=== PATIENT | female | born 1930 | race Caucasian/White ===

== ENCOUNTER 2017-01-26 23:31 | Emergency (ER) | payer MEDICARE, BC ==
--- NOTE | 2017-01-27 | ED ---
Head Injury - HPI Summary HPI Summary: Patient arrives [facility] after falling and hitting head. She lives alone and was getting ready for bed when she felt her legs give out on her. She states this is common for her and she will sometimes fall with it, but normally does not hit her head or injure other parts of her body. She takes a baby aspirin daily. Her family is with her. She does not want blood work as this is a common problem for her. She denies other pain, weakness, ADAMS, urinary symptoms or abd pain. - History Of Current Complaint Chief Complaint: EDGeneral Stated Complaint: FALL Time Seen by Provider: 01/26/17 23:43 Hx Obtained From: Patient Mechanism Of Injury: Blunt Trauma Onset/Duration: Started Minutes Ago Onset of Pain: Immediate Severity Currently: Mild Severity Initially: Mild Pain Intensity: 1 Pain Scale Used: 0-10 Numeric Alleviating Factor(s): Rest Associated Signs And Symptoms: Neck Pain Related History: Similar Episode/Dx as - previous falls - Risk Factors SDH Risk Factor: Recent Trauma - Allergies/Home Medications Allergies/Adverse Reactions: Allergies Allergy/AdvReac Type Severity Reaction Status Date / Time Penicillins [PCN] Allergy Mild Hives Verified 03/31/16 12:52 Sulfa Antibiotics Allergy Mild Hives Verified 03/31/16 12:52 PMH/Surg Hx/FS Hx/Imm Hx Previously Healthy: No Endocrine/Hematology History: Reports: Hx Blood Transfusions, Hx Diabetes - TYPE 2 Cardiovascular History: Reports: Hx Angina, Hx Coronary Artery Disease, Hx Hypercholesterolemia, Hx Hypertension - controllled by med Denies: Other Cardiovascular Problems/Disorders Respiratory History: Reports: Hx Pneumonia, Other Respiratory Problems/ Disorders - HAD PNEUMONIA 09/04 GI History: Reports: Hx Gall Bladder Disease - S/P CONSTANTINE History: Reports: Other Problems/Disorders - CKD, INCONTENCE Musculoskeletal History: Reports: Hx Fibromyalgia, Hx Orthopedic Injury - LEFT WRIST FRACTURE W/REPAIR /W PLATE Sensory History: Reports: Hx Contacts or Glasses, Hx Deafness Denies: Hx Cataracts, Hx Eye Injury, Hx Eye Prosthesis, Hx Glaucoma, Hx Legally Blind, Hx Macular Degeneration, Hx Vision Problem, Hx Hearing Aid, Hx Hearing Problem Opthamlomology History: Reports: Hx Contacts or Glasses Denies: Hx Cataracts, Hx Eye Injury, Hx Eye Prosthesis, Hx Glaucoma, Hx Legally Blind, Hx Macular Degeneration, Hx Vision Problem - Surgical History Surgery Procedure, Year, and Place: APPENDECTOMY. CHOLEYSECTOMY. LEFT WRIST FRACTURE REPAIR W/PLATE. CARDIAC STENT Hx Anesthesia Reactions: No Infectious Disease History: Denies: Hx Clostridium Difficile, Hx Hepatitis, Hx Human Immunodeficiency Virus (HIV), Hx of Known/Suspected MRSA, Hx Shingles, Hx Tuberculosis, Hx Known/ Suspected VRE, Hx Known/Suspected VRSA, History Other Infectious Disease, Traveled Outside the [place] in Last 30 Days - Family History Known Family History: Positive: Cardiac Disease, Hypertension - Social History Occupation: Unemployed Lives: Alone Alcohol Use: None Alcohol Amount: once in a blue ortiz" Hx Substance Use: No Substance Use Type: Reports: None Hx Tobacco Use: Yes Smoking Status (MU): Former Smoker Type: Cigarettes Have You Smoked in the Last Year: No Review of Systems Constitutional: Negative Eyes: Negative Cardiovascular: Negative Respiratory: Negative Positive: no symptoms reported, see HPI Positive: Arthralgia Skin: Negative Neurological: Negative Psychological: Normal All Other Systems Reviewed And Are Negative: Yes Physical Exam Triage Information Reviewed: Yes Vital Signs Reviewed: Yes Appearance: Positive: Well-Appearing, Well-Nourished Skin: Positive: Warm, Skin Color Reflects Adequate Perfusion Head/Face: Positive: Normal Head/Face Inspection Eyes: Positive: EOMI, TAMMIE, Conjunctiva Clear Neck: Positive: Supple, No Lymphadenopathy Respiratory/Lung Sounds: Positive: Clear to Auscultation, Breath Sounds Present Bowel Sounds: Positive: Present Musculoskeletal: Positive: Pain @ - midline posterior cervical spine Neurological: Positive: Alert, Oriented to Person Place, Time Psychiatric: Positive: Normal AVPU Assessment: Alert Head Injury Course/Dx Course Of Treatment: Patient sent to CT for brain and cervical spine. Both negative. Family is with patient. Encouraged her to return if new or worsening symptoms develop - Diagnoses Differential Diagnosis/HQI/PQRI: Concussion With LOC, Concussion Without LOC, Hematoma Provider Diagnoses: Head trauma Discharge - Discharge Plan Condition: Stable Disposition: HOME Patient Education Materials: Fall Prevention for Older Adults (ED) Referrals: Domi Bennett MD [Primary Care Provider] - Additional Instructions: Please follow up with your PCP IF symptoms persist, or you notice any new pain, please come back to ED
[2017-01-27] MEDS ORDERED: Acetaminophen TAB* 325 MG PO ONE (01:13)
[2017-01-27 01:52] VITALS: BP 139/40
--- NOTE | 2017-01-27 07:42 | RAD ---
HISTORY: Head trauma COMPARISONS: March 31, 2016 TECHNIQUE: Multiple contiguous axial CT scans were obtained of the head without intravenous contrast. FINDINGS: HEMORRHAGE/INFARCT: There is no hemorrhage or acute infarct. MASSES/SHIFT: There is no mass or shift. EXTRA-AXIAL SPACES: There are no extra-axial fluid collections. SULCI AND VENTRICLES: The sulci and ventricles are normal in size and position for the patient's stated age. CEREBRUM: There is hypoattenuation of the periventricular and subcortical white matter. BRAINSTEM: There are no focal parenchymal abnormalities. CEREBELLUM: There are no focal parenchymal abnormalities. VESSELS: There is calcification of the cavernous segments of the internal carotid arteries bilaterally and of the distal vertebral arteries bilaterally. PARANASAL SINUSES: The paranasal sinuses are clear. ORBITS: The orbits are unremarkable. BONES AND SOFT TISSUE: No bone or soft tissue abnormalities are noted. OTHER: None IMPRESSION: NO ACUTE INTRACRANIAL PATHOLOGY. CHRONIC SMALL VESSEL ISCHEMIC CHANGES.
--- NOTE | 2017-01-27 07:51 | RAD ---
INDICATION: Trauma. COMPARISON: There are no prior studies available for comparison. TECHNIQUE: Contiguous axial sections were obtained from the skull base through the C7 vertebra. Images were reconstructed in the sagittal and coronal planes. FINDINGS: The vertebra are in normal alignment. No prevertebral soft tissue swelling or fracture is seen. At the C4-C5 level there is mild posterior uncinate process spurring. No significant spinal canal or neural foraminal narrowing is seen. At the C5-C6 level there is mild posterior uncinate process spurring. No significant spinal canal narrowing is present. There is mild bilateral neural foraminal narrowing. At the C6-C7 level there is mild posterior uncinate process spurring no significant spinal canal narrowing is seen. There is mild neural foraminal narrowing on the left side. The lung apices appear clear. IMPRESSION: 1. NO EVIDENCE FOR FRACTURE OR SUBLUXATION. 2. MILD CERVICAL SPONDYLOSIS.
== END 2017-01-27 01:51 | disposition home or self-care (01) ==
LOC: ED 23:31
DX: S09.90XA Unspecified injury of head, initial encounter (principal); W01.10XA Fall on same level from slipping, tripping and stumbling with subsequent striking against unspecified object, initial encounter; Y92.9 Unspecified place or not applicable; E11.9 Type 2 diabetes mellitus without complications; I25.119 Atherosclerotic heart disease of native coronary artery with unspecified angina pectoris; E78.00 Pure hypercholesterolemia, unspecified; Z87.891 Personal history of nicotine dependence; I12.9 Hypertensive chronic kidney disease with stage 1 through stage 4 chronic kidney disease, or unspecified chronic kidney disease; N18.9 Chronic kidney disease, unspecified; Z88.0 Allergy status to penicillin; Z88.2 Allergy status to sulfonamides
CPT/HCPCS: 70450; 72125; 99283; A9270-GY

== ENCOUNTER 2017-03-11 20:23 | Inpatient (IN) | payer MEDICARE, BC ==
[2017-03-11] MEDS ORDERED: NS 0.9% 1000 ML* 1,000 ML IV SCH (21:30)
--- NOTE | 2017-03-11 21:41 | RAD ---
INDICATION: Short of breath COMPARISON: December 05, 2014 TECHNIQUE: An AP portable view obtained at 2129 hours is submitted. FINDINGS: Bones/Soft Tissues: There are no acute bony findings. Cardiomediastinal: The cardiomediastinal silhouette is normal. Lungs: There is infiltrate in left lung base with small bilateral pleural effusions. There is interstitial prominence some of which is chronic and some which may represent interstitial edema. Pleura: There may be small bilateral effusions.. Other: None IMPRESSION: SUSPECT MILD INTERSTITIAL CONGESTION WITH IMPROVEMENT SUPERIMPOSED UPON CHRONIC INTERSTITIAL CHANGES. LEFT BASILAR AIRSPACE DISEASE CONSISTENT WITH INFILTRATE, ATELECTASIS, PLEURAL FLUID, OR COMBINATION OF THE 3. THIS APPEARS STABLE
[2017-03-11 22:34] LABS: Hematocrit 34 % (35-47); Hemoglobin 10.8 g/dl (12.0-16.0); Mean Corpuscular HGB Conc 31 g/dl (31-36); Mean Corpuscular Hemoglobin 27 pg (27-31); Mean Corpuscular Volume 87 fL (80-97); Mean Platelet Volume 7 um3 (7.4-10.4); Red Blood Count 3.96 10^6/ul (4.0-5.4); Red Cell Distribution Width 14 % (10.5-15); White Blood Count 21.2 10^3/ul (3.5-10.8)
[2017-03-11 22:36] LABS: Add Diff/Slide Review? Manual Diff Added; Comments Flag Yes
[2017-03-11 22:45] LABS: ALT 20 U/L (7-52); Albumin 3.4 g/dL (3.2-5.2); Alkaline Phosphatase 111 U/L (34-104); BUN/Creatinine Ratio 28.2 (8-20); Blood Urea Nitrogen 60 mg/dL (6-24); C Reactive Protein 21.86 mg/L (< 5.00); CO2 Carbon Dioxide 25 mmol/L (22-32); Calcium 8.9 mg/dL (8.6-10.3); Chloride 99 mmol/L (101-111); Creatine Kinase 124 U/L (10-223); EGFR African American 28.2 (>60); EGFR Non-African American 21.9 (>60); Globulin 3.6 g/dL (2-4); Glucose 148 mg/dL (70-100); Lipase 17 U/L (11.0-82.0); Sodium 135 mmol/L (133-145)
[2017-03-11 22:47] LABS: Troponin I 0.01 ng/mL (<0.04)
[2017-03-11 22:51] LABS: Anion Gap 11 mmol/L (2-11)
[2017-03-11 22:56] LABS: Immature Granulocytes 12 % (0-9); Neutrophil % 80 % (38-83); Reactive Lymph % 1 % (0-6)
[2017-03-11 22:57] LABS: Add Path Review? YES; Polychromasia 1+
[2017-03-11 23:09] LABS: TSH (Thyroid Stimulating Horm) 2.44 mcIU/mL (0.34-5.60)
[2017-03-11] MEDS ORDERED: Azithromycin IV(*) 500 MG in NS 0.9% 250 ML* 250 ML IVPB ONE (23:30)
[2017-03-11] MEDS ORDERED: cefTRIAXone(*) 1 GM in NS 0.9% 50 ML* 50 ML IVPB ONE (23:30)
[2017-03-11] MEDS ORDERED: CMCS: Melatonin (NF) 3 MG TAB PO PRN (23:51)
[2017-03-11] MEDS ORDERED: Ondansetron INJ* 2 MG/ML VIAL IV PRN (23:51)
--- NOTE | 2017-03-12 01:28 | ED ---
carline Harrison Timothy, scribed for Jordan Saha MD on 03/11/17 at 2313 . Respiratory - HPI Summary HPI Summary: Alesia Song is an 86 yo female presenting to [facility] with SOB and cough for the past 3 days. She states she had a cold which turned into her current Sx. She states she has dyspnea at rest. She states her cough was productive, but she can no longer cough up sputum. She denies any fever or chills. She also denies abd pain, nausea, or any other Sx. She states she cannot remember if her current Sx are similar to when she had CHF. She has some pain throughout her legs bilaterally, worse on the right, but believes this is due to neuropathy. Her MHx includes angina, CAD, cardiac catheterization, CHF, HLD, SVT&P, Afib, AVR, HTN, PNA, gallbladder disease, cholecystectomy, CKD, fibromyalgia, DM II, tobacco use. - History of Current Complaint Chief Complaint: EDShortnessOfBreath Stated Complaint: SOB Time Seen by Provider: 03/11/17 23:07 Hx Obtained From: Patient Onset/Duration: Sudden Onset, Lasting Days, Still Present Timing: Constant Initial Severity: Moderate Current Severity: Moderate Character: Cough (Productive), Cough (Nonproductive) - current, Dyspnea at Rest Associated Signs and Symptoms: SOB - Allergy/Home Medications Allergies/Adverse Reactions: Allergies Allergy/AdvReac Type Severity Reaction Status Date / Time Penicillins [PCN] Allergy Mild Hives Verified 03/31/16 12:52 Sulfa Antibiotics Allergy Mild Hives Verified 03/31/16 12:52 Home Medications: Home Medications Amitriptyline TAB* 10 mg PO BEDTIME 03/12/17 [History Confirmed 03/12/17] Atorvastatin* 20 mg PO DAILY 03/12/17 [History Confirmed 03/12/17] Calcium + D 500-1000-40 mg-Unt-Mcg 1 dose PO DAILY 03/12/17 [History Confirmed 03/12/17] Humalog 6 - 7 units SUBCUT SEE INSTRUCTIONS 03/12/17 [History Confirmed 03/12/17 ] Humalog 8 unit SUBCUT SEE INSTRUCTIONS 03/12/17 [History Confirmed 03/12/17] Torsemide TAB* 10 mg PO DAILY 03/12/17 [History Confirmed 06/21/17] PMH/Surg Hx/FS Hx/Imm Hx Endocrine/Hematology History: Reports: Hx Blood Transfusions, Hx Diabetes - TYPE 2 Cardiovascular History: Reports: Hx Angina, Hx Congestive Heart Failure, Hx Coronary Artery Disease, Hx Hypercholesterolemia, Hx Hypertension - controllled by med Denies: Other Cardiovascular Problems/Disorders Respiratory History: Reports: Hx Pneumonia, Other Respiratory Problems/ Disorders - HAD PNEUMONIA 09/04 GI History: Reports: Hx Gall Bladder Disease - S/P CONSTANTINE History: Reports: Other Problems/Disorders - CKD, INCONTENCE Musculoskeletal History: Reports: Hx Fibromyalgia, Hx Orthopedic Injury - LEFT WRIST FRACTURE W/REPAIR /W PLATE Sensory History: Reports: Hx Contacts or Glasses, Hx Deafness Denies: Hx Cataracts, Hx Eye Injury, Hx Eye Prosthesis, Hx Glaucoma, Hx Legally Blind, Hx Macular Degeneration, Hx Vision Problem, Hx Hearing Aid, Hx Hearing Problem Opthamlomology History: Reports: Hx Contacts or Glasses Denies: Hx Cataracts, Hx Eye Injury, Hx Eye Prosthesis, Hx Glaucoma, Hx Legally Blind, Hx Macular Degeneration, Hx Vision Problem - Surgical History Surgery Procedure, Year, and Place: APPENDECTOMY. CHOLEYSECTOMY. LEFT WRIST FRACTURE REPAIR W/PLATE. CARDIAC STENT Hx Anesthesia Reactions: No Infectious Disease History: Denies: Hx Clostridium Difficile, Hx Hepatitis, Hx Human Immunodeficiency Virus (HIV), Hx of Known/Suspected MRSA, Hx Shingles, Hx Tuberculosis, Hx Known/ Suspected VRE, Hx Known/Suspected VRSA, History Other Infectious Disease, Traveled Outside the [place] in Last 30 Days - Family History Known Family History: Positive: Cardiac Disease, Hypertension - Social History Alcohol Use: None Alcohol Amount: once in a blue ortiz" Hx Substance Use: No Substance Use Type: Reports: None Hx Tobacco Use: Yes Smoking Status (MU): Former Smoker Type: Cigarettes Have You Smoked in the Last Year: No Review of Systems Constitutional: Negative Negative: Fever, Chills Eyes: Negative ENT: Negative Cardiovascular: Negative Positive: Shortness Of Breath, Cough Gastrointestinal: Negative Genitourinary: Negative Musculoskeletal: Negative Skin: Negative Neurological: Negative Psychological: Normal All Other Systems Reviewed And Are Negative: Yes Physical Exam Triage Information Reviewed: Yes Vital Signs On Initial Exam: Initial Vital Signs Temp 98.3 F 03/11/17 23:07 Pulse 99 03/11/17 23:07 Resp 18 03/11/17 23:07 BP 157/58 03/11/17 23:07 Pulse Ox 99 03/11/17 23:07 Vital Signs Reviewed: Yes Appearance: Positive: No Pain Distress, Well-Nourished, Ill-Appearing - mildly Skin: Positive: Warm, Skin Color Reflects Adequate Perfusion, Dry, Other - LLE has erythema and is warm to touch Head/Face: Positive: Normal Head/Face Inspection Eyes: Positive: EOMI, TAMMIE ENT: Positive: Normal ENT inspection Neck: Positive: Supple, Nontender Respiratory/Lung Sounds: Positive: Breath Sounds Present, Rhonchi - biulaterally Cardiovascular: Positive: Tachycardia Abdomen Description: Positive: Nontender, Soft Bowel Sounds: Positive: Present Musculoskeletal: Positive: Normal, Strength/ROM Intact Neurological: Positive: Normal, Sensory/Motor Intact, Alert, Oriented to Person Place, Time Psychiatric: Positive: Affect/Mood Appropriate Diagnostics - Vital Signs Vital Signs Temp Pulse Resp BP Pulse Ox 03/12/17 00:01 102 26 161/48 91 03/12/17 00:00 110 26 79 03/11/17 23:30 100 27 152/51 97 03/11/17 23:07 98.3 F 99 18 157/58 99 03/11/17 23:00 99 23 157/58 97 03/11/17 22:30 99 25 151/54 94 03/11/17 22:28 98 23 94 03/11/17 22:27 157/70 - Laboratory Lab Results: Lab Results 03/11/17 03/11/17 03/11/17 Range/Units 22:20 22:20 22:20 WBC 21.2 H (3.5-10.8) 10^3/ul RBC 3.96 L (4.0-5.4) 10^6/ul Hgb 10.8 L (12.0-16.0) g/dl Hct 34 L (35-47) % MCV 87 (80-97) fL MCH 27 (27-31) pg MCHC 31 (31-36) g/dl RDW 14 (10.5-15) % Plt Count 326 (150-450) 10^3/ul MPV 7 L (7.4-10.4) um3 Immature Gran % (Auto) 12 H (0-9) % Absolute Neuts (auto) 19.1 H (1.5-7.7) 10^3/ul Absolute Lymphs (auto) 0.5 L (1.0-4.8) 10^3/ul Absolute Monos (auto) 1.0 H (0-0.8) 10^3/ul Absolute Eos (auto) 0.1 (0-0.6) 10^3/ul Absolute Basos (auto) 0.5 H (0-0.2) 10^3/ul Absolute Nucleated RBC 0.01 10^3/ul Neutrophils % 80 (38-83) % Band Neutrophils % 12 H (0-8) % Lymphocytes % 1 L (25-47) % Reactive Lymphs % 1 (0-6) % Monocytes % 6 (0-13) % Normal RBC Morphology Not Reportable Polychromasia 1+ Hem Pathologist Commnt Pending INR (Anticoag Therapy) 0.97 (0.89-1.11) APTT 30.9 (26.0-36.3) seconds D-Dimer, Quantitative 325 H (Less Than 230) ng/mL Sodium 135 (133-145) mmol/L Potassium TNP Chloride 99 L (101-111) mmol/L Carbon Dioxide 25 (22-32) mmol/L Anion Gap 11 (2-11) mmol/L BUN 60 H (6-24) mg/dL Creatinine 2.13 H (0.51-0.95) mg/dL Est GFR ( Amer) 28.2 (>60) Est GFR (Non-Af Amer) 21.9 (>60) BUN/Creatinine Ratio 28.2 H (8-20) Glucose 148 H (70-100) mg/dL Lactic Acid (0.5-2.0) mmol/L Calcium 8.9 (8.6-10.3) mg/dL Magnesium TNP Total Bilirubin 0.40 (0.2-1.0) mg/dL AST TNP ALT 20 (7-52) U/L Alkaline Phosphatase 111 H (34-104) U/L Total Creatine Kinase 124 (10-223) U/L CK-MB (CK-2) 12.7 H (0.6-6.3) ng/mL Troponin I 0.01 (<0.04) ng/mL C-Reactive Protein 21.86 H (< 5.00) mg/L B-Natriuretic Peptide ( - 100) pg/mL Total Protein 7.0 (6.4-8.9) g/dL Albumin 3.4 (3.2-5.2) g/dL Globulin 3.6 (2-4) g/dL Albumin/Globulin Ratio 0.9 L (1-3) Lipase 17 (11.0-82.0) U/L TSH Pending 03/11/17 03/11/17 Range/Units 22:20 22:20 WBC (3.5-10.8) 10^3/ul RBC (4.0-5.4) 10^6/ul Hgb (12.0-16.0) g/dl Hct (35-47) % MCV (80-97) fL MCH (27-31) pg MCHC (31-36) g/dl RDW (10.5-15) % Plt Count (150-450) 10^3/ul MPV (7.4-10.4) um3 Immature Gran % (Auto) (0-9) % Absolute Neuts (auto) (1.5-7.7) 10^3/ul Absolute Lymphs (auto) (1.0-4.8) 10^3/ul Absolute Monos (auto) (0-0.8) 10^3/ul Absolute Eos (auto) (0-0.6) 10^3/ul Absolute Basos (auto) (0-0.2) 10^3/ul Absolute Nucleated RBC 10^3/ul Neutrophils % (38-83) % Band Neutrophils % (0-8) % Lymphocytes % (25-47) % Reactive Lymphs % (0-6) % Monocytes % (0-13) % Normal RBC Morphology Polychromasia Hem Pathologist Commnt INR (Anticoag Therapy) (0.89-1.11) APTT (26.0-36.3) seconds D-Dimer, Quantitative (Less Than 230) ng/mL Sodium (133-145) mmol/L Potassium Chloride (101-111) mmol/L Carbon Dioxide (22-32) mmol/L Anion Gap (2-11) mmol/L BUN (6-24) mg/dL Creatinine (0.51-0.95) mg/dL Est GFR ( Amer) (>60) Est GFR (Non-Af Amer) (>60) BUN/Creatinine Ratio (8-20) Glucose (70-100) mg/dL Lactic Acid 1.1 (0.5-2.0) mmol/L Calcium (8.6-10.3) mg/dL Magnesium Total Bilirubin (0.2-1.0) mg/dL AST ALT (7-52) U/L Alkaline Phosphatase (34-104) U/L Total Creatine Kinase (10-223) U/L CK-MB (CK-2) (0.6-6.3) ng/mL Troponin I (<0.04) ng/mL C-Reactive Protein (< 5.00) mg/L B-Natriuretic Peptide 301 H ( - 100) pg/mL Total Protein (6.4-8.9) g/dL Albumin (3.2-5.2) g/dL Globulin (2-4) g/dL Albumin/Globulin Ratio (1-3) Lipase (11.0-82.0) U/L TSH Result Diagrams: 03/11/17 22:20 03/11/17 22:20 Lab Statement: Any lab studies that have been ordered have been reviewed, and results considered in the medical decision making process. - Radiology CXR Xray Interpretation: Positive (See Comments) - IMPRESSION: SUSPECT MILD INTERSTITIAL CONGESTION WITH IMPROVEMENT SUPERIMPOSED UPON CHRONIC INTERSTITIAL CHANGES. LEFT BASILAR AIRSPACE DISEASE CONSISTENT WITH INFILTRATE, ATELECTASIS, PLEURAL FLUID, OR COMBINATION OF THE 3. THIS APPEARS STABLE Radiology Interpretation Completed By: Radiologist - Ultrasound No standard instances Ultrasound Interpretation: No Acute Changes - No evidence of DVT in bilateral lower extremities. Ultrasound Interpretation Completed By: Radiologist - Venous Doppler bilat lower extrem. Imaging special education preschool teacher - EKG 2328 Cardiac Rate: NL - 99 BPM EKG Interpretation: NSR @ 99 BPM, normal ST, no ectopy Disposition - Course Assessment/Plan: Alesia Song is an 86 yo female presenting to [facility] with SOB and cough for the past 3 days. Her medication list is reviewed this visit. Note that Pt O2 Sat on 2L was 89. In the ED course she received IV fluids, ceftriazone, and azithromycin. Her CXR suggests mild interstitial congestion with improvement superimposed upon chronic interstitial changes. Left basilar airspace disease consistent with infiltrate, atelactasis, pleural fluid, or combination of the 3, which appears stable. Her EKG; NSR with normal St and no ectopy. Pt was counseled that admission may be the best course of Tx for her. After clinical examination and review of her lab and imaging studies, as well as discussion with Dr. Floyd, she will be admitted to [facility] for further observation, evaluation, and treatment. Her Venous Doppler of the bilateral lower extremities; no DVT. NO CRITICAL CARE TIME. ADMIT HOSPITALIST STABLE. - Differential Dx - Cardiopulmonary Differential Diagnoses - Cardiopulmonary: CHF, Other - cellulitis - Diagnoses Provider Diagnoses: Pneumonia, CHF (congestive heart failure), Cellulitis, Dehydration - Physician Notifications Discussed Care Of Patient With: Griffin Floyd - Discussed Pt condition, accepts Pt for admission to [facility] Time Discussed With Above Provider: 23:25 Discharge - Discharge Plan Condition: Stable Disposition: ADMITTED TO [facility] The documentation as recorded by the carline ingram Timothy accurately reflects the service I personally performed and the decisions made by me, Jordan Saha MD.
[2017-03-12 01:34] LABS: Magnesium 1.9 mg/dL (1.9-2.7)
[2017-03-12] MEDS: Acetaminophen TAB* 325 MG PO PRN ×3 (03:02→18:20)
[2017-03-12] MEDS: NS 0.9% 1000 ML* 1,000 ML IV SCH ×2 (03:41→21:41)
[2017-03-12 04:47] LABS: Hematocrit 29 % (35-47); Hemoglobin 9.1 g/dl (12.0-16.0); Mean Corpuscular HGB Conc 32 g/dl (31-36); Mean Corpuscular Hemoglobin 28 pg (27-31); Mean Corpuscular Volume 87 fL (80-97); Mean Platelet Volume 7 um3 (7.4-10.4); Red Blood Count 3.27 10^6/ul (4.0-5.4); Red Cell Distribution Width 14 % (10.5-15); White Blood Count 23.3 10^3/ul (3.5-10.8)
[2017-03-12 04:49] LABS: Add Diff/Slide Review? Manual Diff Added; Comments Flag Yes
[2017-03-12 05:04] LABS: BUN/Creatinine Ratio 31.3 (8-20); Calcium 8.3 mg/dL (8.6-10.3); EGFR African American 30.7 (>60); EGFR Non-African American 23.8 (>60); Potassium 4.7 mmol/L (3.5-5.0)
[2017-03-12 05:37] LABS: Add Path Review? YES; Hypochromasia 1+; Immature Granulocytes 14 % (0-9); Neutrophil % 79 % (38-83)
[2017-03-12] MEDS: Omeprazole CAP* 20 MG PO SCH (06:06)
[2017-03-12] MEDS: Heparin VIAL(*) 5000 UNITS/ML VIAL (FIVE THOUSAND) SUBCUT SCH ×3 (06:07→21:46)
--- NOTE | 2017-03-12 06:12 | HP ---
H&P (Free Text) History and Physical: PCP: Yolande Bennett MD Date/Time of Evaluation: 03/11/2017 [id number] CC: SOB HPI: Mrs Song is an 86YO female HX CAD/stent who reports cough and congestion x2-3 weeks which had loosened up and become productive, but over the last 2 days has become tight and non-productive again. She denies F/C, N/V, sweats, chest pain, palpitations, light-headedness, change in bowel/bladder, or other issues. She began having SOB 03/10/2017 in the evening which persisted through today gradually worsening and prompting her to present for evaluation. PMedHx DM2 HTN CHF pAFIB hypothyroidism R carpal tunnel (no surgery) CAD/stent CKD stg 3b-4 Ambulatory Orders Aspirin Low Dose CHEW TAB* [Aspirin Low Dose TAB*] 81 mg PO DAILY 09/08/14 zzInsulin GLARGINE(*) [Lantus(*)] 6 units SUBCUT BEDTIME 09/08/14 Acetaminophen TAB* [Tylenol TAB*] 650 mg PO Q4H PRN 11/30/14 Amiodarone TAB* [Cordarone Tab*] 100 mg PO DAILY 11/30/14 Diltiazem CD CAP* [Cardizem CD CAP*] 180 mg PO DAILY 11/30/14 Levofloxacin TAB* [Levaquin 250 Tab*] 88 mg PO DAILY 11/30/14 Triamterene/HCTZ 37.5-25 MG* [Dyazide CAP*] 1 cap PO DAILY 11/30/14 zzInsulin inj LISPRO* [Humalog*] 8 units SUBCUT QAM 11/30/14 Amitriptyline TAB* 10 mg PO BEDTIME 03/12/17 Atorvastatin* 20 mg PO DAILY 03/12/17 Calcium + D 500-1000-40 mg-Unt-Mcg 1 dose PO DAILY 03/12/17 Humalog 6 - 7 units SUBCUT SEE INSTRUCTIONS 03/12/17 Humalog 8 unit SUBCUT SEE INSTRUCTIONS 03/12/17 Torsemide TAB* 10 mg PO DAILY 03/12/17 Allergies Penicillins [PCN] Allergy (Mild, Verified 03/31/16 12:52) Hives Sulfa Antibiotics Allergy (Mild, Verified 03/31/16 12:52) Hives PSurgHx cardiac stent appendectomy cholecystectomy tonsillectomy OU cataract extractions hysterectomy SocHx: former smoker quit in the 1970s, minimal alcohol, no recreational drugs; , lives alone; DNR/trial of intubation code status FamHx: Mother passed in her 80s of "old age. Father passed in his 80s of prostate CA. ROS: as above, otherwise reviewed and all were negative Constitutional: NAD, normally developed, overweight elderly white female vitals: Vital Signs Temp 36.8 C 03/12/17 02:52 Pulse 105 03/12/17 02:52 Resp 20 03/12/17 02:52 BP 150/61 03/12/17 02:52 Pulse Ox 92 03/12/17 02:52 Intake & Output 03/11/17 03/11/17 03/12/17 11:59 23:59 11:59 Weight 75.296 kg 72.121 kg HEENM: atraumatic; sclera/conjunctiva: non-icteric/clear; hearing: clinically intact; oropharynx: clear, mucosa tacky Neck: soft tissue: non-tender; thyroid: normal Pulmonary: diminished L base w/ bibasilar coarseness, fair to good aeration, no accessory muscle use CV: RR/RR, normal S1S2, no carotid bruit, no jugular venous distention, 2+ B DP/ PT, no edema Abdominal: soft, non-distended, non-tender, no rebound/guarding/rigidity, normoactive bowel sounds, no hepatosplenomegaly or masses, no costovertebral angle tenderness Musculoskeletal: general: grossly intact; gait: stable Integumental: normal appearance and texture of exposed skin Psychiatric orientation: AA&O to PPS affect: calm mood: cooperative eye contact: good content: reliable responses: timely insight: good Testing: Lab Results 03/11/17 03/11/17 03/11/17 Range/Units 22:20 22:20 22:20 WBC 21.2 H (3.5-10.8) 10^3/ul RBC 3.96 L (4.0-5.4) 10^6/ul Hgb 10.8 L (12.0-16.0) g/dl Hct 34 L (35-47) % MCV 87 (80-97) fL MCH 27 (27-31) pg MCHC 31 (31-36) g/dl RDW 14 (10.5-15) % Plt Count 326 (150-450) 10^3/ul MPV 7 L (7.4-10.4) um3 Immature Gran % (Auto) 12 H (0-9) % Absolute Neuts (auto) 19.1 H (1.5-7.7) 10^3/ul Absolute Lymphs (auto) 0.5 L (1.0-4.8) 10^3/ul Absolute Monos (auto) 1.0 H (0-0.8) 10^3/ul Absolute Eos (auto) 0.1 (0-0.6) 10^3/ul Absolute Basos (auto) 0.5 H (0-0.2) 10^3/ul Absolute Nucleated RBC 0.01 10^3/ul Neutrophils % 80 (38-83) % Band Neutrophils % 12 H (0-8) % Lymphocytes % 1 L (25-47) % Reactive Lymphs % 1 (0-6) % Monocytes % 6 (0-13) % Normal RBC Morphology Not Reportable Polychromasia 1+ Hypochromasia Hem Pathologist Commnt Pending INR (Anticoag Therapy) 0.97 (0.89-1.11) APTT 30.9 (26.0-36.3) seconds D-Dimer, Quantitative 325 H (Less Than 230) ng/mL Sodium 135 (133-145) mmol/L Potassium TNP Chloride 99 L (101-111) mmol/L Carbon Dioxide 25 (22-32) mmol/L Anion Gap 11 (2-11) mmol/L BUN 60 H (6-24) mg/dL Creatinine 2.13 H (0.51-0.95) mg/dL Est GFR ( Amer) 28.2 (>60) Est GFR (Non-Af Amer) 21.9 (>60) BUN/Creatinine Ratio 28.2 H (8-20) Glucose 148 H (70-100) mg/dL POC Glucose (mg/dL) (74-106) mg/dL Lactic Acid (0.5-2.0) mmol/L Calcium 8.9 (8.6-10.3) mg/dL Magnesium TNP Total Bilirubin 0.40 (0.2-1.0) mg/dL AST TNP ALT 20 (7-52) U/L Alkaline Phosphatase 111 H (34-104) U/L Total Creatine Kinase 124 (10-223) U/L CK-MB (CK-2) 12.7 H (0.6-6.3) ng/mL Troponin I 0.01 (<0.04) ng/mL C-Reactive Protein 21.86 H (< 5.00) mg/L B-Natriuretic Peptide ( - 100) pg/mL Total Protein 7.0 (6.4-8.9) g/dL Albumin 3.4 (3.2-5.2) g/dL Globulin 3.6 (2-4) g/dL Albumin/Globulin Ratio 0.9 L (1-3) Lipase 17 (11.0-82.0) U/L TSH 2.44 (0.34-5.60) mcIU/mL 03/11/17 03/11/17 03/12/17 Range/Units 22:20 22:20 00:45 WBC (3.5-10.8) 10^3/ul RBC (4.0-5.4) 10^6/ul Hgb (12.0-16.0) g/dl Hct (35-47) % MCV (80-97) fL MCH (27-31) pg MCHC (31-36) g/dl RDW (10.5-15) % Plt Count (150-450) 10^3/ul MPV (7.4-10.4) um3 Immature Gran % (Auto) (0-9) % Absolute Neuts (auto) (1.5-7.7) 10^3/ul Absolute Lymphs (auto) (1.0-4.8) 10^3/ul Absolute Monos (auto) (0-0.8) 10^3/ul Absolute Eos (auto) (0-0.6) 10^3/ul Absolute Basos (auto) (0-0.2) 10^3/ul Absolute Nucleated RBC 10^3/ul Neutrophils % (38-83) % Band Neutrophils % (0-8) % Lymphocytes % (25-47) % Reactive Lymphs % (0-6) % Monocytes % (0-13) % Normal RBC Morphology Polychromasia Hypochromasia Hem Pathologist Commnt INR (Anticoag Therapy) (0.89-1.11) APTT (26.0-36.3) seconds D-Dimer, Quantitative (Less Than 230) ng/mL Sodium (133-145) mmol/L Potassium 4.9 Chloride (101-111) mmol/L Carbon Dioxide (22-32) mmol/L Anion Gap (2-11) mmol/L BUN (6-24) mg/dL Creatinine (0.51-0.95) mg/dL Est GFR ( Amer) (>60) Est GFR (Non-Af Amer) (>60) BUN/Creatinine Ratio (8-20) Glucose (70-100) mg/dL POC Glucose (mg/dL) (74-106) mg/dL Lactic Acid 1.1 (0.5-2.0) mmol/L Calcium (8.6-10.3) mg/dL Magnesium 1.9 Total Bilirubin (0.2-1.0) mg/dL AST 20 ALT (7-52) U/L Alkaline Phosphatase (34-104) U/L Total Creatine Kinase (10-223) U/L CK-MB (CK-2) (0.6-6.3) ng/mL Troponin I (<0.04) ng/mL C-Reactive Protein (< 5.00) mg/L B-Natriuretic Peptide 301 H ( - 100) pg/mL Total Protein (6.4-8.9) g/dL Albumin (3.2-5.2) g/dL Globulin (2-4) g/dL Albumin/Globulin Ratio (1-3) Lipase (11.0-82.0) U/L TSH (0.34-5.60) mcIU/mL 03/12/17 03/12/17 03/12/17 Range/Units 03:36 04:34 04:34 WBC 23.3 H (3.5-10.8) 10^3/ul RBC 3.27 L (4.0-5.4) 10^6/ul Hgb 9.1 L (12.0-16.0) g/dl Hct 29 L (35-47) % MCV 87 (80-97) fL MCH 28 (27-31) pg MCHC 32 (31-36) g/dl RDW 14 (10.5-15) % Plt Count 295 (150-450) 10^3/ul MPV 7 L (7.4-10.4) um3 Immature Gran % (Auto) 14 H (0-9) % Absolute Neuts (auto) 21.2 H (1.5-7.7) 10^3/ul Absolute Lymphs (auto) 0.9 L (1.0-4.8) 10^3/ul Absolute Monos (auto) 0.8 (0-0.8) 10^3/ul Absolute Eos (auto) 0.5 (0-0.6) 10^3/ul Absolute Basos (auto) 0 (0-0.2) 10^3/ul Absolute Nucleated RBC 0 10^3/ul Neutrophils % 79 (38-83) % Band Neutrophils % 14 H (0-8) % Lymphocytes % 4 L (25-47) % Reactive Lymphs % (0-6) % Monocytes % 3 (0-13) % Normal RBC Morphology Not Reportable Polychromasia Hypochromasia 1+ Hem Pathologist Commnt Pending INR (Anticoag Therapy) (0.89-1.11) APTT (26.0-36.3) seconds D-Dimer, Quantitative (Less Than 230) ng/mL Sodium 133 (133-145) mmol/L Potassium 4.7 Chloride 100 L (101-111) mmol/L Carbon Dioxide 22 (22-32) mmol/L Anion Gap 11 (2-11) mmol/L BUN 62 H (6-24) mg/dL Creatinine 1.98 H (0.51-0.95) mg/dL Est GFR ( Amer) 30.7 (>60) Est GFR (Non-Af Amer) 23.8 (>60) BUN/Creatinine Ratio 31.3 H (8-20) Glucose 253 H (70-100) mg/dL POC Glucose (mg/dL) 258 H (74-106) mg/dL Lactic Acid (0.5-2.0) mmol/L Calcium 8.3 L (8.6-10.3) mg/dL Magnesium Total Bilirubin (0.2-1.0) mg/dL AST ALT (7-52) U/L Alkaline Phosphatase (34-104) U/L Total Creatine Kinase (10-223) U/L CK-MB (CK-2) (0.6-6.3) ng/mL Troponin I (<0.04) ng/mL C-Reactive Protein (< 5.00) mg/L B-Natriuretic Peptide ( - 100) pg/mL Total Protein (6.4-8.9) g/dL Albumin (3.2-5.2) g/dL Globulin (2-4) g/dL Albumin/Globulin Ratio (1-3) Lipase (11.0-82.0) U/L TSH (0.34-5.60) mcIU/mL ECG, personally reviewed: NSR rate 99, no ischemia CXR, personally reviewed: IMPRESSION: SUSPECT MILD INTERSTITIAL CONGESTION WITH IMPROVEMENT SUPERIMPOSED UPON CHRONIC INTERSTITIAL CHANGES. LEFT BASILAR AIRSPACE DISEASE CONSISTENT WITH INFILTRATE, ATELECTASIS, PLEURAL FLUID, OR COMBINATION OF THE 3. THIS APPEARS STABLE Impression: 86F presenting with fever & cough with baseline LLL abnormality on CXR DIAGNOSIS & PLAN Primary suspect LLL pneumonia superimposed on baseline LLL XRY abnormality : IV ceftriaxone & azithromycin : IVFs : blood & sputum CXs : obtain UA : check Legionella & S pneumo urine antigens : supplemental oxygen : supportive care elevated d-dimer : given that: : her d-dimer is minimally elevated, particularly considering her age : her symptoms are not supportive of pulmonary embolism : she has had 3 falls thus far in 2017 : she was admitted with a GI bleed in 2015 : her CKD stg 4 precludes CTA chest : her smoking HX may yield a falsely positive V/Q scan : due to the above, she is a poor candidate for long-term anticoagulation : after explaining the above with the patient/family they agreed it made little sense to demetrio an unlikely diagnosis for which treatment would be inadvisable Secondary DM2 : insulin carb ratio diet : basal/bolus/correctional insulin : check A1c HTN : continue diltiazem : hold triamterene/HCTZ for now CHF : continue torsemide : daily weights : strict I&Os pAFIB : NSR at this time : not on anticoagulation hypothyroidism : continue levofloxacin CAD/stent : continue aspirin CKD stg 3b-4 : avoid nephrotoxic agents : monitor periodically Admission Rational: inpatient for IVFs and IV ABX in patient at high risk of rapid decompensation/mortality in the outpatient setting DVTp: heparin SQ Code Status: DNR/trial of intubation; MOLST filled out HCP: son
--- NOTE | 2017-03-12 07:41 | RAD ---
INDICATION: Lower extremity calf pain. Positive d-dimer. COMPARISON: September 09, 2014 TECHNIQUE: Stanton scale, color Doppler, and spectral analysis of the deep veins of the BILATERAL lower extremities. Vessel compression, phasicity, and augmentation assessed. REPORT: The RIGHT common femoral, great saphenous, profunda femoral, femoral, popliteal, peroneal, and posterior tibial veins are patent. The LEFT common femoral, great saphenous, profunda femoral, femoral, popliteal, peroneal, and posterior tibial veins are patent. IMPRESSION: No evidence for RIGHT or LEFT lower extremity DVT.
[2017-03-12] MEDS ORDERED: Torsemide TAB* 20 MG PO SCH (09:00)
[2017-03-12] MEDS ORDERED: Spiriva Inhaler DEVICE* 1 EACH DEVICE INH ONE (09:00)
[2017-03-12] MEDS: Insulin LISPRO* 1 UNITS UNIT SUBCUT SCH ×7 (09:34→21:45)
[2017-03-12] MEDS: Aspirin Low Dose CHEW TAB* 81 MG PO SCH (09:45)
[2017-03-12] MEDS: Diltiazem CD CAP* 180 MG PO SCH (09:45)
[2017-03-12] MEDS: Docusate CAP* 100 MG PO SCH ×2 (09:45→21:42)
[2017-03-12] MEDS: Atorvastatin* 20 MG TAB PO SCH (09:45)
[2017-03-12] MEDS: Amiodarone TAB* 200 MG PO SCH (09:46)
[2017-03-12] MEDS: Mometasone/Formoter 200/5 MDI INH SCH ×2 (09:59→19:34)
[2017-03-12] MEDS: Tiotropium CAP.INH* CAP.INH/18 MCG INH SCH (10:00)
--- NOTE | 2017-03-12 10:09 | PN ---
Subjective Date of Service: 03/12/17 Interval History: This is an 86 yo female with CAD, DM, HTN, CHF, paroxysmal afib, hypothyroidism , and CKD who presented with cough and congestion with LLL infiltrate and leukocytosis. She was started on ceftriaxone and azithromycin. She states that she didn't sleep well last night and feels "lousy" this am. She is still coughing with SOB. She feels that she can't get her secretions out. Objective Active Medications: Acetaminophen (Tylenol Tab*) 650 mg PO Q6H PRN PRN Reason: FEVER/PAIN Last Admin: 03/12/17 09:45 Dose: 650 mg Albuterol (Ventolin 2.5 Mg/3 Ml Neb.Sally*) 2.5 mg INH Q2H PRN PRN Reason: SOB/WHEEZING Amiodarone HCl (Cordarone Tab*) 100 mg PO DAILY [facility] Last Admin: 03/12/17 09:46 Dose: 100 mg Amitriptyline HCl (Elavil Tab*) 10 mg PO BEDTIME [facility] Aspirin (Aspirin Low Dose Tab*) 81 mg PO DAILY [facility] Last Admin: 03/12/17 09:45 Dose: 81 mg Atorvastatin Calcium (Lipitor*) 20 mg PO DAILY [facility] Last Admin: 03/12/17 09:45 Dose: 20 mg Diltiazem HCl (Cardizem Cd Cap*) 180 mg PO DAILY [facility] Last Admin: 03/12/17 09:45 Dose: 180 mg Docusate Sodium (Colace Cap*) 200 mg PO BID [facility] Last Admin: 03/12/17 09:45 Dose: 200 mg Heparin Sodium (Porcine) (Heparin Vial(*)) 5,000 units SUBCUT Q8HR [facility] Last Admin: 03/12/17 06:07 Dose: 5,000 units Sodium Chloride (Ns 0.9% 1000 Ml*) 1,000 mls @ 85 mls/hr IV PER RATE [facility] Last Admin: 03/12/17 03:41 Dose: 85 mls/hr Ceftriaxone Sodium 1,000 mg/ (Sodium Chloride) 50 mls @ 200 mls/hr IVPB Q24H [facility] Azithromycin 500 mg/ Sodium (Chloride) 250 mls @ 250 mls/hr IVPB Q24H [facility] Insulin Glargine (Lantus(*)) 14 units SUBCUT 2100 [facility] Stop: 03/13/17 20:00 Insulin Human Lispro (Humalog*) 0 units SUBCUT AC TITA PRN Reason: Protocol Last Admin: 03/12/17 09:35 Dose: 2 units Insulin Human Lispro (Humalog*) 0 units SUBCUT ACHS [facility] PRN Reason: Protocol Last Admin: 03/12/17 09:34 Dose: 4 units Melatonin (Melatonin (Nf)) 3 mg PO BEDTIME PRN; Protocol PRN Reason: Sleep Mometasone Furoate/Formoterol Fumar (Dulera 200/5 Mdi*) 2 puff INH BID [facility] Last Admin: 03/12/17 09:59 Dose: 2 puff Omeprazole (Prilosec Cap*) 20 mg PO DAILY@0600 [facility] Last Admin: 03/12/17 06:06 Dose: 20 mg Ondansetron HCl (Zofran Inj*) 4 mg IV Q6H PRN PRN Reason: NAUSEA Tiotropium [place] (Spiriva Cap.Inh*) 1 cap INH DAILY [facility] Last Admin: 03/12/17 10:00 Dose: 1 cap Torsemide (Demadex*) 10 mg PO DAILY [facility] Last Admin: 03/12/17 09:46 Dose: 10 mg Vital Signs: Temp Pulse Resp BP Pulse Ox 98.3 F 91 18 150/61 91 03/12/17 02:52 03/12/17 10:04 03/12/17 10:04 03/12/17 02:52 03/12/17 10:04 Oxygen Devices in Use Now: Nasal Cannula Appearance: Mildly ill appearing elderly female in NAD Respiratory: Symmetrical Chest Expansion and Respiratory Effort, - - few crackles at lung bases Cardiovascular: NL Sounds; No Murmurs; No JVD, RRR Abdominal: NL Sounds; No Tenderness; No Distention Extremities: No Edema Neurological: Alert and Oriented x 3 Result Diagrams: 03/12/17 04:34 03/12/17 04:34 Additional Lab and Data: . Diagnostic Imaging: CXR - possible LLL infiltrate Assess/Plan/Problems-Billing Assessment: This is an 86 yo female with CAD, DM, HTN, CHF, paroxysmal atrial fibrillation, hypothyroidism and CKD who presents with complaints of cough and SOB with LLL infiltrate. - Patient Problems (1) Pneumonia Comment: LLL infiltrated on CXR Cont ceftriaxone and azithromycin Start Mucinex and flutter valve to help clear secretions Afebrile and mildly tachy (2) Acute on chronic renal insufficiency Comment: Likely due to hypovolemia Cont IVF (3) IDDM (insulin dependent diabetes mellitus) Comment: Cont home insulin regimen (4) CHF (congestive heart failure) Comment: No evidence of acute exacerbation Cont med management, but hold diuretics at this time (5) Hypothyroidism Comment: Cont levothyroxine (6) Atrial fibrillation Comment: Sinus at admission Cont amiodarone and diltiazem No anticoagulation noted on home medication list (7) Hx of coronary artery disease Comment: NO evidence of ACS Cont statin, ASA (8) DNR no code (do not resuscitate) (9) DVT prophylaxis Comment: SQ heparin Status and Disposition: Inpatient. Anticipate 2-3 d LOS
--- NOTE | 2017-03-12 12:15 | PN ---
Progress Note - Progress Note SOAP: Subjective: [This is a 86 yo white female with PMH: CAD with stent, CHF, PAF, Hypothyroidism , and CKD with probable LLL pneumonia on CXR and leukocytosis that is being treated empirically with azithromycin and ceftriaxone. Her cough has been present for past 2 weeks and SOB present since 5 days ago. Patient reports today she is still feeling weak and lightheaded. She feels congested and is unable to cough up secretions. She denies n/v, sweats/chills, palpitation, chest pain, changes in bowel or bladder. ] Active medications: Acetaminophen (Tylenol Tab*) 650 mg PO Q6H PRN PRN Reason: FEVER/PAIN Last Admin: 03/12/17 09:45 Dose: 650 mg Albuterol (Ventolin 2.5 Mg/3 Ml Neb.Sally*) 2.5 mg INH Q2H PRN PRN Reason: SOB/WHEEZING Last Admin: 03/12/17 12:46 Dose: 2.5 mg Amiodarone HCl (Cordarone Tab*) 100 mg PO DAILY [facility] Last Admin: 03/12/17 09:46 Dose: 100 mg Amitriptyline HCl (Elavil Tab*) 10 mg PO BEDTIME [facility] Aspirin (Aspirin Low Dose Tab*) 81 mg PO DAILY [facility] Last Admin: 03/12/17 09:45 Dose: 81 mg Atorvastatin Calcium (Lipitor*) 20 mg PO DAILY [facility] Last Admin: 03/12/17 09:45 Dose: 20 mg Diltiazem HCl (Cardizem Cd Cap*) 180 mg PO DAILY [facility] Last Admin: 03/12/17 09:45 Dose: 180 mg Docusate Sodium (Colace Cap*) 200 mg PO BID [facility] Last Admin: 03/12/17 09:45 Dose: 200 mg Guaifenesin (Mucinex*) 1,200 mg PO BID [facility] Last Admin: 03/12/17 12:36 Dose: 1,200 mg Heparin Sodium (Porcine) (Heparin Vial(*)) 5,000 units SUBCUT Q8HR [facility] Last Admin: 03/12/17 12:37 Dose: 5,000 units Sodium Chloride (Ns 0.9% 1000 Ml*) 1,000 mls @ 85 mls/hr IV PER RATE [facility] Last Admin: 03/12/17 03:41 Dose: 85 mls/hr Ceftriaxone Sodium 1,000 mg/ (Sodium Chloride) 50 mls @ 200 mls/hr IVPB Q24H [facility] Azithromycin 500 mg/ Sodium (Chloride) 250 mls @ 250 mls/hr IVPB Q24H [facility] Insulin Glargine (Lantus(*)) 14 units SUBCUT 2100 [facility] Stop: 03/13/17 20:00 Insulin Human Lispro (Humalog*) 0 units SUBCUT AC [facility] PRN Reason: Protocol Last Admin: 03/12/17 13:10 Dose: 5 units Insulin Human Lispro (Humalog*) 0 units SUBCUT ACHS [facility] PRN Reason: Protocol Last Admin: 03/12/17 12:36 Dose: 8 units Levothyroxine Sodium (Synthroid Tab*) 88 mcg PO DAILY@0600 [facility] Melatonin (Melatonin (Nf)) 3 mg PO BEDTIME PRN; Protocol PRN Reason: Sleep Mometasone Furoate/Formoterol Fumar (Dulera 200/5 Mdi*) 2 puff INH BID [facility] Last Admin: 03/12/17 09:59 Dose: 2 puff Omeprazole (Prilosec Cap*) 20 mg PO DAILY@0600 [facility] Last Admin: 03/12/17 06:06 Dose: 20 mg Ondansetron HCl (Zofran Inj*) 4 mg IV Q6H PRN PRN Reason: NAUSEA Tiotropium [place] (Spiriva Cap.Inh*) 1 cap INH DAILY [facility] Last Admin: 03/12/17 10:00 Dose: 1 cap Allergies: Penicillins: hives Sulfa Antibiotics: hives Objective: [ Vital Signs: Temp Pulse Resp BP Pulse Ox 97.6 F 72 18 139/55 95 03/12/17 11:54 03/12/17 13:55 03/12/17 13:55 03/12/17 11:54 03/12/17 13:55 General: Patient is 86 yo white woman that is moderately ill in NAD. Lungs: Respirations are somewhat labored without use of accessory muscles. Bilateral crackles heard in bases of lungs, otherwise no wheezing or rhonchi. Heart: RRR no murmurs, rubs, or gallops. Abdomen: Soft and nontender. Bowel sound normoactive and abdomen is mildly distended. Extremities: Warm to touch without edema. Pedal pulses intact bilaterally. Neuro: Alert and oriented X3.] Assessment/Plan: 1) LLL Pneumonia: Continue azithromycin and ceftriaxone empirically. Sputum culture and blood cultures are still pending. Continue with IVF and supplemental oxygen. 2) DM: Continue both basal and bolus dosing with Lantus and SS Humalog. 3) CHF: Hold diuretics 4) Paroxysmal Afib: Patient is not anticoagulated, continue with rate controll with Amiodarone and Diltiazem. 5) CKD: Continue with IVF and monitor kidney functioning. 6) CAD: Continue ASA. 7) Hypothyroidism: Continue Synthroid. 8) Code Status: Do not resituate.
[2017-03-12] MEDS: guaiFENesin ER TAB 600 MG PO SCH ×2 (12:36→21:43)
[2017-03-12] MEDS: Albuterol 2.5 MG/3 ML NEB.SOL* (0.083%) INH PRN (12:46)
[2017-03-12] MEDS ORDERED: Insulin GLARGINE(*) 1 UNITS UNIT SUBCUT SCH (21:00)
[2017-03-12] MEDS: Amitriptyline TAB* 10 MG PO SCH (21:42)
[2017-03-12] MEDS: cefTRIAXone VIAL(*) 1,000 MG in NS 0.9% 50 ML* 50 ML IVPB SCH (23:32)
[2017-03-12] MEDS: Azithromycin IV(*) 500 MG in NS 0.9% 250 ML* 250 ML IVPB SCH (23:53)
[2017-03-13 01:27] LABS: Urine Bacteria Absent (Absent); Urine Bilirubin Negative (Negative); Urine Glucose Negative (Negative); Urine Nitrite Negative (Negative)
[2017-03-13] MEDS: Omeprazole CAP* 20 MG PO SCH (05:45)
[2017-03-13] MEDS: Heparin VIAL(*) 5000 UNITS/ML VIAL (FIVE THOUSAND) SUBCUT SCH ×3 (05:45→22:51)
[2017-03-13] MEDS: Levothyroxine TAB* 88 MCG TAB PO SCH (05:45)
[2017-03-13 08:36] LABS: Hematocrit 30 % (35-47); Hemoglobin 9.4 g/dl (12.0-16.0); Mean Corpuscular HGB Conc 32 g/dl (31-36); Mean Corpuscular Hemoglobin 28 pg (27-31); Mean Corpuscular Volume 87 fL (80-97); Mean Platelet Volume 7 um3 (7.4-10.4); Red Blood Count 3.41 10^6/ul (4.0-5.4); Red Cell Distribution Width 15 % (10.5-15); White Blood Count 13.3 10^3/ul (3.5-10.8)
[2017-03-13 08:43] LABS: BUN/Creatinine Ratio 31.5 (8-20); Calcium 8.7 mg/dL (8.6-10.3); EGFR African American 43.6 (>60); EGFR Non-African American 33.9 (>60); Potassium 4.6 mmol/L (3.5-5.0)
[2017-03-13] MEDS: Mometasone/Formoter 200/5 MDI INH SCH ×2 (08:54→19:58)
[2017-03-13] MEDS: Tiotropium CAP.INH* CAP.INH/18 MCG INH SCH (08:55)
[2017-03-13] MEDS: Insulin LISPRO* 1 UNITS UNIT SUBCUT SCH ×7 (09:00→20:30)
[2017-03-13] MEDS: Diltiazem CD CAP* 180 MG PO SCH (09:02)
[2017-03-13] MEDS: guaiFENesin ER TAB 600 MG PO SCH ×2 (09:02→20:24)
[2017-03-13] MEDS: Aspirin Low Dose CHEW TAB* 81 MG PO SCH (09:02)
[2017-03-13] MEDS: Amiodarone TAB* 200 MG PO SCH (09:02)
[2017-03-13] MEDS: Atorvastatin* 20 MG TAB PO SCH (09:02)
[2017-03-13] MEDS: Docusate CAP* 100 MG PO SCH ×2 (09:02→20:23)
--- NOTE | 2017-03-13 10:06 | RAD ---
INDICATION: Cough. Short of breath. COMPARISON: March 11, 2017 TECHNIQUE: PA and lateral dual-energy views were obtained. FINDINGS: Bones/Soft Tissues: There are no acute bony findings. There is osteopenia with kyphosis. Cardiomediastinal: The heart is normal in size. The central pulmonary vessels and interstitium are prominent compatible with interstitial congestion. There may be minimal improvement. There is infiltrate left lung base and there are small bilateral pleural effusions.. Lungs: There are no infiltrates. Pleura: There are no pleural effusions. Other: None IMPRESSION: VASCULAR CONGESTIVE FINDINGS WITH MINOR IMPROVEMENT. PERSISTENT LEFT BASILAR INFILTRATE/ATELECTASIS AND RIGHT-SIDED EFFUSION. SUSPECT MILD UNDERLYING CHRONIC INTERSTITIAL CHANGE.
--- NOTE | 2017-03-13 11:11 | PN ---
Progress Note - Progress Note SOAP: Subjective: [This is 86 yo female with LLL pneumonia on day 2 of empiric azithromycin and ceftriaxone with mild improvement per CXR and improvement in her leukocytosis WBC decreased to 13.3. Patient reports not much changes in cough and congestion but some mild improvement with coughing up mucus and the tightness in her chest. She is still feeling weak but denies lightheadedness, fever, or chest pains. Reports increased urgency and burning with urination indicative of UTI per UA results from this morning 3+ leukocyte esterase, WBC, and RBCs with negative culture. Active Medications: Acetaminophen (Tylenol Tab*) 650 mg PO Q6H PRN PRN Reason: FEVER/PAIN Last Admin: 03/12/17 18:20 Dose: 650 mg Albuterol (Ventolin 2.5 Mg/3 Ml Neb.Sally*) 2.5 mg INH Q2H PRN PRN Reason: SOB/WHEEZING Last Admin: 03/12/17 12:46 Dose: 2.5 mg Amiodarone HCl (Cordarone Tab*) 100 mg PO DAILY [facility] Last Admin: 03/13/17 09:02 Dose: 100 mg Amitriptyline HCl (Elavil Tab*) 10 mg PO BEDTIME [facility] Last Admin: 03/12/17 21:42 Dose: 10 mg Aspirin (Aspirin Low Dose Tab*) 81 mg PO DAILY [facility] Last Admin: 03/13/17 09:02 Dose: 81 mg Atorvastatin Calcium (Lipitor*) 20 mg PO DAILY [facility] Last Admin: 03/13/17 09:02 Dose: 20 mg Diltiazem HCl (Cardizem Cd Cap*) 180 mg PO DAILY [facility] Last Admin: 03/13/17 09:02 Dose: 180 mg Docusate Sodium (Colace Cap*) 200 mg PO BID [facility] Last Admin: 03/13/17 09:02 Dose: 200 mg Guaifenesin (Mucinex*) 1,200 mg PO BID [facility] Last Admin: 03/13/17 09:02 Dose: 1,200 mg Heparin Sodium (Porcine) (Heparin Vial(*)) 5,000 units SUBCUT Q8HR [facility] Last Admin: 03/13/17 05:45 Dose: 5,000 units Sodium Chloride (Ns 0.9% 1000 Ml*) 1,000 mls @ 85 mls/hr IV PER RATE [facility] Last Admin: 03/12/17 21:41 Dose: 85 mls/hr Ceftriaxone Sodium 1,000 mg/ (Sodium Chloride) 50 mls @ 200 mls/hr IVPB Q24H [facility] Last Admin: 03/12/17 23:32 Dose: 200 mls/hr Azithromycin 500 mg/ Sodium (Chloride) 250 mls @ 250 mls/hr IVPB Q24H [facility] Last Admin: 03/12/17 23:53 Dose: 250 mls/hr Insulin Glargine (Lantus(*)) 14 units SUBCUT 2100 [facility] Stop: 03/13/17 20:00 Last Admin: 03/12/17 21:44 Dose: 14 unit Insulin Human Lispro (Humalog*) 0 units SUBCUT AC [facility] PRN Reason: Protocol Last Admin: 03/13/17 09:01 Dose: 5 units Insulin Human Lispro (Humalog*) 0 units SUBCUT ACHS [facility] PRN Reason: Protocol Last Admin: 03/13/17 09:00 Dose: 1 units Levothyroxine Sodium (Synthroid Tab*) 88 mcg PO DAILY@0600 [facility] Last Admin: 03/13/17 05:45 Dose: 88 mcg Melatonin (Melatonin (Nf)) 3 mg PO BEDTIME PRN; Protocol PRN Reason: Sleep Mometasone Furoate/Formoterol Fumar (Dulera 200/5 Mdi*) 2 puff INH BID [facility] Last Admin: 03/13/17 08:54 Dose: 2 puff Omeprazole (Prilosec Cap*) 20 mg PO DAILY@0600 [facility] Last Admin: 03/13/17 05:45 Dose: 20 mg Ondansetron HCl (Zofran Inj*) 4 mg IV Q6H PRN PRN Reason: NAUSEA Tiotropium [place] (Spiriva Cap.Inh*) 1 cap INH DAILY [facility] Last Admin: 03/13/17 08:55 Dose: 1 cap Allergies Allergy/AdvReac Type Severity Reaction Status Date / Time Penicillins [PCN] Allergy Mild Hives Verified 03/31/16 12:52 Sulfa Antibiotics Allergy Mild Hives Verified 03/31/16 12:52 Objective: [ Temp Pulse Resp BP Pulse Ox 97.4 F 85 15 149/71 93 03/13/17 03:20 03/13/17 07:34 03/13/17 07:34 03/13/17 07:34 03/13/17 07:34 General: 86 yo elderly white female with some labored breathing in NAD. Lungs: Respirations are somewhat labored without use of accessory muscles. Bilateral crackles and coarseness heard in bases of both lungs, otherwise no wheezing or rhonchi. Heart: RRR no murmurs, rubs, or gallops. Abdomen: Soft and nontender. Bowel sound normoactive and abdomen is mildly distended. Extremities: Warm to touch without edema. Pedal pulses intact bilaterally. Neuro: Alert and oriented X3. Lab Studies: WBC 13.3 10^3/ul (3.5-10.8) H 03/13/17 08:18 RBC 3.41 10^6/ul (4.0-5.4) L 03/13/17 08:18 Hgb 9.4 g/dl (12.0-16.0) L 03/13/17 08:18 Hct 30 % (35-47) L 03/13/17 08:18 MCV 87 fL (80-97) 03/13/17 08:18 MCH 28 pg (27-31) 03/13/17 08:18 MCHC 32 g/dl (31-36) 03/13/17 08:18 RDW 15 % (10.5-15) 03/13/17 08:18 Plt Count 270 10^3/ul (150-450) 03/13/17 08:18 MPV 7 um3 (7.4-10.4) L 03/13/17 08:18 Immature Gran % (Auto) 14 % (0-9) H 03/12/17 04:34 Neut % (Auto) 89.1 % (38-83) H 03/13/17 08:18 Lymph % (Auto) 2.5 % (25-47) L 03/13/17 08:18 [place] % (Auto) 5.1 % (1-9) 03/13/17 08:18 Eos % (Auto) 2.8 % (0-6) 03/13/17 08:18 Baso % (Auto) 0.5 % (0-2) 03/13/17 08:18 Absolute Neuts (auto) 11.8 10^3/ul (1.5-7.7) H 03/13/17 08:18 Absolute Lymphs (auto) 0.3 10^3/ul (1.0-4.8) L 03/13/17 08:18 Absolute Monos (auto) 0.7 10^3/ul (0-0.8) 03/13/17 08:18 Absolute Eos (auto) 0.4 10^3/ul (0-0.6) 03/13/17 08:18 Absolute Basos (auto) 0.1 10^3/ul (0-0.2) 03/13/17 08:18 Absolute Nucleated RBC 0 10^3/ul 03/13/17 08:18 Neutrophils % 79 % (38-83) 03/12/17 04:34 Band Neutrophils % 14 % (0-8) H 03/12/17 04:34 Lymphocytes % 4 % (25-47) L 03/12/17 04:34 Reactive Lymphs % 1 % (0-6) 03/11/17 22:20 Monocytes % 3 % (0-13) 03/12/17 04:34 Nucleated RBC % 0 03/13/17 08:18 Normal RBC Morphology Not Reportable 03/12/17 04:34 Polychromasia 1+ 03/11/17 22:20 Hypochromasia 1+ 03/12/17 04:34 Hem Pathologist Commnt 03/12/17 04:34 INR (Anticoag Therapy) 0.97 (0.89-1.11) 03/11/17 22:20 APTT 30.9 seconds (26.0-36.3) 03/11/17 22:20 D-Dimer, Quantitative 325 ng/mL (Less Than 230) H 03/11/17 22:20 Sodium 134 mmol/L (133-145) 03/13/17 08:18 Potassium 4.6 mmol/L (3.5-5.0) 03/13/17 08:18 Chloride 103 mmol/L (101-111) 03/13/17 08:18 Carbon Dioxide 22 mmol/L (22-32) 03/13/17 08:18 Anion Gap 9 mmol/L (2-11) 03/13/17 08:18 BUN 46 mg/dL (6-24) H 03/13/17 08:18 Creatinine 1.46 mg/dL (0.51-0.95) H 03/13/17 08:18 Est GFR ( Amer) 43.6 (>60) 03/13/17 08:18 Est GFR (Non-Af Amer) 33.9 (>60) 03/13/17 08:18 BUN/Creatinine Ratio 31.5 (8-20) H 03/13/17 08:18 Glucose 123 mg/dL (70-100) H 03/13/17 08:18 POC Glucose (mg/dL) 147 mg/dL (74-106) H 03/13/17 07:41 Hemoglobin A1c 7.8 % (Less than 6.0) H 03/12/17 04:34 Lactic Acid 1.1 mmol/L (0.5-2.0) 03/11/17 22:20 Calcium 8.7 mg/dL (8.6-10.3) 03/13/17 08:18 Magnesium 1.9 mg/dL (1.9-2.7) 03/12/17 00:45 Total Bilirubin 0.40 mg/dL (0.2-1.0) 03/11/17 22:20 AST 20 U/L (13-39) 03/12/17 00:45 ALT 20 U/L (7-52) 03/11/17 22:20 Alkaline Phosphatase 111 U/L (34-104) H 03/11/17 22:20 Total Creatine Kinase 124 U/L (10-223) 03/11/17 22:20 CK-MB (CK-2) 12.7 ng/mL (0.6-6.3) H 03/11/17 22:20 Troponin I 0.01 ng/mL (<0.04) 03/11/17 22:20 C-Reactive Protein 21.86 mg/L (< 5.00) H 03/11/17 22:20 B-Natriuretic Peptide 301 pg/mL (-100) H 03/11/17 22:20 Total Protein 7.0 g/dL (6.4-8.9) 03/11/17 22:20 Albumin 3.4 g/dL (3.2-5.2) 03/11/17 22:20 Globulin 3.6 g/dL (2-4) 03/11/17 22:20 Albumin/Globulin Ratio 0.9 (1-3) L 03/11/17 22:20 Lipase 17 U/L (11.0-82.0) 03/11/17 22:20 TSH 2.44 mcIU/mL (0.34-5.60) 03/11/17 22:20 Urine Color Yellow 03/13/17 01:05 Urine Appearance Clear 03/13/17 01:05 Urine pH 5.0 (5-9) 03/13/17 01:05 Ur Specific [place] 1.012 (1.010-1.030) 03/13/17 01:05 Urine Protein Negative (Negative) 03/13/17 01:05 Urine Ketones Negative (Negative) 03/13/17 01:05 Urine Blood 1+ (Negative) H 03/13/17 01:05 Urine Nitrate Negative (Negative) 03/13/17 01:05 Urine Bilirubin Negative (Negative) 03/13/17 01:05 Urine Urobilinogen Negative (Negative) 03/13/17 01:05 Ur Leukocyte Esterase 3+ (Negative) H 03/13/17 01:05 Urine WBC (Auto) 3+(>20/hpf) (Absent) H 03/13/17 01:05 Urine RBC (Auto) 2+(6-10/hpf) (Absent) H 03/13/17 01:05 Ur Squamous Epith Cells Present (Absent) H 03/13/17 01:05 Urine Bacteria Absent (Absent) 03/13/17 01:05 Urine Glucose Negative (Negative) 03/13/17 01:05 Urine Ascorbic Acid * (Negative) H 03/13/17 01:05 Diagnostics: CXR 03/13: Mild improvement in LLL, with increased congestion and small right effusion. Assessment/Plan: 1) LLL Pneumonia: Continue azithromycin and ceftriaxone empirically. Sputum culture is still pending and blood cultures negative. Stop IVF due to increases in congestion. Continue supplemental oxygen. Continue with Spiriva, Dulera, and expectorant, but start with scheduled DuoNebs every 6 hours. 2) DM: Continue both basal and bolus dosing with Lantus and SS Humalog. 3) CHF: Hold all diuretics 4) Paroxysmal Afib: Patient is not anticoagulated, continue with rate control with Amiodarone and Diltiazem. 5) CKD: Monitor kidney functioning, stop all IVF at this time. 6) CAD: Continue ASA. 7) Hypothyroidism: Continue Synthroid. 8) Code Status: Do not resituate.
--- NOTE | 2017-03-13 11:26 | PN ---
Subjective Date of Service: 03/13/17 Interval History: Patient reports some mild improvement. Still having trouble with secretions. Flutter valve seems to be helping and her cough is loosening. She reports that she is still very fatigued. Objective Active Medications: Acetaminophen (Tylenol Tab*) 650 mg PO Q6H PRN PRN Reason: FEVER/PAIN Last Admin: 03/12/17 18:20 Dose: 650 mg Albuterol (Ventolin 2.5 Mg/3 Ml Neb.Sally*) 2.5 mg INH Q2H PRN PRN Reason: SOB/WHEEZING Last Admin: 03/12/17 12:46 Dose: 2.5 mg Amiodarone HCl (Cordarone Tab*) 100 mg PO DAILY [facility] Last Admin: 03/13/17 09:02 Dose: 100 mg Amitriptyline HCl (Elavil Tab*) 10 mg PO BEDTIME [facility] Last Admin: 03/12/17 21:42 Dose: 10 mg Aspirin (Aspirin Low Dose Tab*) 81 mg PO DAILY [facility] Last Admin: 03/13/17 09:02 Dose: 81 mg Atorvastatin Calcium (Lipitor*) 20 mg PO DAILY [facility] Last Admin: 03/13/17 09:02 Dose: 20 mg Diltiazem HCl (Cardizem Cd Cap*) 180 mg PO DAILY [facility] Last Admin: 03/13/17 09:02 Dose: 180 mg Docusate Sodium (Colace Cap*) 200 mg PO BID [facility] Last Admin: 03/13/17 09:02 Dose: 200 mg Guaifenesin (Mucinex*) 1,200 mg PO BID [facility] Last Admin: 03/13/17 09:02 Dose: 1,200 mg Heparin Sodium (Porcine) (Heparin Vial(*)) 5,000 units SUBCUT Q8HR [facility] Last Admin: 03/13/17 05:45 Dose: 5,000 units Ceftriaxone Sodium 1,000 mg/ (Sodium Chloride) 50 mls @ 200 mls/hr IVPB Q24H [facility] Last Admin: 03/12/17 23:32 Dose: 200 mls/hr Azithromycin 500 mg/ Sodium (Chloride) 250 mls @ 250 mls/hr IVPB Q24H [facility] Last Admin: 03/12/17 23:53 Dose: 250 mls/hr Insulin Glargine (Lantus(*)) 14 units SUBCUT 2100 [facility] Stop: 03/13/17 20:00 Last Admin: 03/12/17 21:44 Dose: 14 unit Insulin Human Lispro (Humalog*) 0 units SUBCUT AC [facility] PRN Reason: Protocol Last Admin: 03/13/17 09:01 Dose: 5 units Insulin Human Lispro (Humalog*) 0 units SUBCUT ACHS [facility] PRN Reason: Protocol Last Admin: 03/13/17 09:00 Dose: 1 units Levothyroxine Sodium (Synthroid Tab*) 88 mcg PO DAILY@0600 [facility] Last Admin: 03/13/17 05:45 Dose: 88 mcg Melatonin (Melatonin (Nf)) 3 mg PO BEDTIME PRN; Protocol PRN Reason: Sleep Mometasone Furoate/Formoterol Fumar (Dulera 200/5 Mdi*) 2 puff INH BID [facility] Last Admin: 03/13/17 08:54 Dose: 2 puff Omeprazole (Prilosec Cap*) 20 mg PO DAILY@0600 [facility] Last Admin: 03/13/17 05:45 Dose: 20 mg Ondansetron HCl (Zofran Inj*) 4 mg IV Q6H PRN PRN Reason: NAUSEA Tiotropium [place] (Spiriva Cap.Inh*) 1 cap INH DAILY [facility] Last Admin: 03/13/17 08:55 Dose: 1 cap Vital Signs: Temp Pulse Resp BP Pulse Ox 97.4 F 85 15 149/71 93 03/13/17 03:20 03/13/17 07:34 03/13/17 07:34 03/13/17 07:34 03/13/17 07:34 Oxygen Devices in Use Now: Nasal Cannula Appearance: Elderly female who appears mildly ill sitting in a recliner chair in [facility] Respiratory: Symmetrical Chest Expansion and Respiratory Effort, - - diffuse crackles and rhonchi Cardiovascular: RRR Extremities: - - trace LE edema Skin: No Rash or Ulcers Neurological: Alert and Oriented x 3 Result Diagrams: 03/13/17 08:18 03/13/17 08:18 Additional Lab and Data: . Microbiology and Other Data: Microbiology 03/12/17 04:35 Aerobic Blood Culture - Preliminary Blood Venous No Growth Day 1 Anaerobic Blood Culture - Preliminary No Growth Day 1 03/13/17 01:09 Legionella Urinary Antigen - Final Urine Negative Legionella Streptococcus pneumoniae Ag Screen - Final Negative S. pneumo Antigen 03/12/17 00:50 Aerobic Blood Culture - Preliminary Blood Venous No Growth Day 1 Anaerobic Blood Culture - Preliminary No Growth Day 1 03/12/17 00:45 Aerobic Blood Culture - Preliminary Blood Venous No Growth Day 1 Anaerobic Blood Culture - Preliminary No Growth Day 1 Diagnostic Imaging: CXR - possible LLL infiltrate Repeat CXR - persistent L sided inflitrate without significant change, mild vascular congestion, small R sided effusion Assess/Plan/Problems-Billing Assessment: This is an 86 yo female with CAD, DM, HTN, CHF, paroxysmal atrial fibrillation, hypothyroidism and CKD who presents with complaints of cough and SOB with LLL infiltrate. - Patient Problems (1) Pneumonia Comment: LLL infiltrated on CXR Cont ceftriaxone and azithromycin Started Mucinex and flutter valve to help clear secretions WBC improving, no worsening of the infiltrate Will add scheduled DuoNebs to help with her secretions as she is still require a moderate amount of supplemental oxygen (2) Acute on chronic renal insufficiency Comment: Improved Likely due to hypovolemia IVF stopped (3) IDDM (insulin dependent diabetes mellitus) Comment: Cont home insulin regimen (4) CHF (congestive heart failure) Comment: No evidence of acute exacerbation Cont med management Resume torsemide tomorrow (5) Hypothyroidism Comment: Cont levothyroxine (6) Atrial fibrillation Comment: Sinus at admission Cont amiodarone and diltiazem No anticoagulation noted on home medication list, she is likely not anticoagulated due to history of GI bleed (7) Hx of coronary artery disease Comment: NO evidence of ACS Cont statin, ASA (8) DNR no code (do not resuscitate) (9) DVT prophylaxis Comment: SQ heparin Status and Disposition: Inpatient. Anticipate 2-3 d LOS
[2017-03-13] MEDS ORDERED: Albuterol/Ipratropium NEB.SOL* Albuterol 2.5 MG/Ipratropium 0.5 MG 3 ML INH SCH (13:00)
[2017-03-13] MEDS: Albuterol 2.5 MG/3 ML NEB.SOL* (0.083%) INH PRN (16:08)
[2017-03-13] MEDS ORDERED: Furosemide IV* 10 MG/ML 2 ML VIAL (20 MG) IV SLOW PU ONE (17:07)
--- NOTE | 2017-03-13 18:30 | PN ---
Hospitalist Progress Note Patient desaturated in to the low 80s on 2 occasions. Required up to 7L via NC to maintain sats in low 90s to high 80s. Her cough force is weak and she isn't clearing secretions well. Ordered one dose IV Lasix. Transferred to ICU for Vapotherm therapy.
--- NOTE | 2017-03-13 18:33 | PN ---
Progress Note - Progress Note Date of Service: 03/13/17 Note: Patient was transferred to the ICU for management on vapotherm after desaturation to 80s despite increases in nasal cannula on 7L. Patient shows increased respiratory effort with accessory muscle use and fully exerting herself. Patient received lasix 20 mg right before leaving floor. On ICU, patient weighed at 75 kg and Vapotherm was set at 40 L with 100% oxygen by respiratory which brought prompt return to her oxygenation. With auscultation of patient lung sounds, coarse lung sounds throughout all lord. Patients Toresemide 10 mg PO to be restarted for tomorrow morning. Suspected that relief from fluid retention will prompt better air movement and return of her oxygenation.
[2017-03-13] MEDS: Amitriptyline TAB* 10 MG PO SCH (20:26)
[2017-03-13] MEDS: cefTRIAXone VIAL(*) 1,000 MG in NS 0.9% 50 ML* 50 ML IVPB SCH (22:52)
[2017-03-13] MEDS: Azithromycin IV(*) 500 MG in NS 0.9% 250 ML* 250 ML IVPB SCH (23:23)
[2017-03-14] MEDS: Omeprazole CAP* 20 MG PO SCH (06:24)
[2017-03-14] MEDS: Heparin VIAL(*) 5000 UNITS/ML VIAL (FIVE THOUSAND) SUBCUT SCH ×3 (06:24→21:32)
[2017-03-14] MEDS: Levothyroxine TAB* 88 MCG TAB PO SCH (06:24)
[2017-03-14] MEDS: Insulin LISPRO* 1 UNITS UNIT SUBCUT SCH ×8 (07:44→21:31)
[2017-03-14] MEDS: Amiodarone TAB* 200 MG PO SCH (07:52)
[2017-03-14] MEDS: Aspirin Low Dose CHEW TAB* 81 MG PO SCH (07:52)
[2017-03-14] MEDS: Atorvastatin* 20 MG TAB PO SCH (07:52)
[2017-03-14] MEDS: Docusate CAP* 100 MG PO SCH ×2 (07:52→21:30)
[2017-03-14] MEDS: guaiFENesin ER TAB 600 MG PO SCH ×2 (07:52→21:32)
[2017-03-14] MEDS: Diltiazem CD CAP* 180 MG PO SCH (07:52)
[2017-03-14] MEDS: Tiotropium CAP.INH* CAP.INH/18 MCG INH SCH (07:53)
[2017-03-14] MEDS: Mometasone/Formoter 200/5 MDI INH SCH ×2 (08:00→20:58)
[2017-03-14] MEDS: Torsemide TAB* 20 MG PO SCH (08:59)
[2017-03-14 09:51] LABS: Hematocrit 27 % (35-47); Hemoglobin 8.6 g/dl (12.0-16.0); Mean Corpuscular HGB Conc 32 g/dl (31-36); Mean Corpuscular Hemoglobin 28 pg (27-31); Mean Corpuscular Volume 88 fL (80-97); Mean Platelet Volume 8 um3 (7.4-10.4); Red Blood Count 3.07 10^6/ul (4.0-5.4); Red Cell Distribution Width 15 % (10.5-15); White Blood Count 10.5 10^3/ul (3.5-10.8)
--- NOTE | 2017-03-14 09:57 | PN ---
Progress Note - Progress Note Date of Service: 03/14/17 SOAP: Subjective: 86 yo female on day 3 azithromycin and ceftraixone with LLL was transferred to ICU yesterday evening and received 20 mg lasix IV at that time. She remains on ICU today on Vapotherm 40 L 90 % oxygen with some improvement in symptoms. She is still SOB, weak, and feels unable to cough up secretions but is feeling more comfortable now. She states that it feels like there is some pressure on her chest and it is tight. Vital signs remain WNL and total weight has decreased approx. 2 pounds. She denies n/v, abdominal pain, chest pains, [place], or dizziness. Active medications: Acetaminophen (Tylenol Tab*) 650 mg PO Q6H PRN PRN Reason: FEVER/PAIN Last Admin: 03/12/17 18:20 Dose: 650 mg Albuterol (Ventolin 2.5 Mg/3 Ml Neb.Sally*) 2.5 mg INH Q2H PRN PRN Reason: SOB/WHEEZING Last Admin: 03/13/17 16:08 Dose: 2.5 mg Amiodarone HCl (Cordarone Tab*) 100 mg PO DAILY [facility] Last Admin: 03/14/17 07:52 Dose: 100 mg Amitriptyline HCl (Elavil Tab*) 10 mg PO BEDTIME [facility] Last Admin: 03/13/17 20:26 Dose: 10 mg Aspirin (Aspirin Low Dose Tab*) 81 mg PO DAILY [facility] Last Admin: 03/14/17 07:52 Dose: 81 mg Atorvastatin Calcium (Lipitor*) 20 mg PO DAILY [facility] Last Admin: 03/14/17 07:52 Dose: 20 mg Diltiazem HCl (Cardizem Cd Cap*) 180 mg PO DAILY [facility] Last Admin: 03/14/17 07:52 Dose: 180 mg Docusate Sodium (Colace Cap*) 200 mg PO BID [facility] Last Admin: 03/14/17 07:52 Dose: 200 mg Guaifenesin (Mucinex*) 1,200 mg PO BID [facility] Last Admin: 03/14/17 07:52 Dose: 1,200 mg Heparin Sodium (Porcine) (Heparin Vial(*)) 5,000 units SUBCUT Q8HR [facility] Last Admin: 03/14/17 06:24 Dose: 5,000 units Ceftriaxone Sodium 1,000 mg/ (Sodium Chloride) 50 mls @ 200 mls/hr IVPB Q24H [facility] Last Admin: 03/13/17 22:52 Dose: 200 mls/hr Azithromycin 500 mg/ Sodium (Chloride) 250 mls @ 250 mls/hr IVPB Q24H [facility] Last Admin: 03/13/17 23:23 Dose: 250 mls/hr Insulin Human Lispro (Humalog*) 0 units SUBCUT AC [facility] PRN Reason: Protocol Last Admin: 03/13/17 18:40 Dose: Not Given Insulin Human Lispro (Humalog*) 0 units SUBCUT ACHS [facility] PRN Reason: Protocol Last Admin: 03/14/17 07:44 Dose: 2 units Levothyroxine Sodium (Synthroid Tab*) 88 mcg PO DAILY@0600 [facility] Last Admin: 03/14/17 06:24 Dose: 88 mcg Melatonin (Melatonin (Nf)) 3 mg PO BEDTIME PRN; Protocol PRN Reason: Sleep Mometasone Furoate/Formoterol Fumar (Dulera 200/5 Mdi*) 2 puff INH BID [facility] Last Admin: 03/14/17 08:00 Dose: 2 puff Omeprazole (Prilosec Cap*) 20 mg PO DAILY@0600 [facility] Last Admin: 03/14/17 06:24 Dose: 20 mg Ondansetron HCl (Zofran Inj*) 4 mg IV Q6H PRN PRN Reason: NAUSEA Tiotropium [place] (Spiriva Cap.Inh*) 1 cap INH DAILY [facility] Last Admin: 03/14/17 07:53 Dose: 1 cap Torsemide (Demadex*) 10 mg PO DAILY [facility] Last Admin: 03/14/17 08:59 Dose: 10 mg Allergies Allergy/AdvReac Type Severity Reaction Status Date / Time Penicillins [PCN] Allergy Mild Hives Verified 03/31/16 12:52 Sulfa Antibiotics Allergy Mild Hives Verified 03/31/16 12:52 Objective: Vital Signs Temp Pulse Resp BP Pulse Ox 98.3 F 85 24 132/45 92 03/14/17 07:46 03/14/17 09:32 03/14/17 09:32 03/14/17 07:00 03/14/17 09:32 General: 86 yo elderly white female with some labored breathing in NAD. Lungs: Respirations are somewhat labored without use of accessory muscles. Bilateral crackles and coarseness heard in bases of both lungs, otherwise no wheezing or rhonchi. Heart: RRR no murmurs, rubs, or gallops. Abdomen: Soft and nontender. Bowel sound normoactive. Extremities: Warm to touch without edema. Pedal pulses intact bilaterally. Neuro: Alert and oriented X3. Lab Results: WBC 13.3 10^3/ul (3.5-10.8) H 03/13/17 08:18 RBC 3.41 10^6/ul (4.0-5.4) L 03/13/17 08:18 Hgb 9.4 g/dl (12.0-16.0) L 03/13/17 08:18 Hct 30 % (35-47) L 03/13/17 08:18 MCV 87 fL (80-97) 03/13/17 08:18 MCH 28 pg (27-31) 03/13/17 08:18 MCHC 32 g/dl (31-36) 03/13/17 08:18 RDW 15 % (10.5-15) 03/13/17 08:18 Plt Count 270 10^3/ul (150-450) 03/13/17 08:18 MPV 7 um3 (7.4-10.4) L 03/13/17 08:18 Immature Gran % (Auto) 14 % (0-9) H 03/12/17 04:34 Neut % (Auto) 89.1 % (38-83) H 03/13/17 08:18 Lymph % (Auto) 2.5 % (25-47) L 03/13/17 08:18 [place] % (Auto) 5.1 % (1-9) 03/13/17 08:18 Eos % (Auto) 2.8 % (0-6) 03/13/17 08:18 Baso % (Auto) 0.5 % (0-2) 03/13/17 08:18 Absolute Neuts (auto) 11.8 10^3/ul (1.5-7.7) H 03/13/17 08:18 Absolute Lymphs (auto) 0.3 10^3/ul (1.0-4.8) L 03/13/17 08:18 Absolute Monos (auto) 0.7 10^3/ul (0-0.8) 03/13/17 08:18 Absolute Eos (auto) 0.4 10^3/ul (0-0.6) 03/13/17 08:18 Absolute Basos (auto) 0.1 10^3/ul (0-0.2) 03/13/17 08:18 Absolute Nucleated RBC 0 10^3/ul 03/13/17 08:18 Neutrophils % 79 % (38-83) 03/12/17 04:34 Band Neutrophils % 14 % (0-8) H 03/12/17 04:34 Lymphocytes % 4 % (25-47) L 03/12/17 04:34 Reactive Lymphs % 1 % (0-6) 03/11/17 22:20 Monocytes % 3 % (0-13) 03/12/17 04:34 Nucleated RBC % 0 03/13/17 08:18 Normal RBC Morphology Not Reportable 03/12/17 04:34 Polychromasia 1+ 03/11/17 22:20 Hypochromasia 1+ 03/12/17 04:34 Hem Pathologist Commnt 03/12/17 04:34 INR (Anticoag Therapy) 0.97 (0.89-1.11) 03/11/17 22:20 APTT 30.9 seconds (26.0-36.3) 03/11/17 22:20 D-Dimer, Quantitative 325 ng/mL (Less Than 230) H 03/11/17 22:20 Sodium 134 mmol/L (133-145) 03/13/17 08:18 Potassium 4.6 mmol/L (3.5-5.0) 03/13/17 08:18 Chloride 103 mmol/L (101-111) 03/13/17 08:18 Carbon Dioxide 22 mmol/L (22-32) 03/13/17 08:18 Anion Gap 9 mmol/L (2-11) 03/13/17 08:18 BUN 46 mg/dL (6-24) H 03/13/17 08:18 Creatinine 1.46 mg/dL (0.51-0.95) H 03/13/17 08:18 Est GFR ( Amer) 43.6 (>60) 03/13/17 08:18 Est GFR (Non-Af Amer) 33.9 (>60) 03/13/17 08:18 BUN/Creatinine Ratio 31.5 (8-20) H 03/13/17 08:18 Glucose 123 mg/dL (70-100) H 03/13/17 08:18 POC Glucose (mg/dL) 185 mg/dL (74-106) H 03/14/17 07:36 Hemoglobin A1c 7.8 % (Less than 6.0) H 03/12/17 04:34 Lactic Acid 1.1 mmol/L (0.5-2.0) 03/11/17 22:20 Calcium 8.7 mg/dL (8.6-10.3) 03/13/17 08:18 Magnesium 1.9 mg/dL (1.9-2.7) 03/12/17 00:45 Total Bilirubin 0.40 mg/dL (0.2-1.0) 03/11/17 22:20 AST 20 U/L (13-39) 03/12/17 00:45 ALT 20 U/L (7-52) 03/11/17 22:20 Alkaline Phosphatase 111 U/L (34-104) H 03/11/17 22:20 Total Creatine Kinase 124 U/L (10-223) 03/11/17 22:20 CK-MB (CK-2) 12.7 ng/mL (0.6-6.3) H 03/11/17 22:20 Troponin I 0.01 ng/mL (<0.04) 03/11/17 22:20 C-Reactive Protein 21.86 mg/L (< 5.00) H 03/11/17 22:20 B-Natriuretic Peptide 301 pg/mL (-100) H 03/11/17 22:20 Total Protein 7.0 g/dL (6.4-8.9) 03/11/17 22:20 Albumin 3.4 g/dL (3.2-5.2) 03/11/17 22:20 Globulin 3.6 g/dL (2-4) 03/11/17 22:20 Albumin/Globulin Ratio 0.9 (1-3) L 03/11/17 22:20 Lipase 17 U/L (11.0-82.0) 03/11/17 22:20 TSH 2.44 mcIU/mL (0.34-5.60) 03/11/17 22:20 Urine Color Yellow 03/13/17 01:05 Urine Appearance Clear 03/13/17 01:05 Urine pH 5.0 (5-9) 03/13/17 01:05 Ur Specific [place] 1.012 (1.010-1.030) 03/13/17 01:05 Urine Protein Negative (Negative) 03/13/17 01:05 Urine Ketones Negative (Negative) 03/13/17 01:05 Urine Blood 1+ (Negative) H 03/13/17 01:05 Urine Nitrate Negative (Negative) 03/13/17 01:05 Urine Bilirubin Negative (Negative) 03/13/17 01:05 Urine Urobilinogen Negative (Negative) 03/13/17 01:05 Ur Leukocyte Esterase 3+ (Negative) H 03/13/17 01:05 Urine WBC (Auto) 3+(>20/hpf) (Absent) H 03/13/17 01:05 Urine RBC (Auto) 2+(6-10/hpf) (Absent) H 03/13/17 01:05 Ur Squamous Epith Cells Present (Absent) H 03/13/17 01:05 Urine Bacteria Absent (Absent) 03/13/17 01:05 Urine Glucose Negative (Negative) 03/13/17 01:05 Urine Ascorbic Acid * (Negative) H 03/13/17 01:05 Diagnostics: CXR 03/13: Mild improvement in LLL, with increased congestion and small right effusion. Assessment/Plan: This is an 86 yo female with CAD, DM, HTN, CHF, paroxysmal atrial fibrillation, hypothyroidism and CKD who presents with complaints of cough and SOB with LLL infiltrate. 1) LLL Pneumonia: Continue vapotherm Continue azithromycin and ceftriaxone empirically. PO Scheduled Torsemide Sputum culture is still pending and blood cultures negative. Stop IVF due to increases in congestion. Continue with Spiriva, Dulera, expectorant, and scheduled DuoNebs every 6 hours. 2) DM: Continue both basal and bolus dosing with Lantus and SS Humalog. 3) CHF: PO Torsemide. 4) Paroxysmal Afib: Patient is not anticoagulated, continue with rate control with Amiodarone and Diltiazem. 5) CKD: Monitor kidney functioning, stop all IVF at this time. 6) CAD: Continue ASA. 7) Hypothyroidism: Continue Synthroid. 8) Code Status: Do not resituate.
[2017-03-14] MEDS ORDERED: Furosemide IV* 10 MG/ML 2 ML VIAL (20 MG) IV ONE (10:13)
[2017-03-14 10:18] LABS: BUN/Creatinine Ratio 30.2 (8-20); Calcium 8.6 mg/dL (8.6-10.3); EGFR African American 36.8 (>60); EGFR Non-African American 28.6 (>60); Potassium 4.6 mmol/L (3.5-5.0)
--- NOTE | 2017-03-14 10:18 | PN ---
Subjective Date of Service: 03/14/17 Interval History: Patient was transferred to ICU yesterday afternoon for Vapotherm. She reports that she did well overnight. SOB improving. Still having trouble clearing secretions. Some chest tightness. Cough remains productive. Objective Active Medications: Acetaminophen (Tylenol Tab*) 650 mg PO Q6H PRN PRN Reason: FEVER/PAIN Last Admin: 03/12/17 18:20 Dose: 650 mg Albuterol (Ventolin 2.5 Mg/3 Ml Neb.Sally*) 2.5 mg INH Q2H PRN PRN Reason: SOB/WHEEZING Last Admin: 03/13/17 16:08 Dose: 2.5 mg Amiodarone HCl (Cordarone Tab*) 100 mg PO DAILY [facility] Last Admin: 03/14/17 07:52 Dose: 100 mg Amitriptyline HCl (Elavil Tab*) 10 mg PO BEDTIME [facility] Last Admin: 03/13/17 20:26 Dose: 10 mg Aspirin (Aspirin Low Dose Tab*) 81 mg PO DAILY [facility] Last Admin: 03/14/17 07:52 Dose: 81 mg Atorvastatin Calcium (Lipitor*) 20 mg PO DAILY [facility] Last Admin: 03/14/17 07:52 Dose: 20 mg Diltiazem HCl (Cardizem Cd Cap*) 180 mg PO DAILY [facility] Last Admin: 03/14/17 07:52 Dose: 180 mg Docusate Sodium (Colace Cap*) 200 mg PO BID [facility] Last Admin: 03/14/17 07:52 Dose: 200 mg Guaifenesin (Mucinex*) 1,200 mg PO BID [facility] Last Admin: 03/14/17 07:52 Dose: 1,200 mg Heparin Sodium (Porcine) (Heparin Vial(*)) 5,000 units SUBCUT Q8HR [facility] Last Admin: 03/14/17 06:24 Dose: 5,000 units Ceftriaxone Sodium 1,000 mg/ (Sodium Chloride) 50 mls @ 200 mls/hr IVPB Q24H [facility] Last Admin: 03/13/17 22:52 Dose: 200 mls/hr Azithromycin 500 mg/ Sodium (Chloride) 250 mls @ 250 mls/hr IVPB Q24H [facility] Last Admin: 03/13/17 23:23 Dose: 250 mls/hr Insulin Human Lispro (Humalog*) 0 units SUBCUT AC [facility] PRN Reason: Protocol Last Admin: 03/14/17 09:56 Dose: 6 units Insulin Human Lispro (Humalog*) 0 units SUBCUT ACHS [facility] PRN Reason: Protocol Last Admin: 03/14/17 07:44 Dose: 2 units Levothyroxine Sodium (Synthroid Tab*) 88 mcg PO DAILY@0600 [facility] Last Admin: 03/14/17 06:24 Dose: 88 mcg Melatonin (Melatonin (Nf)) 3 mg PO BEDTIME PRN; Protocol PRN Reason: Sleep Mometasone Furoate/Formoterol Fumar (Dulera 200/5 Mdi*) 2 puff INH BID [facility] Last Admin: 03/14/17 08:00 Dose: 2 puff Omeprazole (Prilosec Cap*) 20 mg PO DAILY@0600 [facility] Last Admin: 03/14/17 06:24 Dose: 20 mg Ondansetron HCl (Zofran Inj*) 4 mg IV Q6H PRN PRN Reason: NAUSEA Prednisone (Deltasone Tab*) 40 mg PO DAILY [facility] Tiotropium [place] (Spiriva Cap.Inh*) 1 cap INH DAILY [facility] Last Admin: 03/14/17 07:53 Dose: 1 cap Torsemide (Demadex*) 10 mg PO DAILY [facility] Last Admin: 03/14/17 08:59 Dose: 10 mg Vital Signs: Temp Pulse Resp BP Pulse Ox 98.3 F 85 24 132/45 92 03/14/17 07:46 03/14/17 09:32 03/14/17 09:32 03/14/17 07:00 03/14/17 09:32 Oxygen Devices in Use Now: High Flow Nasal Cannula Appearance: Relatively well elderly female sitting up in bed in [facility] Respiratory: Symmetrical Chest Expansion and Respiratory Effort, - - diffuse crackles and rhonchi Cardiovascular: NL Sounds; No Murmurs; No JVD, RRR Extremities: - - trace LE edema Skin: No Rash or Ulcers Neurological: Alert and Oriented x 3 Result Diagrams: 03/14/17 09:40 03/13/17 08:18 Additional Lab and Data: . Microbiology and Other Data: Microbiology 03/12/17 04:35 Aerobic Blood Culture - Preliminary Blood Venous No Growth Day 1 Anaerobic Blood Culture - Preliminary No Growth Day 1 03/13/17 01:09 Legionella Urinary Antigen - Final Urine Negative Legionella Streptococcus pneumoniae Ag Screen - Final Negative S. pneumo Antigen 03/12/17 00:50 Aerobic Blood Culture - Preliminary Blood Venous No Growth Day 1 Anaerobic Blood Culture - Preliminary No Growth Day 1 03/12/17 00:45 Aerobic Blood Culture - Preliminary Blood Venous No Growth Day 1 Anaerobic Blood Culture - Preliminary No Growth Day 1 Diagnostic Imaging: CXR - possible LLL infiltrate Repeat CXR - persistent L sided inflitrate without significant change, mild vascular congestion, small R sided effusion Assess/Plan/Problems-Billing Assessment: This is an 86 yo female with CAD, DM, HTN, CHF, paroxysmal atrial fibrillation, hypothyroidism and CKD who presents with complaints of cough and SOB with LLL infiltrate. - Patient Problems (1) Pneumonia Comment: LLL infiltrate on CXR Cont ceftriaxone and azithromycin WBC improving, no worsening of the infiltrate and remains afebrile Despite signs of infectious improvement her O2 needs remain quite high, now requiring high flow and she is having difficulty clearing secretions with poor cough Will start prednisone although doubt bronchospasm is contributing significantly and will give one additional dose of IV Lasix, her typical oral diuretic has been restarted Cont high flow with scheduled DuoNebs and flutter valve, may benefit from metanebs (2) Acute on chronic renal insufficiency Comment: Improved Likely due to hypovolemia IVF stopped (3) IDDM (insulin dependent diabetes mellitus) Comment: Cont home insulin regimen (4) CHF (congestive heart failure) Comment: Mild exacerbation may be playing a role in her increased O2 needs at this time Cont med management (5) Hypothyroidism Comment: Cont levothyroxine (6) Atrial fibrillation Comment: Sinus at admission Cont amiodarone and diltiazem No anticoagulation noted on home medication list, she is likely not anticoagulated due to history of GI bleed (7) Hx of coronary artery disease Comment: NO evidence of ACS Cont statin, ASA (8) DNR no code (do not resuscitate) (9) DVT prophylaxis Comment: SQ heparin Status and Disposition: Inpatient. Requires continued ICU care for Vapotherm at this time
[2017-03-14] MEDS: predniSONE TAB* 20 MG PO SCH (11:46)
--- NOTE | 2017-03-14 15:18 | PN ---
Hospitalist Progress Note Patient was re-evaluated in the afternoon. She was smiling and reported improvement in her dyspnea. She had some improved lung sounds. Recommend continuing Vapotherm at this time, may be able to start weaning tomorrow.
[2017-03-14] MEDS ORDERED: Insulin GLARGINE(*) 1 UNITS UNIT SUBCUT SCH (21:00)
[2017-03-14] MEDS: Amitriptyline TAB* 10 MG PO SCH (21:30)
[2017-03-14] MEDS: Acetaminophen TAB* 325 MG PO PRN (21:30)
[2017-03-14] MEDS: cefTRIAXone VIAL(*) 1,000 MG in NS 0.9% 50 ML* 50 ML IVPB SCH (22:36)
[2017-03-14] MEDS: Azithromycin IV(*) 500 MG in NS 0.9% 250 ML* 250 ML IVPB SCH (23:30)
[2017-03-15] MEDS: Acetaminophen TAB* 325 MG PO PRN ×3 (03:40→21:54)
[2017-03-15] MEDS: Levothyroxine TAB* 88 MCG TAB PO SCH (05:44)
[2017-03-15] MEDS: Omeprazole CAP* 20 MG PO SCH (05:44)
[2017-03-15] MEDS: Heparin VIAL(*) 5000 UNITS/ML VIAL (FIVE THOUSAND) SUBCUT SCH ×3 (05:44→21:55)
[2017-03-15] MEDS: Insulin LISPRO* 1 UNITS UNIT SUBCUT SCH ×7 (09:11→21:56)
[2017-03-15] MEDS: predniSONE TAB* 20 MG PO SCH (09:13)
[2017-03-15] MEDS: Docusate CAP* 100 MG PO SCH ×2 (09:13→21:54)
[2017-03-15] MEDS: Diltiazem CD CAP* 180 MG PO SCH (09:13)
[2017-03-15] MEDS: guaiFENesin ER TAB 600 MG PO SCH ×2 (09:13→21:54)
[2017-03-15] MEDS: Atorvastatin* 20 MG TAB PO SCH (09:14)
[2017-03-15] MEDS: Amiodarone TAB* 200 MG PO SCH (09:14)
[2017-03-15] MEDS: Aspirin Low Dose CHEW TAB* 81 MG PO SCH (09:14)
[2017-03-15] MEDS: Torsemide TAB* 20 MG PO SCH (09:16)
--- NOTE | 2017-03-15 09:56 | RAD ---
INDICATION: Respiratory failure, diffuse rhonchi. COMPARISON: Comparison is made with a prior chest x-ray study from March 13, 2017. TECHNIQUE: A portable view of the chest was obtained. FINDINGS: The heart is mildly enlarged and unchanged from the prior exam. There is mild prominence of the interstitial markings which is unchanged. There are small infiltrates at both lung bases and small bilateral pleural effusions which are unchanged. IMPRESSION: SMALL BIBASILAR INFILTRATES AND PLEURAL EFFUSIONS, UNCHANGED.
[2017-03-15] MEDS: Tiotropium CAP.INH* CAP.INH/18 MCG INH SCH (10:30)
[2017-03-15] MEDS: Mometasone/Formoter 200/5 MDI INH SCH ×2 (10:30→20:34)
[2017-03-15] MEDS ORDERED: Furosemide IV* 10 MG/ML 2 ML VIAL (20 MG) IV SLOW PU ONE (15:51)
--- NOTE | 2017-03-15 15:55 | PN ---
Subjective Date of Service: 03/15/17 Interval History: Cough is more productive, bringing up for thick mucous SOB unchanged. Not getting OOB Poor appetite Objective Active Medications: Acetaminophen (Tylenol Tab*) 650 mg PO Q6H PRN PRN Reason: FEVER/PAIN Last Admin: 03/15/17 13:31 Dose: 650 mg Albuterol (Ventolin 2.5 Mg/3 Ml Neb.Sally*) 2.5 mg INH Q2H PRN PRN Reason: SOB/WHEEZING Last Admin: 03/13/17 16:08 Dose: 2.5 mg Amiodarone HCl (Cordarone Tab*) 100 mg PO DAILY [facility] Last Admin: 03/15/17 09:14 Dose: 100 mg Amitriptyline HCl (Elavil Tab*) 10 mg PO BEDTIME [facility] Last Admin: 03/14/17 21:30 Dose: 10 mg Aspirin (Aspirin Low Dose Tab*) 81 mg PO DAILY [facility] Last Admin: 03/15/17 09:14 Dose: 81 mg Atorvastatin Calcium (Lipitor*) 20 mg PO DAILY [facility] Last Admin: 03/15/17 09:14 Dose: 20 mg Diltiazem HCl (Cardizem Cd Cap*) 180 mg PO DAILY [facility] Last Admin: 03/15/17 09:13 Dose: 180 mg Docusate Sodium (Colace Cap*) 200 mg PO BID [facility] Last Admin: 03/15/17 09:13 Dose: 200 mg Guaifenesin (Mucinex*) 1,200 mg PO BID [facility] Last Admin: 03/15/17 09:13 Dose: 1,200 mg Heparin Sodium (Porcine) (Heparin Vial(*)) 5,000 units SUBCUT Q8HR [facility] Last Admin: 03/15/17 13:29 Dose: 5,000 units Ceftriaxone Sodium 1,000 mg/ (Sodium Chloride) 50 mls @ 200 mls/hr IVPB Q24H [facility] Last Admin: 03/14/17 22:36 Dose: 200 mls/hr Azithromycin 500 mg/ Sodium (Chloride) 250 mls @ 250 mls/hr IVPB Q24H [facility] Last Admin: 03/14/17 23:30 Dose: 250 mls/hr Insulin Glargine (Lantus(*)) 10 units SUBCUT Q24H [facility] Last Admin: 03/14/17 21:31 Dose: 10 unit Insulin Human Lispro (Humalog*) 0 units SUBCUT AC [facility] PRN Reason: Protocol Last Admin: 03/15/17 13:29 Dose: 5 units Insulin Human Lispro (Humalog*) 0 units SUBCUT ACHS [facility] PRN Reason: Protocol Last Admin: 03/15/17 13:27 Dose: 4 units Levothyroxine Sodium (Synthroid Tab*) 88 mcg PO DAILY@0600 [facility] Last Admin: 03/15/17 05:44 Dose: 88 mcg Melatonin (Melatonin (Nf)) 3 mg PO BEDTIME PRN; Protocol PRN Reason: Sleep Mometasone Furoate/Formoterol Fumar (Dulera 200/5 Mdi*) 2 puff INH BID [facility] Last Admin: 03/15/17 10:30 Dose: 2 puff Omeprazole (Prilosec Cap*) 20 mg PO DAILY@0600 [facility] Last Admin: 03/15/17 05:44 Dose: 20 mg Ondansetron HCl (Zofran Inj*) 4 mg IV Q6H PRN PRN Reason: NAUSEA Prednisone (Deltasone Tab*) 40 mg PO DAILY [facility] Last Admin: 03/15/17 09:13 Dose: 40 mg Tiotropium [place] (Spiriva Cap.Inh*) 1 cap INH DAILY [facility] Last Admin: 03/15/17 10:30 Dose: 1 cap Torsemide (Demadex*) 10 mg PO DAILY [facility] Last Admin: 03/15/17 09:16 Dose: 10 mg Vital Signs 03/14/17 03/14/17 03/14/17 16:00 17:00 18:00 Temperature Pulse Rate 78 86 85 Respiratory 19 26 26 Rate Blood Pressure 128/66 137/64 160/63 (mmHg) O2 Sat by Pulse 94 97 95 Oximetry 03/14/17 03/14/17 03/14/17 19:00 19:38 20:00 Temperature 98.9 F Pulse Rate 86 81 Respiratory 20 22 Rate Blood Pressure 122/105 (mmHg) O2 Sat by Pulse 96 95 Oximetry 03/14/17 03/14/17 03/14/17 20:01 21:00 21:02 Temperature Pulse Rate 81 80 Respiratory 21 26 Rate Blood Pressure 157/67 (mmHg) O2 Sat by Pulse 93 95 Oximetry 03/14/17 03/14/17 03/14/17 22:00 23:00 23:51 Temperature Pulse Rate 80 84 75 Respiratory 23 20 18 Rate Blood Pressure 144/55 153/63 (mmHg) O2 Sat by Pulse 96 88 96 Oximetry 03/15/17 03/15/17 03/15/17 00:00 00:01 01:00 Temperature 97.8 F Pulse Rate 76 74 74 Respiratory 18 18 17 Rate Blood Pressure 113/57 (mmHg) O2 Sat by Pulse 94 94 93 Oximetry 03/15/17 03/15/17 03/15/17 01:01 02:00 03:00 Temperature Pulse Rate 73 69 70 Respiratory 17 18 18 Rate Blood Pressure 125/57 119/53 (mmHg) O2 Sat by Pulse 93 98 97 Oximetry 03/15/17 03/15/17 03/15/17 03:15 03:40 04:00 Temperature 98.6 F Pulse Rate 75 79 Respiratory 23 20 23 Rate Blood Pressure 140/67 158/66 (mmHg) O2 Sat by Pulse 97 93 Oximetry 03/15/17 03/15/17 03/15/17 05:00 05:55 06:00 Temperature Pulse Rate 74 74 Respiratory 18 18 19 Rate Blood Pressure 162/66 171/77 (mmHg) O2 Sat by Pulse 100 100 Oximetry 03/15/17 03/15/17 03/15/17 07:00 07:02 07:22 Temperature 98.6 F Pulse Rate 82 88 Respiratory 24 25 Rate Blood Pressure 100/65 (mmHg) O2 Sat by Pulse 99 95 Oximetry 03/15/17 03/15/17 03/15/17 08:00 08:27 09:00 Temperature Pulse Rate 81 75 83 Respiratory 18 18 24 Rate Blood Pressure 163/81 156/86 (mmHg) O2 Sat by Pulse 96 100 100 Oximetry 03/15/17 03/15/17 03/15/17 10:00 10:30 11:00 Temperature Pulse Rate 81 80 86 Respiratory 18 20 22 Rate Blood Pressure 151/44 143/69 (mmHg) O2 Sat by Pulse 99 97 98 Oximetry 03/15/17 03/15/17 03/15/17 11:53 12:00 13:00 Temperature 98.6 F Pulse Rate 88 85 Respiratory 22 27 Rate Blood Pressure 183/80 119/94 (mmHg) O2 Sat by Pulse 96 95 Oximetry 03/15/17 15:41 Temperature 99 F Pulse Rate Respiratory Rate Blood Pressure (mmHg) O2 Sat by Pulse Oximetry Oxygen Devices in Use Now: High Flow Nasal Cannula Appearance: sitting up in bed, NAD Eyes: No Scleral Icterus, PERRLA Ears/Nose/Mouth/Throat: Clear Oropharnyx, Mucous Membranes Moist Neck: NL Appearance and Movements; NL JVP, Trachea Midline Respiratory: Symmetrical Chest Expansion and Respiratory Effort, - - rhonchi throughout Cardiovascular: RRR Abdominal: NL Sounds; No Tenderness; No Distention, No Hepatosplenomegaly Lymphatic: No Cervical Adenopathy Extremities: - - 1+ LE edema b/l Neurological: Alert and Oriented x 3 Result Diagrams: 03/14/17 09:40 03/14/17 09:40 Additional Lab and Data: . Microbiology and Other Data: Microbiology 03/12/17 04:35 Aerobic Blood Culture - Preliminary Blood Venous No Growth Day 1 Anaerobic Blood Culture - Preliminary No Growth Day 1 03/13/17 01:09 Legionella Urinary Antigen - Final Urine Negative Legionella Streptococcus pneumoniae Ag Screen - Final Negative S. pneumo Antigen 03/12/17 00:50 Aerobic Blood Culture - Preliminary Blood Venous No Growth Day 1 Anaerobic Blood Culture - Preliminary No Growth Day 1 03/12/17 00:45 Aerobic Blood Culture - Preliminary Blood Venous No Growth Day 1 Anaerobic Blood Culture - Preliminary No Growth Day 1 Diagnostic Imaging: CXR - possible LLL infiltrate Repeat CXR - persistent L sided inflitrate without significant change, mild vascular congestion, small R sided effusion Assess/Plan/Problems-Billing Assessment: This is an 86 yo female with h/o CAD, DM2, HTN, sCHF, paroxysmal atrial fibrillation, hypothyroidism and CKD who presents with complaints of cough and SOB with LLL PNA - Patient Problems (1) Pneumonia Comment: LLL infiltrate on CXR Cont ceftriaxone and azithromycin prednisone started 03/14 (2) Acute systolic CHF (congestive heart failure) Comment: Weight up during hospital stay c/w toresmide additional lasix IV 20mg 03/15 strict I/O and daily weights. Goal net negative >1L/day (3) Acute respiratory failure with hypoxia Comment: In setting of PNA and acute sCHF see above (4) Acute on chronic renal insufficiency Comment: Improved follow in setting of diuresis (5) Atrial fibrillation Comment: Cont amiodarone and diltiazem No anticoagulation noted on home medication list, she is likely not anticoagulated due to history of GI bleed (6) IDDM (insulin dependent diabetes mellitus) Comment: lantus increased 10 to 14U 03/05 insulin carb counting and SS (7) DVT prophylaxis Comment: SQ heparin Status and Disposition: Inpatient. Requires continued ICU care for Vapotherm at this time
[2017-03-15] MEDS: Amitriptyline TAB* 10 MG PO SCH (21:53)
[2017-03-15] MEDS: Insulin GLARGINE(*) 1 UNITS UNIT SUBCUT SCH (21:55)
[2017-03-15] MEDS: cefTRIAXone VIAL(*) 1,000 MG in NS 0.9% 50 ML* 50 ML IVPB SCH (23:17)
[2017-03-15] MEDS: Azithromycin IV(*) 500 MG in NS 0.9% 250 ML* 250 ML IVPB SCH (23:35)
[2017-03-16] MEDS: Heparin VIAL(*) 5000 UNITS/ML VIAL (FIVE THOUSAND) SUBCUT SCH ×3 (05:07→22:01)
[2017-03-16] MEDS: Levothyroxine TAB* 88 MCG TAB PO SCH (05:07)
[2017-03-16] MEDS: Omeprazole CAP* 20 MG PO SCH (05:07)
[2017-03-16 06:14] LABS: Hematocrit 27 % (35-47); Hemoglobin 8.7 g/dl (12.0-16.0); Mean Corpuscular HGB Conc 33 g/dl (31-36); Mean Corpuscular Hemoglobin 29 pg (27-31); Mean Corpuscular Volume 88 fL (80-97); Mean Platelet Volume 7 um3 (7.4-10.4); Red Blood Count 3.02 10^6/ul (4.0-5.4); Red Cell Distribution Width 14 % (10.5-15); White Blood Count 7.3 10^3/ul (3.5-10.8)
[2017-03-16 06:18] LABS: Add Diff/Slide Review? Slide Review Added; Comments Flag Yes
[2017-03-16 06:27] LABS: BUN/Creatinine Ratio 32.7 (8-20); Calcium 8.8 mg/dL (8.6-10.3); EGFR African American 43.2 (>60); EGFR Non-African American 33.6 (>60); Potassium 4.4 mmol/L (3.5-5.0)
[2017-03-16] MEDS: Mometasone/Formoter 200/5 MDI INH SCH ×2 (08:40→19:27)
[2017-03-16] MEDS: Tiotropium CAP.INH* CAP.INH/18 MCG INH SCH (08:40)
[2017-03-16] MEDS: Acetaminophen TAB* 325 MG PO PRN ×2 (08:56→22:13)
[2017-03-16] MEDS: Amiodarone TAB* 200 MG PO SCH (08:56)
[2017-03-16] MEDS: Docusate CAP* 100 MG PO SCH ×2 (08:56→22:08)
[2017-03-16] MEDS: Atorvastatin* 20 MG TAB PO SCH (08:57)
[2017-03-16] MEDS: predniSONE TAB* 20 MG PO SCH (08:57)
[2017-03-16] MEDS: Torsemide TAB* 20 MG PO SCH (08:57)
[2017-03-16] MEDS: Diltiazem CD CAP* 180 MG PO SCH (08:57)
[2017-03-16] MEDS: Aspirin Low Dose CHEW TAB* 81 MG PO SCH (08:57)
[2017-03-16] MEDS: guaiFENesin ER TAB 600 MG PO SCH ×2 (08:58→22:08)
[2017-03-16] MEDS: Insulin LISPRO* 1 UNITS UNIT SUBCUT SCH ×7 (10:03→22:05)
[2017-03-16] MEDS ORDERED: fentaNYL* 50 MCG/ML 2 ML VIAL (100 MCG VIAL) ONE (12:24)
[2017-03-16] MEDS ORDERED: Furosemide IV* 10 MG/ML 2 ML VIAL (20 MG) IV SLOW PU ONE (13:09)
--- NOTE | 2017-03-16 13:15 | PN ---
Subjective Date of Service: 03/16/17 Interval History: Feels "stronger" today No SOB at rest +bm yesterday +cough but difficult to expectorate sputum Objective Active Medications: Acetaminophen (Tylenol Tab*) 650 mg PO Q6H PRN PRN Reason: FEVER/PAIN Last Admin: 03/16/17 08:56 Dose: 650 mg Albuterol (Ventolin 2.5 Mg/3 Ml Neb.Sally*) 2.5 mg INH Q2H PRN PRN Reason: SOB/WHEEZING Last Admin: 03/13/17 16:08 Dose: 2.5 mg Amiodarone HCl (Cordarone Tab*) 100 mg PO DAILY [facility] Last Admin: 03/16/17 08:56 Dose: 100 mg Amitriptyline HCl (Elavil Tab*) 10 mg PO BEDTIME [facility] Last Admin: 03/15/17 21:53 Dose: 10 mg Aspirin (Aspirin Low Dose Tab*) 81 mg PO DAILY [facility] Last Admin: 03/16/17 08:57 Dose: 81 mg Atorvastatin Calcium (Lipitor*) 20 mg PO DAILY [facility] Last Admin: 03/16/17 08:57 Dose: 20 mg Diltiazem HCl (Cardizem Cd Cap*) 180 mg PO DAILY [facility] Last Admin: 03/16/17 08:57 Dose: 180 mg Docusate Sodium (Colace Cap*) 200 mg PO BID [facility] Last Admin: 03/16/17 08:56 Dose: 200 mg Furosemide (Lasix Iv*) 20 mg IV SLOW PU ONCE ONE Stop: 03/16/17 13:10 Guaifenesin (Mucinex*) 1,200 mg PO BID [facility] Last Admin: 03/16/17 08:58 Dose: 1,200 mg Heparin Sodium (Porcine) (Heparin Vial(*)) 5,000 units SUBCUT Q8HR [facility] Last Admin: 03/16/17 05:07 Dose: 5,000 units Ceftriaxone Sodium 1,000 mg/ (Sodium Chloride) 50 mls @ 200 mls/hr IVPB Q24H [facility] Last Admin: 03/15/17 23:17 Dose: 200 mls/hr Insulin Glargine (Lantus(*)) 14 units SUBCUT Q24H [facility] Last Admin: 03/15/17 21:55 Dose: 14 unit Insulin Human Lispro (Humalog*) 0 units SUBCUT AC [facility] PRN Reason: Protocol Last Admin: 03/16/17 10:03 Dose: 6 units Insulin Human Lispro (Humalog*) 0 units SUBCUT ACHS [facility] PRN Reason: Protocol Last Admin: 03/16/17 10:04 Dose: 1 units Levothyroxine Sodium (Synthroid Tab*) 88 mcg PO DAILY@0600 [facility] Last Admin: 03/16/17 05:07 Dose: 88 mcg Melatonin (Melatonin (Nf)) 3 mg PO BEDTIME PRN; Protocol PRN Reason: Sleep Mometasone Furoate/Formoterol Fumar (Dulera 200/5 Mdi*) 2 puff INH BID [facility] Last Admin: 03/16/17 08:40 Dose: 2 puff Omeprazole (Prilosec Cap*) 20 mg PO DAILY@0600 [facility] Last Admin: 03/16/17 05:07 Dose: 20 mg Ondansetron HCl (Zofran Inj*) 4 mg IV Q6H PRN PRN Reason: NAUSEA Prednisone (Deltasone Tab*) 40 mg PO DAILY [facility] Last Admin: 03/16/17 08:57 Dose: 40 mg Tiotropium [place] (Spiriva Cap.Inh*) 1 cap INH DAILY [facility] Last Admin: 03/16/17 08:40 Dose: 1 cap Torsemide (Demadex*) 10 mg PO DAILY [facility] Last Admin: 03/16/17 08:57 Dose: 10 mg Vital Signs 03/15/17 03/15/17 03/15/17 14:00 15:00 15:41 Temperature 99 F Pulse Rate 83 78 Respiratory 20 18 Rate Blood Pressure (mmHg) O2 Sat by Pulse 97 98 Oximetry 03/15/17 03/15/17 03/15/17 16:00 17:00 17:28 Temperature Pulse Rate 79 Respiratory 20 24 25 Rate Blood Pressure 175/80 (mmHg) O2 Sat by Pulse 97 Oximetry 03/15/17 03/15/17 03/15/17 18:00 19:00 19:22 Temperature 99.1 F Pulse Rate 81 83 Respiratory 22 25 Rate Blood Pressure 162/83 173/68 (mmHg) O2 Sat by Pulse 96 96 Oximetry 03/15/17 03/15/17 03/15/17 20:00 20:16 20:36 Temperature Pulse Rate 86 83 98 Respiratory 18 26 87 Rate Blood Pressure 167/68 (mmHg) O2 Sat by Pulse 98 98 18 Oximetry 03/15/17 03/15/17 03/15/17 21:00 22:00 22:54 Temperature Pulse Rate 81 85 Respiratory 18 20 Rate Blood Pressure 165/75 155/81 (mmHg) O2 Sat by Pulse 98 97 Oximetry 03/15/17 03/15/17 03/15/17 23:00 23:02 23:54 Temperature 97.5 F Pulse Rate 75 76 Respiratory 20 19 Rate Blood Pressure 163/64 (mmHg) O2 Sat by Pulse 98 98 Oximetry 03/16/17 03/16/17 03/16/17 00:00 00:01 01:00 Temperature Pulse Rate 70 75 Respiratory 18 17 22 Rate Blood Pressure 150/68 146/76 (mmHg) O2 Sat by Pulse 99 99 Oximetry 03/16/17 03/16/17 03/16/17 02:00 03:00 04:00 Temperature 97.6 F Pulse Rate 78 72 65 Respiratory 18 19 16 Rate Blood Pressure 170/66 173/113 157/68 (mmHg) O2 Sat by Pulse 99 99 99 Oximetry 03/16/17 03/16/17 03/16/17 05:00 05:35 06:00 Temperature Pulse Rate 79 72 72 Respiratory 21 20 16 Rate Blood Pressure 178/70 172/81 (mmHg) O2 Sat by Pulse 97 99 99 Oximetry 03/16/17 03/16/17 03/16/17 07:00 07:41 08:40 Temperature 97.8 F Pulse Rate 87 84 Respiratory 23 Rate Blood Pressure (mmHg) O2 Sat by Pulse 95 98 Oximetry Oxygen Devices in Use Now: High Flow Nasal Cannula Appearance: sitting in chair, NAD Eyes: No Scleral Icterus, PERRLA Ears/Nose/Mouth/Throat: NL Teeth, Lips, Gums, Clear Oropharnyx, Mucous Membranes Moist Neck: NL Appearance and Movements; NL JVP, Trachea Midline Respiratory: Symmetrical Chest Expansion and Respiratory Effort, - - rhonchi 1/ 2 up b/l Cardiovascular: RRR Abdominal: NL Sounds; No Tenderness; No Distention, No Hepatosplenomegaly Lymphatic: No Cervical Adenopathy Extremities: No Edema Skin: No Rash or Ulcers Neurological: Alert and Oriented x 3 Result Diagrams: 03/16/17 05:39 03/16/17 05:39 Additional Lab and Data: . Microbiology and Other Data: Microbiology 03/12/17 04:35 Aerobic Blood Culture - Preliminary Blood Venous No Growth Day 1 Anaerobic Blood Culture - Preliminary No Growth Day 1 03/13/17 01:09 Legionella Urinary Antigen - Final Urine Negative Legionella Streptococcus pneumoniae Ag Screen - Final Negative S. pneumo Antigen 03/12/17 00:50 Aerobic Blood Culture - Preliminary Blood Venous No Growth Day 1 Anaerobic Blood Culture - Preliminary No Growth Day 1 03/12/17 00:45 Aerobic Blood Culture - Preliminary Blood Venous No Growth Day 1 Anaerobic Blood Culture - Preliminary No Growth Day 1 Diagnostic Imaging: CXR - possible LLL infiltrate Repeat CXR - persistent L sided inflitrate without significant change, mild vascular congestion, small R sided effusion Assess/Plan/Problems-Billing Assessment: This is an 86 yo female with h/o CAD, DM2, HTN, sCHF, paroxysmal atrial fibrillation, hypothyroidism and CKD who presents with complaints of cough and SOB with LLL PNA - Patient Problems (1) Pneumonia Comment: LLL infiltrate on CXR Cont ceftriaxone azithro completed prednisone started 03/14 (2) Acute systolic CHF (congestive heart failure) Comment: Weight up during hospital stay c/w toresmide additional lasix IV 20mg 03/15 and again 03/16 strict I/O and daily weights. Goal net negative >1L/day (3) Acute respiratory failure with hypoxia Comment: In setting of PNA and acute sCHF see above (4) Acute on chronic renal insufficiency Comment: Improved follow in setting of diuresis (5) Atrial fibrillation Comment: Cont amiodarone and diltiazem No anticoagulation noted on home medication list, she is likely not anticoagulated due to history of GI bleed (6) IDDM (insulin dependent diabetes mellitus) Comment: lantus increased 10 to 14U 03/05 insulin carb counting and SS (7) DVT prophylaxis Comment: SQ heparin Status and Disposition: Inpatient. Requires continued ICU care for Vapotherm at this time
[2017-03-16] MEDS: Insulin GLARGINE(*) 1 UNITS UNIT SUBCUT SCH ×2 (22:01→22:04)
[2017-03-16] MEDS: Amitriptyline TAB* 10 MG PO SCH (22:07)
[2017-03-16] MEDS: cefTRIAXone VIAL(*) 1,000 MG in NS 0.9% 50 ML* 50 ML IVPB SCH (23:18)
[2017-03-17] MEDS: Omeprazole CAP* 20 MG PO SCH (06:20)
[2017-03-17] MEDS: Heparin VIAL(*) 5000 UNITS/ML VIAL (FIVE THOUSAND) SUBCUT SCH ×3 (06:20→22:09)
[2017-03-17] MEDS: Levothyroxine TAB* 88 MCG TAB PO SCH (06:20)
[2017-03-17] MEDS: Diltiazem CD CAP* 180 MG PO SCH (09:26)
[2017-03-17] MEDS: Docusate CAP* 100 MG PO SCH ×2 (09:26→22:11)
[2017-03-17] MEDS: predniSONE TAB* 20 MG PO SCH (09:26)
[2017-03-17] MEDS: Aspirin Low Dose CHEW TAB* 81 MG PO SCH (09:26)
[2017-03-17] MEDS: guaiFENesin ER TAB 600 MG PO SCH ×2 (09:27→22:13)
[2017-03-17] MEDS: Tiotropium CAP.INH* CAP.INH/18 MCG INH SCH (09:27)
[2017-03-17] MEDS: Amiodarone TAB* 200 MG PO SCH (09:28)
[2017-03-17] MEDS: Atorvastatin* 20 MG TAB PO SCH (09:28)
[2017-03-17] MEDS: Torsemide TAB* 20 MG PO SCH (09:29)
[2017-03-17] MEDS: Mometasone/Formoter 200/5 MDI INH SCH ×2 (09:29→19:55)
[2017-03-17] MEDS: Insulin LISPRO* 1 UNITS UNIT SUBCUT SCH ×7 (10:35→22:10)
[2017-03-17] MEDS ORDERED: Furosemide IV* 10 MG/ML 2 ML VIAL (20 MG) IV SLOW PU ONE (13:39)
--- NOTE | 2017-03-17 13:49 | PN ---
Subjective Date of Service: 03/17/17 Interval History: Feels a little stronger today no change in breathing appetite poor but drinking supplements. Would like a change and include strawberry flavors Slow improvement on vapotherm Objective Active Medications: Acetaminophen (Tylenol Tab*) 650 mg PO Q6H PRN PRN Reason: FEVER/PAIN Last Admin: 03/16/17 22:13 Dose: 650 mg Albuterol (Ventolin 2.5 Mg/3 Ml Neb.Sally*) 2.5 mg INH Q2H PRN PRN Reason: SOB/WHEEZING Last Admin: 03/13/17 16:08 Dose: 2.5 mg Amiodarone HCl (Cordarone Tab*) 100 mg PO DAILY [facility] Last Admin: 03/17/17 09:28 Dose: 100 mg Amitriptyline HCl (Elavil Tab*) 10 mg PO BEDTIME [facility] Last Admin: 03/16/17 22:07 Dose: 10 mg Aspirin (Aspirin Low Dose Tab*) 81 mg PO DAILY [facility] Last Admin: 03/17/17 09:26 Dose: 81 mg Atorvastatin Calcium (Lipitor*) 20 mg PO DAILY [facility] Last Admin: 03/17/17 09:28 Dose: 20 mg Diltiazem HCl (Cardizem Cd Cap*) 180 mg PO DAILY [facility] Last Admin: 03/17/17 09:26 Dose: 180 mg Docusate Sodium (Colace Cap*) 200 mg PO BID [facility] Last Admin: 03/17/17 09:26 Dose: 200 mg Furosemide (Lasix Iv*) 20 mg IV SLOW PU ONCE ONE Stop: 03/17/17 13:40 Guaifenesin (Mucinex*) 1,200 mg PO BID [facility] Last Admin: 03/17/17 09:27 Dose: 1,200 mg Heparin Sodium (Porcine) (Heparin Vial(*)) 5,000 units SUBCUT Q8HR [facility] Last Admin: 03/17/17 13:20 Dose: 5,000 units Ceftriaxone Sodium 1,000 mg/ (Sodium Chloride) 50 mls @ 200 mls/hr IVPB Q24H [facility] Last Admin: 03/16/17 23:18 Dose: 200 mls/hr Insulin Glargine (Lantus(*)) 14 units SUBCUT Q24H [facility] Last Admin: 03/16/17 22:04 Dose: 14 unit Insulin Human Lispro (Humalog*) 0 units SUBCUT AC [facility] PRN Reason: Protocol Last Admin: 03/17/17 13:20 Dose: 7 units Insulin Human Lispro (Humalog*) 0 units SUBCUT ACHS [facility] PRN Reason: Protocol Levothyroxine Sodium (Synthroid Tab*) 88 mcg PO DAILY@0600 [facility] Last Admin: 03/17/17 06:20 Dose: 88 mcg Melatonin (Melatonin (Nf)) 3 mg PO BEDTIME PRN; Protocol PRN Reason: Sleep Last Admin: 03/16/17 22:13 Dose: 3 mg Mometasone Furoate/Formoterol Fumar (Dulera 200/5 Mdi*) 2 puff INH BID [facility] Last Admin: 03/17/17 09:29 Dose: 2 puff Omeprazole (Prilosec Cap*) 20 mg PO DAILY@0600 [facility] Last Admin: 03/17/17 06:20 Dose: 20 mg Ondansetron HCl (Zofran Inj*) 4 mg IV Q6H PRN PRN Reason: NAUSEA Prednisone (Deltasone Tab*) 40 mg PO DAILY [facility] Last Admin: 03/17/17 09:26 Dose: 40 mg Tiotropium [place] (Spiriva Cap.Inh*) 1 cap INH DAILY [facility] Last Admin: 03/17/17 09:27 Dose: 1 cap Torsemide (Demadex*) 10 mg PO DAILY [facility] Last Admin: 03/17/17 09:29 Dose: 10 mg Vital Signs 03/16/17 03/16/17 03/16/17 14:00 15:00 15:44 Temperature 98.3 F Pulse Rate 76 76 Respiratory 21 25 Rate Blood Pressure 146/64 146/57 (mmHg) O2 Sat by Pulse 97 98 Oximetry 03/16/17 03/16/17 03/16/17 16:00 17:00 18:00 Temperature Pulse Rate 86 77 82 Respiratory 25 19 23 Rate Blood Pressure 148/78 142/88 (mmHg) O2 Sat by Pulse 96 94 96 Oximetry 03/16/17 03/16/17 03/16/17 19:00 19:01 19:28 Temperature Pulse Rate 81 83 Respiratory 18 22 Rate Blood Pressure 172/68 (mmHg) O2 Sat by Pulse 95 96 Oximetry 03/16/17 03/16/17 03/16/17 20:00 21:00 22:00 Temperature 98.5 F Pulse Rate 89 86 82 Respiratory 18 20 24 Rate Blood Pressure 167/83 155/62 153/65 (mmHg) O2 Sat by Pulse 97 96 98 Oximetry 03/16/17 03/17/17 03/17/17 23:00 00:00 00:01 Temperature 96.8 F Pulse Rate 77 74 Respiratory 26 20 Rate Blood Pressure 151/68 152/69 (mmHg) O2 Sat by Pulse 98 97 Oximetry 03/17/17 03/17/17 03/17/17 00:02 00:45 01:00 Temperature Pulse Rate 75 68 Respiratory 18 18 17 Rate Blood Pressure 141/61 (mmHg) O2 Sat by Pulse 98 99 Oximetry 03/17/17 03/17/17 03/17/17 02:00 03:00 04:00 Temperature Pulse Rate 65 71 68 Respiratory 17 21 18 Rate Blood Pressure 140/62 160/69 (mmHg) O2 Sat by Pulse 99 98 97 Oximetry 03/17/17 03/17/17 03/17/17 04:03 05:00 06:00 Temperature Pulse Rate 67 63 Respiratory 18 18 15 Rate Blood Pressure 174/69 155/59 (mmHg) O2 Sat by Pulse 98 94 Oximetry 03/17/17 03/17/17 03/17/17 07:00 08:00 09:00 Temperature 98 F Pulse Rate 68 73 75 Respiratory 19 22 21 Rate Blood Pressure 161/67 150/66 174/63 (mmHg) O2 Sat by Pulse 97 95 99 Oximetry 03/17/17 03/17/17 03/17/17 10:00 11:00 12:00 Temperature Pulse Rate 79 75 84 Respiratory 25 26 24 Rate Blood Pressure 148/56 135/64 (mmHg) O2 Sat by Pulse 100 98 97 Oximetry 03/17/17 03/17/17 12:08 13:00 Temperature Pulse Rate 94 83 Respiratory 20 25 Rate Blood Pressure 154/63 (mmHg) O2 Sat by Pulse 93 94 Oximetry Oxygen Devices in Use Now: High Flow Nasal Cannula Appearance: sitting in chair, NAD Eyes: No Scleral Icterus, PERRLA Ears/Nose/Mouth/Throat: Clear Oropharnyx, Mucous Membranes Moist Neck: NL Appearance and Movements; NL JVP, Trachea Midline Respiratory: Symmetrical Chest Expansion and Respiratory Effort, - - rhonchi up 2/3 Cardiovascular: RRR Abdominal: NL Sounds; No Tenderness; No Distention, No Hepatosplenomegaly Lymphatic: No Cervical Adenopathy Extremities: - - 1+ le edema Neurological: Alert and Oriented x 3 Result Diagrams: 03/16/17 05:39 03/16/17 05:39 Additional Lab and Data: . Microbiology and Other Data: Microbiology 03/12/17 04:35 Aerobic Blood Culture - Preliminary Blood Venous No Growth Day 1 Anaerobic Blood Culture - Preliminary No Growth Day 1 03/13/17 01:09 Legionella Urinary Antigen - Final Urine Negative Legionella Streptococcus pneumoniae Ag Screen - Final Negative S. pneumo Antigen 03/12/17 00:50 Aerobic Blood Culture - Preliminary Blood Venous No Growth Day 1 Anaerobic Blood Culture - Preliminary No Growth Day 1 03/12/17 00:45 Aerobic Blood Culture - Preliminary Blood Venous No Growth Day 1 Anaerobic Blood Culture - Preliminary No Growth Day 1 Diagnostic Imaging: CXR - possible LLL infiltrate Repeat CXR - persistent L sided inflitrate without significant change, mild vascular congestion, small R sided effusion Assess/Plan/Problems-Billing Assessment: This is an 86 yo female with h/o CAD, DM2, HTN, sCHF, paroxysmal atrial fibrillation, hypothyroidism and CKD who presents with complaints of cough and SOB with LLL PNA - Patient Problems (1) Pneumonia Comment: LLL infiltrate on CXR Cont ceftriaxone azithro completed prednisone started 03/14 (2) Acute systolic CHF (congestive heart failure) Comment: Weight up during hospital stay c/w toresmide additional lasix IV 20mg 03/15, 03/16, 03/17 - repeat CXR tomorrow strict I/O and daily weights. Goal net negative >1L/day (3) Acute respiratory failure with hypoxia Comment: In setting of PNA and acute sCHF see above (4) Acute on chronic renal insufficiency Comment: Improved follow in setting of diuresis (5) Atrial fibrillation Comment: Cont amiodarone and diltiazem No anticoagulation noted on home medication list, she is likely not anticoagulated due to history of GI bleed (6) IDDM (insulin dependent diabetes mellitus) Comment: lantus increased 10 to 14U 03/05 insulin carb counting and SS (7) DVT prophylaxis Comment: SQ heparin Status and Disposition: Inpatient. Requires continued ICU care for Vapotherm at this time
[2017-03-17] MEDS: cefTRIAXone VIAL(*) 1,000 MG in NS 0.9% 50 ML* 50 ML IVPB SCH (22:09)
[2017-03-17] MEDS: Insulin GLARGINE(*) 1 UNITS UNIT SUBCUT SCH (22:10)
[2017-03-17] MEDS: Amitriptyline TAB* 10 MG PO SCH (22:12)
[2017-03-17] MEDS: Acetaminophen TAB* 325 MG PO PRN (22:12)
[2017-03-18] MEDS: Heparin VIAL(*) 5000 UNITS/ML VIAL (FIVE THOUSAND) SUBCUT SCH ×3 (06:04→22:48)
[2017-03-18] MEDS: Omeprazole CAP* 20 MG PO SCH (06:04)
[2017-03-18] MEDS: Levothyroxine TAB* 88 MCG TAB PO SCH (06:04)
[2017-03-18 07:41] LABS: BUN/Creatinine Ratio 33.1 (8-20); Calcium 9.1 mg/dL (8.6-10.3); EGFR African American 38.4 (>60); EGFR Non-African American 29.8 (>60); Potassium 4.1 mmol/L (3.5-5.0)
[2017-03-18] MEDS: Insulin LISPRO* 1 UNITS UNIT SUBCUT SCH ×7 (07:48→22:48)
--- NOTE | 2017-03-18 07:55 | RAD ---
INDICATION: Hypoxia COMPARISON: Most recent comparison chest x-rays dated March 15, 2017 TECHNIQUE: Single AP portable view of the chest was obtained. FINDINGS: Image quality is compromised due to the relative inferiority of a portable chest x-ray. The heart and mediastinum exhibit normal size and contour. There is density at the bilateral lung bases causing costophrenic angle blunting and obscuring the diaphragm. The pulmonary vasculature remains indistinct and slightly engorged. More superiorly the lungs are otherwise clear. There is no evidence of a large pleural effusion. Visualized bones are normal for the patient's age. IMPRESSION: The constellation of chest x-ray findings is most consistent with congestive heart failure with likely left greater than right pleural effusions.
[2017-03-18] MEDS: Torsemide TAB* 20 MG PO SCH (08:35)
[2017-03-18] MEDS: predniSONE TAB* 20 MG PO SCH (08:35)
[2017-03-18] MEDS: Acetaminophen TAB* 325 MG PO PRN ×2 (08:36→22:55)
[2017-03-18] MEDS: guaiFENesin ER TAB 600 MG PO SCH ×2 (08:36→22:46)
[2017-03-18] MEDS: Diltiazem CD CAP* 180 MG PO SCH (08:37)
[2017-03-18] MEDS: Atorvastatin* 20 MG TAB PO SCH (08:39)
[2017-03-18] MEDS: Docusate CAP* 100 MG PO SCH ×2 (08:39→22:46)
[2017-03-18] MEDS: Amiodarone TAB* 200 MG PO SCH (08:40)
[2017-03-18] MEDS: Aspirin Low Dose CHEW TAB* 81 MG PO SCH (08:40)
[2017-03-18] MEDS: Mometasone/Formoter 200/5 MDI INH SCH ×2 (09:10→19:35)
[2017-03-18] MEDS: Tiotropium CAP.INH* CAP.INH/18 MCG INH SCH (09:10)
--- NOTE | 2017-03-18 16:50 | PN ---
Subjective Date of Service: 03/18/17 Interval History: Feels stronger. Off vapotherm since yesterday. Has not walked. +cough with minimal sputum Objective Active Medications: Acetaminophen (Tylenol Tab*) 650 mg PO Q6H PRN PRN Reason: FEVER/PAIN Last Admin: 03/18/17 08:36 Dose: 650 mg Albuterol (Ventolin 2.5 Mg/3 Ml Neb.Sally*) 2.5 mg INH Q2H PRN PRN Reason: SOB/WHEEZING Last Admin: 03/13/17 16:08 Dose: 2.5 mg Amiodarone HCl (Cordarone Tab*) 100 mg PO DAILY [facility] Last Admin: 03/18/17 08:40 Dose: 100 mg Amitriptyline HCl (Elavil Tab*) 10 mg PO BEDTIME [facility] Last Admin: 03/17/17 22:12 Dose: 10 mg Aspirin (Aspirin Low Dose Tab*) 81 mg PO DAILY [facility] Last Admin: 03/18/17 08:40 Dose: 81 mg Atorvastatin Calcium (Lipitor*) 20 mg PO DAILY [facility] Last Admin: 03/18/17 08:39 Dose: 20 mg Diltiazem HCl (Cardizem Cd Cap*) 180 mg PO DAILY [facility] Last Admin: 03/18/17 08:37 Dose: 180 mg Docusate Sodium (Colace Cap*) 200 mg PO BID [facility] Last Admin: 03/18/17 08:39 Dose: 200 mg Guaifenesin (Mucinex*) 1,200 mg PO BID [facility] Last Admin: 03/18/17 08:36 Dose: 1,200 mg Heparin Sodium (Porcine) (Heparin Vial(*)) 5,000 units SUBCUT Q8HR [facility] Last Admin: 03/18/17 13:57 Dose: 5,000 units Ceftriaxone Sodium 1,000 mg/ (Sodium Chloride) 50 mls @ 200 mls/hr IVPB Q24H [facility] Last Admin: 03/17/17 22:09 Dose: 200 mls/hr Insulin Glargine (Lantus(*)) 14 units SUBCUT Q24H [facility] Last Admin: 03/17/17 22:10 Dose: 14 unit Insulin Human Lispro (Humalog*) 0 units SUBCUT AC [facility] PRN Reason: Protocol Last Admin: 03/18/17 13:56 Dose: 6 units Insulin Human Lispro (Humalog*) 0 units SUBCUT ACHS [facility] PRN Reason: Protocol Last Admin: 03/18/17 13:56 Dose: 6 units Levothyroxine Sodium (Synthroid Tab*) 88 mcg PO DAILY@0600 [facility] Last Admin: 03/18/17 06:04 Dose: 88 mcg Melatonin (Melatonin (Nf)) 3 mg PO BEDTIME PRN; Protocol PRN Reason: Sleep Last Admin: 03/16/17 22:13 Dose: 3 mg Mometasone Furoate/Formoterol Fumar (Dulera 200/5 Mdi*) 2 puff INH BID [facility] Last Admin: 03/18/17 09:10 Dose: 2 puff Omeprazole (Prilosec Cap*) 20 mg PO DAILY@0600 [facility] Last Admin: 03/18/17 06:04 Dose: 20 mg Ondansetron HCl (Zofran Inj*) 4 mg IV Q6H PRN PRN Reason: NAUSEA Prednisone (Deltasone Tab*) 40 mg PO DAILY [facility] Last Admin: 03/18/17 08:35 Dose: 40 mg Tiotropium [place] (Spiriva Cap.Inh*) 1 cap INH DAILY [facility] Last Admin: 03/18/17 09:10 Dose: 1 cap Torsemide (Demadex*) 10 mg PO DAILY [facility] Last Admin: 03/18/17 08:35 Dose: 10 mg Vital Signs 03/17/17 03/17/17 03/17/17 17:20 17:21 19:45 Temperature 97.7 F Pulse Rate 75 82 Respiratory 20 16 Rate Blood Pressure 163/62 (mmHg) O2 Sat by Pulse 94 94 98 Oximetry 03/17/17 03/17/17 03/17/17 19:58 22:10 23:39 Temperature 97.6 F Pulse Rate 81 74 Respiratory 20 20 16 Rate Blood Pressure 155/70 (mmHg) O2 Sat by Pulse 96 100 Oximetry 03/18/17 03/18/17 03/18/17 03:31 07:36 09:13 Temperature 97.4 F 97.4 F Pulse Rate 74 86 83 Respiratory 20 16 18 Rate Blood Pressure 161/78 151/77 (mmHg) O2 Sat by Pulse 100 90 99 Oximetry Oxygen Devices in Use Now: Nasal Cannula - 5L Appearance: sitting up, NAD Eyes: No Scleral Icterus Ears/Nose/Mouth/Throat: Clear Oropharnyx, Mucous Membranes Moist Neck: NL Appearance and Movements; NL JVP, Trachea Midline Respiratory: Symmetrical Chest Expansion and Respiratory Effort, - - b/l rhonchi Cardiovascular: RRR Abdominal: NL Sounds; No Tenderness; No Distention, No Hepatosplenomegaly Lymphatic: No Cervical Adenopathy Extremities: No Edema, - - no edema Neurological: Alert and Oriented x 3 Result Diagrams: 03/16/17 05:39 03/18/17 06:39 Additional Lab and Data: . Microbiology and Other Data: Microbiology 03/12/17 04:35 Aerobic Blood Culture - Preliminary Blood Venous No Growth Day 1 Anaerobic Blood Culture - Preliminary No Growth Day 1 03/13/17 01:09 Legionella Urinary Antigen - Final Urine Negative Legionella Streptococcus pneumoniae Ag Screen - Final Negative S. pneumo Antigen 03/12/17 00:50 Aerobic Blood Culture - Preliminary Blood Venous No Growth Day 1 Anaerobic Blood Culture - Preliminary No Growth Day 1 03/12/17 00:45 Aerobic Blood Culture - Preliminary Blood Venous No Growth Day 1 Anaerobic Blood Culture - Preliminary No Growth Day 1 Diagnostic Imaging: CXR - possible LLL infiltrate Repeat CXR - persistent L sided inflitrate without significant change, mild vascular congestion, small R sided effusion Assess/Plan/Problems-Billing Assessment: This is an 86 yo female with h/o CAD, DM2, HTN, sCHF, paroxysmal atrial fibrillation, hypothyroidism and CKD who presents with complaints of cough and SOB with LLL PNA - Patient Problems (1) Pneumonia Comment: LLL infiltrate on CXR Cont ceftriaxone azithro completed prednisone started 03/14 (2) Acute systolic CHF (congestive heart failure) Comment: Weight up during hospital stay c/w toresmide additional lasix IV 20mg 03/15, 03/16, 03/17 repeat CXR 03/18 with e/o pulm edema. Hold lasix today with increased creatine. Reassess tomorrow strict I/O and daily weights. Goal net negative >1L/day (3) Acute respiratory failure with hypoxia Comment: In setting of PNA and acute sCHF see above (4) Acute on chronic renal insufficiency Comment: Improved follow in setting of diuresis (5) Atrial fibrillation Comment: Cont amiodarone and diltiazem No anticoagulation noted on home medication list, she is likely not anticoagulated due to history of GI bleed (6) IDDM (insulin dependent diabetes mellitus) Comment: lantus increased 10 to 14U / insulin carb counting and SS (7) DVT prophylaxis Comment: SQ heparin Status and Disposition: Inpatient.
[2017-03-18] MEDS: cefTRIAXone VIAL(*) 1,000 MG in NS 0.9% 50 ML* 50 ML IVPB SCH (22:46)
[2017-03-18] MEDS: Amitriptyline TAB* 10 MG PO SCH (22:46)
[2017-03-18] MEDS: Insulin GLARGINE(*) 1 UNITS UNIT SUBCUT SCH (22:46)
[2017-03-19 05:49] LABS: BUN/Creatinine Ratio 36.3 (8-20); Calcium 8.8 mg/dL (8.6-10.3); EGFR African American 39.2 (>60); EGFR Non-African American 30.5 (>60); Potassium 4.3 mmol/L (3.5-5.0)
[2017-03-19] MEDS: Omeprazole CAP* 20 MG PO SCH (05:50)
[2017-03-19] MEDS: Levothyroxine TAB* 88 MCG TAB PO SCH (05:50)
[2017-03-19] MEDS: Heparin VIAL(*) 5000 UNITS/ML VIAL (FIVE THOUSAND) SUBCUT SCH ×3 (05:51→23:00)
[2017-03-19] MEDS: Tiotropium CAP.INH* CAP.INH/18 MCG INH SCH (08:19)
[2017-03-19] MEDS: Mometasone/Formoter 200/5 MDI INH SCH ×2 (08:19→20:10)
[2017-03-19] MEDS: Insulin LISPRO* 1 UNITS UNIT SUBCUT SCH ×7 (08:45→23:00)
[2017-03-19] MEDS: guaiFENesin ER TAB 600 MG PO SCH ×2 (09:21→20:59)
[2017-03-19] MEDS: Torsemide TAB* 20 MG PO SCH (09:22)
[2017-03-19] MEDS: predniSONE TAB* 20 MG PO SCH (09:23)
[2017-03-19] MEDS: Aspirin Low Dose CHEW TAB* 81 MG PO SCH (09:23)
[2017-03-19] MEDS: Docusate CAP* 100 MG PO SCH ×2 (09:23→20:58)
[2017-03-19] MEDS: Diltiazem CD CAP* 180 MG PO SCH (09:23)
[2017-03-19] MEDS: Atorvastatin* 20 MG TAB PO SCH (09:24)
[2017-03-19] MEDS: Amiodarone TAB* 200 MG PO SCH (09:24)
--- NOTE | 2017-03-19 17:31 | PN ---
Subjective Date of Service: 03/19/17 Interval History: Breathing feels better. She is worried about going home. Cough improved. Objective Active Medications: Acetaminophen (Tylenol Tab*) 650 mg PO Q6H PRN PRN Reason: FEVER/PAIN Last Admin: 03/18/17 22:55 Dose: 650 mg Albuterol (Ventolin 2.5 Mg/3 Ml Neb.Sally*) 2.5 mg INH Q2H PRN PRN Reason: SOB/WHEEZING Last Admin: 03/13/17 16:08 Dose: 2.5 mg Amiodarone HCl (Cordarone Tab*) 100 mg PO DAILY [facility] Last Admin: 03/19/17 09:24 Dose: 100 mg Amitriptyline HCl (Elavil Tab*) 10 mg PO BEDTIME [facility] Last Admin: 03/18/17 22:46 Dose: 10 mg Aspirin (Aspirin Low Dose Tab*) 81 mg PO DAILY [facility] Last Admin: 03/19/17 09:23 Dose: 81 mg Atorvastatin Calcium (Lipitor*) 20 mg PO DAILY [facility] Last Admin: 03/19/17 09:24 Dose: 20 mg Diltiazem HCl (Cardizem Cd Cap*) 180 mg PO DAILY [facility] Last Admin: 03/19/17 09:23 Dose: 180 mg Docusate Sodium (Colace Cap*) 200 mg PO BID [facility] Last Admin: 03/19/17 09:23 Dose: 200 mg Guaifenesin (Mucinex*) 1,200 mg PO BID [facility] Last Admin: 03/19/17 09:21 Dose: 1,200 mg Heparin Sodium (Porcine) (Heparin Vial(*)) 5,000 units SUBCUT Q8HR [facility] Last Admin: 03/19/17 13:18 Dose: 5,000 units Ceftriaxone Sodium 1,000 mg/ (Sodium Chloride) 50 mls @ 200 mls/hr IVPB Q24H [facility] Last Admin: 03/18/17 22:46 Dose: 200 mls/hr Insulin Glargine (Lantus(*)) 14 units SUBCUT Q24H [facility] Last Admin: 03/18/17 22:46 Dose: 14 unit Insulin Human Lispro (Humalog*) 0 units SUBCUT AC [facility] PRN Reason: Protocol Last Admin: 03/19/17 13:19 Dose: 6 units Insulin Human Lispro (Humalog*) 0 units SUBCUT ACHS [facility] PRN Reason: Protocol Last Admin: 03/19/17 13:19 Dose: 1 units Levothyroxine Sodium (Synthroid Tab*) 88 mcg PO DAILY@0600 [facility] Last Admin: 03/19/17 05:50 Dose: 88 mcg Melatonin (Melatonin (Nf)) 3 mg PO BEDTIME PRN; Protocol PRN Reason: Sleep Last Admin: 03/16/17 22:13 Dose: 3 mg Mometasone Furoate/Formoterol Fumar (Dulera 200/5 Mdi*) 2 puff INH BID [facility] Last Admin: 03/19/17 08:19 Dose: 2 puff Omeprazole (Prilosec Cap*) 20 mg PO DAILY@0600 [facility] Last Admin: 03/19/17 05:50 Dose: 20 mg Ondansetron HCl (Zofran Inj*) 4 mg IV Q6H PRN PRN Reason: NAUSEA Prednisone (Deltasone Tab*) 40 mg PO DAILY [facility] Last Admin: 03/19/17 09:23 Dose: 40 mg Tiotropium [place] (Spiriva Cap.Inh*) 1 cap INH DAILY [facility] Last Admin: 03/19/17 08:19 Dose: 1 cap Torsemide (Demadex*) 10 mg PO DAILY [facility] Last Admin: 03/19/17 09:22 Dose: 10 mg Vital Signs 03/18/17 03/18/17 03/18/17 19:36 19:44 20:00 Temperature 97.6 F Pulse Rate 81 80 Respiratory 18 20 20 Rate Blood Pressure 141/57 (mmHg) O2 Sat by Pulse 97 99 Oximetry 03/18/17 03/18/17 03/19/17 21:39 23:46 03:25 Temperature 98.0 F Pulse Rate 76 72 Respiratory 16 16 Rate Blood Pressure 150/69 140/58 (mmHg) O2 Sat by Pulse 97 99 97 Oximetry 03/19/17 03/19/17 03/19/17 07:23 08:00 08:22 Temperature 97.5 F Pulse Rate 74 82 Respiratory 18 20 16 Rate Blood Pressure 159/66 (mmHg) O2 Sat by Pulse 97 97 Oximetry 03/19/17 03/19/17 16:05 16:06 Temperature 99.8 F Pulse Rate 76 Respiratory 20 Rate Blood Pressure 141/66 (mmHg) O2 Sat by Pulse 99 Oximetry Oxygen Devices in Use Now: Nasal Cannula - 3L Appearance: NAD Eyes: No Scleral Icterus, PERRLA Ears/Nose/Mouth/Throat: NL Teeth, Lips, Gums, Mucous Membranes Moist Neck: NL Appearance and Movements; NL JVP, Trachea Midline Respiratory: Symmetrical Chest Expansion and Respiratory Effort, - - scattered rhonchi Cardiovascular: RRR Abdominal: NL Sounds; No Tenderness; No Distention, No Hepatosplenomegaly Lymphatic: No Cervical Adenopathy Extremities: No Edema Neurological: Alert and Oriented x 3 Result Diagrams: 03/16/17 05:39 03/19/17 05:12 Additional Lab and Data: . Microbiology and Other Data: Microbiology 03/12/17 04:35 Aerobic Blood Culture - Preliminary Blood Venous No Growth Day 1 Anaerobic Blood Culture - Preliminary No Growth Day 1 03/13/17 01:09 Legionella Urinary Antigen - Final Urine Negative Legionella Streptococcus pneumoniae Ag Screen - Final Negative S. pneumo Antigen 03/12/17 00:50 Aerobic Blood Culture - Preliminary Blood Venous No Growth Day 1 Anaerobic Blood Culture - Preliminary No Growth Day 1 03/12/17 00:45 Aerobic Blood Culture - Preliminary Blood Venous No Growth Day 1 Anaerobic Blood Culture - Preliminary No Growth Day 1 Diagnostic Imaging: CXR - possible LLL infiltrate Repeat CXR - persistent L sided inflitrate without significant change, mild vascular congestion, small R sided effusion Assess/Plan/Problems-Billing Assessment: This is an 86 yo female with h/o CAD, DM2, HTN, sCHF, paroxysmal atrial fibrillation, hypothyroidism and CKD who presents with complaints of cough and SOB with LLL PNA - Patient Problems (1) Pneumonia Comment: LLL infiltrate on CXR Cont ceftriaxone azithro completed prednisone started 03/14 (2) Acute systolic CHF (congestive heart failure) Comment: c/w toresmide additional lasix IV 20mg 03/15, 03/16, 03/17 diuresed well and weight down strict I/O and daily weights. (3) Acute respiratory failure with hypoxia Comment: In setting of PNA and acute sCHF see above (4) Acute on chronic renal insufficiency Comment: Improved follow in setting of diuresis (5) Atrial fibrillation Comment: Cont amiodarone and diltiazem No anticoagulation noted on home medication list, she is likely not anticoagulated due to history of GI bleed (6) IDDM (insulin dependent diabetes mellitus) Comment: lantus increased 10 to 14U 03/05 insulin carb counting and SS decreased SS from >30 to 25-30 (7) DVT prophylaxis Comment: SQ heparin Status and Disposition: Inpatient. Likely home in 24-48 hrs
[2017-03-19] MEDS: Amitriptyline TAB* 10 MG PO SCH (20:57)
[2017-03-19] MEDS: Acetaminophen TAB* 325 MG PO PRN (20:58)
[2017-03-19] MEDS: Insulin GLARGINE(*) 1 UNITS UNIT SUBCUT SCH (20:59)
[2017-03-20] MEDS: cefTRIAXone VIAL(*) 1,000 MG in NS 0.9% 50 ML* 50 ML IVPB SCH (00:36)
[2017-03-20] MEDS: Heparin VIAL(*) 5000 UNITS/ML VIAL (FIVE THOUSAND) SUBCUT SCH ×3 (06:30→21:52)
[2017-03-20] MEDS: Levothyroxine TAB* 88 MCG TAB PO SCH (06:33)
[2017-03-20] MEDS: Omeprazole CAP* 20 MG PO SCH (06:33)
[2017-03-20] MEDS: Tiotropium CAP.INH* CAP.INH/18 MCG INH SCH (08:19)
[2017-03-20] MEDS: Mometasone/Formoter 200/5 MDI INH SCH ×2 (08:19→20:04)
[2017-03-20] MEDS: Insulin LISPRO* 1 UNITS UNIT SUBCUT SCH ×6 (09:03→21:46)
[2017-03-20] MEDS: Diltiazem CD CAP* 180 MG PO SCH (10:24)
[2017-03-20] MEDS: Atorvastatin* 20 MG TAB PO SCH (10:26)
[2017-03-20] MEDS: guaiFENesin ER TAB 600 MG PO SCH (10:29)
[2017-03-20] MEDS: predniSONE TAB* 20 MG PO SCH (10:30)
[2017-03-20] MEDS: Docusate CAP* 100 MG PO SCH (10:30)
[2017-03-20] MEDS: Amiodarone TAB* 200 MG PO SCH (10:31)
[2017-03-20] MEDS: Torsemide TAB* 20 MG PO SCH (10:31)
[2017-03-20] MEDS: Aspirin Low Dose CHEW TAB* 81 MG PO SCH (10:31)
--- NOTE | 2017-03-20 13:50 | PN ---
Subjective Date of Service: 03/20/17 Interval History: Pt is feeling much better than she did earlier on this hospitalization. She states she does not feel ready to go home alone at this time. She still feels quite weak and unsteady on her feet. She states her breathing is better but she is still more SOB than usual. She is coughing some but not bringing up any sputum. No issues with BMs. Objective Active Medications: Acetaminophen (Tylenol Tab*) 650 mg PO Q6H PRN PRN Reason: FEVER/PAIN Last Admin: 03/19/17 20:58 Dose: 650 mg Albuterol (Ventolin 2.5 Mg/3 Ml Neb.Sally*) 2.5 mg INH Q2H PRN PRN Reason: SOB/WHEEZING Last Admin: 03/13/17 16:08 Dose: 2.5 mg Amiodarone HCl (Cordarone Tab*) 100 mg PO DAILY [facility] Last Admin: 03/20/17 10:31 Dose: 100 mg Amitriptyline HCl (Elavil Tab*) 10 mg PO BEDTIME [facility] Last Admin: 03/19/17 20:57 Dose: 10 mg Aspirin (Aspirin Low Dose Tab*) 81 mg PO DAILY [facility] Last Admin: 03/20/17 10:31 Dose: 81 mg Atorvastatin Calcium (Lipitor*) 20 mg PO DAILY [facility] Last Admin: 03/20/17 10:26 Dose: 20 mg Diltiazem HCl (Cardizem Cd Cap*) 180 mg PO DAILY [facility] Last Admin: 03/20/17 10:24 Dose: 180 mg Docusate Sodium (Colace Cap*) 200 mg PO BID [facility] Last Admin: 03/20/17 10:30 Dose: 200 mg Guaifenesin (Mucinex*) 1,200 mg PO BID [facility] Last Admin: 03/20/17 10:29 Dose: 1,200 mg Heparin Sodium (Porcine) (Heparin Vial(*)) 5,000 units SUBCUT Q8HR [facility] Last Admin: 03/20/17 06:30 Dose: 5,000 units Ceftriaxone Sodium 1,000 mg/ (Sodium Chloride) 50 mls @ 200 mls/hr IVPB Q24H [facility] Last Admin: 03/20/17 00:36 Dose: 200 mls/hr Insulin Glargine (Lantus(*)) 14 units SUBCUT Q24H [facility] Last Admin: 03/19/17 20:59 Dose: 14 unit Insulin Human Lispro (Humalog*) 0 units SUBCUT AC [facility] PRN Reason: Protocol Last Admin: 03/20/17 13:16 Dose: 4 units Insulin Human Lispro (Humalog*) 0 units SUBCUT ACHS [facility] PRN Reason: Protocol Last Admin: 03/20/17 13:19 Dose: 6 units Levothyroxine Sodium (Synthroid Tab*) 88 mcg PO DAILY@0600 [facility] Last Admin: 03/20/17 06:33 Dose: 88 mcg Melatonin (Melatonin (Nf)) 3 mg PO BEDTIME PRN; Protocol PRN Reason: Sleep Last Admin: 03/16/17 22:13 Dose: 3 mg Mometasone Furoate/Formoterol Fumar (Dulera 200/5 Mdi*) 2 puff INH BID [facility] Last Admin: 03/20/17 08:19 Dose: 2 puff Omeprazole (Prilosec Cap*) 20 mg PO DAILY@0600 [facility] Last Admin: 03/20/17 06:33 Dose: 20 mg Ondansetron HCl (Zofran Inj*) 4 mg IV Q6H PRN PRN Reason: NAUSEA Prednisone (Deltasone Tab*) 40 mg PO DAILY [facility] Last Admin: 03/20/17 10:30 Dose: 40 mg Tiotropium Orient (Spiriva Cap.Inh*) 1 cap INH DAILY [facility] Last Admin: 03/20/17 08:19 Dose: 1 cap Torsemide (Demadex*) 10 mg PO DAILY [facility] Last Admin: 03/20/17 10:31 Dose: 10 mg Vital Signs 03/19/17 03/19/17 03/19/17 16:05 16:06 20:00 Temperature 99.8 F Pulse Rate 76 Respiratory 20 20 Rate Blood Pressure 141/66 (mmHg) O2 Sat by Pulse 99 Oximetry 03/19/17 03/19/17 03/19/17 20:12 20:13 23:16 Temperature 97.6 F 97.9 F Pulse Rate 81 84 75 Respiratory 24 15 16 Rate Blood Pressure 135/56 147/64 (mmHg) O2 Sat by Pulse 99 98 99 Oximetry 03/20/17 03/20/17 03/20/17 03:02 07:37 08:00 Temperature 97.5 F 98.1 F Pulse Rate 80 72 Respiratory 16 20 20 Rate Blood Pressure 174/77 158/70 (mmHg) O2 Sat by Pulse 97 100 Oximetry 03/20/17 08:21 Temperature Pulse Rate 75 Respiratory 16 Rate Blood Pressure (mmHg) O2 Sat by Pulse 98 Oximetry Oxygen Devices in Use Now: Nasal Cannula - 1L Appearance: Elderly female sitting up in bed, NAD Eyes: No Scleral Icterus Ears/Nose/Mouth/Throat: Mucous Membranes Moist Respiratory: Symmetrical Chest Expansion and Respiratory Effort, Clear to Auscultation Cardiovascular: NL Sounds; No Murmurs; No JVD, RRR, No Edema Abdominal: NL Sounds; No Tenderness; No Distention Extremities: No Clubbing, Cyanosis Skin: No Rash or Ulcers, No Nodules or Sclerosis Neurological: Alert and Oriented x 3 Result Diagrams: 03/16/17 05:39 03/19/17 05:12 Additional Lab and Data: . Microbiology and Other Data: Microbiology 03/12/17 04:35 Aerobic Blood Culture - Preliminary Blood Venous No Growth Day 1 Anaerobic Blood Culture - Preliminary No Growth Day 1 03/13/17 01:09 Legionella Urinary Antigen - Final Urine Negative Legionella Streptococcus pneumoniae Ag Screen - Final Negative S. pneumo Antigen 03/12/17 00:50 Aerobic Blood Culture - Preliminary Blood Venous No Growth Day 1 Anaerobic Blood Culture - Preliminary No Growth Day 1 03/12/17 00:45 Aerobic Blood Culture - Preliminary Blood Venous No Growth Day 1 Anaerobic Blood Culture - Preliminary No Growth Day 1 Diagnostic Imaging: CXR - possible LLL infiltrate Repeat CXR - persistent L sided inflitrate without significant change, mild vascular congestion, small R sided effusion Assess/Plan/Problems-Billing Ms Song is an 86 yo female with h/o CAD, DM2, HTN, sCHF, paroxysmal atrial fibrillation, hypothyroidism and CKD who presents with complaints of cough and SOB and was found to have a LLL pneumonia. - Patient Problems (1) Pneumonia Current Visit: Yes Status: Acute Code(s): J18.9 - PNEUMONIA, UNSPECIFIED ORGANISM SNOMED Code(s): 667215695 Comment: The patient has completed 8 days of therapy with ceftriaxone. Stop ceftriaxone and taper prednisone to 20mg daily. Overall she is much improved and ready for d/c however she is quite weak and would likely benefit from STR. (2) Acute respiratory failure with hypoxia Current Visit: Yes Status: Acute Code(s): J96.01 - ACUTE RESPIRATORY FAILURE WITH HYPOXIA SNOMED Code(s): 85412471 Comment: The patient was in hypoxic respiratory failure secondary to community acquired pneumonia. Additionally it was felt she had acute systolic CHF. Currently her O2 requirements have been trending down. (3) Acute systolic CHF (congestive heart failure) Current Visit: Yes Status: Acute Code(s): I50.21 - ACUTE SYSTOLIC ( CONGESTIVE) HEART FAILURE SNOMED Code(s): 143855755 Comment: No evidence of CHF at this time. Continue torsemide 10mg daily. 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 Her sugars are likely elevated due to being on prednisone. Will start to taper this so I expect to see improvement in her blood sugars. Her A1c from earlier this hospitalization was fair so I suspect that she will eventually get back to her home regimen. She has significant peripheral neuropathy that contributes to her falls and balance issues. (5) Atrial fibrillation Current Visit: Yes Status: Acute Onset Date: 11/30/14 Code(s): I48.91 - UNSPECIFIED ATRIAL FIBRILLATION SNOMED Code(s): 42294037 Comment: Pt is regular on exam. Continue amiodarone and diltiazem. (6) Hypothyroidism Current Visit: Yes Status: Acute Code(s): E03.9 - HYPOTHYROIDISM, UNSPECIFIED SNOMED Code(s): 15529944 Comment: Cont levothyroxine (7) DVT prophylaxis Current Visit: Yes Status: Acute Onset Date: 11/30/14 Code(s): JBQ8873 - SNOMED Code(s): 400611648 Comment: SQ heparin (8) DNR no code (do not resuscitate) Current Visit: Yes Status: Acute Onset Date: 11/30/14 Status and Disposition: .
[2017-03-20] MEDS ORDERED: Docusate CAP* 100 MG PO PRN (13:54)
[2017-03-20] MEDS: Acetaminophen TAB* 325 MG PO PRN ×2 (17:20→23:35)
[2017-03-20] MEDS: Amitriptyline TAB* 10 MG PO SCH (21:48)
[2017-03-20] MEDS: Insulin GLARGINE(*) 1 UNITS UNIT SUBCUT SCH (21:49)
[2017-03-21 05:15] LABS: Hematocrit 29 % (35-47); Hemoglobin 9.2 g/dl (12.0-16.0); Mean Corpuscular HGB Conc 32 g/dl (31-36); Mean Corpuscular Hemoglobin 28 pg (27-31); Mean Corpuscular Volume 89 fL (80-97); Mean Platelet Volume 8 um3 (7.4-10.4); Red Blood Count 3.25 10^6/ul (4.0-5.4); Red Cell Distribution Width 14 % (10.5-15); White Blood Count 13.1 10^3/ul (3.5-10.8)
[2017-03-21 05:20] LABS: Add Diff/Slide Review? Slide Review Added; Comments Flag Yes
[2017-03-21 05:35] LABS: Calcium 8.6 mg/dL (8.6-10.3); EGFR African American 28.2 (>60); EGFR Non-African American 21.9 (>60); Potassium 4.8 mmol/L (3.5-5.0)
[2017-03-21 05:57] LABS: Hypochromasia 2+; Macrocytosis 1+; Microcytosis 1+; Polychromasia 1+
[2017-03-21] MEDS: Omeprazole CAP* 20 MG PO SCH (06:06)
[2017-03-21] MEDS: Levothyroxine TAB* 88 MCG TAB PO SCH (06:06)
[2017-03-21] MEDS: Heparin VIAL(*) 5000 UNITS/ML VIAL (FIVE THOUSAND) SUBCUT SCH ×3 (06:07→21:56)
[2017-03-21] MEDS: Acetaminophen TAB* 325 MG PO PRN ×2 (07:48→21:57)
[2017-03-21] MEDS: Mometasone/Formoter 200/5 MDI INH SCH ×2 (08:03→21:06)
[2017-03-21] MEDS ORDERED: predniSONE TAB* 20 MG PO SCH (09:00)
[2017-03-21] MEDS: Insulin LISPRO* 1 UNITS UNIT SUBCUT SCH ×4 (09:28→21:56)
[2017-03-21] MEDS: Diltiazem CD CAP* 180 MG PO SCH (09:29)
[2017-03-21] MEDS: Amiodarone TAB* 200 MG PO SCH (09:30)
[2017-03-21] MEDS: Aspirin Low Dose CHEW TAB* 81 MG PO SCH (09:30)
[2017-03-21] MEDS: Atorvastatin* 20 MG TAB PO SCH (09:30)
[2017-03-21] MEDS: Torsemide TAB* 20 MG PO SCH (09:30)
[2017-03-21] MEDS ORDERED: NS 0.9% 500 ML BAG* 500 ML IV ONE (10:48)
--- NOTE | 2017-03-21 11:17 | PN ---
Subjective Date of Service: 03/21/17 Interval History: Pt is feeling well this AM. She walked with PT this AM. She denies any acute issues. She states her last BM was a couple days ago but was only a small amount. Objective Active Medications: Acetaminophen (Tylenol Tab*) 650 mg PO Q6H PRN PRN Reason: FEVER/PAIN Last Admin: 03/21/17 07:48 Dose: 650 mg Albuterol (Ventolin 2.5 Mg/3 Ml Neb.Sally*) 2.5 mg INH Q2H PRN PRN Reason: SOB/WHEEZING Last Admin: 03/13/17 16:08 Dose: 2.5 mg Amiodarone HCl (Cordarone Tab*) 100 mg PO DAILY [facility] Last Admin: 03/21/17 09:30 Dose: 100 mg Amitriptyline HCl (Elavil Tab*) 10 mg PO BEDTIME [facility] Last Admin: 03/20/17 21:48 Dose: 10 mg Aspirin (Aspirin Low Dose Tab*) 81 mg PO DAILY [facility] Last Admin: 03/21/17 09:30 Dose: 81 mg Atorvastatin Calcium (Lipitor*) 20 mg PO DAILY [facility] Last Admin: 03/21/17 09:30 Dose: 20 mg Diltiazem HCl (Cardizem Cd Cap*) 180 mg PO DAILY [facility] Last Admin: 03/21/17 09:29 Dose: 180 mg Docusate Sodium (Colace Cap*) 200 mg PO BID PRN PRN Reason: CONSTIPATION Heparin Sodium (Porcine) (Heparin Vial(*)) 5,000 units SUBCUT Q8HR [facility] Last Admin: 03/21/17 06:07 Dose: 5,000 units Sodium Chloride (Ns 0.9% 500 Ml Bag*) 500 mls @ 70 mls/hr IV ONCE ONE Stop: 03/21/17 17:56 Last Admin: 03/21/17 10:58 Dose: 70 mls/hr Insulin Glargine (Lantus(*)) 15 units SUBCUT Q24H [facility] Insulin Human Lispro (Humalog*) 0 units SUBCUT ACHS [facility] PRN Reason: Protocol Last Admin: 03/21/17 09:28 Dose: 4 units Levothyroxine Sodium (Synthroid Tab*) 88 mcg PO DAILY@0600 [facility] Last Admin: 03/21/17 06:06 Dose: 88 mcg Melatonin (Melatonin (Nf)) 3 mg PO BEDTIME PRN; Protocol PRN Reason: Sleep Last Admin: 03/16/17 22:13 Dose: 3 mg Mometasone Furoate/Formoterol Fumar (Dulera 200/5 Mdi*) 2 puff INH BID [facility] Last Admin: 03/21/17 08:03 Dose: 2 puff Omeprazole (Prilosec Cap*) 20 mg PO DAILY@0600 [facility] Last Admin: 03/21/17 06:06 Dose: 20 mg Ondansetron HCl (Zofran Inj*) 4 mg IV Q6H PRN PRN Reason: NAUSEA Prednisone (Deltasone Tab*) 20 mg PO DAILY [facility] Last Admin: 03/21/17 09:29 Dose: 20 mg Vital Signs 03/20/17 03/20/17 03/20/17 11:48 15:26 16:07 Temperature 97.9 F Pulse Rate 84 Respiratory 16 Rate Blood Pressure 97/77 (mmHg) O2 Sat by Pulse 98 98 95 Oximetry 03/20/17 03/20/17 03/20/17 19:34 20:00 20:07 Temperature 98.1 F Pulse Rate 80 76 Respiratory 16 20 Rate Blood Pressure 137/61 (mmHg) O2 Sat by Pulse 95 98 Oximetry 03/20/17 03/20/17 03/21/17 23:20 23:40 03:13 Temperature 97.7 F 97.7 F Pulse Rate 81 73 Respiratory 16 16 16 Rate Blood Pressure 142/67 155/65 (mmHg) O2 Sat by Pulse 96 95 Oximetry 03/21/17 03/21/17 03/21/17 06:30 07:23 08:00 Temperature 97.7 F Pulse Rate 87 72 Respiratory 16 18 Rate Blood Pressure 158/66 (mmHg) O2 Sat by Pulse 93 95 Oximetry 03/21/17 08:04 Temperature Pulse Rate 71 Respiratory 18 Rate Blood Pressure (mmHg) O2 Sat by Pulse 97 Oximetry Oxygen Devices in Use Now: None Appearance: Elderly female sitting in a chair, NAD Eyes: No Scleral Icterus Ears/Nose/Mouth/Throat: Mucous Membranes Moist Respiratory: Symmetrical Chest Expansion and Respiratory Effort, Clear to Auscultation - with few bibasilar crackles Cardiovascular: NL Sounds; No Murmurs; No JVD, RRR, No Edema Abdominal: NL Sounds; No Tenderness; No Distention Extremities: No Clubbing, Cyanosis Skin: No Rash or Ulcers, No Nodules or Sclerosis Neurological: Alert and Oriented x 3 Result Diagrams: 03/21/17 04:39 03/21/17 04:39 Additional Lab and Data: . Microbiology and Other Data: Microbiology 03/12/17 04:35 Aerobic Blood Culture - Preliminary Blood Venous No Growth Day 1 Anaerobic Blood Culture - Preliminary No Growth Day 1 03/13/17 01:09 Legionella Urinary Antigen - Final Urine Negative Legionella Streptococcus pneumoniae Ag Screen - Final Negative S. pneumo Antigen 03/12/17 00:50 Aerobic Blood Culture - Preliminary Blood Venous No Growth Day 1 Anaerobic Blood Culture - Preliminary No Growth Day 1 03/12/17 00:45 Aerobic Blood Culture - Preliminary Blood Venous No Growth Day 1 Anaerobic Blood Culture - Preliminary No Growth Day 1 Diagnostic Imaging: CXR - possible LLL infiltrate Repeat CXR - persistent L sided inflitrate without significant change, mild vascular congestion, small R sided effusion Assess/Plan/Problems-Billing Ms Song is an 86 yo female with h/o CAD, DM2, HTN, sCHF, paroxysmal atrial fibrillation, hypothyroidism and CKD who presents with complaints of cough and SOB and was found to have a LLL pneumonia. - Patient Problems (1) Pneumonia Current Visit: Yes Status: Acute Code(s): J18.9 - PNEUMONIA, UNSPECIFIED ORGANISM SNOMED Code(s): 060871858 Comment: The patient has completed 8 days of therapy with ceftriaxone. Taper prednisone to 10mg daily starting tomorrow. Plan on d/c to [place] tomorrow. (2) Acute respiratory failure with hypoxia Current Visit: Yes Status: Acute Code(s): J96.01 - ACUTE RESPIRATORY FAILURE WITH HYPOXIA SNOMED Code(s): 11205528 Comment: Resolved. (3) Acute systolic CHF (congestive heart failure) Current Visit: Yes Status: Acute Code(s): I50.21 - ACUTE SYSTOLIC ( CONGESTIVE) HEART FAILURE SNOMED Code(s): 367686113 Comment: Pt is appearing volume deplete (wrinking of skin of feet/lower legs ) and developed worsened creatinine and hyponatremia today. Give 500ml NS now and repeat labs in AM. 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 Increase lantus to 15 units qHS. Conitnue to monitor sugars with tapering off prednisone. (5) Atrial fibrillation Current Visit: Yes Status: Acute Onset Date: 11/30/14 Code(s): I48.91 - UNSPECIFIED ATRIAL FIBRILLATION SNOMED Code(s): 13756503 Comment: Pt is regular on exam. Continue amiodarone and diltiazem. (6) Hypothyroidism Current Visit: Yes Status: Acute Code(s): E03.9 - HYPOTHYROIDISM, UNSPECIFIED SNOMED Code(s): 93662558 Comment: Continue synthroid at current dose. (7) DVT prophylaxis Current Visit: Yes Status: Acute Onset Date: 11/30/14 Code(s): RLP0779 - SNOMED Code(s): 723791729 Comment: SQ heparin (8) DNR no code (do not resuscitate) Current Visit: Yes Status: Acute Onset Date: 11/30/14 Status and Disposition: d[facility]c [facility] tomorrow if Na improved.
[2017-03-21] MEDS ORDERED: Insulin GLARGINE(*) 1 UNITS UNIT SUBCUT SCH (21:00)
[2017-03-21] MEDS: Amitriptyline TAB* 10 MG PO SCH (21:57)
[2017-03-22 05:22] LABS: BUN/Creatinine Ratio 35.9 (8-20); Calcium 8.6 mg/dL (8.6-10.3); EGFR African American 33.4 (>60); EGFR Non-African American 25.9 (>60); Potassium 4.8 mmol/L (3.5-5.0)
[2017-03-22] MEDS: Acetaminophen TAB* 325 MG PO PRN (05:22)
[2017-03-22] MEDS: Levothyroxine TAB* 88 MCG TAB PO SCH (05:24)
[2017-03-22] MEDS: Heparin VIAL(*) 5000 UNITS/ML VIAL (FIVE THOUSAND) SUBCUT SCH (05:25)
[2017-03-22] MEDS: Omeprazole CAP* 20 MG PO SCH (05:25)
[2017-03-22] MEDS ORDERED: predniSONE TAB* 10 MG PO SCH (07:08)
--- NOTE | 2017-03-22 07:10 | PN ---
Subjective Date of Service: 03/22/17 Interval History: Pt is feeling well. She states last night she had a lot of pain in her feet and legs-this is usual for her. No SOB. Objective Active Medications: Acetaminophen (Tylenol Tab*) 650 mg PO Q6H PRN PRN Reason: FEVER/PAIN Last Admin: 03/22/17 05:22 Dose: 650 mg Albuterol (Ventolin 2.5 Mg/3 Ml Neb.Sally*) 2.5 mg INH Q2H PRN PRN Reason: SOB/WHEEZING Last Admin: 03/13/17 16:08 Dose: 2.5 mg Amiodarone HCl (Cordarone Tab*) 100 mg PO DAILY [facility] Last Admin: 03/21/17 09:30 Dose: 100 mg Amitriptyline HCl (Elavil Tab*) 10 mg PO BEDTIME [facility] Last Admin: 03/21/17 21:57 Dose: 10 mg Aspirin (Aspirin Low Dose Tab*) 81 mg PO DAILY [facility] Last Admin: 03/21/17 09:30 Dose: 81 mg Atorvastatin Calcium (Lipitor*) 20 mg PO DAILY [facility] Last Admin: 03/21/17 09:30 Dose: 20 mg Diltiazem HCl (Cardizem Cd Cap*) 180 mg PO DAILY [facility] Last Admin: 03/21/17 09:29 Dose: 180 mg Docusate Sodium (Colace Cap*) 200 mg PO BID PRN PRN Reason: CONSTIPATION Last Admin: 03/22/17 05:22 Dose: 200 mg Heparin Sodium (Porcine) (Heparin Vial(*)) 5,000 units SUBCUT Q8HR [facility] Last Admin: 03/22/17 05:25 Dose: 5,000 units Insulin Glargine (Lantus(*)) 15 units SUBCUT Q24H [facility] Last Admin: 03/21/17 21:55 Dose: 15 units Insulin Human Lispro (Humalog*) 0 units SUBCUT ACHS [facility] PRN Reason: Protocol Last Admin: 03/21/17 21:56 Dose: 10 units Levothyroxine Sodium (Synthroid Tab*) 88 mcg PO DAILY@0600 [facility] Last Admin: 03/22/17 05:24 Dose: 88 mcg Melatonin (Melatonin (Nf)) 3 mg PO BEDTIME PRN; Protocol PRN Reason: Sleep Last Admin: 03/16/17 22:13 Dose: 3 mg Mometasone Furoate/Formoterol Fumar (Dulera 200/5 Mdi*) 2 puff INH BID [facility] Last Admin: 03/21/17 21:06 Dose: 2 puff Omeprazole (Prilosec Cap*) 20 mg PO DAILY@0600 [facility] Last Admin: 03/22/17 05:25 Dose: 20 mg Ondansetron HCl (Zofran Inj*) 4 mg IV Q6H PRN PRN Reason: NAUSEA Prednisone (Deltasone Tab*) 20 mg PO DAILY [facility] Last Admin: 03/21/17 09:29 Dose: 20 mg Vital Signs 03/21/17 03/21/17 03/21/17 07:23 08:00 08:04 Temperature 97.7 F Pulse Rate 72 71 Respiratory 16 18 18 Rate Blood Pressure 158/66 (mmHg) O2 Sat by Pulse 95 97 Oximetry 03/21/17 03/21/17 03/21/17 11:29 11:30 14:58 Temperature 96.2 F 97.2 F 98.9 F Pulse Rate 76 76 Respiratory 16 16 Rate Blood Pressure 151/58 124/55 (mmHg) O2 Sat by Pulse 90 96 Oximetry 03/21/17 03/21/17 03/21/17 19:33 19:38 21:08 Temperature 97.8 F Pulse Rate 74 71 Respiratory 18 16 18 Rate Blood Pressure 147/57 (mmHg) O2 Sat by Pulse 100 98 Oximetry 03/21/17 03/21/17 03/21/17 21:10 23:19 23:28 Temperature 98.1 F Pulse Rate 72 Respiratory 16 18 Rate Blood Pressure 152/67 (mmHg) O2 Sat by Pulse 98 97 Oximetry Oxygen Devices in Use Now: None Appearance: Elderly female sleeping in bed, awakened to voice, NAD Eyes: No Scleral Icterus Ears/Nose/Mouth/Throat: Mucous Membranes Moist Respiratory: Symmetrical Chest Expansion and Respiratory Effort, Clear to Auscultation - few LLL crackles Cardiovascular: NL Sounds; No Murmurs; No JVD, RRR, No Edema Abdominal: NL Sounds; No Tenderness; No Distention Extremities: No Clubbing, Cyanosis Skin: No Rash or Ulcers, No Nodules or Sclerosis Neurological: Alert and Oriented x 3 Result Diagrams: 03/21/17 04:39 03/22/17 04:48 Additional Lab and Data: . Microbiology and Other Data: Microbiology 03/12/17 04:35 Aerobic Blood Culture - Preliminary Blood Venous No Growth Day 1 Anaerobic Blood Culture - Preliminary No Growth Day 1 03/13/17 01:09 Legionella Urinary Antigen - Final Urine Negative Legionella Streptococcus pneumoniae Ag Screen - Final Negative S. pneumo Antigen 03/12/17 00:50 Aerobic Blood Culture - Preliminary Blood Venous No Growth Day 1 Anaerobic Blood Culture - Preliminary No Growth Day 1 03/12/17 00:45 Aerobic Blood Culture - Preliminary Blood Venous No Growth Day 1 Anaerobic Blood Culture - Preliminary No Growth Day 1 Diagnostic Imaging: CXR - possible LLL infiltrate Repeat CXR - persistent L sided inflitrate without significant change, mild vascular congestion, small R sided effusion Assess/Plan/Problems-Billing Ms Song is an 86 yo female with h/o CAD, DM2, HTN, sCHF, paroxysmal atrial fibrillation, hypothyroidism and CKD who presents with complaints of cough and SOB and was found to have a LLL pneumonia. - Patient Problems (1) Pneumonia Current Visit: Yes Status: Acute Code(s): J18.9 - PNEUMONIA, UNSPECIFIED ORGANISM SNOMED Code(s): 855792708 Comment: The patient has completed 8 days of therapy with ceftriaxone. Taper prednisone to 10mg daily and continue x2 days. Plan on d/c to [facility] [place] today. (2) Acute respiratory failure with hypoxia Current Visit: Yes Status: Acute Code(s): J96.01 - ACUTE RESPIRATORY FAILURE WITH HYPOXIA SNOMED Code(s): 21375463 Comment: Resolved. (3) Acute systolic CHF (congestive heart failure) Current Visit: Yes Status: Acute Code(s): I50.21 - ACUTE SYSTOLIC ( CONGESTIVE) HEART FAILURE SNOMED Code(s): 141244570 Comment: Pt is still appearing mildly volume deplete (wrinking of skin of feet/lower legs). Hyponatremia is better but not completely resolved. Creatinine is also improved but not back to where she has been. Use torsemide prn, not daily unless she starts to appear volume overloaded. 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 Increase lantus to 15 units qHS. Conitnue to monitor sugars with tapering off prednisone. (5) Atrial fibrillation Current Visit: Yes Status: Acute Onset Date: 11/30/14 Code(s): I48.91 - UNSPECIFIED ATRIAL FIBRILLATION SNOMED Code(s): 71855814 Comment: Pt is regular on exam. Continue amiodarone and diltiazem. (6) Hypothyroidism Current Visit: Yes Status: Acute Code(s): E03.9 - HYPOTHYROIDISM, UNSPECIFIED SNOMED Code(s): 16802651 Comment: Continue synthroid at current dose. (7) DVT prophylaxis Current Visit: Yes Status: Acute Onset Date: 11/30/14 Code(s): QQV8110 - SNOMED Code(s): 172355304 Comment: SQ heparin (8) DNR no code (do not resuscitate) Current Visit: Yes Status: Acute Onset Date: 11/30/14 Status and Disposition: d/c to [facility] [place]
[2017-03-22] MEDS: Insulin LISPRO* 1 UNITS UNIT SUBCUT SCH (07:16)
[2017-03-22 07:23] VITALS: BP 147/76
[2017-03-22] MEDS: Atorvastatin* 20 MG TAB PO SCH (07:30)
[2017-03-22] MEDS: Aspirin Low Dose CHEW TAB* 81 MG PO SCH (07:30)
[2017-03-22] MEDS: Amiodarone TAB* 200 MG PO SCH (07:30)
[2017-03-22] MEDS: Diltiazem CD CAP* 180 MG PO SCH (07:31)
[2017-03-22] MEDS: Mometasone/Formoter 200/5 MDI INH SCH (09:04)
--- NOTE | 2017-03-22 11:27 | DS ---
CC: Dr. Bennett* DATE OF ADMISSION: 03/11/17 DATE OF DISCHARGE: 03/22/17 PRIMARY CARE PROVIDER: Dr. Bennett PRINCIPAL DIAGNOSIS: 1. Acute hypoxic respiratory failure secondary to community acquired pneumonia. 2. Acute diastolic congestive heart failure - resolved. SECONDARY DIAGNOSES: 1. Type 2 diabetes. 2. Atrial fibrillation - currently in normal sinus rhythm. 3. Chronic kidney disease stage 3. 4. Coronary artery disease. 5. Hypothyroidism. DISCHARGE MEDICATIONS: 1. Levothyroxine 88 micrograms p.o. daily. 2. Amitriptyline 10 mg p.o. q.h.s. 3. Lipitor 20 mg p.o. daily. 4. Calcium Plus D 1 tab p.o. daily. 5. Diltiazem CD 180 mg p.o. daily. 6. Aspirin 81 mg p.o. daily. 7. Amiodarone 100 mg p.o. daily. 8. Tylenol 650 mg p.o. every 4 hours p.r.n. pain. 9. Prednisone 10 mg p.o. daily x2 days. 10. Torsemide 10 mg p.o. daily p.r.n. lower extremity edema or weight gain. 11. Melatonin 3 mg p.o. q.h.s. p.r.n. insomnia. 12. Lantus 15 units subcutaneous every 24 hours. 13. Lispro sliding scale a.c. and h.s. 14. Colace 200 mg p.o. b.i.d. p.r.n. constipation. HOSPITAL COURSE: Ms. Song is an 86-year-old female with a history of coronary artery disease, type 2 diabetes, hypertension and diastolic CHF who presented to the emergency room with complaints of cough and congestion for approximately 2 to 3 weeks prior to admission. The patient was found to have a left lower lobe pneumonia. She was started on ceftriaxone and azithromycin. The patient was initially requiring a moderate amount of supplemental oxygen. By the evening of 03/13/17 the patient was desaturating into the low 80s and was requiring 7 L of oxygen to maintain a sat in the low 90s to high 80s. It was felt that her cough was weak and she was not clearing her secretions well. Patient was transferred to the ICU for Vapotherm therapy. The patient continued to need high flow oxygen. There was concern of possible bronchospasm, therefore she was started on prednisone. Additionally there was concern of pulmonary edema and the patient was treated with IV Lasix. Ultimately the patient was able to be weaned from the Vapotherm and has gotten to the point where she is requiring no supplemental oxygen. The patient was treated with IV Lasix x3 doses and started back on her usual dose of torsemide. With this, over the last 3 days of her hospitalization, she markedly improved; however, she continued to feel very weak. The patient was seen in consultation by physical therapy who initially had recommended home PT; however, the patient did not feel that this was not necessarily a safe option for her as she still much more weak than usual and she lives alone. Because of this we began to look into short- term rehab placement. While awaiting a bed offer the patient developed hyponatremia with sodium going down to 126. My suspicion is that the hyponatremia was related to over diuresis as the patient appeared volume depleted with wrinkling of the skin on her feet and lower legs, increased creatinine and the hyponatremia. The patient received 500 mL of normal saline; with this her sodium improved to 130 and her creatinine trended down. The patient normally takes torsemide 10 mg daily; however, I am asking this be held and used only as needed for now. If it becomes clear the patient is truly volume overloaded this can be added back on daily basis, however her sodium and creatinine will need to be monitored with this. The patient has complete a full course of azithromycin and ceftriaxone. Her prednisone has been tapered and she should take 10 mg of prednisone for another 2 days. Overall the patient is markedly improved and ready for short-term rehab today 03/22/17. Of note, the patient's blood sugars have been uncontrolled during this hospitalization. Her A1c early on this hospitalization was under fair control at 7.8%. I suspect her marked hyperglycemia at this point is related to the prednisone use. As the prednisone is being tapered down I am hopeful that her sugars will return to her baseline level. However, if they do not, her Lantus will need to be increased. The patient is already on an increased dose of Lantus compared to her baseline. FOLLOWUP CONCERNS: Patient is being transferred to [facility] today. ACTIVITY: Activity level is as tolerated. DIET: Diabetic heart healthy. CONDITION ON DISCHARGE: Improved and stable. 35 minutes was spent discharging this patient. [id number]/[facility] #: [id number] ROMEO
== END 2017-03-22 11:00 | DRG 193 ==
LOC: ED 20:23 → MED 03-12 00:11 → ICU 03-13 17:09 → MED 03-17 15:54
PROVIDERS: ADMIT Hospitalist; ATTEND Hospitalist
DX: J18.1 Lobar pneumonia, unspecified organism (principal); I50.43 Acute on chronic combined systolic (congestive) and diastolic (congestive) heart failure; I25.10 Atherosclerotic heart disease of native coronary artery without angina pectoris; I13.0 Hypertensive heart and chronic kidney disease with heart failure and stage 1 through stage 4 chronic kidney disease, or unspecified chronic kidney disease; E78.5 Hyperlipidemia, unspecified; E11.22 Type 2 diabetes mellitus with diabetic chronic kidney disease; M79.7 Fibromyalgia; Z66 Do not resuscitate; E03.9 Hypothyroidism, unspecified; I48.0 Paroxysmal atrial fibrillation; E78.00 Pure hypercholesterolemia, unspecified; E66.3 Overweight; R78.89 Finding of other specified substances, not normally found in blood; E11.43 Type 2 diabetes mellitus with diabetic autonomic (poly)neuropathy; N18.3 Chronic kidney disease, stage 3 (moderate); J96.01 Acute respiratory failure with hypoxia; E87.1 Hypo-osmolality and hyponatremia; Z95.5 Presence of coronary angioplasty implant and graft; Z82.49 Family history of ischemic heart disease and other diseases of the circulatory system; T38.0X5A Adverse effect of glucocorticoids and synthetic analogues, initial encounter; Y92.239 Unspecified place in hospital as the place of occurrence of the external cause; T50.2X5A Adverse effect of carbonic-anhydrase inhibitors, benzothiadiazides and other diuretics, initial encounter; E11.65 Type 2 diabetes mellitus with hyperglycemia; Z87.891 Personal history of nicotine dependence; Z98.42 Cataract extraction status, left eye; Z88.2 Allergy status to sulfonamides; Z88.0 Allergy status to penicillin; Z98.41 Cataract extraction status, right eye; Z90.710 Acquired absence of both cervix and uterus; Z80.42 Family history of malignant neoplasm of prostate; Z79.82 Long term (current) use of aspirin; Z79.4 Long term (current) use of insulin; Z68.25 Body mass index [BMI] 25.0-25.9, adult
CPT/HCPCS: 36415; 71010; 71020; 80048; 80053; 81003; 81015; 82550; 82553; 83036; 83605; 83690; 83735; 83880; 84443; 84484; 85025; 85060; 85379; 85610; 85730; 86140; 87040; 87070; 87086; 87205; 87899; 93005; 93970; 94640; 94760; A9270-GY; J0456; J0696; J1644; J1940; J3010; J7512

== ENCOUNTER 2017-04-04 10:47 | Inpatient (IN) | payer MEDICARE, BC ==
[2017-04-04 12:16] LABS: Hematocrit 29 % (35-47); Hemoglobin 9.3 g/dl (12.0-16.0); Mean Corpuscular HGB Conc 32 g/dl (31-36); Mean Corpuscular Hemoglobin 29 pg (27-31); Mean Corpuscular Volume 91 fL (80-97); Mean Platelet Volume 8 um3 (7.4-10.4); Red Blood Count 3.21 10^6/ul (4.0-5.4); Red Cell Distribution Width 16 % (10.5-15); White Blood Count 8.7 10^3/ul (3.5-10.8)
--- NOTE | 2017-04-04 12:25 | RAD ---
Indication: Shortness of breath dyspnea. COPD. Comparison: March 18, 2017 Technique: Upright AP and lateral chest views. Report: Moderate dependent pleural effusions with associated basilar atelectasis. Cardiomegaly. Prominent mildly ill-defined central pulmonary vasculature. Diffuse mild prominence of the interstitial markings. Negative for pneumothorax. IMPRESSION: The constellation of findings is most consistent with pulmonary vascular congestion and interstitial edema with associated moderate dependent pleural effusions with compressive basilar atelectasis.
[2017-04-04 12:33] LABS: Troponin I 0.01 ng/mL (<0.04)
[2017-04-04 12:40] LABS: Albumin 3.5 g/dL (3.2-5.2); BUN/Creatinine Ratio 14.8 (8-20); C Reactive Protein 33.85 mg/L (< 5.00); Calcium 8.7 mg/dL (8.6-10.3); EGFR African American 22.6 (>60); EGFR Non-African American 17.6 (>60); Globulin 3.4 g/dL (2-4); Total Bilirubin 0.4 mg/dL (0.2-1.0); Total Protein 6.9 g/dL (6.4-8.9)
[2017-04-04 12:51] LABS: Potassium 6.5 mmol/L (3.5-5.0)
[2017-04-04] MEDS ORDERED: Dextrose 50% Syringe 50 ML* 25 GM/50 ML SYRINGE IV PUSH ONE (13:14)
[2017-04-04] MEDS ORDERED: Calcium Gluconate INJ* 1 GM in NS 0.9% 50 ML* 50 ML IVPB ONE (13:14)
[2017-04-04] MEDS ORDERED: Sodium Polystyrene ORAL.SOL* 15 GM/60 ML BTL PO ONE (13:14)
[2017-04-04] MEDS ORDERED: Insulin REGULAR(*) 1 UNITS UNIT IV PUSH ONE (13:14)
[2017-04-04] MEDS ORDERED: Albuterol (2.5 MG) 0.5 % CONC 2.5 MG/0.5 ML NEB.SOLN (ICU and ED only) INH ONE (13:14)
[2017-04-04] MEDS ORDERED: Furosemide IV* 10 MG/ML VIAL (40 MG) IV SLOW PU ONE (13:47)
[2017-04-04] MEDS ORDERED: Ondansetron INJ* 2 MG/ML VIAL IV PRN (13:47)
[2017-04-04] MEDS ORDERED: Acetaminophen TAB* 325 MG PO PRN (13:47)
[2017-04-04] MEDS ORDERED: Dextrose 50% Syringe 50 ML* 25 GM/50 ML SYRINGE IV PUSH PRN (13:47)
[2017-04-04] MEDS ORDERED: Docusate CAP* 100 MG PO PRN (13:52)
[2017-04-04 14:02] LABS: Urine Bacteria Absent (Absent); Urine Bilirubin Negative (Negative); Urine Glucose 2+(150 mg/dL) (Negative); Urine Nitrite Negative (Negative)
--- NOTE | 2017-04-04 14:25 | ED ---
Jia Harrison Auryana, scribed for Ten Corrales MD on 04/04/17 at 1142 . Respiratory - HPI Summary HPI Summary: 87 year old female presents with SOB, starting yesterday. Patient also reports decreased urine output from stallworth catheter, and LE edema. Patient denies any CP , N/V and any abdominal pain. PMHx is significant for dysuria (stallworth catheter) and CHF. No history of COPD, or asthma. - History of Current Complaint Chief Complaint: EDRespiratoryDistress Stated Complaint: RESP DISTRESS Time Seen by Provider: 04/04/17 11:06 Hx Obtained From: Patient Onset/Duration: Gradual Onset, Lasting Days - 1, Still Present Timing: Constant Initial Severity: Mild Current Severity: Mild Pain Intensity: 0 Character: Dyspnea at Rest Associated Signs and Symptoms: Edema - with decreased urine output Related History: Similar Episode/Dx as - history of CHF - Allergy/Home Medications Allergies/Adverse Reactions: Allergies Allergy/AdvReac Type Severity Reaction Status Date / Time Penicillins [PCN] Allergy Mild Hives Verified 03/31/16 12:52 Sulfa Antibiotics Allergy Mild Hives Verified 03/31/16 12:52 Home Medications: Home Medications Amitriptyline TAB* [Elavil TAB*] 10 mg PO BEDTIME 04/04/17 [History Confirmed ] Atorvastatin* [Lipitor*] 20 mg PO DAILY 04/04/17 [History Confirmed 04/04/17] Calcium W/ Vitamins D & K [Calcium + D] 1 chw PO DAILY 04/04/17 [History Confirmed 04/04/17] Insulin GLARGINE(*) [Lantus(*)] 15 units SUBCUT DAILY 04/04/17 [History Confirmed 04/04/17] Insulin LISPRO* [HumaLOG*] 0 - 10 units SUBCUT ACHS 04/04/17 [History Confirmed 04/04/17] Levothyroxine TAB* [Synthroid TAB*] 88 mcg PO DAILY 04/04/17 [History Confirmed 04/04/17] PMH/Surg Hx/FS Hx/Imm Hx Endocrine/Hematology History: Reports: Hx Blood Transfusions, Hx Diabetes - TYPE 2, Other Endocrine/Hematological Disorders - hyopthyroid Cardiovascular History: Reports: Hx Angina, Hx Congestive Heart Failure, Hx Coronary Artery Disease, Hx Hypercholesterolemia, Hx Hypertension - controllled by med Denies: Other Cardiovascular Problems/Disorders Respiratory History: Reports: Hx Asthma, Hx Chronic Obstructive Pulmonary Disease (COPD), Hx Pneumonia, Other Respiratory Problems/Disorders - HAD PNEUMONIA 09/04. RESP FAILURE 02/2017. GI History: Reports: Hx Gall Bladder Disease - S/P CONSTANTINE, Hx Gastrointestinal Bleed History: Reports: Other Problems/Disorders - CKD, INCONTENCE Musculoskeletal History: Reports: Hx Fibromyalgia, Hx Orthopedic Injury - LEFT WRIST FRACTURE W/REPAIR /W PLATE Sensory History: Reports: Hx Contacts or Glasses, Hx Deafness Denies: Hx Cataracts, Hx Eye Injury, Hx Eye Prosthesis, Hx Glaucoma, Hx Legally Blind, Hx Macular Degeneration, Hx Vision Problem, Hx Hearing Aid, Hx Hearing Problem Opthamlomology History: Reports: Hx Contacts or Glasses Denies: Hx Cataracts, Hx Eye Injury, Hx Eye Prosthesis, Hx Glaucoma, Hx Legally Blind, Hx Macular Degeneration, Hx Vision Problem - Surgical History Surgery Procedure, Year, and Place: APPENDECTOMY. CHOLEYSECTOMY. LEFT WRIST FRACTURE REPAIR W/PLATE. CARDIAC STENT Hx Anesthesia Reactions: No Infectious Disease History: No Infectious Disease History: Denies: Hx Clostridium Difficile, Hx Hepatitis, Hx Human Immunodeficiency Virus (HIV), Hx of Known/Suspected MRSA, Hx Shingles, Hx Tuberculosis, Hx Known/ Suspected VRE, Hx Known/Suspected VRSA, History Other Infectious Disease, Traveled Outside the [place] in Last 30 Days - Family History Known Family History: Positive: Cardiac Disease, Hypertension - Social History Alcohol Use: None Alcohol Amount: once in a blue ortiz" Hx Substance Use: No Substance Use Type: Reports: None Hx Tobacco Use: Yes Smoking Status (MU): Former Smoker Type: Cigarettes Have You Smoked in the Last Year: No Review of Systems Constitutional: Negative Negative: Fever Eyes: Negative ENT: Negative Cardiovascular: Negative Negative: Chest Pain Positive: Shortness Of Breath Gastrointestinal: Negative Negative: Abdominal Pain, Vomiting, Nausea Positive: frequency - decreased urine output Positive: Edema Skin: Negative Neurological: Negative Psychological: Normal All Other Systems Reviewed And Are Negative: Yes Physical Exam - Summary Physical Exam Summary: VITAL SIGNS: Reviewed. GENERAL: Patient is an elderly female who is lying comfortable in the stretcher. Patient is not in any acute respiratory distress. Patient is wearing a face mask for O2 and is at 96 % O2 saturation. HEAD AND FACE: No signs of trauma. No ecchymosis, hematomas or skull depressions. No sinus tenderness. EYES: PERRLA, EOMI x 2, No injected conjunctiva, no nystagmus. EARS: Hearing grossly intact. Ear canals and tympanic membranes are within normal limits. MOUTH: Oropharynx within normal limits. NECK: Supple, trachea is midline, no adenopathy, no JVD, no carotid bruit, no c- spine tenderness, neck with full ROM. CHEST: Symmetric, no tenderness at palpation LUNGS: Crackles in the bilateral bases. CVS: Regular rate and rhythm, S1 and S2 present, no murmurs or gallops appreciated. ABDOMEN: Soft, non-tender. No signs of distention. No rebound no guarding, and no masses palpated. Bowel sounds are normal. EXTREMITIES: FROM in all major joints, no cyanosis or clubbing. Bilateral LE edema 2+. NEURO: Alert and oriented x 3. No acute neurological deficits. Speech is normal and follows commands. SKIN: Dry and warm. Triage Information Reviewed: Yes Vital Signs On Initial Exam: Initial Vitals Temp Pulse Resp BP Pulse Ox 98.1 F 56 20 185/54 95 04/04/17 11:04 04/04/17 11:04 04/04/17 11:04 04/04/17 11:04 04/04/17 11:04 Vital Signs Reviewed: Yes Diagnostics - Vital Signs Vital Signs Temp Pulse Resp BP Pulse Ox 04/04/17 11:04 98.1 F 56 20 185/54 95 - Laboratory Lab Results: Lab Results 04/04/17 04/04/17 04/04/17 Range/Units 11:55 11:55 11:55 WBC 8.7 (3.5-10.8) 10^3/ul RBC 3.21 L (4.0-5.4) 10^6/ul Hgb 9.3 L (12.0-16.0) g/dl Hct 29 L (35-47) % MCV 91 (80-97) fL MCH 29 (27-31) pg MCHC 32 (31-36) g/dl RDW 16 H (10.5-15) % Plt Count 209 (150-450) 10^3/ul MPV 8 (7.4-10.4) um3 Neut % (Auto) 84.4 H (38-83) % Lymph % (Auto) 6.4 L (25-47) % [place] % (Auto) 6.6 (1-9) % Eos % (Auto) 1.4 (0-6) % Baso % (Auto) 1.2 (0-2) % Absolute Neuts (auto) 7.3 (1.5-7.7) 10^3/ul Absolute Lymphs (auto) 0.6 L (1.0-4.8) 10^3/ul Absolute Monos (auto) 0.6 (0-0.8) 10^3/ul Absolute Eos (auto) 0.1 (0-0.6) 10^3/ul Absolute Basos (auto) 0.1 (0-0.2) 10^3/ul Absolute Nucleated RBC 0 10^3/ul Nucleated RBC % 0 APTT (26.0-36.3) seconds Sodium 121 L (133-145) mmol/L Potassium 6.5 H* (3.5-5.0) mmol/L Chloride 89 L (101-111) mmol/L Carbon Dioxide 21 L (22-32) mmol/L Anion Gap 11 (2-11) mmol/L BUN 38 H (6-24) mg/dL Creatinine 2.57 H (0.51-0.95) mg/dL Est GFR ( Amer) 22.6 (>60) Est GFR (Non-Af Amer) 17.6 (>60) BUN/Creatinine Ratio 14.8 (8-20) Glucose 303 H (70-100) mg/dL Lactic Acid 1.1 (0.5-2.0) mmol/L Calcium 8.7 (8.6-10.3) mg/dL Total Bilirubin 0.40 (0.2-1.0) mg/dL AST 62 H (13-39) U/L ALT 64 H (7-52) U/L Alkaline Phosphatase 152 H (34-104) U/L Total Creatine Kinase 87 (10-223) U/L CK-MB (CK-2) 4.9 (0.6-6.3) ng/mL Troponin I 0.01 (<0.04) ng/mL C-Reactive Protein 33.85 H (< 5.00) mg/L B-Natriuretic Peptide ( - 100) pg/mL Total Protein 6.9 (6.4-8.9) g/dL Albumin 3.5 (3.2-5.2) g/dL Globulin 3.4 (2-4) g/dL Albumin/Globulin Ratio 1.0 (1-3) 04/04/17 04/04/17 Range/Units 11:55 11:55 WBC (3.5-10.8) 10^3/ul RBC (4.0-5.4) 10^6/ul Hgb (12.0-16.0) g/dl Hct (35-47) % MCV (80-97) fL MCH (27-31) pg MCHC (31-36) g/dl RDW (10.5-15) % Plt Count (150-450) 10^3/ul MPV (7.4-10.4) um3 Neut % (Auto) (38-83) % Lymph % (Auto) (25-47) % [place] % (Auto) (1-9) % Eos % (Auto) (0-6) % Baso % (Auto) (0-2) % Absolute Neuts (auto) (1.5-7.7) 10^3/ul Absolute Lymphs (auto) (1.0-4.8) 10^3/ul Absolute Monos (auto) (0-0.8) 10^3/ul Absolute Eos (auto) (0-0.6) 10^3/ul Absolute Basos (auto) (0-0.2) 10^3/ul Absolute Nucleated RBC 10^3/ul Nucleated RBC % APTT 31.8 (26.0-36.3) seconds Sodium (133-145) mmol/L Potassium (3.5-5.0) mmol/L Chloride (101-111) mmol/L Carbon Dioxide (22-32) mmol/L Anion Gap (2-11) mmol/L BUN (6-24) mg/dL Creatinine (0.51-0.95) mg/dL Est GFR ( Amer) (>60) Est GFR (Non-Af Amer) (>60) BUN/Creatinine Ratio (8-20) Glucose (70-100) mg/dL Lactic Acid (0.5-2.0) mmol/L Calcium (8.6-10.3) mg/dL Total Bilirubin (0.2-1.0) mg/dL AST (13-39) U/L ALT (7-52) U/L Alkaline Phosphatase (34-104) U/L Total Creatine Kinase (10-223) U/L CK-MB (CK-2) (0.6-6.3) ng/mL Troponin I (<0.04) ng/mL C-Reactive Protein (< 5.00) mg/L B-Natriuretic Peptide 1026 H ( - 100) pg/mL Total Protein (6.4-8.9) g/dL Albumin (3.2-5.2) g/dL Globulin (2-4) g/dL Albumin/Globulin Ratio (1-3) Result Diagrams: 04/04/17 11:55 04/04/17 11:55 Lab Statement: Any lab studies that have been ordered have been reviewed, and results considered in the medical decision making process. - Radiology CXR Xray Interpretation: Positive (See Comments) - IMPRESSION: The constellation of findings is most consistent with pulmonary vascular congestion and interstitial edema with associated moderate dependent pleural effusions with compressive basilar atelectasis. Radiology Interpretation Completed By: Radiologist - EKG 13:27 EKG Interpretation: JUNCTIONAL RHYTHM @ 57 BPM, NO ST ELEVATION EKG Comparison: Other - NOT SIMILAR TO EKG DONE 03/11/17 Disposition - Course Assessment/Plan: 87 year old female presents with SOB, starting yesterday. Patient also reports decreased UA output from stallworth catheter, and LE edema. Patient denies any CP, N/V and any abdominal pain. PMHx is significant for dysuria (stallworth catheter) and CHF. No history of COPD, or asthma. In the ED course an IV access was obtained. Patient was placed in a inspector eyeglass. Patient was started with IV fluids. Labs within normal limits except for chronic anemia, Hyponatremia 121, hyperkalemia of 6.5, acute on chronic RF, increased LFT, Hyperglycemia, acute CHF with BNP 1026. Troponin #1: 0.01. EKG shows junctional rhythm ST elevations. CXR IMPRESSION: The constellation of findings is most consistent with pulmonary vascular congestion and interstitial edema with associated moderate dependent pleural effusions with compressive basilar atelectasis. In the ED she was given Insulin, Dextrose, Calcium gluconate, Kayexalate and Albuterol to treat her hyperkalemia. At this point I discussed the case with Mr. Calderon working with Nicolas Juarez and accepted the patient for admission. Patient is A+O X 3. - Differential Dx - Cardiopulmonary Differential Diagnoses - Cardiopulmonary: CAD, CHF, Exacerbation Of COPD, Hyperkalemia, Lower Resp Infection, Pulmonary Edema - Diagnoses Provider Diagnoses: Hyperkalemia, CHF exacerbation, Hyponatremia, Acute on chronic renal failure - Physician Notifications Discussed Care Of Patient With: Rolando Calderon Time Discussed With Above Provider: 13:00 - agrees to admit to [facility] Instructed by Provider To: Admit As Inpatient - Critical Care Time Critical Care Time: 30-74 min Discharge - Discharge Plan Condition: Stable Disposition: ADMITTED TO [facility] Referrals: Domi Bennett MD [Primary Care Provider] - The documentation as recorded by the Jia ingram Auryana accurately reflects the service I personally performed and the decisions made by , Ten Corrales MD.
[2017-04-04 14:48] LABS: TSH (Thyroid Stimulating Horm) 3.28 mcIU/mL (0.34-5.60)
[2017-04-04] MEDS ORDERED: Albuterol 2.5 MG/3 ML NEB.SOL* (0.083%) INH ONE (15:03)
--- NOTE | 2017-04-04 16:21 | HP ---
CC: Dr. Bennett; [facility] * HISTORY AND PHYSICAL: DATE OF ADMISSION: 04/04/17. PRIMARY CARE PROVIDER: Dr. Bennett. ATTENDING PHYSICIAN: Manny Estrada MD * (DICTATED BY STANLEY FOX NP) CHIEF COMPLAINT: Shortness of breath. HISTORY OF PRESENT ILLNESS: Ms. Song is an 87-year-old female patient, she has a history of diabetes, hypertension, diastolic CHF, AFib, hypothyroidism, CAD, and CKD. She comes into the ER today stating that over the last couple of days she has had worsening shortness of breath, it started suddenly about 48 hours ago and then now it has gotten progressively worse and worse. She does state that she has noticed that she has had lower extremity increasing edema. She states that she has been sleeping up right in the chair last couple of nights, she states that this makes her feel much better. She denies having any chest pain. She denied having any cough, recent fevers, or chills. Of note, she recently was here in the hospital with a community-acquired pneumonia; she was treated, did well. She also did have exacerbation of her heart failure while she was here. She states that she did have one episode 2 days ago, where she vomited when she was trying to swallow up a pill, she states she just choked that up. She had no increased shortness of breath after this episode. She denies having any fevers or chills. She was evaluated by [facility] staff. There was concern because of increasing shortness of breath, in fact it was noted that she was on room air was about 75% O2 saturation. There were concerned that she was sent into the hospital. The patient currently states that she feels somewhat better, particularly with the oxygen. She again denied having any chest pain. She is unaware if she had any weight gain. She does states that she knows her water pills have been stopped, she states, but she does now know how long. In discussion with [facility] staff it appears that she has been off her torsemide since last Friday. So, because of increased work of breathing she came in to ER, was evaluated, noted that she was hyperkalemic. It was noted that her BNP was almost 1100, and chest x-ray was concerning for congestive heart failure, because of this the hospitalist service was asked to evaluate for admission. PAST MEDICAL HISTORY: Significant for: 1. Diabetes. 2. Hypertension. 3. CHF. 4. AFib. 5. Hypothyroid. 6. CAD. 7. CKD. PAST SURGICAL HISTORY: 1. She has had heart catheterization and 1 stent. 2. Appendectomy. 3. Cholecystectomy. 4. Hysterectomy. HOME MEDICATIONS: Include: 1. Demadex 10 mg p.o. daily as needed. 2. Melatonin 3 mg p.o. at bed time as needed. 3. Synthroid 88 mcg daily. 4. Insulin lispro sliding scale a.c. and h.s., as directed. 5. Lantus 15 units subcu daily. 6. Colace 200 mg p.o. b.i.d. 7. Diltiazem 180 mg daily. 8. Calcium and vitamin D one tablet daily. 9. Lipitor 20 mg daily. 10. Aspirin 81 mg daily. 11. Amitriptyline 10 mg p.o. daily. 12. Amiodarone 100 mg p.o. daily. 13. Tylenol 650 mg p.o. every 4 hours as needed. ALLERGIES: Allergies to medications include: PENICILLIN AND SULFA DRUGS. FAMILY HISTORY: Father had a history of prostate cancer, mother's history reviewed noncontributory. SOCIAL HISTORY: She is a former smoker. She quit many years. She does not drink alcohol. She is currently at [facility] for subacute rehab and surrogate decision makers are her children. REVIEW OF SYSTEMS: There is no documented fever. She denied a significant weight change. There was no double vision. She denies having any ear discharge. There was no rhinorrhea. No sore throat. No thyroid enlargement. She denied having had any chest pain. There is orthopnea with dyspnea on exertion. There is no abdominal pain. No nausea, no vomiting. No dysuria, no frequency. No seizures. No loss of conscious. No pruritus and no skin ulcerations. Review of 14 systems completed, all others negative. PHYSICAL EXAMINATION GENERAL: At this time, Ms. Song is a 87-year-old female patient, she is chronically ill-appearing. She is sitting in the ER stretcher. She does not appear to be in any acute respiratory distress. She is talking in full sentences. VITAL SIGNS: Blood pressure 171/54, pulse 60, respirations 20, her O2 sat 99% she is on a nonrebreather, temperature 98.1. HEENT: Head is atraumatic, normocephalic. Eyes: EOMs are intact. Sclerae anicteric, not pale. Throat: Oral mucosa appears to be moist. No oropharyngeal erythema. NECK: Supple. LUNGS: She did have crackles in the lower bases bilaterally. HEART: Sounds S1, S2. Regular rate and rhythm. No murmurs, rubs or gallops. ABDOMEN: Soft, flat, nontender. Bowel sounds present. EXTREMITIES: She has +2 pitting edema to the pretibial area, just above her ankles bilaterally. She has 5/5 strength. NEUROLOGIC: She is awake, alert and oriented x3. Tongue midline. [employer] equal. No gross focal deficits. SKIN: Intact. LABORATORY DATA: Labs revealed WBC of 8.7, RBC of 3.21, hemoglobin 9.3, hematocrit 29, platelet count 209, PTT 31.8. Sodium 121, potassium 6.5, chloride 89, bicarb of 21, BUN 38, creatinine 2.57, glucose 303, lactic 1.1, calcium 8.7, total bilirubin 3.48, AST 62, ALT 64 , alk phos 152, troponin was 0.01. BNP was 1026. Albumin 3.5. Urine is pending. She did have a chest x-ray obtained today, on my review to me it appears that she has pulmonary vascular congestion, radiology read as constellation of findings most consistent with pulmonary vascular congestion and interstitial edema with associated moderate dependent pleural effusion with compressive bibasilar atelectasis. She did have an EKG obtained today, which does show what appears to be a junctional rhythm with rate of 57 and a widened QRS was about 103, previously her QRS was noted to have 91 milliseconds. In addition it was at sinus rhythm at 99. Old medical records reviewed. ASSESSMENT AND PLAN: Ms. Song is an 87-year-old female patient coming in to the ER today with complaints of shortness of breath and orthopnea. On evaluation there was concern for CHF. She will be admitted under observation status to the ICU for: 1. CHF exacerbation, I suspect this has probably been brought on that she had not been taking her Demadex the last week and I understand that this was stopped due to the fact that she had worsening kidney function. So at this point, I am going to go and diurese with 40 IV Lasix and we will give Lasix as needed. We will monitor I's and O's, we will cycle her troponins, place her on telemetry. We will get an echo and we will follow. 2. Hyperkalemia, this is significant; it is causing a junctional rhythm. My plan is to go ahead and give her calcium gluconate which had been ordered by the ED, the nurse is on her way to give this. I am also going to give her a dose of Lasix which hopefully help bring the potassium down. We will also give her some calcium gluconate, Kayexalate, and also we have ordered an insulin IV push with dextrose as well for the patient, and we will repeat her BMP around 1600 tonight and we will follow. 3. Diabetes mellitus, continue sliding scale. 4. Hypertension, continue medicine as prescribed. 5. AFib, she appears to be in junctional rhythm now, we will monitor. 6. Hypothyroidism, continue her Synthroid. 7. Hyponatremia, could be related to the CHF, but I am going to get a serum osmol, urine osmol, urine sodium, in addition we will also get a cortisol and TSH level. 8. Coronary artery disease, she is on statin and aspirin therapy. We will continue with these. 9. CKD, her creatinine appears to be right at her baseline, we will monitor. 10. Code Status: She is a DNR. 11. DVT prophylaxis, she will be placed on heparin subcu. 12. Fluids, electrolytes and nutrition. She can have a heart-healthy diet. TIME SPENT: Time spent on the admission was approximately 70 minutes, greater than half the time was spent [id number] with the patient obtaining my history and physical, other half time spent going over the plan of care with the patient and implementing the plan of care. I did discuss the plan of care with my attending, Dr. Estrada, he is in agreement. STANLEY FOX, ANGELIQUE [id number]/CPS #: [id number] MTDD
[2017-04-04] MEDS: Heparin VIAL(*) 5000 UNITS/ML VIAL (FIVE THOUSAND) SUBCUT SCH ×2 (16:42→21:43)
[2017-04-04] MEDS: cefTRIAXone VIAL(*) 1,000 MG in NS 0.9% 50 ML* 50 ML IVPB SCH (16:42)
--- NOTE | 2017-04-04 17:30 | ECHO ---
Patient: WALTER PETERSON [facility] Rec#: [id number] : 1930 Date: 04/04/2017 Age: 87y Height: 165.1 cm / 65.0 in Weight: 69.4 kg / 153.0 lbs Sex: F BSA: 1.77 Room#: ICU-3 Admit Date#: 04/04/2017 Type: Inpatient Referring: Rolando Calderon NP Reading: Lynn Lucero MD Services Coordinator: Laura Casanova RDCS CC: Domi Bennett MD Transthoracic Echocardiogram Indication: CHF BP: 171/54 HR: 62 Rhythm: NSR with PVCs Indications Congestive Heart Failure Findings History: CAD with PCI 2002, PAF, DM, HTN, HLD. Technical Comments: The study quality is fair. The study is technically limited due to poor apical windows. The study is technically limited due to patient body habitus. Completed at 1720. Left Ventricle: The left ventricular chamber size is decreased. Moderate concentric left ventricular hypertrophy is observed. Global left ventricular wall motion and contractility are within normal limits. The left ventricle appears hyperdynamic. The estimated ejection fraction is greater than 65%. There is no consistent Doppler evidence of clinically significant diastolic dysfunction. Left Atrium: The left atrium is moderately dilated. Right Ventricle: Moderator Band present. The right ventricle is mildly dilated. The right ventricle wall thickness is mildly increased. The right ventricular global systolic function is normal. Right Atrium: The right atrium is mildly dilated. Aortic Valve: The aortic valve is trileaflet. The aortic valve leaflets are moderately thickened. Systolic excursion of the aortic valve cusps is reduced. There is mild aortic regurgitation. There is borderline aortic stenosis present. Mitral Valve: There is mitral annular calcification. The mitral valve leaflets are moderately thickened. There is mild mitral regurgitation. There is mild mitral stenosis. Tricuspid Valve: The tricuspid valve leaflets are normal. There is severe tricuspid regurgitation. The right ventricular systolic pressure is estimated at 64 mmHg. There is evidence of severe pulmonary hypertension. There is no tricuspid stenosis. Pulmonic Valve: The pulmonic valve appears normal. There is trace to mild pulmonic regurgitation. There is no pulmonic stenosis. Pericardium: There is no significant pericardial effusion. A pericardial fat pad is visualized. Aorta: There is no dilatation of the ascending aorta. There is no dilatation of the aortic arch. There is no dilation of the aortic root. Pulmonary Artery: The main pulmonary artery appears normal. Venous: The inferior vena cava is dilated. There is an approximate 50% respiratory change in the inferior vena cava dimension. Summary: There are changes noted when compared to the previous study done on 11/14/2014, AI is new. TR is now severe instead of mild-moderate then. PHTN is now severe instead of moderate then. is stable. Conclusions The left ventricular chamber size is decreased. Moderate concentric left ventricular hypertrophy is observed. Global left ventricular wall motion and contractility are within normal limits. The estimated ejection fraction is greater than 65%. There is no consistent Doppler evidence of clinically significant diastolic dysfunction. The left atrium is moderately dilated. The right atrium is mildly dilated. There is mild aortic regurgitation. There is borderline aortic stenosis present. There is mild mitral regurgitation. There is mild mitral stenosis. There is severe tricuspid regurgitation. The right ventricular systolic pressure is estimated at 64 mmHg. There is trace to mild pulmonic regurgitation. There are changes noted when compared to the previous study done on 11/14/2014, AI is new. TR is now severe instead of mild-moderate then. PHTN is now severe instead of moderate then. is stable. Measurements Name Value Normal Range RVIDd (AP) 2D 2.6 cm (0.9 - 2.6) RVDdMajor (2D) 4.7 cm (2.2 - 4.4) RVAW (2D) 0.75 cm (0.2 - 0.5) RAd ISD 4CH 5 cm (3.4 - 4.9) RA (A4C)W 3.8 cm (2.9 - 4.6) IVSd (2D) 1.3 cm (0.6 - 1) LVPWd (2D) 1.3 cm (0.6 - 1) LVIDd (2D) 3.4 cm (3.6 - 5.4) LVIDs (2D) 1.8 cm - LV FS (2D) 47 % (25 - 45) Aortic Annulus 2 cm (1.4 - 2.6) Ao root diameter (2D) 2.9 cm (2.1 - 3.5) Ascending Ao 3.1 cm (2.1 - 3.4) Aortic arch 2.5 cm (1.8 - 3.4) LA dimension (AP) 2D 3.8 cm (2.3 - 3.8) LAd ISD 4CH 5.6 cm (2.9 - 5.3) LA ISD 4CH W 5 cm (2.5 - 4.5) Name Value Normal Range LA ESV SP 4CH (A/L) 87 ml - LA ESV SP 2CH (A/L) 64 ml - LA ESV BP (A/L) 81 ml - LA ESV BP (A/L) index 46 ml/m2 - LA ESV SP 4CH (MOD) 82 ml - LA ESV SP 2CH (MOD) 62 ml - Name Value Normal Range MV E-wave Vmax 1.68 m/sec - MV deceleration time 227 msec - MV A-wave Vmax 0.46 m/sec - MV E:A ratio 3.69 ratio - LV septal e' Vmax 0.07 m/sec - LV lateral e' Vmax 0.09 m/sec - LV E:e' septal ratio 24 ratio - LV E:e' lateral ratio 18.67 ratio - Name Value Normal Range AV Vmax 2 m/sec - AV VTI 42.28 cm - AV peak gradient 15.76 mmHg - AV mean gradient 7.97 mmHg - LVOT diameter 2 cm - LVOT Vmax 1.12 m/sec - LVOT VTI 24.59 cm - LVOT peak gradient 5.08 mmHg - LVOT mean gradient 3.25 mmHg - DOI (VTI) 0.58 ratio - CAMILO (continuity Vmax) 1.76 cm2 - CAMILO (continuity VTI) 1.8 cm2 - VÍCTOR Vmax 0.46 m/sec - Name Value Normal Range MV Vmax 1.89 m/sec - MV VTI 47.5 cm - MV peak gradient 14.29 mmHg - MV mean gradient 2.74 mmHg - MV PHT 75 msec - MVA (PHT) 2.93 cm2 - Name Value Normal Range TR Vmax 3.5 m/sec - TR peak gradient 49 mmHg - RAP 15 mmHg - RVSP 64 mmHg - IVC diameter 2.6 cm - Name Value Normal Range PV Vmax 1.46 m/sec - PV peak gradient 8.5 mmHg -
[2017-04-04 17:36] LABS: BUN/Creatinine Ratio 14.7 (8-20); EGFR African American 24.7 (>60); EGFR Non-African American 19.2 (>60); Potassium 5.1 mmol/L (3.5-5.0)
[2017-04-04 17:39] LABS: Troponin I 0.02 ng/mL (<0.04)
[2017-04-04 17:49] LABS: Calcium 15.1 mg/dL (8.6-10.3)
[2017-04-04] MEDS: Insulin LISPRO* 1 UNITS UNIT SUBCUT SCH (18:09)
[2017-04-04 18:25] LABS: BUN/Creatinine Ratio 14.8 (8-20); Calcium 8.5 mg/dL (8.6-10.3); EGFR Non-African American 18.7 (>60); Potassium 5.4 mmol/L (3.5-5.0)
[2017-04-04] MEDS: Amitriptyline TAB* 10 MG PO SCH (21:44)
[2017-04-05] MEDS: oxyCODONE TAB* 5 MG TAB PO PRN ×2 (05:29→19:43)
[2017-04-05] MEDS: Heparin VIAL(*) 5000 UNITS/ML VIAL (FIVE THOUSAND) SUBCUT SCH ×3 (05:29→20:32)
[2017-04-05] MEDS: Levothyroxine TAB* 88 MCG TAB PO SCH (05:41)
[2017-04-05 06:21] LABS: Hematocrit 27 % (35-47); Hemoglobin 8.6 g/dl (12.0-16.0); Mean Corpuscular HGB Conc 32 g/dl (31-36); Mean Corpuscular Hemoglobin 29 pg (27-31); Mean Corpuscular Volume 91 fL (80-97); Mean Platelet Volume 8 um3 (7.4-10.4); Red Blood Count 2.99 10^6/ul (4.0-5.4); Red Cell Distribution Width 15 % (10.5-15); White Blood Count 5.7 10^3/ul (3.5-10.8)
[2017-04-05 06:28] LABS: BUN/Creatinine Ratio 14.8 (8-20); Calcium 8.5 mg/dL (8.6-10.3); EGFR African American 25.9 (>60); EGFR Non-African American 20.1 (>60); Potassium 5.3 mmol/L (3.5-5.0)
[2017-04-05] MEDS: Insulin LISPRO* 1 UNITS UNIT SUBCUT SCH ×3 (08:53→17:51)
[2017-04-05] MEDS: Insulin GLARGINE(*) 1 UNITS UNIT SUBCUT SCH (08:54)
[2017-04-05] MEDS: Aspirin Low Dose CHEW TAB* 81 MG PO SCH (08:55)
[2017-04-05] MEDS: Diltiazem CD CAP* 180 MG PO SCH (08:55)
[2017-04-05] MEDS: Atorvastatin* 20 MG TAB PO SCH (08:55)
[2017-04-05] MEDS ORDERED: Amiodarone TAB* 200 MG PO SCH (09:00)
[2017-04-05] MEDS ORDERED: Furosemide IV* 10 MG/ML VIAL (40 MG) IV SLOW PU ONE (09:32)
--- NOTE | 2017-04-05 10:04 | PN ---
Subjective Date of Service: 04/05/17 Interval History: Patient seen and evaluated at the bedside. She reports she is feeling a little better compared to yesterday but continues to feel SOB when she is talking in full sentences. Reports she slept with the HOB slightly elevated but improved from the last couple nights. Reports little appetite but states that is not common for her. No fevers, chills. No cough or CP. Objective Active Medications: Acetaminophen (Tylenol Tab*) 650 mg PO Q4H PRN PRN Reason: FEVER/PAIN Amiodarone HCl (Cordarone Tab*) 100 mg PO DAILY [facility] Last Admin: 04/05/17 08:54 Dose: 100 mg Amitriptyline HCl (Elavil Tab*) 10 mg PO BEDTIME [facility] Last Admin: 04/04/17 21:44 Dose: 10 mg Aspirin (Aspirin Low Dose Tab*) 81 mg PO DAILY [facility] Last Admin: 04/05/17 08:55 Dose: 81 mg Atorvastatin Calcium (Lipitor*) 20 mg PO DAILY [facility] Last Admin: 04/05/17 08:55 Dose: 20 mg Dextrose (D50w Syringe 50 Ml*) 12.5 gm IV PUSH .FOR FS < 60 - SS PRN PRN Reason: FS < 60 Diltiazem HCl (Cardizem Cd Cap*) 180 mg PO DAILY [facility] Last Admin: 04/05/17 08:55 Dose: 180 mg Docusate Sodium (Colace Cap*) 200 mg PO BID PRN PRN Reason: CONSTIPATION Furosemide (Lasix Iv*) 40 mg IV SLOW PU ONCE ONE Stop: 04/05/17 09:33 Heparin Sodium (Porcine) (Heparin Vial(*)) 5,000 units SUBCUT Q8HR [facility] Last Admin: 04/05/17 05:29 Dose: 5,000 units Ceftriaxone Sodium 1,000 mg/ (Sodium Chloride) 50 mls @ 200 mls/hr IVPB Q24H [facility] Last Admin: 04/04/17 16:42 Dose: 200 mls/hr Insulin Glargine (Lantus(*)) 15 units SUBCUT DAILY [facility] Last Admin: 04/05/17 08:54 Dose: 15 units Insulin Human Lispro (Humalog*) 0 units SUBCUT AC [facility] PRN Reason: Protocol Last Admin: 04/05/17 08:53 Dose: 4 units Levothyroxine Sodium (Synthroid Tab*) 88 mcg PO 0600 [facility] Last Admin: 04/05/17 05:41 Dose: 88 mcg Ondansetron HCl (Zofran Inj*) 4 mg IV Q6H PRN PRN Reason: NAUSEA Oxycodone HCl (Roxycodone Tab*) 5 mg PO Q8H PRN PRN Reason: PAIN Last Admin: 04/05/17 05:29 Dose: 5 mg Vital Signs 04/05/17 04/05/17 04/05/17 05:14 06:00 06:04 Temperature Pulse Rate 49 Respiratory 12 15 14 Rate Blood Pressure 129/50 (mmHg) O2 Sat by Pulse 93 Oximetry 04/05/17 04/05/17 04/05/17 07:00 07:10 08:00 Temperature 98.7 F Pulse Rate 51 50 Respiratory 12 11 Rate Blood Pressure 127/46 129/51 (mmHg) O2 Sat by Pulse 95 94 Oximetry 04/05/17 08:17 Temperature Pulse Rate 51 Respiratory 12 Rate Blood Pressure (mmHg) O2 Sat by Pulse 94 Oximetry Oxygen Devices in Use Now: Nasal Cannula Appearance: elderly female sitting up in bed watching TV eating breakfast in NAD , A+O x3 Eyes: No Scleral Icterus, PERRLA Ears/Nose/Mouth/Throat: NL Teeth, Lips, Gums, Mucous Membranes Moist Neck: NL Appearance and Movements; NL JVP Respiratory: Symmetrical Chest Expansion and Respiratory Effort, - - crackles to bases b/l Cardiovascular: NL Sounds; No Murmurs; No JVD, RRR Abdominal: NL Sounds; No Tenderness; No Distention Extremities: No Clubbing, Cyanosis, - - 1+ LE b/l Skin: No Nodules or Sclerosis Neurological: Alert and Oriented x 3, NL Sensation, NL Muscle Strength and Tone Lines/Tubes/Other Access: Clean, Dry and Intact [place] - draining clear yellow urine, Clean, Dry and Intact Peripheral IV Nutrition: Taking PO's Result Diagrams: 04/05/17 05:40 04/05/17 15:25 Additional Lab and Data: Lab Results 04/04/17 04/04/17 04/04/17 Range/Units 11:55 11:55 11:55 WBC 8.7 (3.5-10.8) 10^3/ul RBC 3.21 L (4.0-5.4) 10^6/ul Hgb 9.3 L (12.0-16.0) g/dl Hct 29 L (35-47) % MCV 91 (80-97) fL MCH 29 (27-31) pg MCHC 32 (31-36) g/dl RDW 16 H (10.5-15) % Plt Count 209 (150-450) 10^3/ul MPV 8 (7.4-10.4) um3 Neut % (Auto) 84.4 H (38-83) % Lymph % (Auto) 6.4 L (25-47) % [place] % (Auto) 6.6 (1-9) % Eos % (Auto) 1.4 (0-6) % Baso % (Auto) 1.2 (0-2) % Absolute Neuts (auto) 7.3 (1.5-7.7) 10^3/ul Absolute Lymphs (auto) 0.6 L (1.0-4.8) 10^3/ul Absolute Monos (auto) 0.6 (0-0.8) 10^3/ul Absolute Eos (auto) 0.1 (0-0.6) 10^3/ul Absolute Basos (auto) 0.1 (0-0.2) 10^3/ul Absolute Nucleated RBC 0 10^3/ul Nucleated RBC % 0 APTT (26.0-36.3) seconds Sodium 121 L (133-145) mmol/L Potassium 6.5 H* (3.5-5.0) mmol/L Chloride 89 L (101-111) mmol/L Carbon Dioxide 21 L (22-32) mmol/L Anion Gap 11 (2-11) mmol/L BUN 38 H (6-24) mg/dL Creatinine 2.57 H (0.51-0.95) mg/dL Est GFR ( Amer) 22.6 (>60) Est GFR (Non-Af Amer) 17.6 (>60) BUN/Creatinine Ratio 14.8 (8-20) Glucose 303 H (70-100) mg/dL Lactic Acid 1.1 (0.5-2.0) mmol/L Calcium 8.7 (8.6-10.3) mg/dL Total Bilirubin 0.40 (0.2-1.0) mg/dL AST 62 H (13-39) U/L ALT 64 H (7-52) U/L Alkaline Phosphatase 152 H (34-104) U/L Total Creatine Kinase 87 (10-223) U/L CK-MB (CK-2) 4.9 (0.6-6.3) ng/mL Troponin I 0.01 (<0.04) ng/mL C-Reactive Protein 33.85 H (< 5.00) mg/L B-Natriuretic Peptide ( - 100) pg/mL Total Protein 6.9 (6.4-8.9) g/dL Albumin 3.5 (3.2-5.2) g/dL Globulin 3.4 (2-4) g/dL Albumin/Globulin Ratio 1.0 (1-3) 04/04/17 04/04/17 Range/Units 11:55 11:55 WBC (3.5-10.8) 10^3/ul RBC (4.0-5.4) 10^6/ul Hgb (12.0-16.0) g/dl Hct (35-47) % MCV (80-97) fL MCH (27-31) pg MCHC (31-36) g/dl RDW (10.5-15) % Plt Count (150-450) 10^3/ul MPV (7.4-10.4) um3 Neut % (Auto) (38-83) % Lymph % (Auto) (25-47) % [place] % (Auto) (1-9) % Eos % (Auto) (0-6) % Baso % (Auto) (0-2) % Absolute Neuts (auto) (1.5-7.7) 10^3/ul Absolute Lymphs (auto) (1.0-4.8) 10^3/ul Absolute Monos (auto) (0-0.8) 10^3/ul Absolute Eos (auto) (0-0.6) 10^3/ul Absolute Basos (auto) (0-0.2) 10^3/ul Absolute Nucleated RBC 10^3/ul Nucleated RBC % APTT 31.8 (26.0-36.3) seconds Sodium (133-145) mmol/L Potassium (3.5-5.0) mmol/L Chloride (101-111) mmol/L Carbon Dioxide (22-32) mmol/L Anion Gap (2-11) mmol/L BUN (6-24) mg/dL Creatinine (0.51-0.95) mg/dL Est GFR ( Amer) (>60) Est GFR (Non-Af Amer) (>60) BUN/Creatinine Ratio (8-20) Glucose (70-100) mg/dL Lactic Acid (0.5-2.0) mmol/L Calcium (8.6-10.3) mg/dL Total Bilirubin (0.2-1.0) mg/dL AST (13-39) U/L ALT (7-52) U/L Alkaline Phosphatase (34-104) U/L Total Creatine Kinase (10-223) U/L CK-MB (CK-2) (0.6-6.3) ng/mL Troponin I (<0.04) ng/mL C-Reactive Protein (< 5.00) mg/L B-Natriuretic Peptide 1026 H ( - 100) pg/mL Total Protein (6.4-8.9) g/dL Albumin (3.2-5.2) g/dL Globulin (2-4) g/dL Albumin/Globulin Ratio (1-3) Microbiology and Other Data: Microbiology 04/04/17 15:32 Nasal Screen MRSA (PCR)(FARHEEN) - Final Nasal Mrsa Negative Assess/Plan/Problems-Billing Assessment: Ms. Song is a 87 yo female with a PMH of type 2 DM, HTN, Afib, Hypothyroid, CAD s/p stent, CKD who was admitted 04/04 for CHF exacerbation and hyperkalemia - Patient Problems (1) Acute systolic CHF (congestive heart failure) Comment: Pt continues to appear volume overloaded today with SOB while speaking , continues on 4L NC, crackles to bases, + JVD. Possible 10-20lb weight gain since last admission? Was given 40 mg IV lasix on admission - u/o 1500 mls overnight Plan to give lasix 40 mg IV x1 now and re-evaluate this afternoon. Check labs 1500. Strict I+O's. Daily weights. (2) Hyperkalemia Comment: Trending down after kayexalate, calcium gluconate, IV insulin with D5 given on admission (3) Acute renal failure (ARF) Comment: Suspect secondary to CHF. Baseline appears to be around 1.5 - 2. Today is 2.29 down from admission. Also recent UTI currently was being treated with ceftriaxone- check renal us. (4) UTI (urinary tract infection) Comment: dx with UTI 04/01 - which grew enterococcus colony count > 100K Continue Ceftriaxone (5) Hypothyroidism Comment: Continue synthroid at current dose. (6) Atrial fibrillation Comment: Appears to be in sinus rhythm/sinus noris; plan to DC amiodarone due to noted bradycardia. Continue diltiazem, ASA. Continue tele monitoring. Repeat EKG. (7) Hx of coronary artery disease Comment: NO evidence of ACS Cont statin, ASA (8) DNR no code (do not resuscitate) (9) DVT prophylaxis Comment: SQ heparin Status and Disposition: inpatient with acute on chronic congestive heart failure. Length of stay >2 days
[2017-04-05] MEDS: cefTRIAXone VIAL(*) 1,000 MG in NS 0.9% 50 ML* 50 ML IVPB SCH (15:22)
[2017-04-05 16:11] LABS: BUN/Creatinine Ratio 15.1 (8-20); Calcium 8.3 mg/dL (8.6-10.3); EGFR African American 24.6 (>60); EGFR Non-African American 19.1 (>60); Magnesium 2.1 mg/dL (1.9-2.7); Potassium 4.8 mmol/L (3.5-5.0)
[2017-04-05] MEDS ORDERED: Furosemide IV* 10 MG/ML VIAL (40 MG) IV ONE (16:47)
--- NOTE | 2017-04-05 17:05 | RAD ---
Indication: Urinary retention. Right kidney measures 10.0 x 4.2 x 3.4 cm. The left kidney measures 10.3 x 5.6 x 5.1 cm. No hydronephrosis is noted in either kidney. IMPRESSION: Unremarkable renal ultrasound.
[2017-04-05] MEDS: Amitriptyline TAB* 10 MG PO SCH (19:44)
[2017-04-06] MEDS: Levothyroxine TAB* 88 MCG TAB PO SCH (05:33)
[2017-04-06] MEDS: Heparin VIAL(*) 5000 UNITS/ML VIAL (FIVE THOUSAND) SUBCUT SCH ×3 (05:33→21:22)
[2017-04-06 06:04] LABS: Hematocrit 28 % (35-47); Mean Corpuscular HGB Conc 32 g/dl (31-36); Mean Corpuscular Hemoglobin 29 pg (27-31); Mean Corpuscular Volume 89 fL (80-97); Mean Platelet Volume 7 um3 (7.4-10.4); Red Blood Count 3.12 10^6/ul (4.0-5.4); Red Cell Distribution Width 16 % (10.5-15)
[2017-04-06 06:20] LABS: Albumin 2.8 g/dL (3.2-5.2); Calcium 8.2 mg/dL (8.6-10.3); EGFR African American 28.3 (>60); Globulin 2.9 g/dL (2-4); Magnesium 1.9 mg/dL (1.9-2.7); Total Bilirubin 0.2 mg/dL (0.2-1.0); Total Protein 5.7 g/dL (6.4-8.9)
[2017-04-06] MEDS: Insulin LISPRO* 1 UNITS UNIT SUBCUT SCH ×3 (08:52→18:25)
[2017-04-06] MEDS ORDERED: Torsemide TAB* 20 MG PO SCH (09:00)
--- NOTE | 2017-04-06 09:23 | PN ---
Subjective Date of Service: 04/06/17 Interval History: Patient reports she feels "much, much better today". She reports her LE edema has greatly improved. No SOB, denies orthopnea. No cough, CP. Reports her appetite is much better. She feels that she is weak but has been OOB to toliet and chair with assistance. Denies fever/chills. No flank pain or abdominal pain. No N/V/D Son at bedside during exam Objective Active Medications: Acetaminophen (Tylenol Tab*) 650 mg PO Q4H PRN PRN Reason: FEVER/PAIN Last Admin: 04/05/17 14:05 Dose: 650 mg Amitriptyline HCl (Elavil Tab*) 10 mg PO BEDTIME [facility] Last Admin: 04/05/17 19:44 Dose: 10 mg Aspirin (Aspirin Low Dose Tab*) 81 mg PO DAILY [facility] Last Admin: 04/05/17 08:55 Dose: 81 mg Atorvastatin Calcium (Lipitor*) 20 mg PO DAILY [facility] Last Admin: 04/05/17 08:55 Dose: 20 mg Dextrose (D50w Syringe 50 Ml*) 12.5 gm IV PUSH .FOR FS < 60 - SS PRN PRN Reason: FS < 60 Diltiazem HCl (Cardizem Cd Cap*) 180 mg PO DAILY [facility] Last Admin: 04/05/17 08:55 Dose: 180 mg Docusate Sodium (Colace Cap*) 200 mg PO BID PRN PRN Reason: CONSTIPATION Last Admin: 04/05/17 19:43 Dose: 200 mg Heparin Sodium (Porcine) (Heparin Vial(*)) 5,000 units SUBCUT Q8HR [facility] Last Admin: 04/06/17 05:33 Dose: 5,000 units Ceftriaxone Sodium 1,000 mg/ (Sodium Chloride) 50 mls @ 200 mls/hr IVPB Q24H [facility] Last Admin: 04/05/17 15:22 Dose: 200 mls/hr Insulin Glargine (Lantus(*)) 15 units SUBCUT DAILY [facility] Last Admin: 04/05/17 08:54 Dose: 15 units Insulin Human Lispro (Humalog*) 0 units SUBCUT AC TITA PRN Reason: Protocol Last Admin: 04/06/17 08:52 Dose: Not Given Levothyroxine Sodium (Synthroid Tab*) 88 mcg PO 0600 [facility] Last Admin: 04/06/17 05:33 Dose: 88 mcg Ondansetron HCl (Zofran Inj*) 4 mg IV Q6H PRN PRN Reason: NAUSEA Oxycodone HCl (Roxycodone Tab*) 5 mg PO Q8H PRN PRN Reason: PAIN Last Admin: 04/05/17 19:43 Dose: 5 mg Torsemide (Demadex*) 20 mg PO DAILY [facility] Vital Signs 04/06/17 04/06/17 04/06/17 03:46 04:00 05:00 Temperature 98.2 F Pulse Rate 65 66 Respiratory 9 10 Rate Blood Pressure 115/55 131/66 (mmHg) O2 Sat by Pulse 99 96 Oximetry 04/06/17 04/06/17 04/06/17 05:31 06:00 08:00 Temperature 99 F Pulse Rate 69 Respiratory 12 12 Rate Blood Pressure 144/50 (mmHg) O2 Sat by Pulse 97 Oximetry 04/06/17 08:46 Temperature Pulse Rate Respiratory Rate Blood Pressure (mmHg) O2 Sat by Pulse 95 Oximetry Oxygen Devices in Use Now: Nasal Cannula - 2L NC Appearance: eldelry female sitting up in bed in NAD, A+O x3 Eyes: No Scleral Icterus, PERRLA Ears/Nose/Mouth/Throat: NL Teeth, Lips, Gums, Mucous Membranes Moist Neck: NL Appearance and Movements; NL JVP Respiratory: Symmetrical Chest Expansion and Respiratory Effort, - - mild crackles in bases, good aeration throughout Cardiovascular: NL Sounds; No Murmurs; No JVD, RRR, - - trace LE edema b/l Abdominal: NL Sounds; No Tenderness; No Distention Extremities: No Clubbing, Cyanosis Skin: No Nodules or Sclerosis Neurological: Alert and Oriented x 3, NL Sensation, NL Muscle Strength and Tone Lines/Tubes/Other Access: Clean, Dry and Intact Stallworth, Clean, Dry and Intact Peripheral IV Nutrition: Taking PO's Result Diagrams: 04/06/17 05:50 04/06/17 05:50 Additional Lab and Data: Lab Results 04/04/17 04/04/17 04/04/17 Range/Units 11:55 11:55 11:55 WBC 8.7 (3.5-10.8) 10^3/ul RBC 3.21 L (4.0-5.4) 10^6/ul Hgb 9.3 L (12.0-16.0) g/dl Hct 29 L (35-47) % MCV 91 (80-97) fL MCH 29 (27-31) pg MCHC 32 (31-36) g/dl RDW 16 H (10.5-15) % Plt Count 209 (150-450) 10^3/ul MPV 8 (7.4-10.4) um3 Neut % (Auto) 84.4 H (38-83) % Lymph % (Auto) 6.4 L (25-47) % Rice % (Auto) 6.6 (1-9) % Eos % (Auto) 1.4 (0-6) % Baso % (Auto) 1.2 (0-2) % Absolute Neuts (auto) 7.3 (1.5-7.7) 10^3/ul Absolute Lymphs (auto) 0.6 L (1.0-4.8) 10^3/ul Absolute Monos (auto) 0.6 (0-0.8) 10^3/ul Absolute Eos (auto) 0.1 (0-0.6) 10^3/ul Absolute Basos (auto) 0.1 (0-0.2) 10^3/ul Absolute Nucleated RBC 0 10^3/ul Nucleated RBC % 0 APTT (26.0-36.3) seconds Sodium 121 L (133-145) mmol/L Potassium 6.5 H* (3.5-5.0) mmol/L Chloride 89 L (101-111) mmol/L Carbon Dioxide 21 L (22-32) mmol/L Anion Gap 11 (2-11) mmol/L BUN 38 H (6-24) mg/dL Creatinine 2.57 H (0.51-0.95) mg/dL Est GFR ( Amer) 22.6 (>60) Est GFR (Non-Af Amer) 17.6 (>60) BUN/Creatinine Ratio 14.8 (8-20) Glucose 303 H (70-100) mg/dL Lactic Acid 1.1 (0.5-2.0) mmol/L Calcium 8.7 (8.6-10.3) mg/dL Total Bilirubin 0.40 (0.2-1.0) mg/dL AST 62 H (13-39) U/L ALT 64 H (7-52) U/L Alkaline Phosphatase 152 H (34-104) U/L Total Creatine Kinase 87 (10-223) U/L CK-MB (CK-2) 4.9 (0.6-6.3) ng/mL Troponin I 0.01 (<0.04) ng/mL C-Reactive Protein 33.85 H (< 5.00) mg/L B-Natriuretic Peptide ( - 100) pg/mL Total Protein 6.9 (6.4-8.9) g/dL Albumin 3.5 (3.2-5.2) g/dL Globulin 3.4 (2-4) g/dL Albumin/Globulin Ratio 1.0 (1-3) 04/04/17 04/04/17 Range/Units 11:55 11:55 WBC (3.5-10.8) 10^3/ul RBC (4.0-5.4) 10^6/ul Hgb (12.0-16.0) g/dl Hct (35-47) % MCV (80-97) fL MCH (27-31) pg MCHC (31-36) g/dl RDW (10.5-15) % Plt Count (150-450) 10^3/ul MPV (7.4-10.4) um3 Neut % (Auto) (38-83) % Lymph % (Auto) (25-47) % Rice % (Auto) (1-9) % Eos % (Auto) (0-6) % Baso % (Auto) (0-2) % Absolute Neuts (auto) (1.5-7.7) 10^3/ul Absolute Lymphs (auto) (1.0-4.8) 10^3/ul Absolute Monos (auto) (0-0.8) 10^3/ul Absolute Eos (auto) (0-0.6) 10^3/ul Absolute Basos (auto) (0-0.2) 10^3/ul Absolute Nucleated RBC 10^3/ul Nucleated RBC % APTT 31.8 (26.0-36.3) seconds Sodium (133-145) mmol/L Potassium (3.5-5.0) mmol/L Chloride (101-111) mmol/L Carbon Dioxide (22-32) mmol/L Anion Gap (2-11) mmol/L BUN (6-24) mg/dL Creatinine (0.51-0.95) mg/dL Est GFR ( Amer) (>60) Est GFR (Non-Af Amer) (>60) BUN/Creatinine Ratio (8-20) Glucose (70-100) mg/dL Lactic Acid (0.5-2.0) mmol/L Calcium (8.6-10.3) mg/dL Total Bilirubin (0.2-1.0) mg/dL AST (13-39) U/L ALT (7-52) U/L Alkaline Phosphatase (34-104) U/L Total Creatine Kinase (10-223) U/L CK-MB (CK-2) (0.6-6.3) ng/mL Troponin I (<0.04) ng/mL C-Reactive Protein (< 5.00) mg/L B-Natriuretic Peptide 1026 H ( - 100) pg/mL Total Protein (6.4-8.9) g/dL Albumin (3.2-5.2) g/dL Globulin (2-4) g/dL Albumin/Globulin Ratio (1-3) Microbiology and Other Data: Microbiology 04/04/17 15:32 Nasal Screen MRSA (PCR)(FARHEEN) - Final Nasal Mrsa Negative Assess/Plan/Problems-Billing Assessment: Ms. Song is a 87 yo female with a PMH of type 2 DM, HTN, Afib, Hypothyroid, CAD s/p stent, CKD who was admitted 04/04 for CHF exacerbation and hyperkalemia - Patient Problems (1) Acute systolic CHF (congestive heart failure) Comment: Dramatic improvement since admission. Improving with diuresing. Possible 10-20lb weight gain since last admission now weights trending down significantly. TTE showing EF 65%; severe PHTN, TR severe, mild Side consulted Cards Dr Navarro - who recommended Toursemide 3x weekly, and f/ u outpt with Dr. Spivey. Give Toursemide 20 mg now and start MWF Strict I+O's. Daily weights. (2) Hyperkalemia Comment: resolved after lasix, and kayexalate, calcium gluconate, IV insulin with D5 given on admission (3) Acute renal failure (ARF) Comment: Suspect secondary to CHF. Baseline appears to be around 1.5 - 2. Today is 2.12 down from admission. Also recent UTI currently was being treated with ceftriaxone- check renal us. (4) UTI (urinary tract infection) Comment: dx with UTI 04/01 & started on Cipro- urine cx grew enterococcus colony count > 100K Stallworth placed 04/01 at [facility] secondary to urinary retention; continue stallworth for now but will DC stallworth in am and trial pt Continue Ceftriaxone (last dose today) Renal U/S unremarkable (5) Hypothyroidism Comment: Continue synthroid at current dose. (6) Atrial fibrillation Comment: Appears to be in sinus rhythm; amiodarone was DC'd due to noted bradycardia (now resolved). Continue diltiazem, ASA. Continue tele monitoring. (7) Hx of coronary artery disease Comment: NO evidence of ACS Cont statin, ASA (8) DNR no code (do not resuscitate) (9) DVT prophylaxis Comment: SQ heparin Status and Disposition: inpatient with acute on chronic congestive heart failure. Length of stay >2 days
[2017-04-06] MEDS: Diltiazem CD CAP* 180 MG PO SCH (10:22)
[2017-04-06] MEDS: Insulin GLARGINE(*) 1 UNITS UNIT SUBCUT SCH (10:22)
[2017-04-06] MEDS: Aspirin Low Dose CHEW TAB* 81 MG PO SCH (10:22)
[2017-04-06] MEDS: Atorvastatin* 20 MG TAB PO SCH (10:22)
[2017-04-06] MEDS: cefTRIAXone VIAL(*) 1,000 MG in NS 0.9% 50 ML* 50 ML IVPB SCH (14:16)
[2017-04-06] MEDS: oxyCODONE TAB* 5 MG TAB PO PRN (19:33)
[2017-04-06] MEDS: Amitriptyline TAB* 10 MG PO SCH (21:22)
[2017-04-07 05:49] LABS: Hematocrit 28 % (35-47); Hemoglobin 8.9 g/dl (12.0-16.0); Mean Corpuscular HGB Conc 32 g/dl (31-36); Mean Corpuscular Hemoglobin 28 pg (27-31); Mean Corpuscular Volume 89 fL (80-97); Mean Platelet Volume 7 um3 (7.4-10.4); Red Blood Count 3.18 10^6/ul (4.0-5.4); Red Cell Distribution Width 16 % (10.5-15); White Blood Count 6.8 10^3/ul (3.5-10.8)
[2017-04-07 05:51] LABS: BUN/Creatinine Ratio 16.9 (8-20); Calcium 8.3 mg/dL (8.6-10.3); EGFR African American 34.8 (>60); EGFR Non-African American 27.1 (>60); Magnesium 1.7 mg/dL (1.9-2.7); Potassium 3.9 mmol/L (3.5-5.0)
[2017-04-07] MEDS: Levothyroxine TAB* 88 MCG TAB PO SCH (06:07)
[2017-04-07] MEDS: Heparin VIAL(*) 5000 UNITS/ML VIAL (FIVE THOUSAND) SUBCUT SCH (06:07)
[2017-04-07] MEDS: Diltiazem CD CAP* 180 MG PO SCH (08:38)
[2017-04-07] MEDS: Insulin LISPRO* 1 UNITS UNIT SUBCUT SCH ×2 (08:38→12:45)
[2017-04-07] MEDS: Aspirin Low Dose CHEW TAB* 81 MG PO SCH (08:38)
[2017-04-07] MEDS: Atorvastatin* 20 MG TAB PO SCH (08:38)
[2017-04-07] MEDS ORDERED: Magnesium Sulfate 2 GM IV* 2 GM/50 ML BAG IVPB ONE (08:40)
[2017-04-07] MEDS ORDERED: Torsemide TAB* 20 MG PO SCH (09:00)
[2017-04-07] MEDS: Insulin GLARGINE(*) 1 UNITS UNIT SUBCUT SCH (09:24)
--- NOTE | 2017-04-07 09:47 | PN ---
Subjective Date of Service: 04/07/17 Interval History: Patient seen and examined at bedside. Pt states that she feels better today, but has not gotten out of bed yet. Denies fever, chills, shortness of breath, chest discomfort, N/V/D. Medical Laboratory Specialist: Sinus rhythm, rate 70's. Family History: Unchanged from Admission Social History: Unchanged from Admission Past Medical History: Unchanged from Admission Objective Active Medications: Acetaminophen (Tylenol Tab*) 650 mg PO Q4H PRN Reason: FEVER/PAIN Amitriptyline HCl (Elavil Tab*) 10 mg PO BEDTIME [facility] Aspirin (Aspirin Low Dose Tab*) 81 mg PO DAILY [facility] Atorvastatin Calcium (Lipitor*) 20 mg PO DAILY [facility] Dextrose (D50w Syringe 50 Ml*) 12.5 gm IV PUSH .FOR FS < 60 - SS PRN Reason: FS < 60 Diltiazem HCl (Cardizem Cd Cap*) 180 mg PO DAILY [facility] Docusate Sodium (Colace Cap*) 200 mg PO BID PRN Reason: CONSTIPATION Heparin Sodium (Porcine) (Heparin Vial(*)) 5,000 units SUBCUT Q8HR [facility] Insulin Glargine (Lantus(*)) 15 units SUBCUT DAILY [facility] Insulin Human Lispro (Humalog*) 0 units SUBCUT AC [facility] Reason: Protocol Levothyroxine Sodium (Synthroid Tab*) 88 mcg PO 0600 [facility] Ondansetron HCl (Zofran Inj*) 4 mg IV Q6H PRN Reason: NAUSEA Oxycodone HCl (Roxycodone Tab*) 5 mg PO Q8H PRN Reason: PAIN Torsemide (Demadex*) 20 mg PO MOWEFR [facility] Vital Signs 04/06/17 04/06/17 04/06/17 10:00 10:10 10:44 Temperature Pulse Rate 81 76 Respiratory 18 22 13 Rate Blood Pressure 142/53 (mmHg) O2 Sat by Pulse 98 98 Oximetry 04/06/17 04/06/17 04/06/17 11:00 11:35 11:46 Temperature 99.9 F Pulse Rate 75 Respiratory 12 Rate Blood Pressure 146/57 (mmHg) O2 Sat by Pulse 99 Oximetry 04/06/17 04/06/17 04/06/17 12:00 13:00 14:00 Temperature Pulse Rate 76 79 71 Respiratory 11 23 19 Rate Blood Pressure 133/96 145/58 137/49 (mmHg) O2 Sat by Pulse 99 97 98 Oximetry 04/06/17 04/06/17 04/06/17 15:00 16:00 17:00 Temperature Pulse Rate 71 72 71 Respiratory 24 13 13 Rate Blood Pressure 125/56 130/51 133/49 (mmHg) O2 Sat by Pulse 98 98 98 Oximetry 04/06/17 04/06/17 04/06/17 18:00 19:00 19:42 Temperature 98.8 F Pulse Rate 74 72 70 Respiratory 22 19 20 Rate Blood Pressure 134/53 138/45 141/55 (mmHg) O2 Sat by Pulse 97 99 97 Oximetry 04/06/17 04/06/17 04/06/17 20:00 21:00 22:00 Temperature Pulse Rate 72 70 70 Respiratory 16 13 16 Rate Blood Pressure 141/55 128/48 126/78 (mmHg) O2 Sat by Pulse 99 95 97 Oximetry 04/06/17 04/06/17 04/06/17 23:00 23:17 23:27 Temperature 97.6 F Pulse Rate 68 67 Respiratory 12 13 Rate Blood Pressure 130/44 (mmHg) O2 Sat by Pulse 95 95 Oximetry 04/07/17 04/07/17 04/07/17 00:00 00:02 01:00 Temperature Pulse Rate 69 71 71 Respiratory 12 12 11 Rate Blood Pressure 113/83 119/64 (mmHg) O2 Sat by Pulse 94 94 95 Oximetry 04/07/17 04/07/17 04/07/17 02:00 03:00 03:58 Temperature 97.9 F Pulse Rate 71 69 Respiratory 12 10 Rate Blood Pressure 130/49 129/61 (mmHg) O2 Sat by Pulse 95 97 Oximetry 04/07/17 04/07/17 04/07/17 04:00 05:00 06:00 Temperature Pulse Rate 72 71 75 Respiratory 14 13 14 Rate Blood Pressure 124/45 102/65 132/64 (mmHg) O2 Sat by Pulse 97 95 97 Oximetry 04/07/17 04/07/17 04/07/17 07:00 07:51 07:57 Temperature 98.3 F Pulse Rate 71 Respiratory 12 Rate Blood Pressure 127/51 (mmHg) O2 Sat by Pulse 98 100 Oximetry 04/07/17 08:00 Temperature Pulse Rate 72 Respiratory 12 Rate Blood Pressure 127/54 (mmHg) O2 Sat by Pulse 98 Oximetry Oxygen Devices in Use Now: Nasal Cannula - 2L NC Appearance: NAD, sitting up in bed Eyes: No Scleral Icterus Ears/Nose/Mouth/Throat: Mucous Membranes Moist Respiratory: Symmetrical Chest Expansion and Respiratory Effort, Clear to Auscultation - , diminished Cardiovascular: NL Sounds; No Murmurs; No JVD, RRR Abdominal: NL Sounds; No Tenderness; No Distention Extremities: No Edema Skin: No Rash or Ulcers Neurological: Alert and Oriented x 3, NL Muscle Strength and Tone Lines/Tubes/Other Access: Clean, Dry and Intact Soto - patent, draining clear yellow urine, Clean, Dry and Intact Peripheral IV - site benign Nutrition: Taking PO's Result Diagrams: 04/07/17 05:18 04/07/17 05:18 Microbiology and Other Data: Microbiology 04/04/17 15:32 Nasal Screen MRSA (PCR)(FAREHEN) - Final Nasal Mrsa Negative Assess/Plan/Problems-Billing Assessment: Ms. Song is a 87 yo female with a PMH of type 2 DM, HTN, Afib, Hypothyroid, CAD s/p stent, CKD who was admitted 04/04 for CHF exacerbation and hyperkalemia - Patient Problems (1) Acute systolic CHF (congestive heart failure) Code(s): I50.21 - ACUTE SYSTOLIC (CONGESTIVE) HEART FAILURE SNOMED Code(s): 400391455 Comment: - Dramatic improvement since admission. - Improving with diuresing. Possible 10-20lb weight gain since last admission now weights trending down significantly. Down ~ 10 lbs - TTE showing EF 65%; severe PHTN, TR severe, mild - Side consulted Cards Dr Navarro - who recommended Toursemide 3x weekly, and f /u outpt with Dr. Spivey. - Continue Toursemide 20 mg MWF. - Continue strict I+O's. Daily weights. (2) Hyperkalemia Code(s): E87.5 - HYPERKALEMIA SNOMED Code(s): 65334897 Comment: - Resolved after lasix, and kayexalate, calcium gluconate, IV insulin with D5 given on admission (3) Acute renal failure (ARF) Comment: - Acute on chronic - Suspect secondary to CHF. Baseline appears to be around 1.5 - 2 - Today is 1.77 down from admission - Also recent UTI currently was being treated with ceftriaxone - Renal US, unremarkable (4) UTI (urinary tract infection) Comment: - dx with UTI 04/01 & started on Cipro- urine cx grew enterococcus colony count > 100K - Soto placed 04/01 at [facility] secondary to urinary retention - Renal U/S unremarkable - No growth urine culture from 04/04 - Continue Ceftriaxone (last dose 04/06) - Voiding trial today (5) Hypothyroidism Code(s): E03.9 - HYPOTHYROIDISM, UNSPECIFIED SNOMED Code(s): 83254905 Comment: - TSh 3.28 - Continue synthroid at current dose (6) Atrial fibrillation Comment: - Appears to be in sinus rhythm; amiodarone was DC'd due to noted bradycardia ( now resolved). - Continue diltiazem, ASA. - Continue tele monitoring. (7) Hx of coronary artery disease Code(s): Z86.79 - PERSONAL HISTORY OF OTHER DISEASES OF THE CIRCULATORY SYSTEM SNOMED Code(s): 222445748 Comment: - No evidence of ACS - Continue statin and ASA (8) Hx of type 2 diabetes mellitus Code(s): Z86.39 - PERSONAL HISTORY OF ENDO, NUTRITIONAL AND METABOLIC DISEASE SNOMED Code(s): 695816538 Comment: - Hypoglycemic this AM - Continue Lantus and Lispro SS (9) DVT prophylaxis Code(s): PJK2402 - SNOMED Code(s): 453275230 Comment: - SQ heparin (10) DNR no code (do not resuscitate) Status and Disposition: Inpatient with acute on chronic congestive heart failure. Plan for possible discharge back to [facility] later today.
[2017-04-07 11:41] VITALS: BP 143/63
--- NOTE | 2017-04-07 13:22 | DS ---
CC: Dr. Domi Bennett; [facility]* DISCHARGE SUMMARY: DATE OF ADMISSION: 04/04/17 DATE OF DISCHARGE: 04/07/17 ATTENDING PHYSICIAN: Dr. Silvano Arreola* (dictated by Laura Goodrich NP). PRIMARY CARE PROVIDER: Dr. Domi Bennett. PRIMARY DIAGNOSES: 1. Congestive heart failure exacerbation. 2. Hyperkalemia, resolved. 3. Hyponatremia, improved. 4. Acute on chronic renal failure. SECONDARY DIAGNOSES: 1. Diabetes mellitus. 2. Hypertension. 3. Atrial fibrillation. 4. Hypothyroidism. 5. History of coronary artery disease. STUDIES WHILE IN THE HOSPITAL: 1. Chest x-ray on 04/04/17. Radiologist's impression: The consolidation of findings is most consistent with pulmonary vascular congestion and interstitial edema with associated moderate dependent pleural effusions with compressive bibasilar atelectasis. 2. Transthoracic echocardiogram on 04/04/17. Cigarette Paper Tester's summary: There are changes noted when compared to previous study done on 11/14/14, AI is new. TR is now severe instead of [id number] then. Pulmonary hypertension is now severe instead of moderate then. is stable. Conclusion: The left ventricular chamber size is decreased. Moderate concentric left ventricular hypertrophy is observed. Global left ventricular wall motion and contractility are within normal limits. The estimated ejection fraction is greater than 65%. There is no constant Doppler evidence of clinically significant diastolic dysfunction. The left atrium is moderately dilated, the right atrium is mildly dilated. There is mild aortic regurgitation, borderline aortic stenosis present , mild mitral regurgitation. Mild mitral stenosis, severe tricuspid regurgitation. The right ventricular systolic pressure is estimated at 64 mmHg. There is [id number] pulmonary regurgitation. There are changes noted when compared to the previous study done on 11/14/14, AI is new. TR is now severe instead of [id number] then. Pulmonary hypertension is now severe instead of moderate then. is stable. 3. Renal ultrasound from 04/05/17. Radiologist's impression: Unremarkable ultrasound. MEDICATIONS: Continued home medications: 1. Aspirin 81 mg oral daily. 2. Acetaminophen 650 mg oral every 4 hours as needed for fever or pain. 3. Diltiazem CD 180 mg oral daily. 4. Colace 200 mg oral twice daily as needed for constipation. 5. Melatonin 3 mg oral daily at bedtime as needed for sleep. 6. Levothyroxine 88 mcg oral daily. 7. Calcium with vitamin D and K one chewable oral daily. 8. Amitriptyline 10 mg oral daily at bedtime. 9. Atorvastatin 20 mg oral daily. 10. Insulin lispro sliding scale 0 to 10 units subcutaneous before meals and at bedtime. 11. Lantus 15 units subcutaneous daily. Changed home medications: Torsemide 20 mg every Friday, Friday, and Friday. Discontinued home medications: Amiodarone. HISTORY OF PRESENT ILLNESS/HOSPITAL COURSE: Ms. Song is an 87-year-old female with past medical history significant for diabetes mellitus, hypertension , diastolic congestive heart failure, atrial fibrillation, hypothyroidism, history of coronary artery disease, and chronic kidney disease, who presented to the emergency room with complaints of increased shortness of breath over several days that suddenly developed approximately 48 hours prior to her presentation. The patient had also noticed increasing lower extremity edema. The patient was needing to sleep upright in a chair. The patient had recently been hospitalized for community- acquired pneumonia and was treated for that and doing well for that. She had also had an exacerbation of heart failure while in the hospital for her pneumonia. Due to concern of the patient's increasing shortness of breath and hypoxia with room air saturation of 75%, the patient was sent to the emergency room for further evaluation of her symptoms. While in the emergency room, the patient was noted to be hyperkalemic. She had a BNP of almost 11,000. Chest x-ray showed concern for congestive heart failure. Due to this, the hospitalists were asked to evaluate the patient for admission. While in the hospital, the patient was treated with IV Lasix. For her hyperkalemia, she was given a dose of Lasix, calcium gluconate, Kayexalate, and IV insulin. Her hyperkalemia resolved. The patient was diuresed almost 10 pounds while she was here, it is noted that she had gained a possible 10 to 20 pounds since her last admission. The patient had a transthoracic echocardiogram showing an EF of 65% and severe pulmonary hypertension, severe tricuspid regurgitation, and a mild aortic stenosis. Cardiology was side consulted, who recommended placing the patient on torsemide 3 times weekly and followup outpatient with Dr. Spivey with Cardiology. The patient also had an acute on chronic renal failure; it is suspected to be secondary to congestive heart failure exacerbation. Her baseline creatinine is 1.5 to 2. On the day of discharge, the patient is down to 1.77. The patient also recently had a urinary tract infection and was treated with ceftriaxone. She had a renal ultrasound that was unremarkable. The patient has had a urinary catheter in place since 04/01/17 when it was placed at [facility] due to urinary retention. We removed the patient's Soto and gave her a voiding trial, she has not voided yet at the time of this dictation. The patient has been doing well stating that she is feeling better, although she does feel weak. The patient was noted to have a junctional rhythm and had been found to be bradycardic, so her amiodarone was discontinued during her stay. Ms. Song was stable for discharge back to [facility] today. Ms. Song was stable for discharge to home today. Vital signs are as follows: Temperature 97.5, heart rate 74, respiratory rate 14, O2 sat 90% on room air, blood pressure 143/63. DISCHARGE PLAN: Ms. Song will be discharged to [facility]. ACTIVITY: As tolerated. DIET: The patient should be on a low-sodium, heart healthy, consistent carbohydrate diet. DISCHARGE INSTRUCTIONS: As far as her congestive heart failure, she should be continued on torsemide 20 mg oral 3 times daily on Friday, Friday, and Friday. She should also continue to have daily weights. As far as her urinary retention, she has had her urinary catheter removed today for a trial void. If she is unable to void, replace her Soto catheter. Oxygen as needed to maintain oxygen saturation greater than 94%. As far as the patient's acute on chronic kidney disease, the patient appears to have creatinine back at baseline. I suspect this was secondary to her CHF. As far as the patient's diabetes mellitus, I recommend following her glucose before a.c. and h.s. She was hypoglycemic this morning. I would hold her lispro dosing at bedtime and just give her lispro sliding scale coverage with meals. If she is not eating well, she may need to have her Lantus decreased. As far as the patient's atrial fibrillation, she has been taken off amiodarone due to bradycardia. She will be continued on aspirin and diltiazem. The patient has been continued on all of the rest of her usual medications. This is a summarized report of a complex medical history and hospital stay. For further details, please see the entire medical record. TIME SPENT: Time for this discharge was 50 minutes; greater than half of that was spent with the patient discussing discharge plans and instructions. CONDITION ON DISCHARGE: Stable. Reviewed by CLEMENTE FRAUSTO 04/07/17 [id number]/[facility] #: [id number] ROMEO
== END 2017-04-07 13:15 | DRG 291 ==
LOC: ED 10:47 → ICU 13:42
PROVIDERS: ADMIT Internal Medicine; ATTEND Hospitalist
DX: I13.0 Hypertensive heart and chronic kidney disease with heart failure and stage 1 through stage 4 chronic kidney disease, or unspecified chronic kidney disease (principal); I50.43 Acute on chronic combined systolic (congestive) and diastolic (congestive) heart failure; N17.9 Acute kidney failure, unspecified; E11.65 Type 2 diabetes mellitus with hyperglycemia; E11.649 Type 2 diabetes mellitus with hypoglycemia without coma; E87.1 Hypo-osmolality and hyponatremia; N39.0 Urinary tract infection, site not specified; J98.11 Atelectasis; E87.5 Hyperkalemia; I48.91 Unspecified atrial fibrillation; I25.10 Atherosclerotic heart disease of native coronary artery without angina pectoris; E03.9 Hypothyroidism, unspecified; Z66 Do not resuscitate; E78.00 Pure hypercholesterolemia, unspecified; J44.9 Chronic obstructive pulmonary disease, unspecified; D64.9 Anemia, unspecified; B95.2 Enterococcus as the cause of diseases classified elsewhere; R00.1 Bradycardia, unspecified; I08.3 Combined rheumatic disorders of mitral, aortic and tricuspid valves; I27.2 Other secondary pulmonary hypertension; R09.02 Hypoxemia; Z87.01 Personal history of pneumonia (recurrent); Z95.5 Presence of coronary angioplasty implant and graft; Z90.49 Acquired absence of other specified parts of digestive tract; Z90.710 Acquired absence of both cervix and uterus; Z88.0 Allergy status to penicillin; Z88.2 Allergy status to sulfonamides; Z80.42 Family history of malignant neoplasm of prostate; Z87.891 Personal history of nicotine dependence; Z79.82 Long term (current) use of aspirin; Z79.4 Long term (current) use of insulin
CPT/HCPCS: 36415; 71020; 76775; 80048; 80053; 81003; 81015; 82533; 82550; 82553; 83605; 83735; 83880; 83930; 83935; 84300; 84443; 84484; 85025; 85610; 85730; 86140; 87040; 87086; 87641; 93005; 93306; 94640; 94760; A9270-GY; J0610; J0696; J1644; J1940

== ENCOUNTER 2017-04-11 10:31 | Emergency (ER) | payer MEDICARE, BC ==
--- NOTE | 2017-04-11 11:13 | RAD ---
INDICATION: Shortness of breath. COMPARISON: Comparison is made with a prior study from April 04, 2017. TECHNIQUE: AP and lateral views of the chest were obtained. FINDINGS: The heart is mildly enlarged and unchanged from the prior exam. There is diffuse prominence of the interstitial markings and small bilateral pleural effusions most consistent with congestive heart failure. IMPRESSION: FINDINGS MOST CONSISTENT WITH CONGESTIVE HEART FAILURE SIMILAR TO THE PRIOR STUDY.
[2017-04-11] MEDS ORDERED: Furosemide IV* 10 MG/ML VIAL (40 MG) IV ONE (11:56)
[2017-04-11 13:20] LABS: Hematocrit 27 % (35-47); Hemoglobin 8.8 g/dl (12.0-16.0); Mean Corpuscular HGB Conc 32 g/dl (31-36); Mean Corpuscular Hemoglobin 29 pg (27-31); Mean Corpuscular Volume 89 fL (80-97); Mean Platelet Volume 7 um3 (7.4-10.4); Red Blood Count 3.08 10^6/ul (4.0-5.4); Red Cell Distribution Width 15 % (10.5-15); White Blood Count 7.8 10^3/ul (3.5-10.8)
[2017-04-11 13:37] LABS: Troponin I 0.03 ng/mL (<0.04)
[2017-04-11 13:40] LABS: Albumin 3.2 g/dL (3.2-5.2); BUN/Creatinine Ratio 17.2 (8-20); C Reactive Protein 28.28 mg/L (< 5.00); Calcium 8.9 mg/dL (8.6-10.3); EGFR African American 31.7 (>60); EGFR Non-African American 24.6 (>60); Globulin 3.6 g/dL (2-4); Potassium 4.8 mmol/L (3.5-5.0); Total Bilirubin 0.4 mg/dL (0.2-1.0); Total Protein 6.8 g/dL (6.4-8.9)
[2017-04-11 14:04] LABS: Urine Bilirubin Negative (Negative); Urine Glucose 3+(>=500 mg/dL) (Negative); Urine Nitrite Negative (Negative)
[2017-04-11 16:19] VITALS: BP 150/67
--- NOTE | 2017-04-11 18:22 | CONS ---
ATTENDING PHYSICIAN ADDENDUM NOW INCLUDED ON THIS REPORT CC: [facility]; Dr. Domi Bennett * CONSULTATION REPORT: DATE OF CONSULT: 04/11/17 PRIMARY CARE PROVIDER: Dr. Domi Bennett. PHYSICIAN REQUESTING CONSULT: Dr. Corrales. ATTENDING PHYSICIAN: Dr. Simona Reid * (dictated by Vasu Betancourt NP) REASON FOR CONSULT: Shortness of breath. CHIEF COMPLAINT: Shortness of breath and abdominal distention. HISTORY OF PRESENT ILLNESS: Ms. Song is an 87-year-old female with past medical history significant for systolic congestive heart failure, chronic kidney disease, paroxysmal atrial fibrillation, hypertension, hypothyroidism, coronary artery disease, COPD, and hypoxic respiratory failure, who presents to the emergency room today with complaints of shortness of breath and abdominal distention. The patient was recently hospitalized with pneumonia on 03/12/17 to 03/22/17. The patient was then again hospitalized from 04/04/17 to 04/07/17 with acute CHF exacerbation, acute on chronic renal failure, hyperkalemia, and hyponatremia. The patient underwent a transthoracic echocardiogram during that stay showing an EF of greater than 65%. The patient also had a renal ultrasound to evaluate her acute on chronic renal failure. This was an unremarkable ultrasound. It is to note that the patient also recently been having urinary retention and had a Soto catheter placed on 04/01/17. Per the patient's request, she wanted to have a voiding trial and her catheter was removed on the day of discharge back to [facility] on 04/07/17. On the day of discharge, the patient had been feeling well with the exception of acute hypoxic respiratory failure, which she was requiring 1 to 2 L of supplemental oxygen to maintain her oxygen saturations greater than 94%. During her stay, Cardiology was side consulted and recommended placing the patient on torsemide 3 times weekly and to get an outpatient Cardiology consult with Dr. Spivey. During the stay, the patient had also been found to be bradycardic and had been taken off her amiodarone. Since the patient was feeling well, denied shortness of breath, her only complaint was weakness, she was discharged back to [facility]. The patient states that when she had left the hospital, she had been constipated. She developed diarrhea. She states that has stopped since last night. The patient reports being unable to sleep lying down and felt that her shortness of breath increased last evening. The patient has also been complaining of abdominal bloating over the last few days. Per the patient, she has been voiding at the [facility], but there is no documentation about the amount that she has been voiding. She felt that it was a significant amount. Based off the patient's shortness of breath and abdominal bloating, she was sent to the emergency room for further evaluation of her symptoms. While in the emergency room, the patient was able to lie flat for a bladder scan and EKG. She felt that her shortness of breath had improved after receiving a DuoNeb. The patient had a bladder scan revealing greater than a liter in her bladder. She was only able to urinate 250 mL and an order for urinary catheter was placed. The patient had labs drawn this morning prior to her arrival to the emergency room that were significant for a sodium of 128, potassium of 5.3, chloride of 90, BUN of 35, creatinine of 1.99. The patient had a white blood cell count of 9.2, hemoglobin 8.8, and hematocrit 28, with a platelet count of 274. It was felt that the patient needed some extra diuresis as she had not received her morning torsemide and an order was requested to give the patient 40 mg of IV Lasix while in the emergency room. The hospitalists were asked to evaluate the patient due to her shortness of breath and recent hospitalization. PAST MEDICAL HISTORY: 1. Systolic congestive heart failure. 2. Hyperlipidemia. 3. Hypertension. 4. Paroxysmal atrial fibrillation. 5. Hypothyroidism. 6. Coronary artery disease. 7. Chronic kidney disease, stage 3 to 4. 8. COPD. 9. Hypoxic respiratory failure. PAST SURGICAL HISTORY: 1. Status post appendectomy. 2. Status post cholecystectomy. 3. Status post cardiac catheterization with 1 stent. 4. Status post hysterectomy. HOME MEDICATIONS: Include: 1. Milk of magnesia 30 mL oral daily as needed for constipation. 2. Oxycodone 5 mg oral every 8 hours as needed for pain. 3. Albuterol HFA inhaler 2 puffs inhalation every 2 hours as needed for wheezing. 4. Melatonin 3 mg oral daily at bedtime as needed for sleep. 5. Colace 200 mg oral twice daily as needed for constipation. 6. Acetaminophen 650 mg oral every 6 hours as needed for pain. 7. Lisinopril 5 units subcutaneous after meals. 8. Torsemide 20 mg oral Friday, Friday, and Friday. 9. Amitriptyline 10 mg oral daily at bedtime. 10. Clotrimazole 1% apply topical to knee every 12 hours. 11. Dulera 200/5 two puffs inhalation twice daily. 12. Levothyroxine 88 mcg oral daily. 13. Diltiazem 180 mg oral daily. 14. Atorvastatin 20 mg oral daily. 15. Aspirin 81 mg oral daily. ALLERGIES: PENICILLIN and SULFA FAMILY HISTORY: The patient denies any family history of coronary artery disease, diabetes mellitus. The patient's father had a history of prostate cancer. SOCIAL HISTORY: The patient is a former smoker, quitting many years ago. She denies alcohol or recreational drug use. She currently resides at [facility]. Her surrogate decision makers will be her sons, Edgard and Fidencio Song, in the event she is unable to make decisions for herself. REVIEW OF SYSTEMS: I performed a 14-point review of systems. All the pertinent positives and negatives are mentioned in the history of present illness. The remaining review of systems is negative. PHYSICAL EXAM: Vital Signs: Temperature 98.2, heart rate 65, respiratory rate 19, O2 sat 96% on 2 L via nasal cannula, blood pressure 176/66. General Appearance: The patient is alert, pleasant, appears to be in no acute distress. HEENT: Normocephalic, atraumatic. Pupils are equal and reactive to light. Extraocular movements are intact. Respiratory: There is no accessory muscle use and the lungs are clear to auscultation bilaterally with the exception of occasional expiratory wheeze. Cardiovascular: Regular rate and rhythm. S1 and S2 present. There are no murmurs, rubs, or gallops heard. Abdomen: Large , soft, nondistended. There are hypoactive bowel sounds present. Extremities: There is trace to 1+ bilateral lower extremity edema. DP and PT pulses are 2 + and symmetric. Musculoskeletal: There is no clubbing or cyanosis noted. The patient exhibits good strength in all extremities. Neurological: The patient is alert and oriented x4. Cranial nerves II through XII are grossly intact. Psychological: The patient is calm and cooperative. Skin: The patient has dressings to bilateral heels. DIAGNOSTIC STUDIES/LAB DATA: Labs from [facility] this morning, sodium 128, potassium 5.3, chloride 90, CO2 26, BUN 35, creatinine 1.99, glucose 378. White blood cell count 9.2, hemoglobin 8.8, hematocrit 28, and platelet count 274. EKG shows a sinus rhythm, rate of 96. EKG is similar to previous EKG from 04/04. Chest x-ray from today. Radiologist's impression: Findings most consistent with CHF, similar to prior study. IMPRESSION: Ms. Song is an 87-year-old female with past medical history significant for systolic congestive heart failure; hypertension; paroxysmal atrial fibrillation; hypothyroidism; coronary artery disease; chronic kidney disease, stage 3 to 4; chronic obstructive pulmonary disease; hypoxic respiratory failure, who presents to the emergency room with complaints of shortness of breath and abdominal distention. Hospitalists were asked to consult on the patient for possible admission. ASSESSMENT/PLAN: 1. Shortness of breath. I suspect this could be a combination of a mild congestive heart failure exacerbation in addition to shortness of breath caused by her abdominal distention. I suspect the patient's abdominal distention is secondary to urinary retention. This could also represent a slight chronic obstructive pulmonary disease exacerbation as the patient does have some minimal wheezing. We will give her some IV Lasix in the emergency room. The patient already states that she is already is feeling better after receiving nebulizer from EMS. 2. Urinary retention. The patient had a bladder scan showing greater than a liter in her bladder. She was able to void 250. I suspect that the urinary retention is contributing to the patient's shortness of breath. I recommend she be discharged with a Soto catheter in place and have a Urology consultation outpatient. 3. Systolic congestive heart failure. We will give the patient 40 mg of IV Lasix while in the emergency room and then I recommend keeping her on her torsemide Friday, Friday, Friday, and cautiously monitoring her renal function while she is on the diuretics. 4. Chronic kidney disease. The patient's creatinine appears to be at baseline. Avoid nephrotoxic agents. 5. Diabetes mellitus. The patient's hemoglobin A1c on 03/12/17 was 7.8. She will be continued on fingersticks a.c. and continued on her home lispro after meals. 6. Paroxysmal atrial fibrillation. The patient is currently in sinus rhythm and rate controlled. She is not on any anticoagulation. On her previous admission, her amiodarone was discontinued due to bradycardia. She should be continued on her diltiazem. 7. Hypothyroidism. The patient should be continued on her home levothyroxine. 8. Hypertension. The patient will be continued on her home diltiazem. 9. Chronic obstructive pulmonary disease. The patient has some minimal wheezing. I do not feel that this a significant chronic obstructive pulmonary disease exacerbation at this time. The patient should be continued on her home Dulera and p.r.n. albuterol inhalers. I do not feel that she needs steroids at this time. 10. Fluids, electrolytes, and nutrition. The patient should be on a heart- healthy, consistent carbohydrate diet. 11. Code status. Do not resuscitate. 12. Disposition. I recommend discharging the patient back to [facility] today. She should follow up with her provider at [facility] early next week. She should also follow up with Dr. Spivey with Cardiology and she should be set up with a followup appointment with Urology. TIME SPENT: Time for this consultation was 60 minutes; greater than half of that was spent with the patient discussing medications, past medical history, the events leading up to her arrival today, and performing a physical examination. The case has been reviewed with the attending Dr. Reid, who agrees with the plan of care. VASU BETANCOURT NP ADDENDUM: Ms. Song is an 87-year-old female with history of CHF, who presents complaining of shortness of breath and abdominal distention. The patient was noted to have over 1000 mL of postvoid residual. She has history of urinary retention in the past and Soto was placed. She also is in mild CHF, but due to her current urinary retention obstruction with Soto catheter placement , her diuretics are not going to be changed. For the time being, the plan is for the patient to most likely be discharged from the emergency department with further followup with daily weights as previously done. She is going to be discharged with a Soto catheter in place. For further details of the patient' s presentation and plan, please see consultation report dictated by Vasu Betancourt NP, on 04/11/17, with which I agree. SIMONA REID MD [id number]/CPS #: [id number] Tyshawn [id number]/CPS #: [id number] ROMEO
--- NOTE | 2017-04-11 19:54 | CONS ---
CONSULTATION REPORT:* ADDENDUM: Ms. Song is an 87-year-old female with history of CHF, who presents complaining of shortness of breath and abdominal distention. The patient was noted to have over 1000 mL of postvoid residual. She has history of urinary retention in the past and Soto was placed. She also is in mild CHF , but due to her current urinary retention obstruction with Soto catheter placement, her diuretics are not going to be changed. For the time being, the plan is for the patient to most likely be discharged from the emergency department with further followup with daily weights as previously done. She is going to be discharged with a Soto catheter in place. For further details of the patient's presentation and plan, please see consultation report dictated by Laura Richards NP, on 04/11/17, with which I agree. [id number]/CPS #: [id number] MTDD
--- NOTE | 2017-04-11 20:10 | ED ---
Yessi Harrison Edward, scribed for Ten Corrales MD on 04/11/17 at 1101 . Shortness of Breath - HPI Summary HPI Summary: 87 y/o female presents to ED c/o SOB since last night that lasted through the night. Associated sx: nonproductive cough, N/V/D, ABD pain, bilateral pedal edema. Patient denies CP. PMHx CHF, CAD. - History of Current Complaint Chief Complaint: EDShortnessOfBreath Time Seen by Provider: 04/11/17 10:42 Hx Obtained From: Patient Onset/Duration: Sudden Onset, Lasting Hours - Last night Associated Signs & Symptoms: Cough (Nonproductive), Edema - Bilateral pedal edema - Allergy/Home Medications Allergies/Adverse Reactions: Allergies Allergy/AdvReac Type Severity Reaction Status Date / Time Penicillins [PCN] Allergy Mild Hives Verified 03/31/16 12:52 Sulfa Antibiotics Allergy Mild Hives Verified 03/31/16 12:52 Home Medications: Home Medications Albuterol HFA INHALER* [Ventolin HFA Inhaler*] 2 puff INH Q2H PRN 04/11/17 [ History Confirmed 04/11/17] Clotrimazole 1% CREAM* [Clotrimazole 1%*] 1 applic TOPICAL Q12H 04/11/17 [ History Confirmed 04/11/17] Diltiazem CD CAP* [Cardizem CD CAP*] 180 mg PO DAILY 04/11/17 [History Confirmed 04/11/17] Magnesium Hydroxide LIQ* [Milk of Magnesia LIQ*] 30 ml PO DAILY PRN 04/11/17 [ History Confirmed 04/11/17] Mometasone/Formoter 200/5 MDI* [Dulera 200/5 MDI*] 2 puff INH BID 04/11/17 [ History Confirmed 04/11/17] oxyCODONE TAB* [Roxycodone TAB 5 mg*] 5 mg PO Q8H PRN 04/11/17 [History Confirmed 04/11/17] PMH/Surg Hx/FS Hx/Imm Hx Previously Healthy: No Endocrine/Hematology History: Reports: Hx Blood Transfusions, Hx Diabetes - TYPE 2, Hx Thyroid Disease, Other Endocrine/Hematological Disorders - hyopthyroid Cardiovascular History: Reports: Hx Angina, Hx Congestive Heart Failure, Hx Coronary Artery Disease, Hx Hypercholesterolemia, Hx Hypertension - controllled by med Denies: Other Cardiovascular Problems/Disorders Respiratory History: Reports: Hx Asthma, Hx Chronic Obstructive Pulmonary Disease (COPD), Hx Pneumonia, Other Respiratory Problems/Disorders - HAD PNEUMONIA 09/04. RESP FAILURE 02/2017. GI History: Reports: Hx Gall Bladder Disease - S/P CONSTANTINE, Hx Gastrointestinal Bleed History: Reports: Hx Chronic Renal Failure, Other Problems/Disorders - CKD , INCONTENCE Musculoskeletal History: Reports: Hx Fibromyalgia, Hx Orthopedic Injury - LEFT WRIST FRACTURE W/REPAIR /W PLATE Sensory History: Reports: Hx Contacts or Glasses, Hx Deafness Denies: Hx Cataracts, Hx Eye Injury, Hx Eye Prosthesis, Hx Glaucoma, Hx Legally Blind, Hx Macular Degeneration, Hx Vision Problem, Hx Hearing Aid, Hx Hearing Problem Opthamlomology History: Reports: Hx Contacts or Glasses Denies: Hx Cataracts, Hx Eye Injury, Hx Eye Prosthesis, Hx Glaucoma, Hx Legally Blind, Hx Macular Degeneration, Hx Vision Problem - Surgical History Surgery Procedure, Year, and Place: APPENDECTOMY. CHOLEYSECTOMY. LEFT WRIST FRACTURE REPAIR W/PLATE. CARDIAC STENT Hx Anesthesia Reactions: No Infectious Disease History: No Infectious Disease History: Denies: Hx Clostridium Difficile, Hx Hepatitis, Hx Human Immunodeficiency Virus (HIV), Hx of Known/Suspected MRSA, Hx Shingles, Hx Tuberculosis, Hx Known/ Suspected VRE, Hx Known/Suspected VRSA, History Other Infectious Disease, Traveled Outside the [place] in Last 30 Days - Family History Known Family History: Positive: Cardiac Disease, Hypertension - Social History Alcohol Use: None Alcohol Amount: once in a blue ortiz" Hx Substance Use: No Substance Use Type: Reports: None Hx Tobacco Use: Yes Smoking Status (MU): Former Smoker Type: Cigarettes Have You Smoked in the Last Year: No Review of Systems Constitutional: Negative Eyes: Negative ENT: Negative Cardiovascular: Negative Negative: Chest Pain Positive: Shortness Of Breath, Cough - Non productive Positive: Abdominal Pain, Vomiting, Diarrhea, Nausea Genitourinary: Negative Positive: Edema - Bilateral pedal Skin: Negative Neurological: Negative Psychological: Normal All Other Systems Reviewed And Are Negative: Yes Physical Exam - Summary Physical Exam Summary: VITAL SIGNS:~Reviewed. GENERAL:~ Patient is a well-developed and nourished female who is lying comfortable in the stretcher.~ Patient is not in any acute respiratory distress. HEAD AND FACE:~No signs of trauma.~ No ecchymosis, hematomas or skull depressions. No sinus tenderness. EYES:~PERRLA, EOMI x 2, No injected conjunctiva, no nystagmus. EARS:~Hearing grossly intact. Ear canals and tympanic membranes are within normal limits. MOUTH:~Oropharynx within normal limits. NECK:~Supple, trachea is midline, no adenopathy, no JVD, no carotid bruit, no c- spine tenderness, neck with full ROM. CHEST:~Symmetric, no tenderness at palpation LUNGS:~Clear to auscultation bilaterally. Bilateral basal crackles. CVS:~Regular rate and rhythm, S1 and S2 present, no murmurs or gallops appreciated. ABDOMEN:~Soft, non-tender. No signs of distention. No rebound no guarding, and no masses palpated. Bowel sounds are normal. EXTREMITIES:~FROM in all major joints, no cyanosis or clubbing. LE 1+ edema. NEURO:~Alert and oriented x 3. No acute neurological deficits. Speech is normal and follows commands. SKIN:~Dry and warm Triage Information Reviewed: Yes Vital Signs On Initial Exam: Initial Vitals BP 183/59 04/11/17 10:36 Vital Signs Reviewed: Yes Diagnostics - Vital Signs Vital Signs Temp Pulse Resp BP Pulse Ox 04/11/17 10:40 98.3 F 67 22 183/59 93 04/11/17 10:39 66 92 04/11/17 10:36 183/59 - Laboratory Result Diagrams: 04/11/17 13:04 04/11/17 13:04 Lab Statement: Any lab studies that have been ordered have been reviewed, and results considered in the medical decision making process. - Radiology CXR Xray Interpretation: Positive (See Comments) - FINDINGS MOST CONSISTENT WITH CONGESTIVE HEART FAILURE SIMILAR TO THE PRIOR STUDY. Radiology Interpretation Completed By: Radiologist - EKG 1 EKG Interpretation: 11:45 - Sinus Rhythm @ 96 bpm EKG Comparison: No Significant Change - 04/04/17 Course/Dx - Course Assessment/Plan: 87 y/o female presents to ED c/o SOB since last night that lasted through the night. Associated sx: nonproductive cough, N/V/D, ABD pain, bilateral pedal edema. Patient denies CP. PMHx CHF, CAD. Test results how chronic anemia. Sodium 127. Glucose 422. BNP 1577. UA (-) UTI. CXR SHOWED FINDINGS MOST CONSISTENT WITH CONGESTIVE HEART FAILURE SIMILAR TO THE PRIOR STUDY. At this point, the patient was given Lasix for retaining urine and we placed a Stallworth catheter after which she expressed 900 ccs urine. At this point, I wanted to admit the patient to treat medical urinary retention, CHF exacerbation, hyperglycemia. DR Reid examined the patient and after examination and treatment with Lasix, wanted to d/c the patient home. I again insisted the pt may be better treated as admission for glucose control and diuresis. Dr. Reid examined and assessed the patient again and she requested the patient be discharged back to the senior care with f/u with her PCP. Patient was discharged with a stallworth catheter. - Diagnoses Provider Diagnoses: Heart failure, Acute urinary retention Discharge - Discharge Plan Condition: Stable Disposition: HOME Patient Education Materials: Heart Failure (ED), Acute Urinary Retention in Women (ED) Referrals: Marc Moffett MD [Medical Doctor] - 3 Days (Please f/u in 2-3 days) The documentation as recorded by the Yessi ingram Edward accurately reflects the service I personally performed and the decisions made by me, Ten Corrales MD.
== END 2017-04-11 18:45 | disposition home or self-care (01) ==
LOC: ED 10:31
DX: I50.9 Heart failure, unspecified (principal); R33.9 Retention of urine, unspecified; R06.02 Shortness of breath; R05 Cough; R60.9 Edema, unspecified; Z87.891 Personal history of nicotine dependence
CPT/HCPCS: 36415; 71020; 80053; 81003; 82550; 82553; 83605; 83880; 84484; 85025; 86140; 87040; 93005; 96374; 99284; J1940

== ENCOUNTER 2017-08-12 10:33 | Inpatient (IN) | payer MEDICARE, BC ==
[2017-08-12] MEDS ORDERED: NS 0.9% 1000 ML* 1,000 ML IV ONE (10:54)
[2017-08-12 11:14] LABS: Hematocrit 35 % (35-47); Hemoglobin 11.3 g/dl (12.0-16.0); Mean Corpuscular HGB Conc 32 g/dl (31-36); Mean Corpuscular Hemoglobin 27 pg (27-31); Mean Corpuscular Volume 86 fL (80-97); Mean Platelet Volume 8 um3 (7.4-10.4); Red Blood Count 4.12 10^6/ul (4.0-5.4); Red Cell Distribution Width 19 % (10.5-15); White Blood Count 11.1 10^3/ul (3.5-10.8)
[2017-08-12 11:29] LABS: ALT 17 U/L (7-52); AST 18 U/L (13-39); Albumin 3.4 g/dL (3.2-5.2); Alkaline Phosphatase 74 U/L (34-104); BUN/Creatinine Ratio 27.2 (8-20); Blood Urea Nitrogen 66 mg/dL (6-24); C Reactive Protein < 1.00 mg/L (< 5.00); CO2 Carbon Dioxide 25 mmol/L (22-32); Calcium 8.1 mg/dL (8.6-10.3); Chloride 92 mmol/L (101-111); Creatine Kinase 132 U/L (10-223); EGFR African American 24.2 (>60); EGFR Non-African American 18.8 (>60); Globulin 2.5 g/dL (2-4); Glucose 290 mg/dL (70-100); Magnesium 3.5 mg/dL (1.9-2.7); Sodium 125 mmol/L (133-145); Total Protein 5.9 g/dL (6.4-8.9)
[2017-08-12 11:31] LABS: Troponin I 0.03 ng/mL (<0.04)
[2017-08-12 11:36] LABS: Anion Gap 8 mmol/L (2-11); Potassium 5.8 mmol/L (3.5-5.0)
[2017-08-12 12:04] LABS: TSH (Thyroid Stimulating Horm) 5.66 mcIU/mL (0.34-5.60)
[2017-08-12] MEDS ORDERED: Sodium Polystyrene ORAL.SOL* 15 GM/60 ML BTL PO ONE (12:13)
[2017-08-12] MEDS ORDERED: Calcium Gluconate INJ* 1 GM in NS 0.9% 100 ML* 100 ML IVPB ONE ×2 (12:13→13:20)
[2017-08-12] MEDS ORDERED: Insulin REGULAR(*) 1 UNITS UNIT IV PUSH ONE (12:13)
[2017-08-12] MEDS ORDERED: Dextrose 50% Syringe 50 ML* 25 GM/50 ML SYRINGE IV PUSH PRN ×2 (12:15→13:22)
--- NOTE | 2017-08-12 12:17 | RAD ---
HISTORY: Weakness, general illness COMPARISONS: April 11, 2017 VIEWS: 2: Frontal and lateral views of the chest. FINDINGS: CARDIOMEDIASTINAL SILHOUETTE: The cardiomediastinal silhouette is normal. LESLYE: The leslye are normal. PLEURA: The costophrenic angles are sharp. No pleural abnormalities are noted. LUNG PARENCHYMA: The lung volumes are low. There is patchy alveolar opacification of the lower lungs bilaterally. ABDOMEN: The upper abdomen is clear. There is no subphrenic gas. BONES AND SOFT TISSUES: There is diffuse osteopenia. There is accentuation of the thoracic kyphosis stable from the previous examination. OTHER: None. IMPRESSION: LOW LUNG VOLUMES WITH BIBASILAR ATELECTASIS VERSUS EARLY CONSOLIDATION.
[2017-08-12] MEDS ORDERED: NS 0.9% IVPB ONE (12:40)
[2017-08-12] MEDS ORDERED: CALCIUM GLUCONATE IVPB ONE (12:40)
[2017-08-12] MEDS ORDERED: Acetaminophen TAB* 325 MG PO PRN (13:17)
[2017-08-12] MEDS ORDERED: Albuterol HFA INHALER* 8 gm MDI INH PRN (13:23)
[2017-08-12] MEDS ORDERED: Docusate CAP* 100 MG PO PRN (13:23)
[2017-08-12] MEDS ORDERED: CALCIUM GLUCONATE* 1 GM/10 ML VIAL (in Pyxis) IV PUSH ONE (13:26)
[2017-08-12] MEDS ORDERED: NS 0.9% 1000 ML* 1,000 ML IV SCH (13:30)
[2017-08-12] MEDS ORDERED: Heparin VIAL(*) 5000 UNITS/ML VIAL (FIVE THOUSAND) SUBCUT SCH (14:00)
[2017-08-12] MEDS: Azithromycin IV(*) 500 MG in NS 0.9% 250 ML* 250 ML IVPB SCH (15:17)
[2017-08-12 15:29] LABS: BUN/Creatinine Ratio 25.7 (8-20); Calcium 8.1 mg/dL (8.6-10.3); EGFR African American 24.4 (>60); Potassium 4.5 mmol/L (3.5-5.0)
[2017-08-12 16:20] LABS: Urine Bacteria 1+ (Absent); Urine Bilirubin Negative (Negative); Urine Glucose Negative (Negative); Urine Nitrite Negative (Negative)
[2017-08-12] MEDS: Insulin LISPRO* 1 UNITS UNIT SUBCUT SCH (17:34)
[2017-08-12] MEDS: cefTRIAXone VIAL(*) 1,000 MG in NS 0.9% 50 ML* 50 ML IVPB SCH (17:36)
--- NOTE | 2017-08-12 18:49 | HP ---
CC: Dr. Bennett * HISTORY AND PHYSICAL: DATE OF ADMISSION: 08/12/17 PRIMARY CARE PROVIDER: Dr. Bennett. ATTENDING PHYSICIAN WHILE IN THE HOSPITAL: Merissa Goodrich MD * (report dictated by Rolando Calderon NP). CHIEF COMPLAINT: Weakness. HISTORY OF PRESENTING ILLNESS: Mrs. Song is an 87-year-old female patient. She has a history of diabetes, hypertension, CHF, AFib, hypothyroidism, CAD, and a history of CKD. She comes into the ER today. She states that yesterday and today, she just has been feeling generalized weak, has not been feeling herself, has been feeling fatigued. She just said today she could not get up because she just felt so tired and so weak. She was stating that she has not really been eating or drinking. She states that 2 months ago she was diagnosed with pneumonia and since then she has had a steady progressive decline. In the last couple of days, it was much worse. She denied having any chest pain. She denied having any shortness of breath today. She denied having any abdominal discomfort. There has been no vomiting or diarrhea. She states that she has been taking her medications as prescribed and there has been no recent changes in medications to her knowledge. Last night and today, she did not urinate very much. She denied having any abdominal discomfort. Denied having any dysuria. No frequency. There has been no fevers or chills. No URI symptoms. No coughing was reported and she denied having any palpitations or denied having any syncopal episodes. She came into our ER today, was evaluated. Ultimately, it was noted that she appeared to have been in a junctional rhythm. She was hyperkalemic. In addition to this, she was noted to be in acute renal failure. So, we were asked to evaluate for admission. PAST MEDICAL HISTORY: Significant for: 1. Diabetes. 2. Hypertension. 3. CHF. 4. AFib. 5. Hypothyroidism. 6. CKD. 7. CAD. PAST SURGICAL HISTORY: 1. She has had a heart catheterization, 1 stent. 2. She has had an appendectomy. 3. She has had a cholecystectomy. 4. Hysterectomy. MEDICATIONS: The home medications include: 1. Demadex 20 mg p.o. daily. 2. Oxycodone 5 mg every 8 hours as needed. 3. Prilosec 20 mg p.o. b.i.d. 4. Santyl 1 application topically daily. 5. Dulera 2 puffs inhaled b.i.d. 6. Milk of mag 30 cc p.o. at bedtime as needed. 7. Melatonin 3 mg p.o. at bedtime as needed. 8. Synthroid 88 mcg daily. 9. Lantus 8 units subcu at bedtime. 10. Insulin lispro sliding scale. 11. Gabapentin 300 mg at bedtime. 12. Colace 200 mg p.o. p.r.n. 13. Clotrimazole cream 1 application topically every 12 hours. 14. Diltiazem 180 mg daily. 15. Calcium with vitamin D 1 tablet p.o. daily. 16. Lipitor 20 mg daily. 17. Aspirin 81 mg daily. 18. Apixaban 2.5 mg p.o. b.i.d. 19. Amitriptyline 10 mg p.o. daily. 20. Ventolin 2 puffs inhaled every 2 hours as needed. 21. Tylenol 650 mg every 6 hours as needed. ALLERGIES TO MEDICATIONS: Include PENICILLIN and SULFA. FAMILY HISTORY: Mother had dementia and she states she of old age. Father had a history of prostate cancer. SOCIAL HISTORY: She is a former smoker. She does not drink alcohol. She lives alone. Surrogate decision maker is her son. REVIEW OF SYSTEMS: There is no documented fever. She denied any significant weight change to me. There was no double vision. She denies having any ear discharge. There was no rhinorrhea. No sore throat. No thyroid enlargement. Denied having any chest pain. There was no orthopnea. No nocturnal dyspnea. There was no abdominal pain. No nausea, no vomiting. No dysuria, no frequency. No seizure. No loss of consciousness. No pruritus and no skin ulcerations. Review of 14 systems was completed, all others negative. PHYSICAL EXAMINATION GENERAL: At this time, Mrs. Song is an 87-year-old female patient. She is sitting in the ER stretcher. She does not appear to be in any acute distress. VITAL SIGNS: Blood pressure 132/47, pulse 53, respirations 16, her O2 sat was 89% on room air when I walked in and are on 2 L now 95% to 98%, her temperature was 97.9. HEENT: Head: Atraumatic, normocephalic. Eyes: EOMs are intact. Sclerae anicteric and not pale. Throat: Oral mucosa appears to be dry. No oropharyngeal erythema. NECK: Supple. LUNGS: Clear to auscultation bilaterally. They were diminished in the bases. Equal diaphragmatic expansion. HEART: Sounds S1, S2. Irregularly irregular rate. She is bradycardic. ABDOMEN: Soft, flat, nontender. Bowel sounds are present. No tenderness was elicited on my exam. EXTREMITIES: Pulses 2+ throughout. She has no peripheral edema. She is moving all 4 extremities with 5/5 strength. NEUROLOGIC: She is awake, alert, oriented x3. Tongue is midline. Manager Cost are equal. She had no gross focal deficits. SKIN: Intact. DIAGNOSTIC STUDIES/LAB DATA: WBC of 11.1, RBC of 4.12, hemoglobin 11.3, hematocrit 35, platelet count of 259. Sodium 125, potassium 5.8, chloride of 92 , bicarb 25, BUN 66, creatinine was 2.43, baseline creatinine appears to be at about 1.6, her glucose is 290, calcium 8.1, mag 3.5. Total bili 0.3, AST 18, ALT 17, alk phos 74. CK 132, troponin 0.03. CRP less than 1. BNP of 1390. Albumin of 3.4. She did have a chest x-ray obtained today, impression: Low lung volumes with bibasilar atelectasis versus early consolidation. EKG today shows a junctional rhythm with a rate of 54. I do review it to her previous EKG just from March that showed sinus rhythm with a rate of 96. She has had a junctional rhythm in the past with hyperkalemia. Old medical records were reviewed. ASSESSMENT AND PLAN: Mrs. Song is an 87-year-old female patient, coming into the ED today with complaints of weakness and just not feeling well. On evaluation, it was noted she is in acute renal failure and hyperkalemic. We were asked to evaluate for admission. She will be admitted under inpatient status for: 1. Weakness. Etiology of this is probably multifactorial. She was hypoxic when I walked in to see her and she has this possible early pneumonia. So, I do think it is warranted to treat her with antibiotics. We will blood cultures , Legionella antigen, Strep pneumo antigen, sputum culture if able. In addition to this, I will also get a flu swab. I will go ahead and treat the acute renal failure as she does appear to be dehydrated. We will get a FENa. We will go ahead and do a bladder scan. Again, the acute renal failure may be contributing to the weakness and also treat the hyperkalemia with calcium gluconate, Kayexalate, insulin, and dextrose and put her on telemetry and repeat her BMP later today. 2. Hyperkalemia. Again, probably secondary to dehydration and worsening acute renal failure. We will repeat this later today. She is getting 1 g of IV calcium gluconate because of the junctional rhythm, which is probably from the hyperkalemia. We will go ahead and give Kayexalate. In addition to this, also we will give the insulin D50. We will repeat the BNP at 4 o'clock today. If we need to, we will repeat this regimen again. 3. Diabetes. We will go ahead and put her on her sliding scale and continue Lantus. 4. Hypertension. Continue meds as prescribed. 5. History of polymyalgia rheumatica. Continue her meds as prescribed. 6. History of congestive heart failure. She appears to be dehydrated. I am going to hold the Demadex. We will diurese her as needed. 7. Atrial fibrillation. She is in a junctional rhythm currently, probably secondary to the hyperkalemia. I will go ahead and continue the Eliquis. She is on diltiazem CD. If her heart rate does not get above 60, we will hold this , I did for hold parameters. 8. Hypothyroidism. Continue her Synthroid. 9. Coronary artery disease. Continue aspirin and statin therapy. 10. Chronic kidney disease with acute renal failure. We are going to get FENa. We will get the bladder scan. We will hydrate her and we will repeat her BNP later today and continue to follow. 11. Code status. She wishes to be a DNR. 12. DVT prophylaxis. She is on Eliquis. 13. Fluids, electrolytes, and nutrition. She can have a renal diet. TIME SPENT: On the admission was 60 minutes; greater than half the time was spent [id number] with the patient obtaining my history and physical, the other half time was spent going over the plan of care with the patient and implementing plan of care. I did discuss the plan of care with my attending, Dr. Goodrich; she is in agreement. ROLANDO CALDERON, ANGELIQUE [id number]/[facility] #: [id number] ROMEO
[2017-08-12] MEDS: oxyCODONE TAB* 5 MG TAB PO PRN (19:27)
[2017-08-12] MEDS: Omeprazole CAP* 20 MG PO SCH (20:44)
[2017-08-12] MEDS: Amitriptyline TAB* 10 MG PO SCH (20:45)
[2017-08-12] MEDS: Gabapentin CAP(*) 300 MG PO SCH (20:45)
[2017-08-12] MEDS: Insulin GLARGINE(*) 1 UNITS UNIT SUBCUT SCH (20:45)
[2017-08-12] MEDS: Apixaban* 2.5 MG TAB PO SCH (20:45)
[2017-08-12] MEDS: Mometasone/Formoter 200/5 MDI INH SCH (21:02)
[2017-08-13 05:13] LABS: Hematocrit 28 % (35-47); Mean Corpuscular HGB Conc 32 g/dl (31-36); Mean Corpuscular Hemoglobin 28 pg (27-31); Mean Corpuscular Volume 86 fL (80-97); Mean Platelet Volume 8 um3 (7.4-10.4); Red Blood Count 3.28 10^6/ul (4.0-5.4); Red Cell Distribution Width 19 % (10.5-15); White Blood Count 7.2 10^3/ul (3.5-10.8)
[2017-08-13 05:26] LABS: BUN/Creatinine Ratio 28.9 (8-20); Calcium 7.5 mg/dL (8.6-10.3); EGFR African American 27.4 (>60); EGFR Non-African American 21.3 (>60); Potassium 4.1 mmol/L (3.5-5.0)
[2017-08-13] MEDS: Levothyroxine TAB* 88 MCG TAB PO SCH (06:09)
[2017-08-13] MEDS: Mometasone/Formoter 200/5 MDI INH SCH ×2 (08:15→20:35)
[2017-08-13] MEDS: Insulin LISPRO* 1 UNITS UNIT SUBCUT SCH ×3 (08:31→17:12)
[2017-08-13] MEDS: Aspirin Low Dose CHEW TAB* 81 MG PO SCH (08:37)
[2017-08-13] MEDS: Omeprazole CAP* 20 MG PO SCH ×2 (08:37→21:23)
[2017-08-13] MEDS: Atorvastatin* 20 MG TAB PO SCH (08:37)
[2017-08-13] MEDS: Diltiazem CD CAP* 180 MG PO SCH (08:37)
[2017-08-13] MEDS: Apixaban* 2.5 MG TAB PO SCH ×2 (08:37→21:21)
[2017-08-13] MEDS: Collagenase 250 MG/GM OINT* 30 GM TOPICAL SCH (08:38)
--- NOTE | 2017-08-13 08:46 | ED ---
Norman Harrison Angela, scribed for Ten Corrales MD on 08/12/17 at 1100 . Complex/Multi-Sys Presentation - HPI Summary HPI Summary: This pt is a 87 y/o female presenting to [facility] via EMS c/o generalized weakness since last night. Pt denies chest pain, SOB, blurry vision, visual changes. Pt notes this has never happened before. PMHx includes IDDM, CAD - x1 stent, HTN, COPD, cholecystitis, appendectomy. - History Of Current Complaint Chief Complaint: EDGeneral Time Seen by Provider: 08/12/17 10:42 Hx Obtained From: Patient Onset/Duration: Lasting Days - since last night, Still Present Timing: Days - 1 Associated Signs And Symptoms: Positive: Weakness - generalized. Negative: Chest Pain, Palpitations, Other - visual changes, diplopia - Allergies/Home Medications Allergies/Adverse Reactions: Allergies Allergy/AdvReac Type Severity Reaction Status Date / Time Penicillins [PCN] Allergy Mild Hives Verified 03/31/16 12:52 Sulfa Antibiotics Allergy Mild Hives Verified 03/31/16 12:52 Home Medications: Home Medications Apixaban* [Eliquis*] 2.5 mg PO BID 08/12/17 [History Confirmed 08/12/17] Calcium Carbonate-Cholecalcife [Calcium 500+D3 500-400 mg-Unit] 1 tab PO DAILY 08/12/17 [History Confirmed 08/12/17] Collagenase 250 MG/GM OINT* [Santyl 250 mg/gm Oint*] 1 applic TOPICAL DAILY [History Confirmed 08/12/17] Gabapentin CAP(*) [Neurontin 300 CAP(*)] 300 mg PO BEDTIME 08/12/17 [History Confirmed 08/12/17] Insulin GLARGINE(*) [Lantus(*)] 8 units SUBCUT BEDTIME 08/12/17 [History Confirmed 08/12/17] Magnesium Hydroxide LIQ* [Milk of Magnesia LIQ*] 30 ml PO BEDTIME PRN 08/12/17 [ History Confirmed 08/12/17] Mometasone/Formoter 200/5 MDI* [Dulera 200/5 MDI*] 2 puff INH BID 08/12/17 [ History Confirmed 08/12/17] Omeprazole CAP* [Prilosec CAP* 20 MG] 20 mg PO BID 08/12/17 [History Confirmed 08/12/17] Torsemide TAB* [Demadex 20 MG*] 20 mg PO DAILY 08/12/17 [History Confirmed 08/12] PMH/Surg Hx/FS Hx/Imm Hx Endocrine/Hematology History: Reports: Hx Blood Transfusions, Hx Diabetes - TYPE 2, Hx Thyroid Disease, Other Endocrine/Hematological Disorders - hyopthyroid Cardiovascular History: Reports: Hx Angina, Hx Congestive Heart Failure, Hx Coronary Artery Disease, Hx Hypercholesterolemia, Hx Hypertension - controllled by med Denies: Other Cardiovascular Problems/Disorders Respiratory History: Reports: Hx Asthma, Hx Chronic Obstructive Pulmonary Disease (COPD), Hx Pneumonia, Other Respiratory Problems/Disorders - HAD PNEUMONIA 09/04. RESP FAILURE 02/2017. GI History: Reports: Hx Gall Bladder Disease - S/P CONSTANTINE, Hx Gastrointestinal Bleed History: Reports: Hx Chronic Renal Failure, Other Problems/Disorders - CKD , INCONTINENCE Musculoskeletal History: Reports: Hx Fibromyalgia, Hx Orthopedic Injury - LEFT WRIST FRACTURE W/REPAIR /W PLATE Sensory History: Reports: Hx Contacts or Glasses, Hx Deafness Denies: Hx Cataracts, Hx Eye Injury, Hx Eye Prosthesis, Hx Glaucoma, Hx Legally Blind, Hx Macular Degeneration, Hx Vision Problem, Hx Hearing Aid, Hx Hearing Problem Opthamlomology History: Reports: Hx Contacts or Glasses Denies: Hx Cataracts, Hx Eye Injury, Hx Eye Prosthesis, Hx Glaucoma, Hx Legally Blind, Hx Macular Degeneration, Hx Vision Problem - Surgical History Surgery Procedure, Year, and Place: APPENDECTOMY. CHOLEYSECTOMY. LEFT WRIST FRACTURE REPAIR W/PLATE. CARDIAC STENT Hx Anesthesia Reactions: No Infectious Disease History: No Infectious Disease History: Denies: Hx Clostridium Difficile, Hx Hepatitis, Hx Human Immunodeficiency Virus (HIV), Hx of Known/Suspected MRSA, Hx Shingles, Hx Tuberculosis, Hx Known/ Suspected VRE, Hx Known/Suspected VRSA, History Other Infectious Disease, Traveled Outside the [place] in Last 30 Days - Family History Known Family History: Positive: Cardiac Disease, Hypertension - Social History Alcohol Use: Rare Alcohol Amount: once in a blue ortiz" Hx Substance Use: No Substance Use Type: Reports: None Hx Tobacco Use: Yes Smoking Status (MU): Former Smoker Type: Cigarettes Have You Smoked in the Last Year: No Review of Systems Negative: Fever, Chills Negative: Blurred Vision, Diplopia Negative: Chest Pain Negative: Shortness Of Breath Neurological: Other - genelarized weakness All Other Systems Reviewed And Are Negative: Yes Physical Exam - Summary Physical Exam Summary: VITAL SIGNS: Reviewed. GENERAL: Patient is an elderly and fragile female who is lying comfortable in the stretcher. Patient is not in any acute respiratory distress. HEAD AND FACE: No signs of trauma. No ecchymosis, hematomas or skull depressions. No sinus tenderness. EYES: PERRLA, EOMI x 2, No injected conjunctiva, no nystagmus. EARS: Hearing grossly intact. Ear canals and tympanic membranes are within normal limits. MOUTH: Oropharynx within normal limits. NECK: Supple, trachea is midline, no adenopathy, no JVD, no carotid bruit, no c- spine tenderness, neck with full ROM. CHEST: Symmetric, no tenderness at palpation LUNGS: Clear to auscultation bilaterally. No wheezing or crackles. CVS: Regular rate and rhythm, S1 and S2 present, no murmurs or gallops appreciated. ABDOMEN: Soft, non-tender. No signs of distention. No rebound no guarding, and no masses palpated. Bowel sounds are normal. EXTREMITIES: FROM in all major joints, no edema, no cyanosis or clubbing. NEURO: Alert and oriented x 3. No acute neurological deficits. Speech is normal and follows commands. SKIN: Dry and warm Triage Information Reviewed: Yes Vital Signs On Initial Exam: Initial Vitals Temp Pulse Resp BP Pulse Ox 97.9 F 56 17 156/87 93 08/12/17 10:48 08/12/17 10:48 08/12/17 10:48 08/12/17 10:48 08/12/17 10:48 Vital Signs Reviewed: Yes - Danilo Coma Scale Coma Scale Total: 15 Diagnostics - Vital Signs Vital Signs Temp Pulse Resp BP Pulse Ox 08/12/17 10:48 97.9 F 56 17 156/87 93 - Laboratory Result Diagrams: 08/12/17 11:02 08/12/17 15:01 Lab Statement: Any lab studies that have been ordered have been reviewed, and results considered in the medical decision making process. - Radiology Chest XR Xray Interpretation: Positive (See Comments) - IMPRESSION: Low lung volumes with bibasilar atelectasis versus early consolidation. ED physician has reviewed this radiology report and agrees. Radiology Interpretation Completed By: Radiologist - EKG 1134 Cardiac Rate: Bradycardia EKG Interpretation: Junctional rhythm at [address] elevation Complex Multi-Symp Course/Dx Assessment/Plan: This pt is a 87 y/o female presenting to [facility] via EMS c/o generalized weakness since last night. Pt denies chest pain, SOB, blurry vision , visual changes. Pt notes this has never happened before. PMHx includes IDDM, CAD - x1 stent, HTN, COPD, cholecystitis, appendectomy. Test results show WBC of 11.1, sodium of 125, potassium of 5.8, acute on chronic renal failure, glucose of 290, BNP of 1390. Urinalysis is contaminated. The EKG shows a junctional rhythm, which is different from previous EKG. Since the potassium is elevated, it is affecting the EKG reading; therefore, the pt was given calcium gluconate, insulin, dextrose, and Kayexalate. At this point I discussed the test results and findings with Dr. Claire, who accepted the pt for admission. Pt is feeling slightly better after medications. - Diagnoses Provider Diagnoses: Acute on chronic renal failure, CHF exacerbation, Weakness, Hyperkalemia - Physician Notifications Discussed Care Of Patient With: Merissa Claire Time Discussed With Above Provider: 12:11 Instructed by Provider To: Other - I discussed the pt's case with Dr. Claire, who has accepted the pt for admission. - Critical Care Time Critical Care Time: 30-74 min Discharge - Discharge Plan Condition: Stable Disposition: ADMITTED TO [facility] documentation as recorded by the Norman ingram Angela accurately reflects the service I personally performed and the decisions made by me, Ten Corrales MD.
[2017-08-13] MEDS: Azithromycin IV(*) 500 MG in NS 0.9% 250 ML* 250 ML IVPB SCH (15:04)
[2017-08-13] MEDS: cefTRIAXone VIAL(*) 1,000 MG in NS 0.9% 50 ML* 50 ML IVPB SCH (16:18)
--- NOTE | 2017-08-13 20:39 | PN ---
Subjective Date of Service: 08/13/17 Interval History: Patient feels a bit better but still weak Objective Active Medications: Acetaminophen (Tylenol Tab*) 650 mg PO Q4H PRN PRN Reason: FEVER/PAIN Albuterol (Ventolin Hfa Inhaler*) 2 puff INH Q2H PRN PRN Reason: WHEEZING Amitriptyline HCl (Elavil Tab*) 10 mg PO BEDTIME [facility] Last Admin: 08/12/17 20:45 Dose: 10 mg Apixaban (Eliquis) 2.5 mg PO BID [facility] Last Admin: 08/13/17 08:37 Dose: 2.5 mg Aspirin (Aspirin Low Dose Tab*) 81 mg PO DAILY [facility] Last Admin: 08/13/17 08:37 Dose: 81 mg Atorvastatin Calcium (Lipitor*) 20 mg PO DAILY [facility] Last Admin: 08/13/17 08:37 Dose: 20 mg Collagenase (Santyl 250 Mg/Gm Oint*) 1 applic TOPICAL DAILY [facility] Last Admin: 08/13/17 08:38 Dose: 1 applic Dextrose (D50w Syringe 50 Ml*) 12.5 gm IV PUSH .FOR FS < 60 - SS PRN PRN Reason: FS < 60 Diltiazem HCl (Cardizem Cd Cap*) 180 mg PO DAILY [facility] Last Admin: 08/13/17 08:37 Dose: 180 mg Docusate Sodium (Colace Cap*) 200 mg PO BID PRN PRN Reason: CONSTIPATION Gabapentin (Neurontin Cap(*)) 300 mg PO BEDTIME [facility] Last Admin: 08/12/17 20:45 Dose: 300 mg Ceftriaxone Sodium 1,000 mg/ (Sodium Chloride) 50 mls @ 200 mls/hr IVPB Q24H [facility] Last Admin: 08/13/17 16:18 Dose: 200 mls/hr Azithromycin 500 mg/ Sodium (Chloride) 250 mls @ 250 mls/hr IVPB Q24H [facility] Last Admin: 08/13/17 15:04 Dose: 250 mls/hr Insulin Glargine (Lantus(*)) 8 units SUBCUT BEDTIME [facility] Last Admin: 08/12/17 20:45 Dose: 8 unit Insulin Human Lispro (Humalog*) 0 units SUBCUT AC [facility] PRN Reason: Protocol Last Admin: 08/13/17 17:12 Dose: 6 units Levothyroxine Sodium (Synthroid Tab*) 88 mcg PO DAILY@0600 [facility] Last Admin: 08/13/17 06:09 Dose: 88 mcg Mometasone Furoate/Formoterol Fumar (Dulera 200/5 Mdi*) 2 puff INH BID [facility] Last Admin: 08/13/17 08:15 Dose: 2 puff Omeprazole (Prilosec Cap*) 20 mg PO BID [facility] Last Admin: 08/13/17 08:37 Dose: 20 mg Oxycodone HCl (Roxycodone Tab*) 5 mg PO Q8H PRN PRN Reason: PAIN Last Admin: 08/12/17 19:27 Dose: 5 mg Vital Signs 08/12/17 08/12/17 08/12/17 20:40 20:45 21:09 Temperature Pulse Rate Respiratory 18 16 Rate Blood Pressure (mmHg) O2 Sat by Pulse 93 Oximetry 08/12/17 08/12/17 08/13/17 23:32 23:34 03:29 Temperature 96.8 F 96.8 F Pulse Rate 51 46 Respiratory 16 18 16 Rate Blood Pressure 132/40 103/61 (mmHg) O2 Sat by Pulse 100 100 Oximetry 08/13/17 08/13/17 08/13/17 03:33 07:20 07:42 Temperature 97.5 F 97.3 F Pulse Rate 68 Respiratory 16 22 Rate Blood Pressure 137/57 (mmHg) O2 Sat by Pulse 100 Oximetry 08/13/17 08/13/17 08/13/17 08:16 11:10 15:17 Temperature 97.2 F 97.4 F Pulse Rate 70 67 Respiratory 20 14 Rate Blood Pressure 145/60 121/46 (mmHg) O2 Sat by Pulse 98 99 96 Oximetry 08/13/17 19:14 Temperature 97.3 F Pulse Rate 73 Respiratory 24 Rate Blood Pressure 153/55 (mmHg) O2 Sat by Pulse 97 Oximetry Oxygen Devices in Use Now: None Eyes: No Scleral Icterus Ears/Nose/Mouth/Throat: Mucous Membranes Moist Neck: No Thyroid Enlargement, Masses Respiratory: Clear to Auscultation Cardiovascular: - - S1S2 jethro Lymphatic: No Cervical Adenopathy Skin: No Rash or Ulcers Neurological: Alert and Oriented x 3 Result Diagrams: 08/13/17 04:47 08/13/17 04:47 Microbiology and Other Data: Microbiology 08/12/17 17:35 Aerobic Blood Culture - Preliminary Blood Venous No Growth Day 1 Anaerobic Blood Culture - Preliminary No Growth Day 1 08/12/17 15:01 Aerobic Blood Culture - Preliminary Blood Venous No Growth Day 1 Anaerobic Blood Culture - Preliminary No Growth Day 1 08/12/17 15:45 Urine Culture - Final Urine 08/12/17 15:45 Legionella Urinary Antigen - Final Urine Negative Legionella Streptococcus pneumoniae Ag Screen - Final Negative S. pneumo Antigen 08/12/17 14:35 Influenza Types A,B Antigen (FARHEEN) - Final Nasal Specimen received for Influenza A/B Molecular testing Assess/Plan/Problems-Billing Assessment: Patient is an 87 year old who presented to [facility] with a chief complaint and found to be in ARF and hyperkalemic. - Patient Problems (1) Acute renal failure (ARF) Current Visit: No Status: Acute Priority: High Onset Date: 11/13/14 Comment: - Acute on chronic - Improved with fluids - may be reason for her overall weakness but unclear. (2) Hyperkalemia Current Visit: No Status: Acute Priority: High Onset Date: 11/30/14 Code (s): E87.5 - HYPERKALEMIA SNOMED Code(s): 48544517 Comment: - Resolved (3) Atrial fibrillation Current Visit: No Status: Chronic Onset Date: 11/30/14 Code(s): I48.91 - UNSPECIFIED ATRIAL FIBRILLATION SNOMED Code(s): 46324659 Comment: Heart rate controlled. Continue Eliquis (4) Hypothyroidism Current Visit: No Status: Chronic Code(s): E03.9 - HYPOTHYROIDISM, UNSPECIFIED SNOMED Code(s): 52018749 Comment: - Stable - Continue synthroid at current dose (5) Polymyalgia rheumatica Current Visit: No Status: Chronic Priority: High Code(s): M35.3 - POLYMYALGIA RHEUMATICA SNOMED Code(s): 55440519 Comment: Patient not currently on Steroids. May also be reason for her weakness. Treatment may help. (6) DVT prophylaxis Current Visit: No Status: Acute Onset Date: 11/30/14 Code(s): QGQ9634 - SNOMED Code(s): 384325273 Comment: - On eliquis Status and Disposition: PT says patient quite weak on evaluation. Continue PT and may benefit from rehab.
[2017-08-13] MEDS: Amitriptyline TAB* 10 MG PO SCH (21:21)
[2017-08-13] MEDS: Gabapentin CAP(*) 300 MG PO SCH (21:22)
[2017-08-13] MEDS: Insulin GLARGINE(*) 1 UNITS UNIT SUBCUT SCH (21:24)
[2017-08-13] MEDS: oxyCODONE TAB* 5 MG TAB PO PRN (21:29)
[2017-08-14] MEDS: Levothyroxine TAB* 88 MCG TAB PO SCH (06:05)
[2017-08-14] MEDS: Diltiazem CD CAP* 180 MG PO SCH (08:23)
[2017-08-14] MEDS: Aspirin Low Dose CHEW TAB* 81 MG PO SCH (08:23)
[2017-08-14] MEDS: Apixaban* 2.5 MG TAB PO SCH ×2 (08:23→21:59)
[2017-08-14] MEDS: Collagenase 250 MG/GM OINT* 30 GM TOPICAL SCH (08:23)
[2017-08-14] MEDS: Omeprazole CAP* 20 MG PO SCH ×2 (08:23→21:53)
[2017-08-14] MEDS: Atorvastatin* 20 MG TAB PO SCH (08:23)
[2017-08-14] MEDS: Insulin LISPRO* 1 UNITS UNIT SUBCUT SCH ×3 (08:23→17:09)
[2017-08-14 08:26] LABS: Hematocrit 31 % (35-47); Mean Corpuscular HGB Conc 32 g/dl (31-36); Mean Corpuscular Hemoglobin 28 pg (27-31); Mean Corpuscular Volume 86 fL (80-97); Mean Platelet Volume 8 um3 (7.4-10.4); Red Blood Count 3.59 10^6/ul (4.0-5.4); Red Cell Distribution Width 18 % (10.5-15); White Blood Count 10.4 10^3/ul (3.5-10.8)
[2017-08-14 08:36] LABS: BUN/Creatinine Ratio 27.8 (8-20); EGFR African American 41.8 (>60); EGFR Non-African American 32.5 (>60); Potassium 4.1 mmol/L (3.5-5.0)
[2017-08-14] MEDS: Mometasone/Formoter 200/5 MDI INH SCH (09:05)
--- NOTE | 2017-08-14 09:57 | PN ---
Subjective Date of Service: 08/14/17 Interval History: This is an 87 yo female who presented with c/o weakness. She was admitted to a possible PNA complicated by DREW and hyperkalemia. Patient reports feeling better. Her strength is starting to return, but she still fatigues easily. No c/o SOB or cough. No abd pain, n/v. Appetite is improving. Objective Active Medications: Acetaminophen (Tylenol Tab*) 650 mg PO Q4H PRN PRN Reason: FEVER/PAIN Albuterol (Ventolin Hfa Inhaler*) 2 puff INH Q2H PRN PRN Reason: WHEEZING Amitriptyline HCl (Elavil Tab*) 10 mg PO BEDTIME [facility] Last Admin: 08/13/17 21:21 Dose: 10 mg Apixaban (Eliquis) 2.5 mg PO BID [facility] Last Admin: 08/14/17 08:23 Dose: 2.5 mg Aspirin (Aspirin Low Dose Tab*) 81 mg PO DAILY [facility] Last Admin: 08/14/17 08:23 Dose: 81 mg Atorvastatin Calcium (Lipitor*) 20 mg PO DAILY [facility] Last Admin: 08/14/17 08:23 Dose: 20 mg Collagenase (Santyl 250 Mg/Gm Oint*) 1 applic TOPICAL DAILY [facility] Last Admin: 08/14/17 08:23 Dose: 1 applic Dextrose (D50w Syringe 50 Ml*) 12.5 gm IV PUSH .FOR FS < 60 - SS PRN PRN Reason: FS < 60 Diltiazem HCl (Cardizem Cd Cap*) 180 mg PO DAILY [facility] Last Admin: 08/14/17 08:23 Dose: 180 mg Docusate Sodium (Colace Cap*) 200 mg PO BID PRN PRN Reason: CONSTIPATION Gabapentin (Neurontin Cap(*)) 300 mg PO BEDTIME [facility] Last Admin: 08/13/17 21:22 Dose: 300 mg Ceftriaxone Sodium 1,000 mg/ (Sodium Chloride) 50 mls @ 200 mls/hr IVPB Q24H [facility] Last Admin: 08/13/17 16:18 Dose: 200 mls/hr Azithromycin 500 mg/ Sodium (Chloride) 250 mls @ 250 mls/hr IVPB Q24H [facility] Last Admin: 08/13/17 15:04 Dose: 250 mls/hr Insulin Glargine (Lantus(*)) 8 units SUBCUT BEDTIME [facility] Last Admin: 08/13/17 21:24 Dose: 8 unit Insulin Human Lispro (Humalog*) 0 units SUBCUT AC [facility] PRN Reason: Protocol Last Admin: 08/14/17 08:23 Dose: 1 units Levothyroxine Sodium (Synthroid Tab*) 88 mcg PO DAILY@0600 [facility] Last Admin: 08/14/17 06:05 Dose: 88 mcg Mometasone Furoate/Formoterol Fumar (Dulera 200/5 Mdi*) 2 puff INH BID [facility] Last Admin: 08/14/17 09:05 Dose: 2 puff Omeprazole (Prilosec Cap*) 20 mg PO BID [facility] Last Admin: 08/14/17 08:23 Dose: 20 mg Oxycodone HCl (Roxycodone Tab*) 5 mg PO Q8H PRN PRN Reason: PAIN Last Admin: 08/13/17 21:29 Dose: 5 mg Vital Signs: Temp Pulse Resp BP Pulse Ox 97.6 F 74 20 124/58 97 08/14/17 07:25 08/14/17 07:25 08/14/17 07:25 08/14/17 07:25 08/14/17 09:08 Oxygen Devices in Use Now: Nasal Cannula Appearance: Relatively well appearing 87 yo female, somewhat fatigued but in NAD Respiratory: Symmetrical Chest Expansion and Respiratory Effort, Clear to Auscultation Cardiovascular: NL Sounds; No Murmurs; No JVD, RRR Abdominal: NL Sounds; No Tenderness; No Distention Extremities: - - trace LE edema Skin: No Rash or Ulcers Neurological: Alert and Oriented x 3 Result Diagrams: 08/14/17 08:14 08/14/17 08:14 Microbiology and Other Data: Microbiology 08/12/17 17:35 Aerobic Blood Culture - Preliminary Blood Venous No Growth Day 1 Anaerobic Blood Culture - Preliminary No Growth Day 1 08/12/17 15:01 Aerobic Blood Culture - Preliminary Blood Venous No Growth Day 1 Anaerobic Blood Culture - Preliminary No Growth Day 1 08/12/17 15:45 Urine Culture - Final Urine 08/12/17 15:45 Legionella Urinary Antigen - Final Urine Negative Legionella Streptococcus pneumoniae Ag Screen - Final Negative S. pneumo Antigen 08/12/17 14:35 Influenza Types A,B Antigen (FARHEEN) - Final Nasal Specimen received for Influenza A/B Molecular testing Assess/Plan/Problems-Billing Assessment: Patient is an 87 year old who presented to [facility] [place] with a chief complaint of weakness and admitted with suspected PNA with ARF and hyperkalemic. - Patient Problems (1) Pneumonia Comment: Suspected PNA Improving with ceftriaxone and azithromycin Improving oxygenation (2) Acute on chronic renal insufficiency Comment: Resolved Cr back to baseline (3) Hyperkalemia Comment: Resolved (4) Diabetes Comment: IDDM glucose well controlled Cont basal/bolus regimen (5) Atrial fibrillation Comment: Sinus on admission Anticoagulated with Eliquis (6) Hypothyroidism (7) CHF (congestive heart failure) Comment: No acute exacerbation Cont home medications (8) Hx of coronary artery disease Comment: No evidence of ACS Continue statin and ASA (9) Full code status (10) DVT prophylaxis Comment: Eliquis Status and Disposition: Inpatient. Anticipate possible dc home tomorrow
[2017-08-14] MEDS: Azithromycin IV(*) 500 MG in NS 0.9% 250 ML* 250 ML IVPB SCH (14:46)
[2017-08-14] MEDS: cefTRIAXone VIAL(*) 1,000 MG in NS 0.9% 50 ML* 50 ML IVPB SCH (17:08)
[2017-08-14] MEDS: oxyCODONE TAB* 5 MG TAB PO PRN (21:51)
[2017-08-14] MEDS: Amitriptyline TAB* 10 MG PO SCH (21:52)
[2017-08-14] MEDS: Gabapentin CAP(*) 300 MG PO SCH (21:52)
[2017-08-14] MEDS: Insulin GLARGINE(*) 1 UNITS UNIT SUBCUT SCH (21:55)
[2017-08-15] MEDS: Levothyroxine TAB* 88 MCG TAB PO SCH (06:41)
[2017-08-15] MEDS: Mometasone/Formoter 200/5 MDI INH SCH ×3 (07:13→19:43)
[2017-08-15] MEDS: Insulin LISPRO* 1 UNITS UNIT SUBCUT SCH ×3 (08:04→17:17)
[2017-08-15] MEDS: Diltiazem CD CAP* 180 MG PO SCH (08:14)
[2017-08-15] MEDS: Collagenase 250 MG/GM OINT* 30 GM TOPICAL SCH ×2 (08:14→08:44)
[2017-08-15] MEDS: Omeprazole CAP* 20 MG PO SCH ×2 (08:14→21:40)
[2017-08-15] MEDS: Aspirin Low Dose CHEW TAB* 81 MG PO SCH (08:14)
[2017-08-15] MEDS: Atorvastatin* 20 MG TAB PO SCH (08:14)
[2017-08-15] MEDS: Apixaban* 2.5 MG TAB PO SCH ×2 (08:14→21:40)
[2017-08-15 09:43] LABS: BUN/Creatinine Ratio 24.3 (8-20); Calcium 8.2 mg/dL (8.6-10.3); EGFR African American 45.6 (>60); EGFR Non-African American 35.5 (>60)
--- NOTE | 2017-08-15 10:21 | PN ---
Subjective Date of Service: 08/15/17 Interval History: Patient offers no new complaints, but continues to feel quite weak. She reports feeling "shaky" on her feet and quite fatigued. She denies cough, SOB, abd pain, n/v. She is feeling a little bloated and states it's been a couple of days since her last BM. Objective Active Medications: Acetaminophen (Tylenol Tab*) 650 mg PO Q4H PRN PRN Reason: FEVER/PAIN Albuterol (Ventolin Hfa Inhaler*) 2 puff INH Q2H PRN PRN Reason: WHEEZING Amitriptyline HCl (Elavil Tab*) 10 mg PO BEDTIME [facility] Last Admin: 08/14/17 21:52 Dose: 10 mg Apixaban (Eliquis) 2.5 mg PO BID [facility] Last Admin: 08/15/17 08:14 Dose: 2.5 mg Aspirin (Aspirin Low Dose Tab*) 81 mg PO DAILY [facility] Last Admin: 08/15/17 08:14 Dose: 81 mg Atorvastatin Calcium (Lipitor*) 20 mg PO DAILY [facility] Last Admin: 08/15/17 08:14 Dose: 20 mg Collagenase (Santyl 250 Mg/Gm Oint*) 1 applic TOPICAL DAILY [facility] Last Admin: 08/15/17 08:44 Dose: Not Given Dextrose (D50w Syringe 50 Ml*) 12.5 gm IV PUSH .FOR FS < 60 - SS PRN PRN Reason: FS < 60 Diltiazem HCl (Cardizem Cd Cap*) 180 mg PO DAILY [facility] Last Admin: 08/15/17 08:14 Dose: 180 mg Docusate Sodium (Colace Cap*) 200 mg PO BID PRN PRN Reason: CONSTIPATION Last Admin: 08/14/17 17:43 Dose: 200 mg Gabapentin (Neurontin Cap(*)) 300 mg PO BEDTIME [facility] Last Admin: 08/14/17 21:52 Dose: 300 mg Ceftriaxone Sodium 1,000 mg/ (Sodium Chloride) 50 mls @ 200 mls/hr IVPB Q24H [facility] Last Admin: 08/14/17 17:08 Dose: 200 mls/hr Azithromycin 500 mg/ Sodium (Chloride) 250 mls @ 250 mls/hr IVPB Q24H [facility] Last Admin: 08/14/17 14:46 Dose: 250 mls/hr Insulin Glargine (Lantus(*)) 8 units SUBCUT BEDTIME [facility] Last Admin: 08/14/17 21:55 Dose: 8 unit Insulin Human Lispro (Humalog*) 0 units SUBCUT AC [facility] PRN Reason: Protocol Last Admin: 08/15/17 08:04 Dose: Not Given Levothyroxine Sodium (Synthroid Tab*) 88 mcg PO DAILY@0600 [facility] Last Admin: 08/15/17 06:41 Dose: 88 mcg Mometasone Furoate/Formoterol Fumar (Dulera 200/5 Mdi*) 2 puff INH BID [facility] Last Admin: 08/15/17 07:13 Dose: 2 puff Omeprazole (Prilosec Cap*) 20 mg PO BID [facility] Last Admin: 08/15/17 08:14 Dose: 20 mg Oxycodone HCl (Roxycodone Tab*) 5 mg PO Q8H PRN PRN Reason: PAIN Last Admin: 08/14/17 21:51 Dose: 5 mg Vital Signs: Temp Pulse Resp BP Pulse Ox 97.2 F 79 20 120/52 93 08/15/17 07:22 08/15/17 08:38 08/15/17 08:00 08/15/17 07:22 08/15/17 08:38 Oxygen Devices in Use Now: Nasal Cannula Appearance: Fatigued elderly female in NAD Respiratory: Symmetrical Chest Expansion and Respiratory Effort, Clear to Auscultation Cardiovascular: NL Sounds; No Murmurs; No JVD, RRR Abdominal: NL Sounds; No Tenderness; No Distention Extremities: No Edema Skin: No Rash or Ulcers Neurological: Alert and Oriented x 3 Result Diagrams: 08/14/17 08:14 08/15/17 09:19 Microbiology and Other Data: Microbiology 08/12/17 17:35 Aerobic Blood Culture - Preliminary Blood Venous No Growth Day 1 Anaerobic Blood Culture - Preliminary No Growth Day 1 08/12/17 15:01 Aerobic Blood Culture - Preliminary Blood Venous No Growth Day 1 Anaerobic Blood Culture - Preliminary No Growth Day 1 08/12/17 15:45 Urine Culture - Final Urine 08/12/17 15:45 Legionella Urinary Antigen - Final Urine Negative Legionella Streptococcus pneumoniae Ag Screen - Final Negative S. pneumo Antigen 08/12/17 14:35 Influenza Types A,B Antigen (FARHEEN) - Final Nasal Specimen received for Influenza A/B Molecular testing Assess/Plan/Problems-Billing Assessment: Patient is an 87 year old who [place] [facility] chief complaint of weakness and admitted with suspected PNA with ARF and hyperkalemic. - Patient Problems (1) Pneumonia Comment: Suspected PNA Improving with ceftriaxone and azithromycin Improving oxygenation, now stable on RA (2) Acute on chronic renal insufficiency Comment: Resolved Cr back to baseline (3) Hyperkalemia Comment: Resolved (4) Diabetes Comment: IDDM glucose well controlled Cont basal/bolus regimen (5) Atrial fibrillation Comment: Sinus on admission Anticoagulated with Eliquis (6) Hypothyroidism (7) CHF (congestive heart failure) Comment: No acute exacerbation Cont home medications (8) Hx of coronary artery disease Comment: No evidence of ACS Continue statin and ASA (9) Full code status (10) DVT prophylaxis Comment: Eliquis Status and Disposition: Inpatient. Consider JAQU[facility]INE as she continues to feel quite weak. CM will discuss discharge planning with her.
[2017-08-15 11:43] LABS: Magnesium 2.6 mg/dL (1.9-2.7)
[2017-08-15] MEDS: Magnesium Hydroxide LIQ* 30 ML UDC PO PRN (12:09)
[2017-08-15] MEDS: ceFUROXime TAB(*) 250 MG PO SCH (17:17)
[2017-08-15] MEDS: Azithromycin TAB* 250 MG PO SCH (17:17)
[2017-08-15] MEDS: oxyCODONE TAB* 5 MG TAB PO PRN (19:35)
[2017-08-15] MEDS: Gabapentin CAP(*) 300 MG PO SCH (21:40)
[2017-08-15] MEDS: Docusate CAP* 100 MG PO SCH (21:41)
[2017-08-15] MEDS: Insulin GLARGINE(*) 1 UNITS UNIT SUBCUT SCH (21:41)
[2017-08-15] MEDS: Amitriptyline TAB* 10 MG PO SCH (21:41)
[2017-08-16] MEDS: ceFUROXime TAB(*) 250 MG PO SCH ×2 (06:15→17:19)
[2017-08-16] MEDS: Levothyroxine TAB* 88 MCG TAB PO SCH (06:15)
[2017-08-16] MEDS: Mometasone/Formoter 200/5 MDI INH SCH ×2 (08:48→20:26)
[2017-08-16] MEDS: Insulin LISPRO* 1 UNITS UNIT SUBCUT SCH ×3 (09:17→17:19)
[2017-08-16] MEDS: Apixaban* 2.5 MG TAB PO SCH ×2 (09:23→20:08)
[2017-08-16] MEDS: Omeprazole CAP* 20 MG PO SCH ×2 (09:24→20:08)
[2017-08-16] MEDS: Diltiazem CD CAP* 180 MG PO SCH (09:24)
[2017-08-16] MEDS: Aspirin Low Dose CHEW TAB* 81 MG PO SCH (09:25)
[2017-08-16] MEDS: Atorvastatin* 20 MG TAB PO SCH (09:25)
[2017-08-16] MEDS: Docusate CAP* 100 MG PO SCH ×2 (09:25→20:08)
[2017-08-16] MEDS: Collagenase 250 MG/GM OINT* 30 GM TOPICAL SCH (09:26)
--- NOTE | 2017-08-16 11:16 | PN ---
Subjective Date of Service: 08/16/17 Interval History: Patient reports that her strength is slightly better today. Looking forward to dc to [facility] Friday. No c/o SOB, cough. Objective Active Medications: Acetaminophen (Tylenol Tab*) 650 mg PO Q4H PRN PRN Reason: FEVER/PAIN Albuterol (Ventolin Hfa Inhaler*) 2 puff INH Q2H PRN PRN Reason: WHEEZING Amitriptyline HCl (Elavil Tab*) 10 mg PO BEDTIME [facility] Last Admin: 08/15/17 21:41 Dose: 10 mg Apixaban (Eliquis) 2.5 mg PO BID [facility] Last Admin: 08/16/17 09:23 Dose: 2.5 mg Aspirin (Aspirin Low Dose Tab*) 81 mg PO DAILY [facility] Last Admin: 08/16/17 09:25 Dose: 81 mg Atorvastatin Calcium (Lipitor*) 20 mg PO DAILY [facility] Last Admin: 08/16/17 09:25 Dose: 20 mg Azithromycin (Zithromax Tab*) 500 mg PO DAILY@1600 [facility] Last Admin: 08/15/17 17:17 Dose: 500 mg Cefuroxime Axetil (Ceftin Tab(*)) 250 mg PO BID@0600,1800 [facility] Last Admin: 08/16/17 06:15 Dose: 250 mg Collagenase (Santyl 250 Mg/Gm Oint*) 1 applic TOPICAL DAILY [facility] Last Admin: 08/16/17 09:26 Dose: 1 applic Dextrose (D50w Syringe 50 Ml*) 12.5 gm IV PUSH .FOR FS < 60 - SS PRN PRN Reason: FS < 60 Diltiazem HCl (Cardizem Cd Cap*) 180 mg PO DAILY [facility] Last Admin: 08/16/17 09:24 Dose: 180 mg Docusate Sodium (Colace Cap*) 200 mg PO BID [facility] Last Admin: 08/16/17 09:25 Dose: 200 mg Gabapentin (Neurontin Cap(*)) 300 mg PO BEDTIME [facility] Last Admin: 08/15/17 21:40 Dose: 300 mg Insulin Glargine (Lantus(*)) 8 units SUBCUT BEDTIME [facility] Last Admin: 08/15/17 21:41 Dose: 8 unit Insulin Human Lispro (Humalog*) 0 units SUBCUT AC [facility] PRN Reason: Protocol Last Admin: 08/16/17 09:17 Dose: Not Given Levothyroxine Sodium (Synthroid Tab*) 88 mcg PO DAILY@0600 [facility] Last Admin: 08/16/17 06:15 Dose: 88 mcg Magnesium Hydroxide (Milk Of Eamon Liq*) 30 ml PO BID PRN PRN Reason: CONSTIPATION Last Admin: 08/15/17 12:09 Dose: 30 ml Mometasone Furoate/Formoterol Fumar (Dulera 200/5 Mdi*) 2 puff INH BID [facility] Last Admin: 08/16/17 08:48 Dose: 2 puff Omeprazole (Prilosec Cap*) 20 mg PO BID [facility] Last Admin: 08/16/17 09:24 Dose: 20 mg Oxycodone HCl (Roxycodone Tab*) 5 mg PO Q8H PRN PRN Reason: PAIN Last Admin: 08/15/17 19:35 Dose: 5 mg Vital Signs: Temp Pulse Resp BP Pulse Ox 97.3 F 70 18 141/57 96 08/16/17 07:15 08/16/17 07:15 08/16/17 08:00 08/16/17 07:15 08/16/17 08:50 Oxygen Devices in Use Now: Nasal Cannula Appearance: Well appearing, in NAD Respiratory: Symmetrical Chest Expansion and Respiratory Effort, Clear to Auscultation Cardiovascular: NL Sounds; No Murmurs; No JVD, RRR Abdominal: NL Sounds; No Tenderness; No Distention Extremities: No Edema Skin: No Rash or Ulcers Neurological: Alert and Oriented x 3 Result Diagrams: 08/14/17 08:14 08/15/17 09:19 Microbiology and Other Data: Microbiology 08/12/17 17:35 Aerobic Blood Culture - Preliminary Blood Venous No Growth Day 1 Anaerobic Blood Culture - Preliminary No Growth Day 1 08/12/17 15:01 Aerobic Blood Culture - Preliminary Blood Venous No Growth Day 1 Anaerobic Blood Culture - Preliminary No Growth Day 1 08/12/17 15:45 Urine Culture - Final Urine 08/12/17 15:45 Legionella Urinary Antigen - Final Urine Negative Legionella Streptococcus pneumoniae Ag Screen - Final Negative S. pneumo Antigen 08/12/17 14:35 Influenza Types A,B Antigen (FARHEEN) - Final Nasal Specimen received for Influenza A/B Molecular testing Assess/Plan/Problems-Billing Assessment: Patient is an 87 year old who presented to [facility] [place] with a chief complaint of weakness and admitted with suspected PNA with ARF and hyperkalemia. - Patient Problems (1) Pneumonia Comment: Suspected PNA Improving with ceftriaxone and azithromycin Improving oxygenation, now stable on RA (2) Acute on chronic renal insufficiency Comment: Resolved Cr back to baseline (3) Hyperkalemia Comment: Resolved (4) Diabetes Comment: IDDM glucose well controlled Cont basal/bolus regimen (5) Atrial fibrillation Comment: Sinus on admission Anticoagulated with Eliquis (6) Hypothyroidism (7) CHF (congestive heart failure) Comment: No acute exacerbation Cont home medications (8) Hx of coronary artery disease Comment: No evidence of ACS Continue statin and ASA (9) Full code status (10) DVT prophylaxis Comment: Eliquis Status and Disposition: Inpatient. Plan for dc to [facility] Friday
[2017-08-16] MEDS: Azithromycin TAB* 250 MG PO SCH (15:40)
[2017-08-16] MEDS: Gabapentin CAP(*) 300 MG PO SCH (20:07)
[2017-08-16] MEDS: Amitriptyline TAB* 10 MG PO SCH (20:08)
[2017-08-16] MEDS: oxyCODONE TAB* 5 MG TAB PO PRN (20:08)
[2017-08-16] MEDS: Magnesium Hydroxide LIQ* 30 ML UDC PO PRN (20:08)
[2017-08-16] MEDS: Insulin GLARGINE(*) 1 UNITS UNIT SUBCUT SCH (20:11)
[2017-08-17] MEDS: ceFUROXime TAB(*) 250 MG PO SCH ×2 (05:52→17:40)
[2017-08-17] MEDS: Levothyroxine TAB* 88 MCG TAB PO SCH (05:52)
[2017-08-17] MEDS: Insulin LISPRO* 1 UNITS UNIT SUBCUT SCH ×3 (08:43→20:19)
[2017-08-17] MEDS: Diltiazem CD CAP* 180 MG PO SCH (08:44)
[2017-08-17] MEDS: Docusate CAP* 100 MG PO SCH ×2 (08:45→20:37)
[2017-08-17] MEDS: Omeprazole CAP* 20 MG PO SCH ×2 (08:46→20:37)
[2017-08-17] MEDS: Apixaban* 2.5 MG TAB PO SCH ×2 (08:46→20:36)
[2017-08-17] MEDS: Atorvastatin* 20 MG TAB PO SCH (08:46)
[2017-08-17] MEDS: Aspirin Low Dose CHEW TAB* 81 MG PO SCH (08:47)
[2017-08-17] MEDS: Magnesium Hydroxide LIQ* 30 ML UDC PO PRN (08:47)
--- NOTE | 2017-08-17 11:44 | RAD ---
INDICATION: Hypoxia. COMPARISON: Comparison is made with a prior chest x-ray study from August 12, 2017. TECHNIQUE: AP and lateral views of the chest were obtained. FINDINGS: The heart appears mildly enlarged and unchanged. There are bibasilar infiltrates which have progressed from the prior exam. There are also small bilateral pleural effusions. There is a displaced vertebral fracture at the dorsal lumbar junction which is unchanged from the prior study. IMPRESSION: 1. BIBASILAR INFILTRATES AND SMALL PLEURAL EFFUSIONS DEMONSTRATING INTERVAL PROGRESSION. 2. DISPLACED VERTEBRAL FRACTURE PRESENT AT THE DORSAL LUMBAR JUNCTION UNCHANGED.
[2017-08-17] MEDS: Collagenase 250 MG/GM OINT* 30 GM TOPICAL SCH (11:51)
[2017-08-17] MEDS ORDERED: Furosemide IV* 10 MG/ML VIAL (40 MG) IV ONE (14:22)
[2017-08-17] MEDS: Mometasone/Formoter 200/5 MDI INH SCH ×2 (14:28→20:12)
[2017-08-17] MEDS ORDERED: Bisacodyl SUPP* 10 MG SUPP PR ONE (14:35)
--- NOTE | 2017-08-17 14:50 | PN ---
Subjective Date of Service: 08/17/17 Interval History: Patient continues to feel lethargic. Denies dyspnea, CP, n/v or abd pain. She is bloated, no recent BM. Objective Active Medications: Acetaminophen (Tylenol Tab*) 650 mg PO Q4H PRN PRN Reason: FEVER/PAIN Albuterol (Ventolin Hfa Inhaler*) 2 puff INH Q2H PRN PRN Reason: WHEEZING Amitriptyline HCl (Elavil Tab*) 10 mg PO BEDTIME [facility] Last Admin: 08/16/17 20:08 Dose: 10 mg Apixaban (Eliquis) 2.5 mg PO BID [facility] Last Admin: 08/17/17 08:46 Dose: 2.5 mg Aspirin (Aspirin Low Dose Tab*) 81 mg PO DAILY [facility] Last Admin: 08/17/17 08:47 Dose: 81 mg Atorvastatin Calcium (Lipitor*) 20 mg PO DAILY [facility] Last Admin: 08/17/17 08:46 Dose: 20 mg Azithromycin (Zithromax Tab*) 500 mg PO DAILY@1600 [facility] Last Admin: 08/16/17 15:40 Dose: 500 mg Cefuroxime Axetil (Ceftin Tab(*)) 250 mg PO BID@0600,1800 [facility] Last Admin: 08/17/17 05:52 Dose: 250 mg Collagenase (Santyl 250 Mg/Gm Oint*) 1 applic TOPICAL DAILY [facility] Last Admin: 08/17/17 11:51 Dose: 1 applic Dextrose (D50w Syringe 50 Ml*) 12.5 gm IV PUSH .FOR FS < 60 - SS PRN PRN Reason: FS < 60 Diltiazem HCl (Cardizem Cd Cap*) 180 mg PO DAILY [facility] Last Admin: 08/17/17 08:44 Dose: 180 mg Docusate Sodium (Colace Cap*) 200 mg PO BID [facility] Last Admin: 08/17/17 08:45 Dose: 200 mg Gabapentin (Neurontin Cap(*)) 300 mg PO BEDTIME [facility] Last Admin: 08/16/17 20:07 Dose: 300 mg Insulin Glargine (Lantus(*)) 8 units SUBCUT BEDTIME [facility] Last Admin: 08/16/17 20:11 Dose: 8 unit Insulin Human Lispro (Humalog*) 0 units SUBCUT AC [facility] PRN Reason: Protocol Last Admin: 08/17/17 12:58 Dose: 4 units Levothyroxine Sodium (Synthroid Tab*) 88 mcg PO DAILY@0600 [facility] Last Admin: 08/17/17 05:52 Dose: 88 mcg Magnesium Citrate (Citrate Of Magnesia*) 150 ml PO ONCE ONE Stop: 08/17/17 15:01 Magnesium Hydroxide (Milk Of Magnesia Liq*) 30 ml PO BID PRN PRN Reason: CONSTIPATION Last Admin: 08/17/17 08:47 Dose: 30 ml Mometasone Furoate/Formoterol Fumar (Dulera 200/5 Mdi*) 2 puff INH BID [facility] Last Admin: 08/17/17 14:28 Dose: Not Given Omeprazole (Prilosec Cap*) 20 mg PO BID [facility] Last Admin: 08/17/17 08:46 Dose: 20 mg Oxycodone HCl (Roxycodone Tab*) 5 mg PO Q8H PRN PRN Reason: PAIN Last Admin: 08/16/17 20:08 Dose: 5 mg Torsemide (Demadex*) 20 mg PO DAILY [facility] Vital Signs: Temp Pulse Resp BP Pulse Ox 97.6 F 56 20 136/52 98 08/17/17 11:13 08/17/17 11:13 08/17/17 11:13 08/17/17 11:13 08/17/17 11:13 Oxygen Devices in Use Now: None Appearance: 87 yo female, lethargic in NAD Respiratory: Symmetrical Chest Expansion and Respiratory Effort, - - few crackles at bases Cardiovascular: NL Sounds; No Murmurs; No JVD, RRR Abdominal: - - slightly distended, non-tender Extremities: No Edema Skin: No Rash or Ulcers Neurological: Alert and Oriented x 3 Result Diagrams: 08/14/17 08:14 08/15/17 09:19 Microbiology and Other Data: Microbiology 08/12/17 17:35 Aerobic Blood Culture - Preliminary Blood Venous No Growth Day 1 Anaerobic Blood Culture - Preliminary No Growth Day 1 08/12/17 15:01 Aerobic Blood Culture - Preliminary Blood Venous No Growth Day 1 Anaerobic Blood Culture - Preliminary No Growth Day 1 08/12/17 15:45 Urine Culture - Final Urine 08/12/17 15:45 Legionella Urinary Antigen - Final Urine Negative Legionella Streptococcus pneumoniae Ag Screen - Final Negative S. pneumo Antigen 08/12/17 14:35 Influenza Types A,B Antigen (FARHEEN) - Final Nasal Specimen received for Influenza A/B Molecular testing Diagnostic Imaging: CXR 08/17 - bilateral small pleural effusions Assess/Plan/Problems-Billing Assessment: Patient is an 87 year old who [place] [facility] [place] chief [place] of [place] and admitted with suspected PNA with ARF and hyperkalemia. - Patient Problems (1) Pneumonia Comment: Suspected PNA Improving with ceftriaxone and azithromycin After almost 2d on RA she is now requiring 2L of O2 again, repeat CXR shows bilateral pleural effusions (2) Pleural effusion Comment: Bilateral pleural effusions noted on repeat CXR Treat with 40mg IV Lasix today and resume usual oral torsemide (3) Acute on chronic renal insufficiency Comment: Resolved Cr back to baseline (4) Hyperkalemia Comment: Resolved (5) Diabetes Comment: IDDM glucose well controlled Cont basal/bolus regimen (6) Atrial fibrillation Comment: Sinus on admission Anticoagulated with Eliquis (7) Hypothyroidism (8) CHF (congestive heart failure) Comment: No acute exacerbation Cont home medications (9) Hx of coronary artery disease Comment: No evidence of ACS Continue statin and ASA (10) Full code status (11) DVT prophylaxis Comment: Eliquis Status and Disposition: Inpatient. Plan for dc to [facility] Friday
[2017-08-17] MEDS ORDERED: Magnesium CITRATE* 300 ML BTL PO ONE (15:00)
[2017-08-17] MEDS: Azithromycin TAB* 250 MG PO SCH (15:38)
[2017-08-17] MEDS ORDERED: Dextrose 50% Syringe 50 ML* 25 GM/50 ML SYRINGE IV PUSH PRN (20:17)
[2017-08-17] MEDS: Insulin GLARGINE(*) 1 UNITS UNIT SUBCUT SCH (20:34)
[2017-08-17] MEDS: Gabapentin CAP(*) 300 MG PO SCH (20:36)
[2017-08-17] MEDS: Amitriptyline TAB* 10 MG PO SCH (20:38)
[2017-08-17] MEDS: oxyCODONE TAB* 5 MG TAB PO PRN (20:38)
[2017-08-17] MEDS ORDERED: Insulin LISPRO* 1 UNITS UNIT SUBCUT ONE (21:00)
[2017-08-18] MEDS: Levothyroxine TAB* 88 MCG TAB PO SCH (06:13)
[2017-08-18] MEDS: ceFUROXime TAB(*) 250 MG PO SCH ×2 (06:13→17:21)
[2017-08-18] MEDS: Insulin LISPRO* 1 UNITS UNIT SUBCUT SCH ×3 (07:29→17:22)
[2017-08-18] MEDS: Torsemide TAB* 20 MG PO SCH (07:29)
[2017-08-18] MEDS: Diltiazem CD CAP* 180 MG PO SCH (07:29)
[2017-08-18] MEDS: Aspirin Low Dose CHEW TAB* 81 MG PO SCH (07:29)
[2017-08-18] MEDS: Omeprazole CAP* 20 MG PO SCH ×2 (07:29→21:41)
[2017-08-18] MEDS: Apixaban* 2.5 MG TAB PO SCH ×2 (07:29→21:39)
[2017-08-18] MEDS: Docusate CAP* 100 MG PO SCH ×2 (07:30→21:39)
[2017-08-18] MEDS: Atorvastatin* 20 MG TAB PO SCH (07:30)
[2017-08-18] MEDS: Mometasone/Formoter 200/5 MDI INH SCH ×2 (07:40→20:22)
[2017-08-18] MEDS ORDERED: Furosemide IV* 10 MG/ML VIAL (40 MG) IV ONE (09:46)
[2017-08-18] MEDS: Collagenase 250 MG/GM OINT* 30 GM TOPICAL SCH (10:42)
[2017-08-18 11:06] LABS: BUN/Creatinine Ratio 22.2 (8-20); Calcium 8.6 mg/dL (8.6-10.3); EGFR African American 36.2 (>60); EGFR Non-African American 28.2 (>60); Potassium 5.5 mmol/L (3.5-5.0)
--- NOTE | 2017-08-18 13:30 | PN ---
Subjective Date of Service: 08/18/17 Interval History: Patient seen and examined at bedside. Patient still reports shortness of breath and fatigue. Still requiring oxygen. Family History: Unchanged from Admission Social History: Unchanged from Admission Past Medical History: Unchanged from Admission Objective Active Medications: Acetaminophen (Tylenol Tab*) 650 mg PO Q4H PRN Albuterol (Ventolin Hfa Inhaler*) 2 puff INH Q2H PRN Amitriptyline HCl (Elavil Tab*) 10 mg PO BEDTIME [facility] Apixaban (Eliquis) 2.5 mg PO BID [facility] Aspirin (Aspirin Low Dose Tab*) 81 mg PO DAILY [facility] Atorvastatin Calcium (Lipitor*) 20 mg PO DAILY [facility] Azithromycin (Zithromax Tab*) 500 mg PO DAILY@1600 [facility] Cefuroxime Axetil (Ceftin Tab(*)) 250 mg PO BID@0600,1800 [facility] Collagenase (Santyl 250 Mg/Gm Oint*) 1 applic TOPICAL DAILY [facility] Diltiazem HCl (Cardizem Cd Cap*) 180 mg PO DAILY [facility] Docusate Sodium (Colace Cap*) 200 mg PO BID [facility] Gabapentin (Neurontin Cap(*)) 300 mg PO BEDTIME [facility] Insulin Glargine (Lantus(*)) 8 units SUBCUT BEDTIME [facility] Insulin Human Lispro (Humalog*) 0 units SUBCUT AC [facility] Levothyroxine Sodium (Synthroid Tab*) 88 mcg PO DAILY@0600 [facility] Magnesium Hydroxide (Milk Of Magnesia Liq*) 30 ml PO BID PRN Mometasone Furoate/Formoterol Fumar (Dulera 200/5 Mdi*) 2 puff INH BID [facility] Omeprazole (Prilosec Cap*) 20 mg PO BID [facility] Oxycodone HCl (Roxycodone Tab*) 5 mg PO Q8H PRN Torsemide (Demadex*) 20 mg PO DAILY [facility] Vital Signs Temp Pulse Resp BP Pulse Ox 97.9 F 50 20 133/50 98 08/18/17 11:24 08/18/17 11:24 08/18/17 11:24 08/18/17 11:24 08/18/17 11:24 Oxygen Devices in Use Now: Nasal Cannula Appearance: sitting up in chair, NAD Eyes: No Scleral Icterus, PERRLA Ears/Nose/Mouth/Throat: NL Teeth, Lips, Gums Neck: NL Appearance and Movements; NL JVP Respiratory: Symmetrical Chest Expansion and Respiratory Effort, - - crackles at bases Cardiovascular: NL Sounds; No Murmurs; No JVD, RRR Abdominal: NL Sounds; No Tenderness; No Distention Extremities: No Edema Skin: No Rash or Ulcers Neurological: Alert and Oriented x 3, NL Muscle Strength and Tone Lines/Tubes/Other Access: Clean, Dry and Intact Peripheral IV Nutrition: Taking PO's Result Diagrams: 08/14/17 08:14 08/18/17 10:23 Microbiology and Other Data: . Diagnostic Imaging: CXR 08/17 - bilateral small pleural effusions Assess/Plan/Problems-Billing Assessment: Patient is an 87 year old who presented to [facility] [place] with a chief complaint of weakness and admitted with suspected PNA with ARF and hyperkalemia. - Patient Problems (1) Pneumonia Comment: Suspected pneumonia improving on ceftriaxone and zithromax. Oxygen requirements ahve increased and now on 2-3L suspect form fluid overload. Continue diuresis. (2) Hyperkalemia Comment: Recheck in AM. (3) Pleural effusion Comment: Redose Lasix today (pt did already get torsemide). Continue home torsemide. (4) Acute on chronic renal insufficiency Comment: Cr up slightly today compared to a few days ago. Will recheck in AM. (5) Diabetes Comment: Sugars controlled. Continue Lantus and Lispro. (6) CHF (congestive heart failure) Comment: Suspect slight overload from fluid received initially. Lasix given today but will restart home torsemide tomorrow. (7) Atrial fibrillation Comment: Heart rate controlled. Continue Eliquis (8) Hx of coronary artery disease Comment: No evidence of ACS. Continue statin and ASA (9) Hypothyroidism Comment: Continue Synthroid (10) DVT prophylaxis Comment: Alina (11) Full code status Status and Disposition: Inpatient. Wean oxygen and diurese, then dc to [facility]
[2017-08-18] MEDS: Azithromycin TAB* 250 MG PO SCH (17:21)
[2017-08-18] MEDS ORDERED: Insulin LISPRO* 1 UNITS UNIT SUBCUT ONE (20:17)
[2017-08-18] MEDS: Amitriptyline TAB* 10 MG PO SCH (21:38)
[2017-08-18] MEDS: Gabapentin CAP(*) 300 MG PO SCH (21:40)
[2017-08-18] MEDS: Insulin GLARGINE(*) 1 UNITS UNIT SUBCUT SCH (21:42)
[2017-08-18] MEDS: oxyCODONE TAB* 5 MG TAB PO PRN (21:48)
[2017-08-19] MEDS: ceFUROXime TAB(*) 250 MG PO SCH ×2 (05:25→17:30)
[2017-08-19] MEDS: Levothyroxine TAB* 88 MCG TAB PO SCH (05:26)
[2017-08-19 06:13] LABS: BUN/Creatinine Ratio 24.9 (8-20); EGFR African American 36.7 (>60); EGFR Non-African American 28.6 (>60)
[2017-08-19 06:18] LABS: Potassium 5.3 mmol/L (3.5-5.0)
[2017-08-19] MEDS: Mometasone/Formoter 200/5 MDI INH SCH ×2 (07:55→20:54)
[2017-08-19] MEDS: Insulin LISPRO* 1 UNITS UNIT SUBCUT SCH ×3 (08:24→17:30)
[2017-08-19] MEDS: Docusate CAP* 100 MG PO SCH ×2 (08:58→20:18)
[2017-08-19] MEDS: Atorvastatin* 20 MG TAB PO SCH (08:58)
[2017-08-19] MEDS: Apixaban* 2.5 MG TAB PO SCH ×2 (08:58→20:18)
[2017-08-19] MEDS: Torsemide TAB* 20 MG PO SCH (08:58)
[2017-08-19] MEDS: Aspirin Low Dose CHEW TAB* 81 MG PO SCH (08:59)
[2017-08-19] MEDS: Omeprazole CAP* 20 MG PO SCH ×2 (08:59→20:20)
[2017-08-19] MEDS: Diltiazem CD CAP* 180 MG PO SCH (09:07)
[2017-08-19] MEDS: Collagenase 250 MG/GM OINT* 30 GM TOPICAL SCH (09:43)
--- NOTE | 2017-08-19 15:10 | PN ---
Subjective Date of Service: 08/19/17 Interval History: Patient seen and examined at bedside. Patient reports worsening shortness of breath today. Difficult to assess response to Lasix d/t incontinence. Patient reports feeling fatigued and weak. HR slow at times appearing to be junctional rhythm. Family History: Unchanged from Admission Social History: Unchanged from Admission Past Medical History: Unchanged from Admission Objective Active Medications: Acetaminophen (Tylenol Tab*) 650 mg PO Q4H PRN Albuterol (Ventolin Hfa Inhaler*) 2 puff INH Q2H PRN Amitriptyline HCl (Elavil Tab*) 10 mg PO BEDTIME TITA Apixaban (Eliquis) 2.5 mg PO BID TITA Aspirin (Aspirin Low Dose Tab*) 81 mg PO DAILY TITA Atorvastatin Calcium (Lipitor*) 20 mg PO DAILY TITA Azithromycin (Zithromax Tab*) 500 mg PO DAILY@1600 TITA Cefuroxime Axetil (Ceftin Tab(*)) 250 mg PO BID@0600,1800 [facility] Collagenase (Santyl 250 Mg/Gm Oint*) 1 applic TOPICAL DAILY TITA Docusate Sodium (Colace Cap*) 200 mg PO BID TITA Gabapentin (Neurontin Cap(*)) 300 mg PO BEDTIME TITA Insulin Glargine (Lantus(*)) 8 units SUBCUT BEDTIME TITA Insulin Human Lispro (Humalog*) 0 units SUBCUT AC TITA Levothyroxine Sodium (Synthroid Tab*) 88 mcg PO DAILY@0600 TITA Magnesium Hydroxide (Milk Of Magnesia Liq*) 30 ml PO BID PRN Mometasone Furoate/Formoterol Fumar (Dulera 200/5 Mdi*) 2 puff INH BID TITA Omeprazole (Prilosec Cap*) 20 mg PO BID TITA Oxycodone HCl (Roxycodone Tab*) 5 mg PO Q8H PRN Torsemide (Demadex*) 20 mg PO DAILY [facility] Vital Signs Temp Pulse Resp BP Pulse Ox 97.7 F 52 18 130/44 96 08/19/17 07:42 08/19/17 07:42 08/19/17 08:00 08/19/17 07:42 08/19/17 07:57 Oxygen Devices in Use Now: Nasal Cannula Appearance: sitting up in bed using some accessory muscle use Eyes: No Scleral Icterus, PERRLA Ears/Nose/Mouth/Throat: NL Teeth, Lips, Gums, Mucous Membranes Moist Neck: NL Appearance and Movements; NL JVP Respiratory: Symmetrical Chest Expansion and Respiratory Effort, - - decreased at bases with crackles; some abdominal breathing Cardiovascular: NL Sounds; No Murmurs; No JVD Abdominal: NL Sounds; No Tenderness; No Distention Extremities: - - 1-2+ edema Skin: No Rash or Ulcers Neurological: Alert and Oriented x 3, NL Muscle Strength and Tone Lines/Tubes/Other Access: Clean, Dry and Intact Peripheral IV Nutrition: Taking PO's Result Diagrams: 08/14/17 08:14 08/19/17 05:05 Microbiology and Other Data: . Diagnostic Imaging: . Assess/Plan/Problems-Billing Assessment: Patient is an 87 year old who [place] [facility] chief complaint of weakness and admitted with suspected PNA with ARF and hyperkalemia. - Patient Problems (1) Acute respiratory failure with hypoxia Comment: Suspect from fluid overload. Repeat CXR shows worsening infiltrates and pulmonary edema. She was given 40mg IV Lasix yesterday yet is incontinent so its difficult to see the response. Given renal insifficiency this may not have been enough. Cardiology consulted d/t junctional rhythm and repeat echo ordered that showed EF 60% (unable to eval diastolic dysfunction). Will insert stallworth and give 40mg IV Lasix now and increase daily Torsemide to 40mg. Will monitor renal function closely. (2) CHF (congestive heart failure) Comment: Secondary to pneumonia. EF 65% on today's echocardiogram. Start daily weights and strict I/O. (3) Pneumonia Comment: Suspected pneumonia improving on ceftin and zithromax. CHF should be in the setting of her PNA with preserved EF. She was also off torsemide for multiple days. (4) Acute renal failure superimposed on stage 3 chronic kidney disease Comment: Creatinine has improved from admission and appears to be around her baseline. Monitor daily while diuresing. (5) Hyperkalemia Comment: Borderline high. Hopeful that with Torsemide it will improve. Recheck in AM. (6) Diabetes Comment: Sugars controlled. Continue Lantus and Lispro. (7) Atrial fibrillation Comment: Cardizem held today d/t junctional rhythm in the 50s. Continue Eliquis. Appreciate cardiology consultation. (8) Hx of coronary artery disease Comment: No evidence of ACS. Continue statin and ASA (9) Hypothyroidism Comment: Continue Synthroid (10) DVT prophylaxis Comment: Alina (11) Full code status Status and Disposition: Inpatient. Wean oxygen and diurese, then dc to [facility]
--- NOTE | 2017-08-19 15:30 | ECHO ---
Patient: WALTER PETERSON [facility] Rec#: [id number] : 1930 Date: 08/19/2017 Age: 87y Height: 165.1 cm / 65.0 in Weight: 71.2 kg / 156.9 lbs Sex: F BSA: 1.78 Room#: 432 Admit Date#: 08/19/2017 Type: Inpatient Referring: Ino Polanco MD Reading: Ino Polanco MD Emergency Room Nurse: Jennifer Singh RN RDCS CC: Domi Bennett MD Transthoracic Echocardiogram Indication: Bradycardia, SOB BP: 130/44 HR: 59 Rhythm: Bradycardia Findings History: CAD with PCI 2002, PAF, CHF, HTN, DM, HLD, hypothyroidism, CKD, former smoker Technical Comments: The study quality is fair. The study is technically limited due to poor acoustic windows. The study is technically limited due to patient body habitus. The study is technically limited due to the patient's smoking history. Completed at 1515. Left Ventricle: The left ventricular chamber size is decreased. Mild to moderate concentric left ventricular hypertrophy is observed. Global left ventricular wall motion and contractility are within normal limits. The left ventricle appears hyperdynamic. The estimated ejection fraction is greater than 65%. The assessment of diastolic function is non-diagnostic. Left Atrium: The left atrium is moderately dilated. Right Ventricle: The right ventricle wall thickness is mildly increased. The right ventricular cavity size is normal. The right ventricular global systolic function is normal. Right Atrium: The right atrium is mildly dilated. Aortic Valve: The aortic valve is trileaflet. The aortic valve leaflets are mildly thickened. There is aortic annular calcification. There is a trace of aortic regurgitation. There is mild aortic stenosis. The mean gradient of the aortic valve is 7.7 mmHg. The peak instantaneous gradient of the aortic valve is 12.3 mmHg. The aortic valve area, by peak velocities, is calculated at 1.7 cm2. The aortic valve area, by VTI's, is calculated at 1.8 cm2. Mitral Valve: There is mitral annular calcification. The mitral valve leaflets are moderately thickened. Mitral valve leaflet mobility is mildly restricted. Moderate subvalvular thickening of the mitral valve is visualized. There is mild mitral regurgitation. There is mild mitral stenosis. Tricuspid Valve: The tricuspid valve leaflets are normal. There is moderate tricuspid regurgitation. There is evidence of moderate to severe pulmonary hypertension. There is no tricuspid stenosis. Pulmonic Valve: The pulmonic valve appears normal. There is a trace pulmonic regurgitation. There is no pulmonic stenosis. Pericardium: There is no significant pericardial effusion. A pericardial fat pad is visualized. A left pleural effusion is present. Aorta: There is no dilatation of the ascending aorta. There is no dilatation of the aortic arch. There is no dilation of the aortic root. Pulmonary Artery: The main pulmonary artery appears normal. Venous: The venous system is not well visualized. The inferior vena cava is not visualized. Summary: There are no significant changes when compared to the previous study done on 04/04/17 Conclusions Mild to moderate concentric left ventricular hypertrophy is observed. Global left ventricular wall motion and contractility are within normal limits. The estimated ejection fraction is greater than 65%. The right ventricular global systolic function is normal. The aortic valve leaflets are mildly thickened. There is mild aortic stenosis. The mean gradient of the aortic valve is 7.7 mmHg. Mitral valve leaflet mobility is mildly restricted. There is mild mitral regurgitation. There is mild mitral stenosis. There is moderate tricuspid regurgitation. There is evidence of moderate to severe pulmonary hypertension. There is no significant pericardial effusion. There are no significant changes when compared to the previous study done on 04/04/17 Measurements Name Value Normal Range RVDdMajor (2D) 3.5 cm (2.2 - 4.4) RVAW (2D) 0.6 cm (0.2 - 0.5) RAd ISD 4CH 5.3 cm (3.4 - 4.9) RA (A4C)W 4.7 cm (2.9 - 4.6) IVSd (2D) 1.3 cm (0.6 - 1) LVPWd (2D) 1.2 cm (0.6 - 1) LVIDd (2D) 3.4 cm (3.6 - 5.4) LVIDs (2D) 2 cm - LV FS (2D) 41 % (25 - 45) Aortic Annulus 1.6 cm (1.4 - 2.6) Ao root diameter (2D) 2.7 cm (2.1 - 3.5) Ascending Ao 3.3 cm (2.1 - 3.4) Aortic arch 3 cm (1.8 - 3.4) LA dimension (AP) 2D 4.5 cm (2.3 - 3.8) LAd ISD 4CH 5.7 cm (2.9 - 5.3) LA ISD 4CH W 4.3 cm (2.5 - 4.5) Aortic root diameter (2D0.92 cm/m2 - Name Value Normal Range LA ESV SP 4CH (A/L) 92 ml - LA ESV SP 2CH (A/L) 72 ml - LA ESV BP (A/L) 85 ml - LA ESV BP (A/L) index 47 ml/m2 - LA ESV SP 4CH (MOD) 89 ml - LA ESV SP 2CH (MOD) 68 ml - Name Value Normal Range MV E-wave Vmax 1.6 m/sec - MV deceleration time 339 msec - MV A-wave Vmax 0.43 m/sec - MV E:A ratio 3.7 ratio - LV septal e' Vmax 0.05 m/sec - LV lateral e' Vmax 0.09 m/sec - LV E:e' septal ratio 32 ratio - LV E:e' lateral ratio 17.8 ratio - Name Value Normal Range AV Vmax 1.8 m/sec - AV VTI 39.8 cm - AV peak gradient 12.3 mmHg - AV mean gradient 7.7 mmHg - LVOT diameter 2 cm - LVOT Vmax 1 m/sec - LVOT VTI 23 cm - LVOT mean gradient 2.6 mmHg - DOI (VTI) 0.58 ratio - DOI (Vmax) 0.56 ratio - SV LVOT 72.2 ml - CO LVOT 4.3 l/min - Cardiac index 2.4 l/min/m2 - CAMILO (continuity Vmax) 1.7 cm2 - CAMILO (continuity VTI) 1.8 cm2 - VÍCTOR Vmax 0.39 m/sec - Name Value Normal Range MV Vmax 1.8 m/sec - MV VTI 51.3 cm - MV peak gradient 12.3 mmHg - MV mean gradient 3.5 mmHg - MV PHT 110 msec - MVA (PHT) 2 cm2 - MVA (continuity VTI) 1.4 cm2 - Name Value Normal Range TR Vmax 3.5 m/sec - TR peak gradient 49 mmHg - RAP 8 mmHg - RVSP 57 mmHg - Name Value Normal Range PV Vmax 1.2 m/sec -
--- NOTE | 2017-08-19 15:42 | RAD ---
Indication: Dyspnea, hypoxia. 2 views of the chest are reviewed and compared to previous exam dated August 17, 2017. Cardiomegaly is noted. There appears to be increasing interstitial edema with bilateral pleural effusion and bibasilar atelectasis. IMPRESSION: Bilateral pleural effusions with bibasilar atelectasis with interstitial edema. This appears to be progressed since prior exam.
[2017-08-19] MEDS ORDERED: Furosemide IV* 10 MG/ML VIAL (40 MG) IV ONE (16:39)
[2017-08-19] MEDS: Azithromycin TAB* 250 MG PO SCH (17:30)
[2017-08-19] MEDS: Amitriptyline TAB* 10 MG PO SCH (20:18)
[2017-08-19] MEDS: Gabapentin CAP(*) 300 MG PO SCH (20:19)
[2017-08-19] MEDS: Insulin GLARGINE(*) 1 UNITS UNIT SUBCUT SCH (20:24)
--- NOTE | 2017-08-19 21:37 | CONS ---
CC: Dr. Bennett; Dr. Spivey * CONSULTATION REPORT: DATE OF CONSULT: 08/19/17 INDICATION FOR CONSULT: Bradycardia. HISTORY OF PRESENT ILLNESS: The patient is an 87-year-old female with a history of coronary artery disease, history of paroxysmal atrial fibrillation, congestive heart failure, who was admitted to the hospital because of increased fatigue. In speaking with the patient, I cannot get any specifics as to her presentation. The patient states that she just felt fatigue. She denied any specific shortness of breath, although she has long-term shortness of breath symptoms. She denies any angina. She denies any palpitations. She denies any lightheadedness, dizziness, or syncope. The patient came to the emergency room just because of her profound fatigue. The patient was admitted to the hospital because of fatigue, hyperkalemia, and junctional rhythm. Since being in the hospital, the patient has been doing well. She has had some mild diuresis, but overall her symptoms have not changed. On the monitor, the patient is normal in a sinus rhythm, but occasionally goes to a junctional rhythm at 50 beats per minute. I did not see any profound bradycardia. The patient's blood pressure has been stable throughout. The patient does have chronic renal insufficiency. Her creatinine is slightly worse than her baseline, the question to be was whether her bradycardia was causing her worsening renal insufficiency. PAST MEDICAL HISTORY: Significant for diabetes, hypertension, congestive heart failure, paroxysmal atrial fibrillation, hypothyroidism, coronary artery disease. PAST SURGICAL HISTORY: Cardiac catheterization in 2002 with a stent to her coronary artery that I do not know which one, status post appendectomy, status post cholecystectomy, status post hysterectomy. OUTPATIENT MEDICATIONS: 1. Demadex 20 mg a day. 2. Oxycodone as needed. 3. Prilosec 20 mg b.i.d. 4. Dulera inhaler. 5. Synthroid 88 mcg a day. 6. Lantus insulin. 7. Gabapentin 300 mg q.h.s. 8. Diltiazem 180 mg once a day. 9. Lipitor 20 mg a day. 10. Aspirin 81 mg a day. 11. Apixaban 2.5 mg b.i.d. 12. Amitriptyline 10 mg daily. ALLERGIES: To PENICILLIN and SULFA MEDICATIONS. SOCIAL HISTORY: She is a previous smoker. She currently lives alone. Her son does participate in her care. PHYSICAL EXAM: Height is 5 feet 5 inches, weight is 157 pounds. Temperature 97.7, heart rate is 52, respiratory rate is 18, oxygen saturation 96% on 3 L, blood pressure 130/44. Sclerae are anicteric. Oropharynx is pink without erythema. Carotids are 2+ with bilateral bruit. JVD is slightly elevated. Cardiac Exam: S1, S2 with a 2/6 systolic ejection murmur heard best at the right midsternal border. PMI is difficult to assess. Lungs have decreased breath sounds throughout. The patient does have significant kyphosis. Abdomen is soft, nontender, and nondistended with normoactive bowel sounds. Extremities show 1+ edema. She has 2+ pulses throughout. The patient is awake , alert, and oriented. She moves all 4 extremities equally. DIAGNOSTIC STUDIES/LAB DATA: Hemoglobin 10, hematocrit 31, platelet count 202. Sodium 129, potassium 5.3, BUN 42, creatinine 1.7, estimated GFR 28. AST and ALT within normal limits. Troponins were negative. An echocardiogram today demonstrates [id number] LVH, normal LV systolic function, ejection fraction of 55%, severe biatrial enlargement, thickened aortic valve with mild aortic stenosis, mild mitral stenosis with severe mitral annular calcification. She has [id number] tricuspid regurgitation with moderate-to- severe pulmonary hypertension. Her echocardiogram is not significantly changed from March of 2017. Her chest x-ray shows significant kyphosis and compression of her lungs. She does have bilateral pleural effusions. IMPRESSION AND PLAN: This is an 87-year-old female who comes to the hospital with fatigue and was found to have a junctional rhythm at 50 beats per minute. On telemetry here at [facility], she goes from sinus rhythm to junctional rhythm of unclear significance. The patient's overall cardiac status does not seem particularly different than when she was here in March. The patient does have [id number] pulmonary hypertension probably due to her intrinsic lung disease and her kyphosis and pleural effusions. The patient' s intravascular status is likely somewhat dry despite her pleural effusions. In general, my recommendation would be consider starting spironolactone but given her high potassium and increased creatinine, I do not think that is samano. For now, my recommendation is to stop the diltiazem to help prevent junctional rhythm. At this point, I do not think that the patient needs a pacemaker, although she probably has some mild degree of sick sinus syndrome and pacemaker may be considered in the future. The patient to continue to follow up with Dr. Spivey as an outpatient. [id number]/[facility] #: [id number] ROMEO
[2017-08-20 05:17] LABS: Hematocrit 25 % (35-47); Hemoglobin 8.4 g/dl (12.0-16.0); Mean Corpuscular HGB Conc 33 g/dl (31-36); Mean Corpuscular Hemoglobin 28 pg (27-31); Mean Corpuscular Volume 85 fL (80-97); Mean Platelet Volume 8 um3 (7.4-10.4); Red Blood Count 2.99 10^6/ul (4.0-5.4); Red Cell Distribution Width 17 % (10.5-15); White Blood Count 5.2 10^3/ul (3.5-10.8)
[2017-08-20 05:29] LABS: BUN/Creatinine Ratio 27.4 (8-20); Calcium 8.3 mg/dL (8.6-10.3); EGFR Non-African American 31.1 (>60); Potassium 4.4 mmol/L (3.5-5.0)
[2017-08-20] MEDS: ceFUROXime TAB(*) 250 MG PO SCH (06:40)
[2017-08-20] MEDS: Levothyroxine TAB* 88 MCG TAB PO SCH (06:40)
[2017-08-20] MEDS: Insulin LISPRO* 1 UNITS UNIT SUBCUT SCH ×3 (07:24→17:12)
[2017-08-20] MEDS: Mometasone/Formoter 200/5 MDI INH SCH ×2 (08:39→20:45)
[2017-08-20] MEDS: Docusate CAP* 100 MG PO SCH ×2 (08:40→20:14)
[2017-08-20] MEDS: Apixaban* 2.5 MG TAB PO SCH ×2 (08:40→20:17)
[2017-08-20] MEDS: Aspirin Low Dose CHEW TAB* 81 MG PO SCH (08:41)
[2017-08-20] MEDS: Atorvastatin* 20 MG TAB PO SCH (08:41)
[2017-08-20] MEDS: Omeprazole CAP* 20 MG PO SCH ×2 (08:41→20:17)
[2017-08-20] MEDS: oxyCODONE TAB* 5 MG TAB PO PRN ×2 (08:41→20:17)
[2017-08-20] MEDS: Torsemide TAB* 20 MG PO SCH (08:41)
[2017-08-20] MEDS: Collagenase 250 MG/GM OINT* 30 GM TOPICAL SCH (10:02)
--- NOTE | 2017-08-20 11:42 | PN ---
Subjective Date of Service: 08/20/17 Interval History: Patient seen and examined at bedside. Patient reports that she is having some difficulty hearing. Her breathing feels better and she put out close to 4L after Lasix yesterday. On tele appears to be back in NSR. Family History: Unchanged from Admission Social History: Unchanged from Admission Past Medical History: Unchanged from Admission Objective Active Medications: Acetaminophen (Tylenol Tab*) 650 mg PO Q4H PRN Albuterol (Ventolin Hfa Inhaler*) 2 puff INH Q2H PRN Amitriptyline HCl (Elavil Tab*) 10 mg PO BEDTIME TITA Apixaban (Eliquis) 2.5 mg PO BID TITA Aspirin (Aspirin Low Dose Tab*) 81 mg PO DAILY TITA Atorvastatin Calcium (Lipitor*) 20 mg PO DAILY TITA Collagenase (Santyl 250 Mg/Gm Oint*) 1 applic TOPICAL DAILY TITA Dextrose (D50w Syringe 50 Ml*) 12.5 gm IV PUSH .FOR FS < 60 - SS PRN Docusate Sodium (Colace Cap*) 200 mg PO BID TITA Gabapentin (Neurontin Cap(*)) 300 mg PO BEDTIME TITA Insulin Glargine (Lantus(*)) 8 units SUBCUT BEDTIME TITA Insulin Human Lispro (Humalog*) 0 units SUBCUT AC TITA Levothyroxine Sodium (Synthroid Tab*) 88 mcg PO DAILY@0600 TITA Magnesium Hydroxide (Milk Of Magnesia Liq*) 30 ml PO BID PRN Mometasone Furoate/Formoterol Fumar (Dulera 200/5 Mdi*) 2 puff INH BID TITA Omeprazole (Prilosec Cap*) 20 mg PO BID [facility] Oxycodone HCl (Roxycodone Tab*) 5 mg PO Q8H PRN Torsemide (Demadex*) 40 mg PO DAILY TITA Vital Signs Temp Pulse Resp BP Pulse Ox 97.4 F 79 18 162/55 95 08/20/17 07:31 08/20/17 07:31 08/20/17 08:41 08/20/17 07:31 08/20/17 07:31 Oxygen Devices in Use Now: Nasal Cannula Appearance: sitting up in bed, NAD Eyes: No Scleral Icterus, PERRLA Ears/Nose/Mouth/Throat: NL Teeth, Lips, Gums Neck: NL Appearance and Movements; NL JVP Respiratory: Symmetrical Chest Expansion and Respiratory Effort, - - slight crackles at bases; improved Cardiovascular: NL Sounds; No Murmurs; No JVD, RRR Abdominal: NL Sounds; No Tenderness; No Distention Extremities: - - 1+ edema Skin: No Rash or Ulcers Neurological: Alert and Oriented x 3, NL Muscle Strength and Tone Lines/Tubes/Other Access: Clean, Dry and Intact Stallworth, Clean, Dry and Intact Peripheral IV Result Diagrams: 08/20/17 04:35 08/20/17 04:35 Microbiology and Other Data: . Diagnostic Imaging: . Assess/Plan/Problems-Billing Assessment: Patient is an 87 year old who presented to [facility] with a chief complaint of weakness and admitted with suspected PNA with ARF and hyperkalemia. - Patient Problems (1) Acute respiratory failure with hypoxia Comment: Improved with IV Lasix yesterday. Today transitioned to Torsemide at higher dose. Continue to monitor output with stallworth (4L out yesterday with Lasix ). Wean oxygen as tolerated. Normal EF on echo yesterday. (2) CHF (congestive heart failure) Comment: Improving. Continue PO Torsemide at higher dose. (3) Pneumonia Comment: She has completed 8 days of abx therapy; d/c ceftin and zithromax. (4) Chronic disease anemia Comment: HB down to 8's. Suspect from fluid overload and chornic disease as she has been in the 8 range on prior hospitalizations. Check stool for occult blood and iron studies. (5) Acute renal failure superimposed on stage 3 chronic kidney disease Comment: Creatinine improved with diuresis yesterday. Recheck in AM. (6) Hyperkalemia Comment: Resolved. (7) Diabetes Comment: Sugars controlled. Continue Lantus and Lispro. (8) Atrial fibrillation Comment: Continue cardizem with hold parameters. Discontinue telemetry. Appears to be in NSR now. (9) Hx of coronary artery disease Comment: No evidence of ACS. Continue statin and ASA (10) Hypothyroidism Comment: Continue Synthroid (11) DVT prophylaxis Comment: Alina (12) Full code status Status and Disposition: Inpatient. Likely d/c to [facility] in the AM if oxygen weaned off.
[2017-08-20 12:29] LABS: Ferritin 49.6 ng/mL (11-307)
[2017-08-20] MEDS ORDERED: Torsemide TAB* 20 MG PO ONE (15:00)
[2017-08-20] MEDS: Insulin GLARGINE(*) 1 UNITS UNIT SUBCUT SCH (20:13)
[2017-08-20] MEDS: Gabapentin CAP(*) 300 MG PO SCH (20:15)
[2017-08-20] MEDS: Amitriptyline TAB* 10 MG PO SCH (20:15)
--- NOTE | 2017-08-20 22:39 | PN ---
Subjective Date of Service: 08/20/17 - CC: SOB Interval History: The patient was examined in the presence of her son. The patient feels her breathing is much improved s/p diuresis, her son concurs. Her son had questions about her fluid out as she is not taking much PO fluid. Medications Active Medications: Acetaminophen (Tylenol Tab*) 650 mg PO Q4H PRN PRN Reason: FEVER/PAIN Last Admin: 08/17/17 20:37 Dose: 650 mg Albuterol (Ventolin Hfa Inhaler*) 2 puff INH Q2H PRN PRN Reason: WHEEZING Amitriptyline HCl (Elavil Tab*) 10 mg PO BEDTIME [facility] Last Admin: 08/20/17 20:15 Dose: 10 mg Apixaban (Eliquis) 2.5 mg PO BID [facility] Last Admin: 08/20/17 20:17 Dose: 2.5 mg Aspirin (Aspirin Low Dose Tab*) 81 mg PO DAILY [facility] Last Admin: 08/20/17 08:41 Dose: 81 mg Atorvastatin Calcium (Lipitor*) 20 mg PO DAILY [facility] Last Admin: 08/20/17 08:41 Dose: 20 mg Collagenase (Santyl 250 Mg/Gm Oint*) 1 applic TOPICAL DAILY [facility] Last Admin: 08/20/17 10:02 Dose: 1 applic Dextrose (D50w Syringe 50 Ml*) 12.5 gm IV PUSH .FOR FS < 60 - SS PRN PRN Reason: FS < 60 Docusate Sodium (Colace Cap*) 200 mg PO BID [facility] Last Admin: 08/20/17 20:14 Dose: 200 mg Gabapentin (Neurontin Cap(*)) 300 mg PO BEDTIME [facility] Last Admin: 08/20/17 20:15 Dose: 300 mg Insulin Glargine (Lantus(*)) 8 units SUBCUT BEDTIME [facility] Last Admin: 08/20/17 20:13 Dose: 8 unit Insulin Human Lispro (Humalog*) 0 units SUBCUT AC [facility] PRN Reason: Protocol Last Admin: 08/20/17 17:12 Dose: 2 units Levothyroxine Sodium (Synthroid Tab*) 88 mcg PO DAILY@0600 [facility] Last Admin: 08/20/17 06:40 Dose: 88 mcg Magnesium Hydroxide (Milk Of Magnesia Liq*) 30 ml PO BID PRN PRN Reason: CONSTIPATION Last Admin: 08/17/17 08:47 Dose: 30 ml Mometasone Furoate/Formoterol Fumar (Dulera 200/5 Mdi*) 2 puff INH BID [facility] Last Admin: 08/20/17 20:45 Dose: 2 puff Omeprazole (Prilosec Cap*) 20 mg PO BID [facility] Last Admin: 08/20/17 20:17 Dose: 20 mg Oxycodone HCl (Roxycodone Tab*) 5 mg PO Q8H PRN PRN Reason: PAIN Last Admin: 08/20/17 20:17 Dose: 5 mg Torsemide (Demadex*) 40 mg PO DAILY [facility] Last Admin: 08/20/17 08:41 Dose: 40 mg Objective Vital Signs: Temp Pulse Resp BP Pulse Ox 97.5 F 84 16 143/56 95 08/20/17 15:25 08/20/17 15:25 08/20/17 20:17 08/20/17 15:25 08/20/17 20:46 Oxygen Devices in Use Now: Nasal Cannula Appearance: Elderly woman, lying 45 degrees, eating dinner, comfortable, O2 on. Eyes: No Scleral Icterus, PERRLA Ears/Nose/Mouth/Throat: NL Teeth, Lips, Gums Neck: Trachea Midline, No Thyroid Enlargement, Masses Respiratory: Symmetrical Chest Expansion and Respiratory Effort - diminished breath sounds in the bases bilaterally. Cardiovascular: RRR Abdominal: NL Sounds; No Tenderness; No Distention Lymphatic: No Cervical Adenopathy Extremities: No Edema Skin: No Rash or Ulcers Lines/Tubes/Other Access: Clean, Dry and Intact [place], Clean, Dry and Intact Peripheral IV Laboratory Results: 08/20/17 04:35 08/20/17 04:35 INR (Anticoag Therapy) 0.99 (0.89-1.11) 08/13/17 04:47 Total Bilirubin 0.30 mg/dL (0.2-1.0) 08/12/17 11:02 AST 18 U/L (13-39) 08/12/17 11:02 ALT 17 U/L (7-52) 08/12/17 11:02 Alkaline Phosphatase 74 U/L (34-104) 08/12/17 11:02 B-Natriuretic Peptide 1390 pg/mL (-100) H 08/12/17 11:02 Total Protein 5.9 g/dL (6.4-8.9) L 08/12/17 11:02 Albumin 3.4 g/dL (3.2-5.2) 08/12/17 11:02 Globulin 2.5 g/dL (2-4) 08/12/17 11:02 Albumin/Globulin Ratio 1.4 (1-3) 08/12/17 11:02 TSH 5.66 mcIU/mL (0.34-5.60) H 08/12/17 11:02 EKG Data: Sinus rhythm with PAC's/WAP as well as junctional beats. Assessment/Plan 87 yo woman admitted with severe SOB, found to be volume overloaded, evidence of acute and chronic RI (in setting of HTN, DM) and she has preserved ventricular systolic function. Diastolic dysfunction and valvular heart disease could be contributing to fluid overload (CHF and pleural effusions) as well. Anemia could also contribute to diastolic CHF as could her PAF and SSS. Short term I agree with aggressive diuresis. Once dry/goal weight achieved I recommend daily weights at home and adjust diuretics as indicated by weight. Stay off diltiazem and other rate lowering medications at this point. Note that amitryptiline has antiarrhythmic and proarrythmic properties, could be reviewed by her usual toaster element repairer Dr. Infante.
[2017-08-21] MEDS: Levothyroxine TAB* 88 MCG TAB PO SCH (05:52)
[2017-08-21 07:00] LABS: BUN/Creatinine Ratio 25.7 (8-20); Calcium 8.6 mg/dL (8.6-10.3); EGFR African American 37.2 (>60); Potassium 4.2 mmol/L (3.5-5.0)
[2017-08-21] MEDS: Mometasone/Formoter 200/5 MDI INH SCH (07:55)
[2017-08-21] MEDS: Insulin LISPRO* 1 UNITS UNIT SUBCUT SCH ×2 (08:27→12:25)
[2017-08-21] MEDS: Magnesium Hydroxide LIQ* 30 ML UDC PO PRN (09:02)
[2017-08-21] MEDS: Docusate CAP* 100 MG PO SCH (09:03)
[2017-08-21] MEDS: Atorvastatin* 20 MG TAB PO SCH (09:03)
[2017-08-21] MEDS: Omeprazole CAP* 20 MG PO SCH (09:03)
[2017-08-21] MEDS: Apixaban* 2.5 MG TAB PO SCH (09:04)
[2017-08-21] MEDS: Aspirin Low Dose CHEW TAB* 81 MG PO SCH (09:04)
[2017-08-21] MEDS: Torsemide TAB* 20 MG PO SCH (09:04)
[2017-08-21] MEDS ORDERED: Bisacodyl SUPP* 10 MG SUPP PR ONE (09:14)
[2017-08-21 09:37] VITALS: BP 150/70
[2017-08-21] MEDS ORDERED: Polyethylene Glycol 3350* 17 GM PACKET PO SCH (10:00)
--- NOTE | 2017-08-21 10:17 | DCNOTE ---
Subjective Date of Service: 08/21/17 Interval History: Patient seen and examined at bedside. Breathing significantly improved. Down to 147lb from 157lb. HR controlled in the 80s. Denies SOB or pain at this time. No BM since 08/18. Family History: Unchanged from Admission Social History: Unchanged from Admission Past Medical History: Unchanged from Admission Objective Active Medications: Acetaminophen (Tylenol Tab*) 650 mg PO Q4H PRN Albuterol (Ventolin Hfa Inhaler*) 2 puff INH Q2H PRN Amitriptyline HCl (Elavil Tab*) 10 mg PO BEDTIME TITA Apixaban (Eliquis) 2.5 mg PO BID TITA Aspirin (Aspirin Low Dose Tab*) 81 mg PO DAILY TITA Atorvastatin Calcium (Lipitor*) 20 mg PO DAILY TITA Collagenase (Santyl 250 Mg/Gm Oint*) 1 applic TOPICAL DAILY TITA Dextrose (D50w Syringe 50 Ml*) 12.5 gm IV PUSH .FOR FS < 60 - SS PRN Docusate Sodium (Colace Cap*) 200 mg PO BID TITA Gabapentin (Neurontin Cap(*)) 300 mg PO BEDTIME TITA Insulin Glargine (Lantus(*)) 8 units SUBCUT BEDTIME TITA Insulin Human Lispro (Humalog*) 0 units SUBCUT AC TITA Levothyroxine Sodium (Synthroid Tab*) 88 mcg PO DAILY@0600 TITA Magnesium Hydroxide (Milk Of Magnesia Liq*) 30 ml PO BID PRN Mometasone Furoate/Formoterol Fumar (Dulera 200/5 Mdi*) 2 puff INH BID TITA Omeprazole (Prilosec Cap*) 20 mg PO BID TITA Oxycodone HCl (Roxycodone Tab*) 5 mg PO Q8H PRN Polyethylene Glycol/Electrolytes (Miralax*) 17 gm PO DAILY TITA Torsemide (Demadex*) 40 mg PO DAILY TITA Vital Signs Temp Pulse Resp BP Pulse Ox 97.5 F 82 20 150/70 96 08/21/17 07:53 08/21/17 07:58 08/21/17 08:00 08/21/17 07:53 08/21/17 07:58 Oxygen Devices in Use Now: None Appearance: sitting up in bed, NAD Eyes: No Scleral Icterus, PERRLA Ears/Nose/Mouth/Throat: NL Teeth, Lips, Gums, Mucous Membranes Moist Neck: NL Appearance and Movements; NL JVP Respiratory: Symmetrical Chest Expansion and Respiratory Effort, - - slight crackles at bases Abdominal: NL Sounds; No Tenderness; No Distention Extremities: No Edema Skin: No Rash or Ulcers Neurological: Alert and Oriented x 3, NL Muscle Strength and Tone Lines/Tubes/Other Access: Clean, Dry and Intact Peripheral IV Result Diagrams: 08/20/17 04:35 08/21/17 05:55 Microbiology and Other Data: . Diagnostic Imaging: . Assess/Plan/Problems-Billing Assessment: Patient is an 87 year old who presented to [facility] with a chief complaint of weakness and admitted with suspected PNA with ARF and hyperkalemia. - Patient Problems (1) Acute respiratory failure with hypoxia (2) CHF (congestive heart failure) (3) Pneumonia (4) Chronic disease anemia (5) Acute renal failure superimposed on stage 3 chronic kidney disease (6) Hyperkalemia (7) Diabetes (8) Atrial fibrillation (9) Hx of coronary artery disease (10) Hypothyroidism (11) DVT prophylaxis (12) Full code status Status and Disposition: Inpatient. Stable to be discharged to [facility]. See fully dictated discharge summary regarding plan for above diagnoses.
[2017-08-21] MEDS: Collagenase 250 MG/GM OINT* 30 GM TOPICAL SCH (12:00)
--- NOTE | 2017-08-21 13:23 | DS ---
CC: Dr. Polanco; Dr. Spivey * DISCHARGE SUMMARY: DATE OF ADMISSION: 08/12/17 DATE OF DISCHARGE: 08/21/17 ATTENDING PHYSICIAN: Mina Brower MD *(report dictated by Juani Vallejo NP) PRIMARY CARE PROVIDER: Dr. Bennett. CONSULTATIONS WHILE IN THE HOSPITAL: Ino Polanco MD, Cardiology. HOME RIDE ASSEMBLY SUPERVISOR: Dr. Spivey. PRIMARY DIAGNOSES: 1. Hyperkalemia, acute renal failure. 2. Congestive heart failure exacerbation with preserved ejection fraction. 3. Bilateral pleural effusions. 4. Bilateral pneumonia. SECONDARY DIAGNOSES: 1. Diabetes. 2. Hypertension. 3. Polymyalgia rheumatica. 4. Accelerated junctional rhythm. STUDIES WHILE IN THE HOSPITAL: 1. Chest PA and lateral, low lung volumes with bibasilar atelectasis versus early consolidation. 2. Chest PA and lateral 08/17/17, bibasilar infiltrates and small pleural effusions demonstrating interval progression. Displaced vertebral fracture present at the dorsal lumbar junction, unchanged, that was on 08/17/17. 3. Chest x-ray from 08/19/17 shows bilateral pleural effusions with bibasilar atelectasis with interstitial edema, does appears to be progressed since prior exam. 4. Transthoracic echocardiogram on 08/19/17, [id number] concentric left ventricular hypertrophy is observed. Global left ventricular wall motion contractility within normal limits. The estimated ejection fraction is greater than 65%. The right ventricular global systolic function is normal. The aortic valve leaflets are mildly thickened. There is mild aortic stenosis with a mean gradient aortic valve of 7.7 mmHg. Mitral valve leaflet mobility is mildly restricted. There is mild mitral regurgitation. There is mild mitral stenosis. There is moderate tricuspid regurgitation. There is evidence of [id number] pulmonary hypertension. There is no significant pericardial effusion. There are no significant changes when compared to previous study done on 04/04/17. MEDICATIONS AT THE TIME OF DISCHARGE: New medications: 1. Milk of mag 30 mL oral twice daily as needed. 2. MiraLAX 17 g oral daily. Following are all medications that the patient came in on: 1. Aspirin 81 mg oral daily. 2. Tylenol 650 mg oral every 6 hours as needed. 3. Colace 200 mg oral twice daily as needed. 4. Melatonin 3 mg at bedtime as needed. 5. Synthroid 88 mcg oral daily. 6. Elavil 10 mg oral at bedtime. 7. Lipitor 20 mg oral daily. 8. Humalog 5 to 10 units subcu 3 times daily before meals. 9. Oxycodone 5 mg oral every 8 hours as needed. 10. Albuterol HFA 2 puffs inhaled every 2 hours. 11. Dulera 200/5 2 puffs inhale twice daily. 12. Eliquis 2.5 mg oral twice daily. 13. Calcium with vitamin D 1 tablet oral daily. 14. Santyl 1 application topical to heel daily. 15. Neurontin 300 mg oral at bedtime. 16. Lantus 8 units subcu at bedtime. 17. Prilosec 20 mg oral twice daily. 18. Demadex 20 mg oral daily. 19. Clotrimazole 1 application topical every 12 hours. The patient is instructed to discontinue Cardizem. HISTORY OF PRESENT ILLNESS AND HOSPITAL COURSE: Ms. Song is an 87-year-old female with past medical history significant for coronary artery disease, paroxysmal atrial fibrillation, congestive heart failure, chronic kidney disease , hypothyroidism, who presented to the emergency room on 08/12/17 with the complaint of weakness. In the emergency room, the patient was found to be hyperkalemic and in acute renal failure. In addition, she was found to have early pneumonia. She was admitted to the telemetry floor and placed on Zithromax and ceftriaxone for bibasilar pneumonia. In addition, she received Kayexalate for hyperkalemia and fluid to help improve for her acute renal failure. Gradually, over 2 to 3 days, with fluid, her renal function improved. Torsemide was held. Her hyperkalemia improved and white count normalized. Unfortunately, with fluid administration and withhold of diuretics, the patient developed an oxygen requirement and pleural effusions on chest x-ray. A dose of Lasix was given yet that was insufficient. Subsequently, the patient's oxygen requirement increased to close to 3 L. At this point, cardiology consultation was obtained as the patient's heart rate was consistently in the 40 's to 50's, accelerated junctional. Please refer to Dr. Polanco's dictation for detail. Recommendation from Cardiology was to continue aggressive diuresis and consider the addition of spironolactone for the patient's pulmonary hypertension. Given the patient's chronic renal insufficiency and risk of hyperkalemia, at this time the medication was not started. Once the patient has completed sufficient diuresis with a stable creatinine, this could be started. The patient's Cardizem was stopped. The patient had a repeat echocardiogram that did not show any acute changes. Likely, the patient was now in CHF due to fluid overload from excess fluid to correct her renal failure. Soto catheter was inserted and the patient had a 2-day period of aggressive diuresis. She went from a weight of 157 down to a rate of 147 and diuresed close to 7 L of fluid. With this diuresis, she was able to be weaned off oxygen and was satting 93% on room air with a respiratory rate 16 to 18. Prior to discharge, she was given multiple medications to help her have bowel movement and hopefully she will have bowel movement prior to discharge. She should be kept on a regular bowel regimen as she does take regular narcotics. On 08/21/17, vitals were as follows.: Temperature 97.3, heart rate 83, respiratory rate 18, oxygen saturation 98%, blood pressure 150/73. At this point, she was stable for discharge. DISCHARGE PLAN: The patient will be discharged on a consistent carb, renal diet. Following are the items that need to be followed up. 1. The patient should have daily weights and the covering physician should be notified if she has greater than a 3-pound weight gain. Her weight is currently 147 at discharge. Consideration could be given to increase her dose of torsemide if her weight starts to increase. 2. Recommendation from Cardiology was to consider the addition of spironolactone for her pulmonary hypertension, yet given that she is at very high risk of hyperkalemia, this was not started at this time. 3. She should have followup lab work on August 25, to ensure that her creatinine has remained stable on the dose of 20 mg of torsemide. I have reviewed all the instructions with the patient and her son and they are agreeable with her discharge to [facility] today. This is a summarized report of a complex medical history and hospital stay. For more details, please see the entire medical record. CONDITION ON DISCHARGE: Stable. JUANI VALLEJO, HAND CANDY CUTTER [id number]/[facility] #: [id number] ROMEO
== END 2017-08-21 15:00 | disposition home health service (06) | DRG 682 ==
LOC: ED 10:33 → MEDTELE 13:12
PROVIDERS: ADMIT Internal Medicine; ATTEND Specialist
PROC: 0T9B70Z Drainage of Bladder with Drainage Device, Via Natural or Artificial Opening (ICD-10-PCS; principal; 2017-08-17)
DX: N17.9 Acute kidney failure, unspecified (principal); J18.9 Pneumonia, unspecified organism; J96.01 Acute respiratory failure with hypoxia; I50.33 Acute on chronic diastolic (congestive) heart failure; J90 Pleural effusion, not elsewhere classified; E87.5 Hyperkalemia; E11.22 Type 2 diabetes mellitus with diabetic chronic kidney disease; E87.70 Fluid overload, unspecified; I13.0 Hypertensive heart and chronic kidney disease with heart failure and stage 1 through stage 4 chronic kidney disease, or unspecified chronic kidney disease; S32.009A Unspecified fracture of unspecified lumbar vertebra, initial encounter for closed fracture; J44.0 Chronic obstructive pulmonary disease with (acute) lower respiratory infection; J98.11 Atelectasis; I48.0 Paroxysmal atrial fibrillation; E86.0 Dehydration; E03.9 Hypothyroidism, unspecified; E78.00 Pure hypercholesterolemia, unspecified; H91.90 Unspecified hearing loss, unspecified ear; I25.10 Atherosclerotic heart disease of native coronary artery without angina pectoris; M79.7 Fibromyalgia; R40.2412 Glasgow coma scale score 13-15, at arrival to emergency department; R32 Unspecified urinary incontinence; N18.3 Chronic kidney disease, stage 3 (moderate); D63.8 Anemia in other chronic diseases classified elsewhere; I27.20 Pulmonary hypertension, unspecified; M40.209 Unspecified kyphosis, site unspecified; I49.8 Other specified cardiac arrhythmias; M35.3 Polymyalgia rheumatica; Z95.5 Presence of coronary angioplasty implant and graft; Z90.49 Acquired absence of other specified parts of digestive tract; Z90.710 Acquired absence of both cervix and uterus; Z88.0 Allergy status to penicillin; Z88.2 Allergy status to sulfonamides; Z82.0 Family history of epilepsy and other diseases of the nervous system; Z80.42 Family history of malignant neoplasm of prostate; Z87.891 Personal history of nicotine dependence; Z87.01 Personal history of pneumonia (recurrent); Z82.49 Family history of ischemic heart disease and other diseases of the circulatory system; Z79.82 Long term (current) use of aspirin; Z79.4 Long term (current) use of insulin; Z79.01 Long term (current) use of anticoagulants
CPT/HCPCS: 36415; 71020; 80048; 80053; 81003; 81015; 82550; 82570; 82728; 82947; 83540; 83550; 83735; 83880; 84300; 84443; 84484; 85025; 85610; 86140; 87040; 87086; 87502; 87899; 93005; 93306; 94640; 94760; A9270-GY; J0456; J0610; J0696; J1940

== ENCOUNTER 2017-09-20 16:10 | Emergency (ER) | payer MEDICARE, BC ==
[2017-09-20 16:37] VITALS: BP 0/0
--- NOTE | 2017-09-25 10:54 | ED ---
Ra Harrison Abhishek, scribed for Garry Abreu MD on 09/20/17 at 1638 . Cardiac Resuscitation - HPI Summary HPI Summary: This patient is an 87 year old F BIBA with a c/o LOC and cardiac arrest since hours ago. ABC alert was given at 1555. Pt history was reported by the EMS and the patients alf ([facility]). EMS Report states the CPR was preformed enroute to the ED and onsite. Pt was coming from [facility]. She is a full code; found down by staff. The staff performed AED started CPR prior to EMS arrival. One shock was delivered [facility] by [facility]. BLS was given enroute as well. She received 3 rounds of epinephrine and ALS as well. Patient arrived to the [facility] at 1605. Upon arrival to the [facility], CPR was performed. The following information [facility] She stated that the patient at 0900 had a temperature of 102 F; pulse asymmetry undetected. Patient was eating food and drinking water normally. Pt was put on Oxygen afterwards. At 1400, Pt was reassessed for small bowel movement. Chest X-ray had been ordered but not completed. She remained on oxygen and was congested. At 1535 she was found to be without vital signs. - History of Current Complaint Chief Complaint: EDCardiacArrest Stated Complaint: CARDIAC ARREST Hx From Patient Unobtainable Due To: Altered Mental Status Arrest Witnessed: No AED Placed on Patient By: EMS Did AED Recommend Defibrillation: Yes Was Defibrillating Shock Administered: Yes - Additional Pertinent History Primary Care Physician: [id number] - Allergies/Home Medications Allergies/Adverse Reactions: Allergies Allergy/AdvReac Type Severity Reaction Status Date / Time Penicillins [PCN] Allergy Mild Hives Verified 03/31/16 12:52 Sulfa Antibiotics Allergy Mild Hives Verified 03/31/16 12:52 - Past Medical History Past Medical History: Unobtainable Due to Extremis - LEVEL 5 CAVEAT (LOC) - Family History Family History: Unobtainable Due to Extremis - LEVEL 5 CAVEAT LOC - Social History Social History: Unobtainable Due to Extremis - LEVEL 5 CAVEAT (LOC) - Review of Systems Review of Systems: Unobtainable Due to Extremis - Pt was unresponsive upon entering [facility]. LEVEL 5 CAVEAT Physical Examination - Physical Examination Completion Of Physical Exam Limited Due To: Extremis Resuscitation: Unsuccessful Physical Exam Additional Comments: HENT: Normocephalic; Atraumatic Eyes: Pupils were fixed and dilated Neck: Musculoskeletal ROM normal neck. (-) JVD, (-) Stridor, (-) Tracheal deviation Pulmonary/Chest wall: Bilateral equal breath sounds Abd: Distended abd, EMS reports the abd was minimally distended prior to transport - ED Findings Disability/Neurological: Unresponsive Procedures - Procedure Summary Procedure Summary: cardiac echocardiogram was performed by the ED physician. echocardiogram reveals cardiac standstill. Diagnostics - Vital Signs Vital Signs Temp Pulse Resp BP Pulse Ox 09/20/17 16:35 -17.7 C 0 0 0/0 0 - Laboratory Lab Statement: Any lab studies that have been ordered have been reviewed, and results considered in the medical decision making process. Cardiac Resus. Course/Dx - Course Course Of Treatment: This patient is an 87 year old F BIBA with a chief complaint of Syncope (LOC) since hours ago. ABC alert was given at 1555. Pt history was reported by the EMS and the patients alf ([facility]). EMS Report states the CPR was preformed enroute to the ED and onsite. Pt was coming from [facility]. She is a full code; found down by staff. The staff performed AED started CPR prior to EMS arrival. One shock was delivered prior to [facility] arrival by the EMS. BLS was given enroute as well. She received 3 rounds of epinephrine and ALS as well. Patient arrived to the [facility] at 1605. Upon arrival to the [facility], CPR was performed. The following information was given by the [facility]. She stated that the patient at 0900 had a temperature of 102 F; pulse asymmetry undetected. Patient was eating food and drinking water normally. Pt was put on Oxygen afterwards. At 1400, Pt was reassessed for small bowel movement. Chest X-ray had been ordered but not completed. She remained on oxygen and was congested. At 1535 she was found to be without vital signs. We discussed the certificate and other logistics with a medical staffing coordinator ([place]) at 1650. She was in agreement with ED physician signing the certificate. The Dx will be cardiopulmonary arrest. Pt at the [facility] at 1612. - Diagnoses Provider Diagnoses: Cardiopulmonary arrest Discharge - Discharge Plan Condition: Disposition: Referrals: Domi Bennett MD [Primary Care Provider] - The documentation as recorded by the Ra ingram Abhishek accurately reflects the service I personally performed and the decisions made by , Garry Abreu MD.
== END 2017-09-20 18:52 | disposition expired ==
LOC: ED 16:10
DX: I46.9 Cardiac arrest, cause unspecified (principal); Z88.0 Allergy status to penicillin; Z88.2 Allergy status to sulfonamides
CPT/HCPCS: 92950; 99285